=== PATIENT | male | born 1960 | race Caucasian/White ===

== ENCOUNTER 2023-07-25 12:26 | Emergency (ER) | payer MEDICARE, OTHER ==
[~2023-07-25] VITALS: Ht 165.1 cm; Wt 51.2 kg
[2023-07-25 13:29] VITALS: BP 137/87; PULSE 93; RESP 18; TEMP 97.9; O2SAT 97
[2023-07-25] MEDS ORDERED: LACTULOSE 20Gm/30ML SOLN PO ONE (14:15)
[2023-07-25 14:24] LABS: Basophils # (auto) 0 10 ^3/uL (0-0.2); Basophils % (auto) 0.7 % (0.0-2.0); Eosinophils # (auto) 0.1 10 ^3/uL (0-0.8); Eosinophils % (auto) 2.7 % (0.0-7.0); Hematocrit 42.5 % (41.0-53.0); Hemoglobin 14.3 g/dL (13.5-17.5); Lymphocytes # (auto) 1.6 10 ^3/uL (0.4-5.4); Lymphocytes % (auto) 28.5 % (10.0-50.0); Mean Corpuscular Hemoglobin 32.5 pg (28.0-32.0); Mean Corpuscular Hgb Conc. 33.8 g/dL (32.0-36.0); Mean Corpuscular Volume 96.2 fL (80.0-100.0); Monocytes # (auto) 0.7 10 ^3/uL (0-1.3); Monocytes % (auto) 13.2 % (0.0-12.0); Neutrophils % (auto) 54.9 % (37.0-80.0); Nucleated Red Blood Cells % 0.1 %; Red Blood Cells 4.41 10^6/uL (4.5-5.90); Red Cell Distribution Width 14.3 % (11.8-14.3); White Blood Cell 5.5 10^3/uL (4.4-10.8)
[2023-07-25 14:30] LABS: Alanine Aminotransferase 21 U/L (7-40); Albumin 4.2 g/dL (3.2-4.8); Alkaline Phosphatase 119 U/L (46-116); Anion Gap 5 (5-15); Aspartate Aminotransferase 12 U/L (13-40); BUN/Creatinine Ratio 22.1 (10.0-20.0); Bilirubin, Total 0.2 mg/dL (0.2-1.0); Blood Urea Nitrogen 27 mg/dL (9-23); Calcium 8.9 mg/dL (8.7-10.4); Carbon Dioxide 28 mmol/L (20-30); Chloride 108 mmol/L (98-107); Glucose 92 mg/dL (74-106); Potassium 4.4 mmol/L (3.5-5.1); Sodium 141 mmol/L (136-145); Total Protein 6.2 g/dL (5.7-8.2)
[2023-07-25] MEDS ORDERED: LACT10PA2 PO (14:56)
== END 2023-07-25 15:15 | disposition home or self-care (01) ==
LOC: ER 12:26
DX: K59.00 Constipation, unspecified (principal)
CPT/HCPCS: 36415; 74176; 80053; 85025

== ENCOUNTER 2024-04-08 04:35 | Inpatient (IN) | payer MEDICARE ==
[~2024-04-08] VITALS: Ht 167.6 cm; Wt 52.0 kg
[~2024-04-08 04:35] MED LIST: LACT10PA2 PO
[2024-04-08] MEDS: LABETALOL HCL 5 MG/ML 4ML SYRINGE IV ONE (05:00)
[2024-04-08] MEDS: cloNIDine HCL 0.1 MG TAB PO ONE (05:00)
[2024-04-08 05:21] LABS: Basophils # (auto) 0 10 ^3/uL (0-0.2); Basophils % (auto) 0.3 % (0.0-2.0); Eosinophils # (auto) 0 10 ^3/uL (0-0.8); Eosinophils % (auto) 0.2 % (0.0-7.0); Hematocrit 43.9 % (41.0-53.0); Hemoglobin 14.8 g/dL (13.5-17.5); Lymphocytes % (auto) 7.1 % (10.0-50.0); Mean Corpuscular Hemoglobin 31.9 pg (28.0-32.0); Mean Corpuscular Hgb Conc. 33.7 g/dL (32.0-36.0); Mean Corpuscular Volume 94.4 fL (80.0-100.0); Monocytes % (auto) 7.2 % (0.0-12.0); Neutrophils % (auto) 85.2 % (37.0-80.0); Red Blood Cells 4.65 10^6/uL (4.5-5.90); Red Cell Distribution Width 14.4 % (11.8-14.3); White Blood Cell 14.1 10^3/uL (4.4-10.8)
[2024-04-08 05:33] LABS: Chloride 103 mmol/L (98-107); Potassium 4.2 mmol/L (3.5-5.1); Sodium 137 mmol/L (136-145)
[2024-04-08 05:34] LABS: Anion Gap 5 (5-15); Carbon Dioxide 29 mmol/L (20-30)
[2024-04-08 05:35] LABS: Calcium 10.2 mg/dL (8.7-10.4)
[2024-04-08 05:39] LABS: BUN/Creatinine Ratio 11.2 (10.0-20.0); Blood Urea Nitrogen 12 mg/dL (9-23); Glucose 125 mg/dL (74-106)
[2024-04-08] MEDS: metroNIDAZOLE 500MG/100ML 100 ML IV ONE (09:15)
[2024-04-08] MEDS ORDERED: ACETAMINOPHEN 325 MG TAB PO PRN (09:15)
[2024-04-08] MEDS: OMNIPAQUE 12mg/ml 500ml ORAL SOLUTION PO ONE (09:31)
[2024-04-08] MEDS: SOD CHL 0.45% 1,000 ML IV SCH (09:46)
[2024-04-08] MEDS: cefTRIAXone 1GM/50ML D5W 50 ML IV ONE (09:46)
[2024-04-08] MEDS: ONDANSETRON HCL 4 MG/2 ML VIAL IV ONE (09:47)
[2024-04-08] MEDS: SODIUM CHLORIDE 0.9% 1,000 ML IV ONE (09:47)
[2024-04-08] MEDS: MORPHINE SULFATE 4 MG/ML SYR/VIAL IV ONE (09:50)
[2024-04-08 10:51] LABS: Urine Bacteria None Seen /hpf (None Seen)
[2024-04-08 11:05] LABS: Urine Blood Negative /uL (Negative); Urine Clarity Turbid (Clear); Urine Color Yellow (Yellow); Urine Mucus FEW (None Seen); Urine Protein, UAD TRACE (Negative); Urine Specific Gravity 1.022 (1.001-1.035); Urine Urobilinogen 2 mg/dL (Negative); Urine WBC 12 /hpf (0 - 3); Urine pH 6.5 (5.0-9.0)
[2024-04-08 11:09] LABS: Amphetamine Screen, Urine Pos (NEGATIVE); Benzodiazephine Screen, Urine Neg (NEGATIVE)
[2024-04-08 11:10] LABS: Barbiturate Scree,Urine Neg (NEGATIVE); Cannabinoid Screen, Urine Neg (NEGATIVE); Cocaine Screen, Urine Neg (NEGATIVE); Opiate Scree,Urine Pos (NEGATIVE); Phencyclidine Screen, Urine Neg (NEGATIVE)
[2024-04-08] MEDS: HYDROcodone-ACET 5/325MG TAB PO PRN (11:30)
[2024-04-08] MEDS: NICOTINE 7MG/24HR TOPICAL PATCH TD SCH (11:30)
[2024-04-08] MEDS: ONDANSETRON HCL 4 MG/2 ML VIAL IV PRN (11:30)
[2024-04-08] MEDS: PANTOPRAZOLE 40 MG/10 ML VIAL INJ IV SCH (11:30)
[2024-04-08] MEDS: LISINOPRIL 5 MG TAB PO SCH (11:32)
[2024-04-08] MEDS: metroNIDAZOLE 500MG/100ML 100 ML IV SCH (15:10)
[2024-04-08 17:02] VITALS: PULSE 92; RESP 20; O2SAT 96
[2024-04-08 18:10] VITALS: BP 120/81; PULSE 87; RESP 18; TEMP 99.3; O2SAT 94
[2024-04-08 18:23] VITALS: BP 120/81; PULSE 87; RESP 18; TEMP 99.3; O2SAT 94
[2024-04-08 21:00] VITALS: BP 102/58; PULSE 97; RESP 16; TEMP 99.6; O2SAT 100
[2024-04-09] VITALS (9 sets, daily range): BP systolic 88–112; BP diastolic 54–74; PULSE 79–96; RESP 12–21; TEMP 98–100; O2SAT 94–99
[2024-04-09 06:05] LABS: Basophils # (auto) 0.1 10 ^3/uL (0-0.2); Basophils % (auto) 0.3 % (0.0-2.0); Eosinophils # (auto) 0 10 ^3/uL (0-0.8); Eosinophils % (auto) 0.2 % (0.0-7.0); Hematocrit 39.1 % (41.0-53.0); Lymphocytes # (auto) 1.2 10 ^3/uL (0.4-5.4); Lymphocytes % (auto) 7.2 % (10.0-50.0); Mean Corpuscular Hgb Conc. 33.3 g/dL (32.0-36.0); Monocytes # (auto) 1.6 10 ^3/uL (0-1.3); Monocytes % (auto) 9.3 % (0.0-12.0); Neutrophils # (auto) 14.4 10 ^3/uL (1.6-8.6); Red Blood Cells 4.07 10^6/uL (4.5-5.90); Red Cell Distribution Width 14.6 % (11.8-14.3); White Blood Cell 17.3 10^3/uL (4.4-10.8)
[2024-04-09 06:28] LABS: Albumin 3.5 g/dL (3.2-4.8); Alkaline Phosphatase 118 U/L (46-116); Anion Gap 4 (5-15); Aspartate Aminotransferase 10 U/L (13-40); BUN/Creatinine Ratio 10.3 (10.0-20.0); Bilirubin, Total 0.7 mg/dL (0.2-1.0); Blood Urea Nitrogen 10 mg/dL (9-23); Calcium 9.2 mg/dL (8.7-10.4); Carbon Dioxide 24 mmol/L (20-30); Chloride 104 mmol/L (98-107); Glucose 97 mg/dL (74-106); Potassium 3.6 mmol/L (3.5-5.1); Total Protein 5.7 g/dL (5.7-8.2)
[2024-04-09 06:31] LABS: Alanine Aminotransferase < 9 U/L (7-40); Sodium 132 mmol/L (136-145)
[2024-04-09] MEDS ORDERED: LACT10SO3 PO (07:03)
[2024-04-09] MEDS: cefTRIAXone 1GM/50ML D5W 50 ML IV SCH (08:23)
[2024-04-09] MEDS: ACETAMINOPHEN 325 MG TAB PO PRN (08:28)
[2024-04-10] MEDS: MORPHINE SULFATE INJ 2 MG/ml SYRG IV PRN (00:58)
[2024-04-10 05:00] VITALS: BP 107/74; PULSE 81; RESP 18; TEMP 98; O2SAT 94
[2024-04-10 07:12] LABS: Basophils # (auto) 0 10 ^3/uL (0-0.2); Basophils % (auto) 0.4 % (0.0-2.0); Eosinophils # (auto) 0.1 10 ^3/uL (0-0.8); Eosinophils % (auto) 0.5 % (0.0-7.0); Hematocrit 37.4 % (41.0-53.0); Hemoglobin 12.8 g/dL (13.5-17.5); Lymphocytes # (auto) 1.1 10 ^3/uL (0.4-5.4); Lymphocytes % (auto) 9.3 % (10.0-50.0); Mean Corpuscular Hgb Conc. 34.2 g/dL (32.0-36.0); Mean Corpuscular Volume 93.8 fL (80.0-100.0); Monocytes # (auto) 0.9 10 ^3/uL (0-1.3); Monocytes % (auto) 7.8 % (0.0-12.0); Neutrophils # (auto) 9.9 10 ^3/uL (1.6-8.6); Red Blood Cells 3.99 10^6/uL (4.5-5.90); Red Cell Distribution Width 14.5 % (11.8-14.3); White Blood Cell 12.1 10^3/uL (4.4-10.8)
[2024-04-10 07:38] LABS: Anion Gap 5 (5-15); Carbon Dioxide 26 mmol/L (20-30); Chloride 105 mmol/L (98-107); Potassium 3.6 mmol/L (3.5-5.1); Sodium 136 mmol/L (136-145)
[2024-04-10 07:39] LABS: Calcium 8.8 mg/dL (8.5-10.1)
[2024-04-10 07:44] LABS: BUN/Creatinine Ratio 14.9 (10.0-20.0); Blood Urea Nitrogen 13 mg/dL (9-23); Glucose 95 mg/dL (74-106)
[2024-04-10 07:57] LABS: INR 1.15 (0.9-1.15); Prothrombin Time 12.1 sec (9.3-11.8)
[2024-04-10 08:00] VITALS: PULSE 88; RESP 18
[2024-04-10 09:00] VITALS: BP 120/78; PULSE 83; RESP 20; TEMP 98.4; O2SAT 94
[2024-04-10 13:00] VITALS: BP 112/71; PULSE 75; RESP 20; TEMP 97.9; O2SAT 100
[2024-04-10 17:00] VITALS: BP 108/73; PULSE 83; RESP 20; TEMP 98.3; O2SAT 95
[2024-04-10] MEDS ORDERED: metroNIDAZOLE 500 MG TAB PO SCH ×2 (22:00)
[2024-04-11] MEDS ORDERED: FLEET ENEMA(ADULT) 135 ML PR ONE (06:00)
[2024-04-11 08:54] LABS: Hepatitis B Surface Antibody Positive (Negative)
[2024-04-11 09:28] LABS: Hepatitis C Antibody Negative (Negative)
== END 2024-04-10 21:40 | disposition left against medical advice (07) | DRG 378 ==
LOC: ER 04:35 → EDSEX 04:35 → EDBD 04:35 → OVERFLOW 09:14 → CENTRAL 18:07
PROVIDERS: ADMIT Registered Nurse; ATTEND Registered Nurse
DX: K62.5 Hemorrhage of anus and rectum (principal); C19 Malignant neoplasm of rectosigmoid junction; F11.20 Opioid dependence, uncomplicated; I16.0 Hypertensive urgency; K63.9 Disease of intestine, unspecified; F15.10 Other stimulant abuse, uncomplicated; K59.00 Constipation, unspecified; Z53.29 Procedure and treatment not carried out because of patient's decision for other reasons; F17.210 Nicotine dependence, cigarettes, uncomplicated
CPT/HCPCS: 36415; 74176; 74177; 80048; 80053; 80307; 81001; 82378; 84484; 85025; 85610; 86706; 86803; 87040; 87045; 87427; 87493; 93005; 96365; 96366; 96368; 96375; C9113; G0378; J2405; J3490

== ENCOUNTER 2024-10-25 17:30 | Emergency (ER) | payer MEDICARE ==
[~2024-10-25] VITALS: Ht 165.1 cm; Wt 53.7 kg
[~2024-10-25 17:30] MED LIST changes: -LACT10PA2 PO; +LACT10SO3 PO
[2024-10-25 17:39] VITALS: BP 141/98; PULSE 110; RESP 20; O2SAT 100
== END 2024-10-25 18:02 | disposition left against medical advice (07) ==
LOC: ER 17:30
DX: K62.89 Other specified diseases of anus and rectum (principal); R19.7 Diarrhea, unspecified; Z53.21 Procedure and treatment not carried out due to patient leaving prior to being seen by health care provider

== ENCOUNTER 2025-03-25 18:37 | Inpatient (IN) | payer MEDICARE ==
[~2025-03-25] VITALS: Ht 167.6 cm; Wt 59.0 kg
--- NOTE | 2025-03-25 18:59 | ED.PDOC ---
GI ASSESSMENT HPI Comments 65-year-old male came your via EMS for GI bleed. Patient denies any medical problems. States for the past year, he has been having GI issues, including intermittent episodes of diarrhea and constipation. For the past few months, he has been having episodes of GI bleed, passage of bright red blood, with rectal pain. During this time, patient claims he notices a mass protruding out of his rectum. Denies any abdominal pain, nausea or vomiting. Denies any abdominal surgeries. Earlier today, patient had a episode of black tarry stools which he described as pudding like in consistency. 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, noted 6.4 cm rectosigmoid mass, was advised colonoscopy but patient signed AMA then Chief Complaint: GI Bleed Time Seen by MD: 18:57 Primary Care Provider: UNKNOWN Reviewed Notes: Nurses Notes Allergies: Coded Allergies: NO KNOWN ALLERGIES (Unverified , 07/25/23) Home Meds Reported Medications Lactulose (Lactulose) 10 Gm/15 Ml Margaret, 10 GM PO BIDPRN PRN for FOR CONSTIPATION, ML 04/09/24 Information Source: Patient Mode of Arrival: EMS Timing: Hours Duration: Since onset Prehospital treatment: None Stool: Blood Streaked, Black Severity: Moderate Recent Hx of: None Pain Location: Other (Rectal pain) Modifying Factors: Nothing Associated sign and symptoms: Hematochezia, Melena Past Medical History PAST MEDICAL HISTORY: Denies Surgical History: Denies all surgeries Family History Family History: Reviewed,noncontributory to illness Social History Smoker: Cigarettes Alcohol: Denies ETOH Use Drugs: Methamphetamine Lives In: Home Constitutional: denies: chills, diaphoresis, fatigue, fever, malaise, sweats, weakness, others EENTM: denies: blurred vision, double vision, ear bleeding, ear discharge, ear drainage, ear pain, ear ringing, eye pain, eye redness, hearing loss, mouth pa in, mouth swelling, nasal discharge, nose bleeding, nose congestion, nose pain, photophobia, tearing, throat pain, throat swelling, voice changes, others Respiratory: denies: cough, hemoptysis, orthopnea, SOB at rest, shortness of breath, SOB with excertion, stridor, wheezing, others Cardiovascular: denies: chest pain, dizzy spells, diaphoresis, Dyspnea on exertion, edema, irregular heart beat, left arm pain, lightheadedness, palpitations, PND, syncope, others Gastrointestinal: reports: diarrhea, melena, rectal bleeding, rectal pain; denies: abdomen distended, abdominal pain, blood streaked bowels, constipated, dysphagia, difficulty swallowing, hematemesis, nausea, poor appetite, poor fluid intake, vomiting, others Genitourinary: denies: burning, dysuria, flank pain, frequency, hematuria, incontinence, penile discharge, penile sore, pain, testicle pain, testicle swelling, urgency, others Neurological: denies: dizziness, fainting, headache, left sided numbness, left sided weakness, numbness, paresthesia, pre-existing deficit, right sided numbness, right sided weakness, seizure, speech problems, tingling, tremors, weakness, others Musculoskeletal: denies: back pain, gout, joint pain, joint swelling, muscle pain, muscle stiffness, neck pain, others Integumetry: denies: bruises, change in color, change in hair/nails, dryness, laceration, lesions, lumps, rash, wounds, others Allergic/Immunocompromised: denies: Difficulty Healing, Frequent Infections, Hives, Itching, others Hematologic/Lymphatic: denies: anemia, blood clots, easy bleeding, easy bruising, swollen glands, others Endocrine: denies: excessive hunger, excessive sweating, excessive thirst, excessive urination, flushing, intolerance to cold, intolerance to heat, unexplained weight gain, unexplained weight loss, others Psychiatric: denies: anxiety, bipolar disorder, depression, hopeless, panic disorder, schizophrenia, sleepless, suicidal, others Physical Exam General Appearance: No Apparent Distress, Normal HEENT: Normal ENT Inspection, Pharynx Normal, TMs Normal Neck: Full Range of Motion, Non-Tender, Normal, Normal Inspection Respiratory: Chest Non-Tender, Lungs Clear, No Accessory Muscle Use, No Respiratory Distress, Normal Breath Sounds Cardiovascular: No Edema, No JVD, No Murmur, No Gallop, Normal Peripheral Pulses, Regular Rate/Rhythm Breast Exam: Deferred Gastrointestinal: No Organomegaly, Non Tender, No Pulsatile Mass, Normal Bowel Sounds, Soft Genitalia: Deferred Pelvic: Deferred Rectal: Deferred Extremities: No calf tenderness, Normal capillary refill, Normal inspection, Normal range of motion, Non-tender, No pedal edema Musculoskeletal : Apperance: Normal Neurologic: Alert, grass farm laborer II-XII nml as Tested, No Motor Deficits, Normal Affect, Normal Mood, No Sensory Deficits Cerebellar Function: Normal Reflexes: Normal Skin: Dry, Normal Color, Warm Lymphatic: No Adenopathy Was a procedure done? Was a procedure done?: No GI differential Dx Differential Diagnosis: Diverticular disease, Gastritis/PUD, Gastroenteritis, GI hemorrhage, Hernia, Inflammatory BD, Ischemic Bowel, Anemia, Other (Rectal prolapse) X-Ray, Labs, Meds, VS Vital Signs Date Time Temp Pulse Resp B/P (MAP) Pulse Ox O2 Delivery O2 Flow Rate FiO2 03/25/25 21:00 89 18 146/101 (116) 98 03/25/25 19:15 98.3 86 30 131/87 (102) 96 98.3 03/25/25 19:15 90 22 96 Room Air* 0 21 03/25/25 18:42 98.0 91 18 131/80 (97) 99 98.0 Lab Test 03/25/25 19:46 03/25/25 18:55 Range/Units Urine Color Light-yellow Yellow Urine Clarity Clear Clear Urine pH 6.5 5.0-9.0 Urine Specific [place] 1.013 1.001-1.035 Urine Protein Negative Negative Urine Ketones Negative Negative Urine Blood Negative Negative /uL Urine Nitrite Negative Negative Urine Bilirubin Negative Negative Urine Urobilinogen Normal Negative mg/dL Urine Leukocyte Esterase Negative Negative /uL Urine RBC 1 0 - 3 /hpf Urine Microscopic WBC 1 0-3 /HPF Urine Squamous Epithelial Cells None seen <5 /hpf Urine Bacteria None seen None Seen /hpf Urine Glucose Normal Normal mg/dL White Blood Count 10.4 4.4-10.8 10^3/uL Red Blood Count 4.12 L 4.5-5.90 10^6/uL Hemoglobin 11.5 L 13.5-17.5 g/dL Hematocrit 34.8 L 41.0-53.0 % Mean Corpuscular Volume 84.6 80.0-100.0 fL Mean Corpuscular Hemoglobin 27.9 L 28.0-32.0 pg Mean Corpuscular Hemoglobin Concent 33.0 32.0-36.0 g/dL Red Cell Distribution Width 17.3 H 11.8-14.3 % Platelet Count 670 H 140-450 10^3/uL Mean Platelet Volume 5.8 L 6.9-10.8 fL Neutrophils (%) (Auto) 76.6 37.0-80.0 % Lymphocytes (%) (Auto) 13.1 10.0-50.0 % Monocytes (%) (Auto) 8.2 0.0-12.0 % Eosinophils (%) (Auto) 1.5 0.0-7.0 % Basophils (%) (Auto) 0.6 0.0-2.0 % Neutrophils # (Auto) 8.0 1.6-8.6 10 ^3/uL Lymphocytes # (Auto) 1.4 0.4-5.4 10 ^3/uL Monocytes # (Auto) 0.9 0-1.3 10 ^3/uL Eosinophils # (Auto) 0.2 0-0.8 10 ^3/uL Basophils # (Auto) 0.1 0-0.2 10 ^3/uL Nucleated Red Blood Cells 0.1 % Prothrombin Time 10.9 9.3-11.8 sec Prothrombin Time INR 1.03 0.9-1.15 Activated Partial Thromboplast Time 28.0 24.5-34.5 SEC Sodium Level 137 136-145 mmol/L Potassium Level 4.2 3.5-5.1 mmol/L Chloride Level 102 98-107 mmol/L Carbon Dioxide Level 26 20-31 mmol/L Anion Gap 9 5-15 Blood Urea Nitrogen 15 9-23 mg/dL Creatinine 1.13 0.700-1.30 mg/dL Glomerular Filtration Rate Calc 71 >90 mL/min BUN/Creatinine Ratio 13.3 10.0-20.0 Serum Glucose 99 74-106 mg/dL Calcium Level 8.3 L 8.7-10.4 mg/dL Total Bilirubin < 0.2 L 0.2-1.0 mg/dL Aspartate Amino Transferase (AST) 13 13-40 U/L Alanine Aminotransferase (ALT) 13 7-40 U/L Alkaline Phosphatase 108 46-116 U/L Total Protein 5.7 5.7-8.2 g/dL Albumin 3.5 3.2-4.8 g/dL Current Medications Medications (Trade) Dose Ordered Sig/Romulo Route Start Time Stop Time Status Last Admin Sodium Chloride 1,000 ml @ 1,000 mls/hr Q1H ONCE IV 03/25/25 19:00 03/25/25 19:59 DC 03/25/25 19:03 Time of 1ST Reevaluation: 18:53 Reevaluation 1ST: Unchanged Patient Education/Counseling: Diagnosis, Treatment Family Education/Counseling: No Family Present Departure 1 Departure Time of Disposition: 22:16 Impression: Primary Impression: Rectal bleeding Additional Impressions: Rectal mass Rectal cancer Disposition: ADMITTED INPATIENT Condition: Guarded Discharged With: Self Comments Rectal Bleeding in Patient with Known Rectal Cancer Chief Complaint: Rectal bleeding History of Present Illness: 65-year-old male presents to the emergency department via ambulance with complaints of dark red blood per rectum over the past day. Patient also reports associated rectal discomfort. Patient has a known history of rectal cancer with previous hospital admissions, though chart review indicates no documented outpatient treatment. A CT scan during this visit reveals a significant rectal mass measuring 17 cm x 9 cm. Review of Systems: Constitutional: No reported fever, chills, or weight changes Gastrointestinal: Positive for rectal bleeding and rectal discomfort All other systems reviewed and negative Lab Results: Hemoglobin: 11.5 g/dL (Low) Hematocrit: 34.8% (Low) Chemistry panel: Within normal limits Imaging and Other Relevant Results: CT scan: Large rectal mass measuring 17 cm x 9 cm Medical Decision Making: Summary Statement: 65-year-old male with known rectal cancer presenting with acute rectal bleeding and known large rectal mass requiring admission. Problem List: 1. Acute rectal bleeding, 2. Known rectal cancer with large mass, 3. Mild anemia Differential Diagnosis: 1. Bleeding from known rectal cancer, 2. Hemorrhoids, 3. Other colorectal lesions, 4. Inflammatory bowel disease ED Course: Patient evaluated in ED with labs and imaging confirming large rectal mass. Given active bleeding and known malignancy, decision made to admit for further management. Assessment and Plan: 1. Rectal Bleeding: - Admit to hospital for further evaluation and management - Monitor hemoglobin/hematocrit - Type and cross for possible blood products if needed 2. Rectal Cancer: - Oncology consultation during admission - Review previous records and establish outpatient follow-up - Further staging workup as indicated 3. Anemia: - Monitor hemoglobin/hematocrit - Iron studies during admission Billing Information: ICD-10: C20 - Malignant neoplasm of rectum ICD-10: K62.5 - Hemorrhage of anus and rectum ICD-10: D64.9 - Anemia, unspecified Critical Care Note Critical Care Time?: Yes (35 min-critical care time only) Critical care comment: Total critical care time: Approximately 36 minutes Due to a high probability of clinically significant, life threatening deterioration, the patient required my highest level of preparedness to interve ne emergently and I personally spent this critical care time directly and personally managing the patient. This critical care time included obtaining a history; examining the patient; pulse oximetry; ordering and review of studies; arranging urgent treatment with development of a management plan; evaluation of patient's response to treatment; frequent reassessment; and, discussions with other providers. This critical care time was performed to assess and manage the high probability of imminent, life-threatening deterioration that could result in multi-organ failure. It was exclusive of separately billable procedures and treating other patients. Stability Stability form required: No Heart Score Heart Score: Heart Score Response (Comments) Value History N/A 0 EKG N/A 0 Age N/A 0 Risk Factors N/A 0 Troponin N/A 0 Total 0 I personally scribed for OLMAN BRAUN MD ([place]OR[place]TA) on 03/25/25 at 18:59. Electronically submitted by Goyo Donato ([email or web address]). I personally scribed for OLMAN BRAUN MD (LORETTA) on 03/25/25 at 19:11. Electronically submitted by Goyo Donato ([email or web address]). OLMAN BRAUN MD March 25, 2025 18:59
[2025-03-25] MEDS: SODIUM CHLORIDE 0.9% 1,000 ML IV ONE (19:03)
[2025-03-25 19:10] LABS: Basophils # (auto) 0.1 10 ^3/uL (0-0.2); Basophils % (auto) 0.6 % (0.0-2.0); Eosinophils # (auto) 0.2 10 ^3/uL (0-0.8); Eosinophils % (auto) 1.5 % (0.0-7.0); Hematocrit 34.8 % (41.0-53.0); Hemoglobin 11.5 g/dL (13.5-17.5); Lymphocytes # (auto) 1.4 10 ^3/uL (0.4-5.4); Lymphocytes % (auto) 13.1 % (10.0-50.0); Mean Corpuscular Hemoglobin 27.9 pg (28.0-32.0); Mean Corpuscular Volume 84.6 fL (80.0-100.0); Monocytes # (auto) 0.9 10 ^3/uL (0-1.3); Monocytes % (auto) 8.2 % (0.0-12.0); Neutrophils % (auto) 76.6 % (37.0-80.0); Nucleated Red Blood Cells % 0.1 %; Platelet Count (auto) 670 10^3/uL (140-450); Red Blood Cells 4.12 10^6/uL (4.5-5.90); Red Cell Distribution Width 17.3 % (11.8-14.3); White Blood Cell 10.4 10^3/uL (4.4-10.8)
[2025-03-25 19:15] VITALS: PULSE 90; RESP 22; O2SAT 96
[2025-03-25 19:26] LABS: Alanine Aminotransferase 13 U/L (7-40); Albumin 3.5 g/dL (3.2-4.8); Alkaline Phosphatase 108 U/L (46-116); Anion Gap 9 (5-15); BUN/Creatinine Ratio 13.3 (10.0-20.0); Blood Urea Nitrogen 15 mg/dL (9-23); Carbon Dioxide 26 mmol/L (20-31); Chloride 102 mmol/L (98-107); Glucose 99 mg/dL (74-106); INR 1.03 (0.9-1.15); Potassium 4.2 mmol/L (3.5-5.1); Prothrombin Time 10.9 sec (9.3-11.8); Sodium 137 mmol/L (136-145); Total Protein 5.7 g/dL (5.7-8.2)
[2025-03-25 19:27] LABS: Aspartate Aminotransferase 13 U/L (13-40); Bilirubin, Total < 0.2 mg/dL (0.2-1.0); Calcium 8.3 mg/dL (8.7-10.4)
[2025-03-25 19:47] LABS: Urine Bacteria None Seen /hpf (None Seen)
[2025-03-25 19:56] LABS: Urine Blood Negative /uL (Negative); Urine Clarity Clear (Clear); Urine Color Light-Yellow (Yellow); Urine Protein, UAD Negative (Negative); Urine Specific Gravity 1.013 (1.001-1.035); Urine Squamous Epithelial Cell None Seen /hpf (<5); Urine Urobilinogen Normal (Negative); Urine WBC 1 /HPF (0-3); Urine pH 6.5 (5.0-9.0)
[2025-03-25] MEDS: IOHEXOL 300 MG/ML 100ML BOTTLE IJ ONE (21:22)
--- NOTE | 2025-03-25 21:46 | DVH ---
Exam: CT CT AB PEL WITH IV CON ONLY History: rectal bleed / mass / cancer Comparison Study: CT CT ABD PELVIS W CON-ORAL IV on DOS: 04/08/24 Contrast: Type of contrast: Omni 300 Contrast injected: 100 mL Contrast wasted: 0 TECHNIQUE: A digital production control supervisor image was obtained. During the uneventful, intravenous administration of c ontrast material, multislice data acquisition was obtained through the abdomen and pelvis. The data s et was subsequently reconstructed into axial images. Images were reviewed on a work station using a c ombination of axial and multiplanar using a variety of window levels and settings. Radiation Dose Information: CT Dose: CTDI volume is 6.06 mGy. Dose-length product is 327.27 mGy*cm FINDINGS: Lung Bases: No acute or significant lung base finding. Normal heart size. No pleural or pericardial effusion. Liver: The liver is normal in size. No focal lesions. Normal hepatic vascular enhancement. Gallbladder and Biliary Tree: Unremarkable Spleen: Unremarkable Pancreas: The pancreas is normal in appearance without focal lesions or abnormal enhancement. Adrenal Glands: Unremarkable Kidneys: Kidneys demonstrate normal symmetric enhancement without focal lesions, calculi or hydroneph rosis. Bladder: Unremarkable Bowel: The stomach is grossly normal in appearance. Small bowel and colon are normal in caliber and d istribution. 8 cm x 8.3 cm mass in the perirectal area obscuring the ischial rectal fascia bilaterall y and extending within 1 mm of the surface of the right buttocks The appendix is not visualized; heck chino, no secondary findings of acute appendicitis identified. Ascites: Absent Lymphadenopathy: No mesenteric, retroperitoneal or periportal lymphadenopathy. Abdominal Wall and Mesentery: Unremarkable. Vasculature: The visualized abdominal aorta is normal in size and caliber. Abdominal and pelvic vess els demonstrate normal enhancement. Pelvic Organs: Unremarkable Musculoskeletal: No aggressive focal bony lesions, acute fractures or dislocation. Soft tissues: Unremarkable. IMPRESSION: 1. Large perirectal mass measuring 17 cm x 8 x 9 cm. This mass extends caudally in the ischial rect al fossa bilaterally. And is within 1 mm of the skin surface in the right buttocks. 2. All CT scans at this medical facility are performed using dose modulation techniques as appropriat e to a performed exam including the following: Automated exposure control was utilized; adjustment of the MA and/or KV according to patient size; and use of iterative reconstruction technique.
[2025-03-25] MEDS ORDERED: ACETAMINOPHEN 325 MG TAB PO PRN (22:30)
[2025-03-25] MEDS ORDERED: HYDROcodone-ACET 5/325MG TAB PO PRN (22:30)
[2025-03-25] MEDS ORDERED: DOCUSATE SOD 100 MG CAP PO PRN (22:30)
[2025-03-25] MEDS ORDERED: ONDANSETRON HCL 4 MG/2 ML VIAL IV PRN (22:30)
--- NOTE | 2025-03-25 22:42 | DVHHP2 ---
History of Present Illness Reason for Visit: Rectal bleeding History of Present Illness The patient is a 65-year-old male with past medical history of rectal mass who presented to [facility] ED with complaint of rectal bleeding. Patient reports for the past months he has been having episode of GI bleeding, bright red blood per rectum with rectal pain. 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 by lead customer service representative, noted 6.4 cm rectosigmoid mass, was advised colonoscopy but patient signed AMA. Patient was seen and evaluated in the ED, laboratory data shows WBC 10.4, hemoglobin 11.5, hematocrit 34.8, platelets 670, sodium 137, potassium 4.2, BUN 15, creatinine 1.13, glucose 99, blood pressure 131/87, heart rate 89, temperature 98.3 F, O2 saturation 97% on room air. Abdomen/pelvis CT revealing large perirectal mass measuring 17 cm times 8 x 9 cm; this mass extends caudally in the ischial rectal fossa bilaterally, and is within 1 mm of the skin surface in the right buttocks. Please see medication orders section in the computer. On my assessment, patient denies chest pain, no headache, no dizziness, no diaphoresis, no shortness of breath, no nausea, no vomiting, no fever, no chills. Patient was admitted for further evaluation and medical management. Past Medical History Rectal mass Past Surgical History Denies all surgeries Family History Reviewed, noncontributory to the management of this case. Past Social History The patient lives at home, smokes cigarettes, denies alcohol use, uses methamphetamine. Review of Systems Constitutional: Yes: Weakness; No: Fever, Chills, Sweats, Malaise, Other Eyes: No: Pain, Vision change, Conjunctivae inflammation, Eyelid inflammation, Other, Redness ENT: No: Ear pain, Ear discharge, Nose pain, Nose discharge, Nose congestion, Mouth pain, Mouth swelling, Throat pain, Throat swelling, Other Respiratory: No: Cough, Dry, Shortness of breath, SOB with excertion, Wheezing, Hemoptysis, Pleuritic Pain, Sputum, Wheezing, Other Cardiovascular: No: Chest Pain, Palpitations, Orthopnea, Paroxysmal Noc. Dyspnea, Edema, Lt Headedness, Other Gastrointestinal: Other (Rectal bleed); No: Nausea, Vomiting, Abdominal Pain, Diarrhea, Constipation, Melena, Hematochezia Genitourinary: No Dysuria, No Frequency, No Incontinence, No Hematuria, No Retention, No Other Musculoskeletal: No: other, neck pain, shoulder pain, arm pain, back pain, hand pain, leg pain, foot pain Skin: No: Rash, Lesions, Jaundice, Bruising, Other Neurological: No: Weakness, Numbness, Incoordination, Change in speech, Confusion, Seizures, Other Allergies: Coded Allergies: NO KNOWN ALLERGIES (Unverified , 07/25/23) Medications Current Medications Medications Dose Ordered Sig/Romulo Route Start Time Stop Time Status Last Admin Dose Admin Pantoprazole Sodium 40 mg BID IV 03/26/25 10:00 Sodium Chloride 1,000 ml @ 60 mls/hr [id number] IV 03/25/25 22:30 Acetaminophen/ Hydrocodone Bitart 1 tab Q4HP PRN PO 03/25/25 22:30 Ondansetron HCl 4 mg Q4HP PRN IV 03/25/25 22:30 Docusate Sodium 100 mg BIDPRN PRN PO 03/25/25 22:30 Acetaminophen 650 mg Q6HP PRN PO 03/25/25 22:30 Exam Vital Signs Vital Signs Date Time Temp Pulse Resp B/P (MAP) Pulse Ox O2 Delivery O2 Flow Rate FiO2 03/25/25 21:00 89 18 146/101 (116) 98 03/25/25 19:15 98.3 98.3 03/25/25 19:15 Room Air* 0 21 General Appearance: Alert, Oriented X3, Cooperative, No acute distress HEENT: Atraumatic, PERRLA, EOMI, Mucous membr. moist/pink Respiratory: Clear to auscultation, Normal air movement Cardiovascular: Regular rate, Normal S1, Normal S2, No murmurs Abdominal: Normal bowel sounds, Soft, No tenderness, No hepatospenomegaly, Ot her (Rectal mass) Extremities: No clubbing, No cyanosis, No edema, Normal pulses, No tenderness/swelling Skin: No rashes, No breakdown, No significant lesion Neuro: Normal speech, Normal tone, Sensation intact, Cranial nerves 3-12 NL, Reflexes 2+, Other (Generalized weakness) Psych/Mental Status: Mental status NL, Mood NL Labs/Xrays Labs Test 03/25/25 19:46 03/25/25 18:55 Range/Units Urine Color Light-yellow Yellow Urine Clarity Clear Clear Urine pH 6.5 5.0-9.0 Urine Specific [place] 1.013 1.001-1.035 Urine Protein Negative Negative Urine Ketones Negative Negative Urine Blood Negative Negative /uL Urine Nitrite Negative Negative Urine Bilirubin Negative Negative Urine Urobilinogen Normal Negative mg/dL Urine Leukocyte Esterase Negative Negative /uL Urine RBC 1 0 - 3 /hpf Urine Microscopic WBC 1 0-3 /HPF Urine Squamous Epithelial Cells None seen <5 /hpf Urine Bacteria None seen None Seen /hpf Urine Glucose Normal Normal mg/dL White Blood Count 10.4 4.4-10.8 10^3/uL Red Blood Count 4.12 L 4.5-5.90 10^6/uL Hemoglobin 11.5 L 13.5-17.5 g/dL Hematocrit 34.8 L 41.0-53.0 % Mean Corpuscular Volume 84.6 80.0-100.0 fL Mean Corpuscular Hemoglobin 27.9 L 28.0-32.0 pg Mean Corpuscular Hemoglobin Concent 33.0 32.0-36.0 g/dL Red Cell Distribution Width 17.3 H 11.8-14.3 % Platelet Count 670 H 140-450 10^3/uL Mean Platelet Volume 5.8 L 6.9-10.8 fL Neutrophils (%) (Auto) 76.6 37.0-80.0 % Lymphocytes (%) (Auto) 13.1 10.0-50.0 % Monocytes (%) (Auto) 8.2 0.0-12.0 % Eosinophils (%) (Auto) 1.5 0.0-7.0 % Basophils (%) (Auto) 0.6 0.0-2.0 % Neutrophils # (Auto) 8.0 1.6-8.6 10 ^3/uL Lymphocytes # (Auto) 1.4 0.4-5.4 10 ^3/uL Monocytes # (Auto) 0.9 0-1.3 10 ^3/uL Eosinophils # (Auto) 0.2 0-0.8 10 ^3/uL Basophils # (Auto) 0.1 0-0.2 10 ^3/uL Nucleated Red Blood Cells 0.1 % Prothrombin Time 10.9 9.3-11.8 sec Prothrombin Time INR 1.03 0.9-1.15 Activated Partial Thromboplast Time 28.0 24.5-34.5 SEC Sodium Level 137 136-145 mmol/L Potassium Level 4.2 3.5-5.1 mmol/L Chloride Level 102 98-107 mmol/L Carbon Dioxide Level 26 20-31 mmol/L Anion Gap 9 5-15 Blood Urea Nitrogen 15 9-23 mg/dL Creatinine 1.13 0.700-1.30 mg/dL Glomerular Filtration Rate Calc 71 >90 mL/min BUN/Creatinine Ratio 13.3 10.0-20.0 Serum Glucose 99 74-106 mg/dL Calcium Level 8.3 L 8.7-10.4 mg/dL Total Bilirubin < 0.2 L 0.2-1.0 mg/dL Aspartate Amino Transferase (AST) 13 13-40 U/L Alanine Aminotransferase (ALT) 13 7-40 U/L Alkaline Phosphatase 108 46-116 U/L Total Protein 5.7 5.7-8.2 g/dL Albumin 3.5 3.2-4.8 g/dL PATIENT: JADA ZHUACCT: [id number] UNIT: [id number] : 1960 LOC: ER ROOM / BED: / AGE / SEX: 65 / M ADM STATUS: REG ER SERVICE 08 ORDERING PHYSICIAN: OLMAN BRAUN MD PROCEDURE(s): ABPLIV - CT AB PEL WITH IV CON ONLY REASON: rectal bleed / mass / cancer ORDER NUMBER(s): [id number], ACCESSION NUMBER(s): [id number] Exam: CT CT AB PEL WITH IV CON ONLY History: rectal bleed / mass / cancer Comparison Study: CT CT ABD PELVIS W CON-ORAL IV on DOS: 04/08/24 Contrast: Type of contrast: Omni 300 Contrast injected: 100 mL Contrast wasted: 0 TECHNIQUE: A digital ship self defense system mk1 operator image was obtained. During the uneventful, intravenous administration of contrast material, multislice data acquisition was obtained through the abdomen and pelvis. The data set was subsequently reconstructed into axial images. Images were reviewed on a work station using a combination of axial and multiplanar using a variety of window levels and settings. Radiation Dose Information: CT Dose: CTDI volume is 6.06 mGy. Dose-length product is 327.27 mGy*cm FINDINGS: Lung Bases: No acute or significant lung base finding. Normal heart size. No pleural or pericardial effusion. Liver: The liver is normal in size. No focal lesions. Normal hepatic vascular enhancement. Gallbladder and Biliary Tree: Unremarkable Spleen: Unremarkable Pancreas: The pancreas is normal in appearance without focal lesions or abnormal enhancement. Adrenal Glands: Unremarkable Kidneys: Kidneys demonstrate normal symmetric enhancement without focal lesions, calculi or hydronephrosis. Bladder: Unremarkable Bowel: The stomach is grossly normal in appearance. Small bowel and colon are normal in caliber and distribution. 8 cm x 8.3 cm mass in the perirectal area obscuring the ischial rectal fascia bilaterally and extending within 1 mm of the surface of the right buttocks The appendix is not visualized; however, no secondary findings of acute appendicitis identified. Ascites: Absent Lymphadenopathy: No mesenteric, retroperitoneal or periportal lymphadenopathy. Abdominal Wall and Mesentery: Unremarkable. Vasculature: The visualized abdominal aorta is normal in size and caliber. Abdominal and pelvic vessels demonstrate normal enhancement. Pelvic Organs: Unremarkable Musculoskeletal: No aggressive focal bony lesions, acute fractures or dislocation. Soft tissues: Unremarkable. IMPRESSION: 1. Large perirectal mass measuring 17 cm x 8 x 9 cm. This mass extends caudally in the ischial rectal fossa bilaterally. And is within 1 mm of the skin surface in the right buttocks. Assessment/Plan Assessment/Plan Rectal bleeding Rectal mass Rectal cancer Thrombocytosis Generalized weakness Plan 1. Admit to telemetry unit 2. Breathing treatment 3. Pain control management 4. Management of fluids and electrolytes 5. Consultation for hospitalist 6. Diagnostic tests abdomen/pelvis CT 7. DVT prophylaxis-on SCDs 8. Repeat labs CBC, CMP in a.m. 9. Continue with current medical management 10. Treatment plan discussed with patient and RN. Patient verbalized understanding. Plan discussed with: Patient, Other (RN) My Orders Orders - YOANA SUAZO DNP Procedure Category Date Status Time Pantoprazole PHA 03/26/25 In Process (Protonix) 10:00 Allergies SCOTT 03/25/25 In Process 22:21 Code Status CODE 03/25/25 Transmitted 22:21 Sodium Chloride 0.9% PHA 03/25/25 In Process 22:30 Oxygen Per Hour RT 03/25/25 Transmitted 22:21 Hydrocodone-Acet PHA 03/25/25 In Process 5/325mg Tab ([place] 22:30 Ondansetron Hcl PHA 03/25/25 In Process (Zofran) 22:30 Docusate Sodium PHA 03/25/25 In Process Capsule (Colace 22:30 Complete Blood Count LAB 03/26/25 Verified 04:00 Comprehensive LAB 03/26/25 Verified Metabolic Panel 04:00 Condition: Serious SCOTT 03/25/25 In Process 22:21 Acetaminophen Tablet PHA 03/25/25 In Process (Tylenol Tablet) 22:30 Clear Liq Diet DIET 03/26/25 Transmitted Breakfast Bedrest With Bathroom SCOTT 03/25/25 In Process Privileg 22:21 Sequential SCOTT 03/25/25 In Process Compression Device * Gi D[employer] Sales Representative [employer] CONS 03/25/25 Transmitted 22:39 Admit ADMIT 03/25/25 Transmitted 22:39 Nitroglycerin PHA 03/25/25 Transmitted Sublingual (Ntrostat 22:45 Morphine Sulfate PHA 03/25/25 Transmitted Injection 22:45 Stat Ekg For Chest SCOTT 03/25/25 In Process Pain 22:39 Notify Of Changes SCOTT 03/25/25 In Process From Base 22:39 Data Capture Specialist For SCOTT 03/25/25 In Process 24 Hours 22:39 Emergency Dysrhythmia [facility] 03/25/25 In Process Protocol 22:39 Rhythm Strips Once SCOTT 03/25/25 In Process Every Shift 22:39 Oxygen By Nasal RT 03/25/25 Transmitted Cannula 22:39 Problem List: (1) Rectal bleeding (2) Rectal mass (3) Rectal cancer (4) Thrombocytosis (5) Generalized weakness Date of Service: March 25, 2025 Billing Provider: YOANA SUAZO DNP Common Visit Codes: [id number] INP/OBS CARE (HIGH) YOANA SUAZO DNP March 25, 2025 22:42
[2025-03-25] MEDS ORDERED: NITROGLYCERIN 0.4 MG SL TAB SL PRN (22:45)
[2025-03-25] MEDS ORDERED: MORPHINE SULFATE INJ 2 MG/ml SYRG IV PRN (22:45)
[2025-03-25] MEDS: SODIUM CHLORIDE 0.9% 1,000 ML IV SCH (23:09)
[2025-03-25] MEDS: PANTOPRAZOLE 40 MG/10 ML VIAL INJ IV ONE (23:10)
[2025-03-26 03:57] LABS: Alanine Aminotransferase 13 U/L (7-40); Albumin 3.6 g/dL (3.2-4.8); Alkaline Phosphatase 109 U/L (46-116); Anion Gap 9 (5-15); BUN/Creatinine Ratio 11.9 (10.0-20.0); Bilirubin, Total 0.3 mg/dL (0.2-1.0); Blood Urea Nitrogen 12 mg/dL (9-23); Carbon Dioxide 24 mmol/L (20-31); Chloride 107 mmol/L (98-107); Glucose 93 mg/dL (74-106); Potassium 4.2 mmol/L (3.5-5.1); Sodium 140 mmol/L (136-145); Total Protein 5.9 g/dL (5.7-8.2)
[2025-03-26 03:58] LABS: Aspartate Aminotransferase 11 U/L (13-40); Calcium 8.5 mg/dL (8.7-10.4)
[2025-03-26 03:59] LABS: Basophils # (auto) 0.1 10 ^3/uL (0-0.2); Basophils % (auto) 1.1 % (0.0-2.0); Eosinophils # (auto) 0.2 10 ^3/uL (0-0.8); Eosinophils % (auto) 2.3 % (0.0-7.0); Hematocrit 37.8 % (41.0-53.0); Hemoglobin 12.3 g/dL (13.5-17.5); Lymphocytes # (auto) 1.7 10 ^3/uL (0.4-5.4); Lymphocytes % (auto) 20.1 % (10.0-50.0); Mean Corpuscular Hemoglobin 27.7 pg (28.0-32.0); Mean Corpuscular Hgb Conc. 32.5 g/dL (32.0-36.0); Mean Corpuscular Volume 85.1 fL (80.0-100.0); Monocytes # (auto) 0.7 10 ^3/uL (0-1.3); Monocytes % (auto) 8.8 % (0.0-12.0); Neutrophils # (auto) 5.7 10 ^3/uL (1.6-8.6); Neutrophils % (auto) 67.7 % (37.0-80.0); Nucleated Red Blood Cells % 0.1 %; Platelet Count (auto) 692 10^3/uL (140-450); Red Blood Cells 4.43 10^6/uL (4.5-5.90); Red Cell Distribution Width 17.4 % (11.8-14.3); White Blood Cell 8.4 10^3/uL (4.4-10.8)
[2025-03-26 07:30] VITALS: TEMP 99.2
[2025-03-26 08:15] VITALS: BP 141/99; PULSE 99; RESP 15; O2SAT 99
[2025-03-26] MEDS: PANTOPRAZOLE 40 MG/10 ML VIAL INJ IV SCH (10:12)
--- NOTE | 2025-03-26 12:16 | DVHPN2 ---
Subjective FEELS OKAY Reviewed: Care Plan, H&P, Labs, Medications, Previous Orders, Radiology, Other (Previous records) Changes from previous H/P or p: No Changes Gastrointestinal: Other (Rectal bleed) Objective Vitals Vital Signs Date Time Temp Pulse Resp B/P (MAP) Pulse Ox O2 Delivery O2 Flow Rate FiO2 03/26/25 10:00 71 19 152/84 (106) 98 03/26/25 07:30 99.2 99.2 03/26/25 07:30 Room Air* 0 21 Intake/Output Intake and Output 03/26/25 07:00 Intake Total 1420 ml Balance 1420 ml Intake IV Total 1420 ml General Appearance: Alert, Oriented X3, Cooperative, No acute distress HEENT: Atraumatic Lungs: Clear to auscultation Cardiovascular: Regular rate Abdomen: Normal bowel sounds Medications Current Medications Medications Dose Ordered Sig/Romulo Route Start Time Stop Time Status Last Admin Dose Admin Pantoprazole Sodium 40 mg BID IV 03/26/25 10:00 03/26/25 10:12 40 MG Sodium Chloride 1,000 ml @ 60 mls/hr [id number] IV 03/25/25 22:30 03/25/25 23:09 60 MLS/HR Acetaminophen/ Hydrocodone Bitart 1 tab Q4HP PRN PO 03/25/25 22:30 Ondansetron HCl 4 mg Q4HP PRN IV 03/25/25 22:30 Docusate Sodium 100 mg BIDPRN PRN PO 03/25/25 22:30 Acetaminophen 650 mg Q6HP PRN PO 03/25/25 22:30 Nitroglycerin 0.4 mg Q5MINP PRN SL 03/25/25 22:45 Morphine Sulfate 2 mg Q30M PRN IV 03/25/25 22:45 Laboratory Results Laboratory Tests 03/26/25 03:23 Chemistry Test 03/25/25 18:55 03/26/25 03:23 Albumin 3.5 g/dL (3.2-4.8) 3.6 g/dL (3.2-4.8) Calcium Level 8.3 mg/dL (8.7-10.4) L 8.5 mg/dL (8.7-10.4) L Total Protein 5.7 g/dL (5.7-8.2) 5.9 g/dL (5.7-8.2) Coagulation Test 03/25/25 18:55 Prothrombin Time 10.9 sec (9.3-11.8) Prothrombin Time INR 1.03 (0.9-1.15) Activated Partial Thromboplast Time 28.0 SEC (24.5-34.5) LFT Test 03/25/25 18:55 03/26/25 03:23 Alanine Aminotransferase (ALT) 13 U/L (7-40) 13 U/L (7-40) Alkaline Phosphatase 108 U/L (46-116) 109 U/L (46-116) Aspartate Amino Transferase (AST) 13 U/L (13-40) 11 U/L (13-40) L Total Bilirubin < 0.2 mg/dL (0.2-1.0) L 0.3 mg/dL (0.2-1.0) Urinalysis Test 03/25/25 19:46 Urine Color Light-yellow (Yellow) Urine Clarity Clear (Clear) Urine pH 6.5 (5.0-9.0) Urine Specific [place] 1.013 (1.001-1.035) Urine Protein Negative (Negative) Urine Ketones Negative (Negative) Urine Blood Negative /uL (Negative) Urine Nitrite Negative (Negative) Urine Bilirubin Negative (Negative) Urine Urobilinogen Normal mg/dL (Negative) Urine Leukocyte Esterase Negative /uL (Negative) Urine RBC 1 /hpf (0 - 3) Urine Microscopic WBC 1 /HPF (0-3) Urine Squamous Epithelial Cells None seen /hpf (<5) Urine Bacteria None seen /hpf (None Seen) Urine Glucose Normal mg/dL (Normal) Assessment/Plan Assessment/Plan Colorectal mass at 17 x 8 x 9 cm Same location mass last year was at 6.4 cm/patient had left AMA at that time Mild anemia Plan: GI and surgical consult. Plan discussed with: Patient Date of Service: March 26, 2025 Billing Provider: ANDREY COLLADO MD Common Visit Codes: [id number] INP/OBS CARE(HIGH) ANDREY COLLADO MD March 26, 2025 12:16
[2025-03-26 14:00] VITALS: BP 147/93; RESP 18; O2SAT 97
[2025-03-26 15:51] VITALS: PULSE 110
== END 2025-03-26 16:02 | disposition left against medical advice (07) | DRG 375 ==
LOC: ER 18:37 → EDBD 18:37 → OVERFLOW 22:39
PROVIDERS: ADMIT Nurse Practitioner Family; ATTEND Nurse Practitioner Family
DX: C20 Malignant neoplasm of rectum (principal); K62.5 Hemorrhage of anus and rectum; D75.839 Thrombocytosis, unspecified; D64.9 Anemia, unspecified; F17.210 Nicotine dependence, cigarettes, uncomplicated; F15.90 Other stimulant use, unspecified, uncomplicated; Z53.29 Procedure and treatment not carried out because of patient's decision for other reasons; Z85.048 Personal history of other malignant neoplasm of rectum, rectosigmoid junction, and anus
CPT/HCPCS: 36415; 74177; 80053; 81001; 82378; 85025; 85610; 85730; 86850; 86900; 86901; 96361; 96374; G0378; J2470

== ENCOUNTER 2025-06-10 10:50 | Emergency (ER) | payer MEDICARE, MEDICAID ==
[~2025-06-10] VITALS: Ht 167.6 cm; Wt 54.5 kg
[2025-06-10] MEDS ORDERED: AMOX500T3 PO (11:10)
[2025-06-10] MEDS ORDERED: MET500T PO (11:10)
--- NOTE | 2025-06-10 11:10 | ED.PDOC ---
History of Present Illness HPI Comments 65-year-old male brought by paramedics because of difficulty having a bowel movement for the past three years. He was diagnosed at [facility] year ago for having mass in the rectum for which he will be unable to have a full bowel movement. He states that his daily bowel movements are mostly liquid. Denies abdominal pain. Denies nausea vomiting. Denies any other symptoms. Chief Complaint: Abdominal Pain Time Seen by MD: 11:03 Primary Care Provider: UNKNOWN Reviewed Notes: Nurses Notes, Medications, Allergies Allergies: Coded Allergies: NO KNOWN ALLERGIES (Unverified , 07/25/23) Home Meds Reported Medications Lactulose (Lactulose) 10 Gm/15 Ml Margaret, 10 GM PO BIDPRN PRN for FOR CONSTIPATION, ML 04/09/24 Information Source: Patient, Emergency Med Personnel Mode of Arrival: EMS Severity: Moderate Timing: Months Duration: Since onset Past Medical History PAST MEDICAL HISTORY: Denies Surgical History: Denies all surgeries Family History Family History: Reviewed,noncontributory to illness Social History Smoker: Cigarettes Alcohol: Denies ETOH Use Drugs: Methamphetamine Lives In: Home Constitutional: denies: chills, diaphoresis, fatigue, fever, malaise, sweats, weakness, others EENTM: denies: blurred vision, double vision, ear bleeding, ear discharge, ear drainage, ear pain, ear ringing, eye pain, eye redness, hearing loss, mouth pain, mouth swelling, nasal discharge, nose bleeding, nose congestion, nose pain, photophobia, tearing, throat pain, throat swelling, voice changes, others Respiratory: denies: cough, hemoptysis, orthopnea, SOB at rest, shortness of breath, SOB with excertion, stridor, wheezing, others Cardiovascular: denies: chest pain, dizzy spells, diaphoresis, Dyspnea on exertion, edema, irregular heart beat, left arm pain, lightheadedness, palpitations, PND, syncope, others Gastrointestinal: reports: constipated; denies: abdomen distended, abdominal pain, blood streaked bowels, diarrhea, dysphagia, difficulty swallowing, hematemesis, melena, nausea, poor appetite, poor fluid intake, rectal bleeding, rectal pain, vomiting, others Genitourinary: denies: burning, dysuria, flank pain, frequency, hematuria, incontinence, penile discharge, penile sore, pain, testicle pain, testicle swelling, urgency, others Neurological: denies: dizziness, fainting, headache, left sided numbness, left sided weakness, numbness, paresthesia, pre-existing deficit, right sided numbness, right sided weakness, seizure, speech problems, tingling, tremors, weakness, others Musculoskeletal: denies: back pain, gout, joint pain, joint swelling, muscle pain, muscle stiffness, neck pain, others Integumetry: denies: bruises, change in color, change in hair/nails, dryness, laceration, lesions, lumps, rash, wounds, others Allergic/Immunocompromised: denies: Difficulty Healing, Frequent Infections, Hives, Itching, others Hematologic/Lymphatic: denies: anemia, blood clots, easy bleeding, easy brui sing, swollen glands, others Endocrine: denies: excessive hunger, excessive sweating, excessive thirst, ex cessive urination, flushing, intolerance to cold, intolerance to heat, unexplained weight gain, unexplained weight loss, others Psychiatric: denies: anxiety, bipolar disorder, depression, hopeless, panic disorder, schizophrenia, sleepless, suicidal, others Physical Exam General Appearance: Moderate Distress HEENT: Normal ENT Inspection, Pharynx Normal, TMs Normal Neck: Full Range of Motion, Non-Tender, Normal, Normal Inspection Respiratory: Chest Non-Tender, Lungs Clear, No Accessory Muscle Use, No Respiratory Distress, Normal Breath Sounds Cardiovascular: No Edema, No JVD, No Murmur, No Gallop, Normal Peripheral Pul ses, Regular Rate/Rhythm Breast Exam: Deferred Gastrointestinal: No Organomegaly, Non Tender, No Pulsatile Mass, Normal Bowel Sounds, Soft Genitalia: Deferred Pelvic: Deferred Rectal: Deferred Extremities: No calf tenderness, Normal capillary refill, Normal inspection, Normal range of motion, Non-tender, No pedal edema Musculoskeletal : Apperance: Normal Neurologic: Alert, road manager II-XII nml as Tested, No Motor Deficits, Normal Affect, Normal Mood, No Sensory Deficits Cerebellar Function: NOT DONE Reflexes: NOT DONE Skin: Dry, Normal Color, Warm Peripheral Pulses: 3+ Radial (R), 3+ Radial (L) Lymphatic: No Adenopathy Was a procedure done? Was a procedure done?: No Differential Dx Considerations may include: Colitis Gastroenteritis X-Ray, Labs, Meds, VS Vital Signs Date Time Temp Pulse Resp B/P (MAP) Pulse Ox O2 Delivery O2 Flow Rate FiO2 06/10/25 11:00 98.5 81 18 113/74 99 98.5 Patient alert. Complaining of having difficulty with his bowel movements pain Vitals stable. Answering all questions. Abdomen is soft nontender. No sign of distress. Chronic symptom. He states that he is not feeling that bad. He just needed a ride to [facility] for follow up. No critical condition. Explained to the patient. Was told to follow up with his primary care physician. Was told to come back if there is any problem. Time of 1ST Reevaluation: 11:08 Reevaluation 1ST: Improved Patient Education/Counseling: Diagnosis, Treatment, Prognosis, Need For Follow Up Family Education/Counseling: No Family Present SEPSIS Sepsis Screen Date sepsis recognized/suspect: Jun 10, 2025 Time Sepsis recognized/suspect: 1100 Recent Procedure: No On Antibiotic Therapy: No Respiratory Rate >20: No Heart Rate >90: No Temp<36 C (96.8 F) or >38.3 C: No SBP <90 or MAP <65 mmHG: No New Acute Mental Status Change: No Is the patient on CPAP, BIPAP,: No Vital Signs Date Time Temp Pulse Resp B/P (MAP) Pulse Ox O2 Delivery O2 Flow Rate FiO2 06/10/25 11:00 98.5 81 18 113/74 99 98.5 Departure 1 Departure Time of Disposition: 11:09 Impression: Primary Impression: Proctitis Disposition: 01 HOME / SELF CARE / HOMELESS Condition: Good e-Prescriptions Metronidazole (Metronidazole) 500 Mg Tab 500 MG PO TID for 5 Days, #15 TAB Prov: ARABELLA BARRAZA MD 06/10/25 Amoxicillin Trihydrate (Amoxicillin) 500 Mg Tab 1 TAB PO TID for 5 Days, #15 TAB Prov: ARABELLA BARRAZA MD 06/10/25 Discharged With: Self Critical Care Note Critical Care Time?: No Stability Stability form required: No Heart Score Heart Score: Heart Score Response (Comments) Value History N/A 0 EKG N/A 0 Age N/A 0 Risk Factors N/A 0 Troponin N/A 0 Total 0 ARABELLA BARRAZA MD Jun 10, 2025 11:10
[2025-06-10 13:10] VITALS: BP 126/64; PULSE 67; RESP 18; TEMP 98; O2SAT 98
== END 2025-06-10 13:21 | disposition home or self-care (01) ==
LOC: ER 10:50 → EDBD 10:50 → ER 13:21
DX: K62.89 Other specified diseases of anus and rectum (principal); F17.210 Nicotine dependence, cigarettes, uncomplicated; F19.90 Other psychoactive substance use, unspecified, uncomplicated; Z79.899 Other long term (current) drug therapy

== ENCOUNTER 2025-06-15 19:17 | Inpatient (IN) | payer MEDICARE, MEDICAID ==
[~2025-06-15] VITALS: Ht 167.6 cm; Wt 46.0 kg
[~2025-06-15 19:17] MED LIST changes: +AMOX500T3 PO; +MET500T PO
--- NOTE | 2025-06-15 19:35 | ED.PDOC ---
History of Present Illness HPI Comments 65-year-old male came to ER by EMS for wound check. Patient is a very poor informant. Patient appears to be homeless, picked up by paramedics inside backseat of a car. Patient seen here before with a 17x8x9 cm perirectal mass but signed AMA. Noted non healing wound at his buttocks that has been there for months. REVIEW OF SYSTEMS: General: No fever, no chills, or fatigue HEENT: No sore throat, no earache, no congestion, no neck pain. Cardiac: No chest pain. No palpitations. Lungs: No shortness of breath, no cough. GI: No nausea, no vomiting, no diarrhea, no constipation, no abdominal pain : No dysuria, frequency, or urgency. No hematuria. Musculoskeletal: No joint pain , no joint swelling, no extremity edema. Skin: No rash, no itching. (+) decubitus ulcers Neuro: No headache, no dizziness, no weakness PHYSICAL EXAM: General: Awake, alert and oriented. Patient is cachectic Skin: Skin in warm, dry and intact. Appropriate color for ethnicity. HEENT: The head is normocephalic and atraumatic. Conjunctivae are clear without exudates or hemorrhage. Sclera is non-icteric. EOM are intact. No signs of nystagmus. Eyelids are normal in appearance without swelling or lesions. Oral mucosa is pink and moist Neck: The neck is supple with normal range of motion. No JVD. Cardiac: Heart rate and rhythm are normal. No murmurs, gallops, or rubs are auscultated. Respiratory: No signs of respiratory distress. Lung sounds are clear in all lobes bilaterally without rales, rhonchi, or wheezes. Abdominal: Abdomen is soft, generally without distention, guarding or rigidity. Bowel sounds are present and normoactive in all four quadrants. Buttocks: Large open wounds b/l buttocks with purulent base and surrounding erythema Neurological: The patient is awake, alert and oriented to person, place, and time with normal speech. Speech is clear. There is no facial asymmetry. Psychiatric: Irritable mood Chief Complaint: Wound Check Time Seen by MD: 19:38 Primary Care Provider: UNKNOWN Allergies: Coded Allergies: NO KNOWN ALLERGIES (Unverified , 07/25/23) Home Meds No Active Prescriptions or Reported Meds Information Source: Patient Mode of Arrival: EMS Severity: Mild Timing: Months Duration: Since onset Past Medical History PAST MEDICAL HISTORY: Denies Surgical History: Denies all surgeries Family History Family History: Reviewed,noncontributory to illness Social History Smoker: Cigarettes Alcohol: Denies ETOH Use Drugs: Methamphetamine Lives In: Homeless Was a procedure done? Was a procedure done?: No Differential Dx Considerations may include: Anemia, electrolyte imbalance, rectal mass/ cancer, homeless, polysubstance abuse X-Ray, Labs, Meds, VS Vital Signs Date Time Temp Pulse Resp B/P (MAP) Pulse Ox O2 Delivery O2 Flow Rate FiO2 06/16/25 01:20 98.3 90 20 96/67 (77) 97 98.3 06/15/25 19:29 98.2 101 16 110/63 97 98.2 Lab Test 06/16/25 03:54 06/15/25 21:40 06/15/25 19:49 06/15/25 19:46 Range/Units White Blood Count 14.9 H 17.2 H 4.4-10.8 10^3/uL Red Blood Count 2.80 L 3.04 L 4.5-5.90 10^6/uL Hemoglobin 7.5 L 8.0 L 13.5-17.5 g/dL Hematocrit 23.1 L 24.6 L 41.0-53.0 % Mean Corpuscular Volume 82.6 80.9 80.0-100.0 fL Mean Corpuscular Hemoglobin 26.7 L 26.4 L 28.0-32.0 pg Mean Corpuscular Hemoglobin Concent 32.3 32.7 32.0-36.0 g/dL Red Cell Distribution Width 18.3 H 18.2 H 11.8-14.3 % Platelet Count 667 H 698 H 140-450 10^3/uL Mean Platelet Volume 6.1 L 6.1 L 6.9-10.8 fL Neutrophils (%) (Auto) 85.5 H 87.5 H 37.0-80.0 % Lymphocytes (%) (Auto) 4.2 L 4.3 L 10.0-50.0 % Monocytes (%) (Auto) 9.9 7.9 0.0-12.0 % Eosinophils (%) (Auto) 0.2 0.1 0.0-7.0 % Basophils (%) (Auto) 0.2 0.2 0.0-2.0 % Neutrophils # (Auto) 12.8 H 15.1 H 1.6-8.6 10 ^3/uL Lymphocytes # (Auto) 0.6 0.7 0.4-5.4 10 ^3/uL Monocytes # (Auto) 1.5 H 1.4 H 0-1.3 10 ^3/uL Eosinophils # (Auto) 0 0 0-0.8 10 ^3/uL Basophils # (Auto) 0 0 0-0.2 10 ^3/uL Nucleated Red Blood Cells 0.0 0.0 % Sodium Level 135 L 133 L 136-145 mmol/L Potassium Level 3.7 3.8 3.5-5.1 mmol/L Chloride Level 106 103 98-107 mmol/L Carbon Dioxide Level 20 19 L 20-31 mmol/L Anion Gap 9 11 5-15 Blood Urea Nitrogen 39 H 41 H 9-23 mg/dL Creatinine 1.68 H 1.61 H 0.700-1.30 mg/dL Glomerular Filtration Rate Calc 44 47 >90 mL/min BUN/Creatinine Ratio 23.2 H 25.5 H 10.0-20.0 Serum Glucose 118 H 142 H 74-106 mg/dL Calcium Level 7.4 L 8.2 L 8.7-10.4 mg/dL Total Bilirubin 0.2 0.3 0.2-1.0 mg/dL Aspartate Amino Transferase (AST) 33 32 13-40 U/L Alanine Aminotransferase (ALT) 23 25 7-40 U/L Alkaline Phosphatase 130 H 142 H 46-116 U/L Total Protein 4.9 L 5.7 5.7-8.2 g/dL Albumin 2.8 L 3.3 3.2-4.8 g/dL Lactic Acid Level 1.6 2.3 *H 0.4-2.0 mmol/L Microbiology Date/Time Source Procedure Growth Status 06/15/25 19:49 Blood Blood Culture - Final NO GROWTH AFTER 5 DAYS OF INCUBATION. Complete 06/15/25 19:49 Blood Blood Culture - Final NO GROWTH AFTER 5 DAYS OF INCUBATION. Complete Exam: CT CT AB PEL WITH IV CON ONLY History: buttock wounds, constipation COMPARISON: CT CT AB PEL WITH IV CON ONLY on DOS: 03/25/25, CT CT ABD PELVIS W CON-ORAL IV on DOS: 04/08/24, CT CT AB PEL WO CON-NO ORAL OR IV on DOS: 04/08/24, CT CT AB PEL WO CON-NO ORAL OR IV on DOS: 07/25/23 Technique: Multidetector spiral CT of the abdomen and pelvis was performed from lung bases to pubic symphysis. Intravenous contrast was administered during this examination. Portal venous imaging was obtained. Axial, coronal and sagittal multiplanar reformats were performed by the technologist on a separate workstation. Radiation Dose : 1. Abdomen/Pelvis: CTDIvol 5.83mGy, DLP 637.41 mGy*cm. Findings: Exam is limited by patient motion artifact at the pelvis. Lung Bases: Increased size and number of multiple nodules in each lung base. Pulmonary emphysema. Liver: No focal lesion identified. Gallbladder and Biliary Tree: Unremarkable Pancreas: Unremarkable. Spleen: Unremarkable Adrenal Glands: Unremarkable Kidneys: No acute findings. Redemonstrated left renal cyst. Bladder: Unremarkable. Pelvic Organs: Unremarkable as visualized. Bowel: No evidence of obstruction or appendicitis. Large hypodense circumferential rectal mass redemonstrated. A few colonic diverticula are present. Vasculature: Moderate atherosclerosis. Lymphadenopathy: No evidence of new enlarged lymph nodes. Prominent bilateral inguinal and retroperitoneal lymph nodes are redemonstrated. Peritoneum: New small volume ascites along the pericolic gutters. No free air or obvious fluid collection. Abdominal Wall: Increased soft tissue invasion of the buttock soft tissues by t he rectal mass, with component in the right inferior buttocks now measuring up to 10 x 9 cm and more inferior extension of the left gluteal mass. Further cachexia from prior CT. Musculoskeletal: No acute abnormality. No suspicious osseous lesion identified. IMPRESSION: 1. Increased size of the perirectal mass with prominent extension to the inferior buttock soft tissues. Ability to discern between fluid collection and mass extension is limited by CT. Further clinical workup and follow-up are recommended. 2. No evidence of bowel obstruction. 3. Progression of metastatic disease within the lung bases. Radiation optimization: All CT scans at this facility use at least one of these dose optimization techniques: automated exposure control mA and/or kV adjustm ent per patient size (includes targeted exams where dose is matched to clinical indication) or iterative reconstruction. Time of 1ST Reevaluation: 19:33 Reevaluation 1ST: Unchanged Patient Education/Counseling: Need For Follow Up Family Education/Counseling: No Family Present SEPSIS Sepsis Screen Physician Orders Account Manager [id number] (06/15/25 ) Chest Xray 1 View (06/15/25 19:37) Ct Ab Pel With Iv Con Only (06/15/25 19:37) Code Status (06/16/25 03:31) Oxygen Per Hour (06/16/25 03:31) Vital Signs Date Time Temp Pulse Resp B/P (MAP) Pulse Ox O2 Delivery O2 Flow Rate FiO2 06/16/25 01:20 98.3 90 20 96/67 (77) 97 98.3 06/15/25 19:29 98.2 101 16 110/63 97 98.2 Laboratory Tests Test 06/15/25 19:46 06/15/25 19:49 06/15/25 21:40 06/16/25 03:54 Lactic Acid Level 2.3 mmol/L (0.4-2.0) *H 1.6 mmol/L (0.4-2.0) White Blood Count 17.2 10^3/uL (4.4-10.8) H 14.9 10^3/uL (4.4-10.8) H Departure 1 Departure Time of Disposition: 23:17 Impression: Primary Impression: Cellulitis Additional Impression: Rectal mass Disposition: ADMITTED INPATIENT Condition: Stable e-Prescriptions No Active Prescriptions or Reported Meds Comments Patient admitted to hospitalist service for further treatment, evaluation and monitoring. Critical Care Note Critical Care Time?: No Stability Stability form required: No Heart Score Heart Score: Heart Score Response (Comments) Value History N/A 0 EKG N/A 0 Age N/A 0 Risk Factors N/A 0 Troponin N/A 0 Total 0 I personally scribed for ASHLEY FERNANDEZ MD ([email or web address]) on 06/15/25 at 19:34. Electronically submitted by Goyo Donato ([employer]). I personally scribed for ASHLEY FERNANDEZ MD ([email or web address]) on 06/15/25 at 19:40. Electronically submitted by Goyo Donato ([employer]). I personally scribed for ASHLEY FERNANDEZ MD ([email or web address]) on 06/16/25 at 03:53. Electronically submitted by Goyo Donato ([email or web address]). ASHLEY FERNANDEZ MD Jun 15, 2025 19:34
[2025-06-15 20:09] LABS: Hematocrit 24.6 % (41.0-53.0); Hemoglobin 8.0 g/dL (13.5-17.5); Mean Corpuscular Hemoglobin 26.4 pg (28.0-32.0); Mean Corpuscular Volume 80.9 fL (80.0-100.0); Nucleated Red Blood Cells % 0.0 %
[2025-06-15 20:23] LABS: Alanine Aminotransferase 25 U/L (7-40); Albumin 3.3 g/dL (3.2-4.8); Anion Gap 11 (5-15); BUN/Creatinine Ratio 25.5 (10.0-20.0); Chloride 103 mmol/L (98-107); Potassium 3.8 mmol/L (3.5-5.1)
[2025-06-15] MEDS: SODIUM CHLORIDE 0.9% 1,000 ML IV ONE ×2 (20:46→22:43)
[2025-06-15 21:04] LABS: Alkaline Phosphatase 142 U/L (46-116); Bilirubin, Total 0.3 mg/dL (0.2-1.0); Blood Urea Nitrogen 41 mg/dL (9-23); Calcium 8.2 mg/dL (8.7-10.4); Carbon Dioxide 19 mmol/L (20-31); Glucose 142 mg/dL (74-106); Sodium 133 mmol/L (136-145); Total Protein 5.7 g/dL (5.7-8.2)
[2025-06-15 21:09] LABS: Lactic Acid w/Reflex 2.3 mmol/L (0.4-2.0)
[2025-06-15] MEDS: PIPERACILLIN-TAZOB 3.375GM 100 ML IV ONE (22:51)
[2025-06-15] MEDS: fentaNYL CITRATE 100 MCG/2 ML VL IV ONE (22:52)
[2025-06-16] MEDS: KETOROLAC TROMETH 30 MG/ML 1ML VIAL IV ONE (00:02)
[2025-06-16] MEDS: VANCOMYCIN 1GM/200ML PM 200 ML IV ONE (00:02)
[2025-06-16] MEDS: VANCOMYCIN HCL 1000 MG VL ONE (00:03)
[2025-06-16] MEDS: SODIUM CHLORIDE 0.9% 1,000 ML IV ONE (00:23)
[2025-06-16] MEDS: IOHEXOL 300 MG/ML 100ML BOTTLE IJ ONE ×2 (02:13→02:22)
--- NOTE | 2025-06-16 02:50 | DVH ---
CHEST RADIOGRAPH Indication: Suspected Sepsis Technique: 1 view Comparison: CT abdomen/pelvis 03/25/2025 FINDINGS: Lines and Tubes: None Lungs: No evidence of infectious consolidation. Multiple nodules within both lungs, largest in the u pper lung measuring 2.5 cm on the left and 2.3 cm on the right. Pleura: No effusion or pneumothorax. Cardiomediastinal contours: Unremarkable. Other: No acute osseous abnormality. IMPRESSION: 1. No acute cardiopulmonary abnormality. 2. Multiple pulmonary nodules consistent with metastatic disease given presence of rectal malignancy and partial visualization of lung nodules on comparison CT.
--- NOTE | 2025-06-16 03:30 | DVH ---
Exam: CT CT AB PEL WITH IV CON ONLY History: buttock wounds, constipation COMPARISON: CT CT AB PEL WITH IV CON ONLY on DOS: 03/25/25, CT CT ABD PELVIS W CON-ORAL IV on DOS: , CT CT AB PEL WO CON-NO ORAL OR IV on DOS: 04/08/24, CT CT AB PEL WO CON-NO ORAL OR IV on DOS: 07/25/23 Technique: Multidetector spiral CT of the abdomen and pelvis was performed from lung bases to pubic s ymphysis. Intravenous contrast was administered during this examination. Portal venous imaging was o btained. Axial, coronal and sagittal multiplanar reformats were performed by the technologist on a [employer] workstation. Radiation Dose : 1. Abdomen/Pelvis: CTDIvol 5.83mGy, DLP 637.41 mGy*cm. Findings: Exam is limited by patient motion artifact at the pelvis. Lung Bases: Increased size and number of multiple nodules in each lung base. Pulmonary emphysema. Liver: No focal lesion identified. Gallbladder and Biliary Tree: Unremarkable Pancreas: Unremarkable. Spleen: Unremarkable Adrenal Glands: Unremarkable Kidneys: No acute findings. Redemonstrated left renal cyst. Bladder: Unremarkable. Pelvic Organs: Unremarkable as visualized. Bowel: No evidence of obstruction or appendicitis. Large hypodense circumferential rectal mass rede monstrated. A few colonic diverticula are present. Vasculature: Moderate atherosclerosis. Lymphadenopathy: No evidence of new enlarged lymph nodes. Prominent bilateral inguinal and retroperi toneal lymph nodes are redemonstrated. Peritoneum: New small volume ascites along the pericolic gutters. No free air or obvious fluid colle ction. Abdominal Wall: Increased soft tissue invasion of the buttock soft tissues by the rectal mass, with c omponent in the right inferior buttocks now measuring up to 10 x 9 cm and more inferior extension of the left gluteal mass. Further cachexia from prior CT. Musculoskeletal: No acute abnormality. No suspicious osseous lesion identified. IMPRESSION: 1. Increased size of the perirectal mass with prominent extension to the inferior buttock soft tissue s. Ability to discern between fluid collection and mass extension is limited by CT. Further clinical workup and follow-up are recommended. 2. No evidence of bowel obstruction. 3. Progression of metastatic disease within the lung bases. Radiation optimization: All CT scans at this facility use at least one of these dose optimization tawnya hniques: automated exposure control mA and/or kV adjustment per patient size (includes targeted exam s where dose is matched to clinical indication) or iterative reconstruction.
[2025-06-16] MEDS ORDERED: VANCOMYCIN PER PHARMACY 0 MG IV SCH ×2 (03:45→17:30)
[2025-06-16] MEDS ORDERED: ONDANSETRON HCL 4 MG/2 ML VIAL IV PRN ×2 (03:45→14:30)
[2025-06-16] MEDS ORDERED: DOCUSATE SOD 100 MG CAP PO PRN (03:45)
[2025-06-16] MEDS ORDERED: ACETAMINOPHEN 325 MG TAB PO PRN (03:45)
[2025-06-16] MEDS: SODIUM CHLORIDE 0.9% 1,000 ML IV SCH ×2 (03:45→15:34)
[2025-06-16 04:13] LABS: Hematocrit 23.1 % (41.0-53.0); Hemoglobin 7.5 g/dL (13.5-17.5); Mean Corpuscular Hemoglobin 26.7 pg (28.0-32.0); Mean Corpuscular Volume 82.6 fL (80.0-100.0); Nucleated Red Blood Cells % 0.0 %
[2025-06-16] MEDS ORDERED: NITROGLYCERIN 0.4 MG SL TAB SL PRN (04:15)
[2025-06-16] MEDS ORDERED: MORPHINE SULFATE INJ 2 MG/ml SYRG IV PRN (04:15)
[2025-06-16 04:23] LABS: Alanine Aminotransferase 23 U/L (7-40); Anion Gap 9 (5-15); BUN/Creatinine Ratio 23.2 (10.0-20.0); Carbon Dioxide 20 mmol/L (20-31); Chloride 106 mmol/L (98-107); Potassium 3.7 mmol/L (3.5-5.1)
[2025-06-16 04:26] LABS: Albumin 2.8 g/dL (3.2-4.8); Alkaline Phosphatase 130 U/L (46-116); Bilirubin, Total 0.2 mg/dL (0.2-1.0); Blood Urea Nitrogen 39 mg/dL (9-23); Calcium 7.4 mg/dL (8.7-10.4); Glucose 118 mg/dL (74-106); Sodium 135 mmol/L (136-145); Total Protein 4.9 g/dL (5.7-8.2)
--- NOTE | 2025-06-16 05:16 | DVHHP2 ---
History of Present Illness Reason for Visit: Wound infection History of Present Illness The patient is a 65-year-old male with past medical history of rectal cancer status post nonhealing wound presented to [facility] ED for evaluation of wound infection. As reported, patient was picked up by paramedics inside backseat of a car. Patient seen here before with a 17x8x9 cm perirectal mass but signed AMA. Patient was seen and evaluated in the ED, laboratory data shows WBC 17.2, hemoglobin 8.0, hematocrit 24.4, platelets 698, sodium 133, potassium 3.8, BUN 41, creatinine 1.61, glucose 142, GFR 47, lactic acid 2.3 trending down to 1.6, calcium 8.2, blood pressure 96/67, heart rate 90, t emperature 98.3 F, O2 saturation 97% on room air. Abdomen/pelvis CT revealing increased size of the perirectal mass with prominent extension to the inferior buttocks soft tissues; progression of metastatic disease within the lungs bases. Patient was started on IV antibiotic regimen vancomycin, please see medication orders section in the computer. On my assessment, patient denied chest pain, no headache, no dizziness, no shortness of breath, no nausea, no vomiting, no fever, no chills. Patient was admitted for further evaluation and medical management. Past Medical History Rectal mass Past Surgical History Denies all surgeries Family History Reviewed, noncontributory to the management of this case. Past Social History The patient lives at home, smokes cigarettes, denies alcohol use, uses methamphetamine. Review of Systems Constitutional: Yes: Weakness; No: Fever, Chills, Sweats, Malaise, Other Eyes: No: Pain, Vision change, Conjunctivae inflammation, Eyelid inflammation, Other, Redness ENT: No: Ear pain, Ear discharge, Nose pain, Nose discharge, Nose congestion, Mouth pain, Mouth swelling, Throat pain, Throat swelling, Other Respiratory: No: Cough, Dry, Shortness of breath, SOB with excertion, Wheezing, Hemoptysis, Pleuritic Pain, Sputum, Wheezing, Other Cardiovascular: No: Chest Pain, Palpitations, Orthopnea, Paroxysmal Noc. Dyspnea, Edema, Lt Headedness, Other Gastrointestinal: Melena; No: Nausea, Vomiting, Abdominal Pain, Diarrhea, Constipation, Hematochezia, Other Genitourinary: No Dysuria, No Frequency, No Incontinence, No Hematuria, No Retention; Other (York catheter in place) Musculoskeletal: No: other, neck pain, shoulder pain, arm pain, back pain, hand pain, leg pain, foot pain Skin: Lesions, Other (Rectal open wound); No: Rash, Jaundice, Bruising Neurological: No: Weakness, Numbness, Incoordination, Change in speech, Confusion, Seizures, Other Allergies: Coded Allergies: NO KNOWN ALLERGIES (Unverified , 07/25/23) Medications Current Medications Medications Dose Ordered Sig/Romulo Route Start Time Stop Time Status Last Admin Dose Admin Vancomycin HCl 0 ml @ 0 mls/hr UD IV 06/16/25 03:45 UNV Piperacillin Sod/ Tazobactam Sod 100 ml @ 25 mls/hr Q8HR IV 06/16/25 06:00 Sodium Chloride 1,000 ml @ 60 mls/hr [id number] IV 06/16/25 03:45 Acetaminophen/ Hydrocodone Bitart 1 tab Q4HP PRN PO 06/16/25 03:45 Ondansetron HCl 4 mg Q4HP PRN IV 06/16/25 03:45 Docusate Sodium 100 mg BIDPRN PRN PO 06/16/25 03:45 Acetaminophen 650 mg Q6HP PRN PO 06/16/25 03:45 Exam Vital Signs Vital Signs Date Time Temp Pulse Resp B/P (MAP) Pulse Ox O2 Delivery O2 Flow Rate FiO2 06/16/25 01:20 98.3 90 20 96/67 (77) 97 98.3 General Appearance: Alert, Oriented X3, Cooperative, No acute distress HEENT: Atraumatic, PERRLA, EOMI, Mucous membr. moist/pink Respiratory: Normal air movement Cardiovascular: Regular rate, Normal S1, Normal S2, No murmurs Abdominal: Normal bowel sounds, Soft, No tenderness, No hepatospenomegaly, No masses Extremities: No clubbing, No cyanosis, No edema, Normal pulses, No tenderness/swelling Skin: No rashes, No significant lesion Neuro: Normal speech, Normal tone, Sensation intact, Cranial nerves 3-12 NL, Reflexes 2+, Other (Generalized weakness) Psych/Mental Status: Mental status NL, Mood NL Labs/Xrays Labs Test 06/16/25 03:54 06/15/25 21:40 06/15/25 19:49 Range/Units Lactic Acid Level 1.6 0.4-2.0 mmol/L Eosinophils (%) (Auto) 0.1 0.0-7.0 % Eosinophils # (Auto) 0 0-0.8 10 ^3/uL Basophils # (Auto) 0 0-0.2 10 ^3/uL Nucleated Red Blood Cells 0.0 % PATIENT: JADA ZHUACCT: [id number] UNIT: [id number] : 1960 LOC: ER ROOM / BED: / AGE / SEX: 65 / M ADM STATUS: REG ER SERVICE 36 ORDERING PHYSICIAN: ASHLEY FERNANDEZ MD PROCEDURE(s): ABPLIV - CT AB PEL WITH IV CON ONLY REASON: buttock wounds, constipation ORDER NUMBER(s): [id number], ACCESSION NUMBER(s): [id number] Exam: CT CT AB PEL WITH IV CON ONLY History: buttock wounds, constipation COMPARISON: CT CT AB PEL WITH IV CON ONLY on DOS: 03/25/25, CT CT ABD PELVIS W CON-ORAL IV on DOS: 04/08/24, CT CT AB PEL WO CON-NO ORAL OR IV on DOS: 04/08/24, CT CT AB PEL WO CON-NO ORAL OR IV on DOS: 07/25/23 Technique: Multidetector spiral CT of the abdomen and pelvis was performed from lung bases to pubic symphysis. Intravenous contrast was administered during this examination. Portal venous imaging was obtained. Axial, coronal and sagittal multiplanar reformats were performed by the technologist on a separate workstation. Radiation Dose: 1. Abdomen/Pelvis: CTDIvol 5.83mGy, DLP 637.41 mGy*cm. Findings: Exam is limited by patient motion artifact at the pelvis. Lung Bases: Increased size and number of multiple nodules in each lung base. Pulmonary emphysema. Liver: No focal lesion identified. Gallbladder and Biliary Tree: Unremarkable Pancreas: Unremarkable. Spleen: Unremarkable Adrenal Glands: Unremarkable Kidneys: No acute findings. Redemonstrated left renal cyst. Bladder: Unremarkable. Pelvic Organs: Unremarkable as visualized. Bowel: No evidence of obstruction or appendicitis. Large hypodense circumferential rectal mass redemonstrated. A few colonic diverticula are present. Vasculature: Moderate atherosclerosis. Lymphadenopathy: No evidence of new enlarged lymph nodes. Prominent bilateral inguinal and retroperitoneal lymph nodes are redemonstrated. Peritoneum: New small volume ascites along the pericolic gutters. No free air or obvious fluid collection. Abdominal Wall: Increased soft tissue invasion of the buttock soft tissues by the rectal mass, with component in the right inferior buttocks now measuring up to 10 x 9 cm and more inferior extension of the left gluteal mass. Further cachexia from prior CT. Musculoskeletal: No acute abnormality. No suspicious osseous lesion identified. IMPRESSION: 1. Increased size of the perirectal mass with prominent extension to the inferior buttock soft tissues. Ability to discern between fluid collection and mass extension is limited by CT. Further clinical workup and follow-up are recommended. 2. No evidence of bowel obstruction. 3. Progression of metastatic disease within the lung bases. ORDERING PHYSICIAN: ASHLEY FERNANDEZ MD PROCEDURE(s): CXR1 - CHEST XRAY 1 VIEW REASON: Suspected Sepsis ORDER NUMBER(s): [id number], ACCESSION NUMBER(s): [id number] CHEST RADIOGRAPH Indication: Suspected Sepsis Technique: 1 view Comparison: CT abdomen/pelvis 03/25/2025 FINDINGS: Lines and Tubes: None Lungs: No evidence of infectious consolidation. Multiple nodules within both lungs, largest in the upper lung measuring 2.5 cm on the left and 2.3 cm on the right. Pleura: No effusion or pneumothorax. Cardiomediastinal contours: Unremarkable. Other: No acute osseous abnormality. IMPRESSION: 1. No acute cardiopulmonary abnormality. 2. Multiple pulmonary nodules consistent with metastatic disease given presence of rectal malignancy and partial visualization of lung nodules on comparison CT. SEPSIS Sepsis Screen Date sepsis recognized/suspect: Jun 15, 2025 Time Sepsis recognized/suspect: 1919 Recent Procedure: No On Antibiotic Therapy: No Respiratory Rate >20: No Heart Rate >90: Yes Temp<36 C (96.8 F) or >38.3 C: No SBP <90 or MAP <65 mmHG: No New Acute Mental Status Change: No Is the patient on CPAP, BIPAP,: No Physician Orders Complete Blood Count (06/16/25 04:00) Comprehensive Metabolic Panel (06/16/25 04:00) Vancomycin Per Pharmacy (06/16/25 03:45) Piperacillin-Tazob 3.375gm (Zosyn 3.375g (06/16/25 06:00) Allergies (06/16/25 03:31) Code Status (06/16/25 03:31) Sodium Chloride 0.9% (06/16/25 03:45) Oxygen Per Hour (06/16/25 03:31) Hydrocodone-Acet 5/325mg Tab ([place] 5/32 (06/16/25 03:45) Ondansetron Hcl (Zofran) (06/16/25 03:45) Docusate Sodium Capsule (Colace Capsule) (06/16/25 03:45) Complete Blood Count (06/17/25 04:00) Cardiac Diet-2gna,Lofat,Lochol (06/16/25 Breakfast) Condition: Serious (06/16/25 03:31) Acetaminophen Tablet (Tylenol Tablet) (06/16/25 03:45) Bedrest With Bathroom Privileg (06/16/25 03:31) Sequential Compression Device (06/16/25 ) * Wound Consult (06/16/25 ) Admit (06/16/25 04:02) Nitroglycerin Sublingual (Ntrostat Subli (06/16/25 04:15) Morphine Sulfate Injection (06/16/25 04:15) Stat Ekg For Chest Pain (06/16/25 04:02) Notify Md Of Changes From Base (06/16/25 04:02) Dental Practitioner For 24 Hours (06/16/25 04:02) Emergency Dysrhythmia Protocol (06/16/25 04:02) Rhythm Strips Once Every Shift (06/16/25 04:02) Oxygen By Nasal Cannula (06/16/25 04:02) Type And Screen (06/16/25 04:02) Vital Signs Date Time Temp Pulse Resp B/P (MAP) Pulse Ox O2 Delivery O2 Flow Rate FiO2 06/16/25 01:20 98.3 90 20 96/67 (77) 97 98.3 Laboratory Tests Test 06/15/25 19:46 06/15/25 19:49 06/15/25 21:40 06/16/25 03:54 Lactic Acid Level 2.3 mmol/L (0.4-2.0) *H 1.6 mmol/L (0.4-2.0) White Blood Count 17.2 10^3/uL (4.4-10.8) H Pending Medications Medications Dose Ordered Sig/Romulo Route Start Time Stop Time Status Last Admin Dose Admin Ketorolac Tromethamine 15 mg ONCE ONCE IV 06/15/25 23:00 06/15/25 23:01 DC 06/16/25 00:02 15 MG Piperacillin Sod/ Tazobactam Sod 100 ml @ 100 mls/hr ONCE ONCE IV 06/15/25 22:15 06/15/25 23:14 DC 06/15/25 22:51 100 MLS/HR Sodium Chloride 1,000 ml @ 1,000 mls/hr Q1H ONCE IV 06/15/25 19:45 06/15/25 20:44 DC 06/15/25 20:46 1,000 MLS/HR Sodium Chloride 1,000 ml @ 1,000 mls/hr Q1H ONCE IV 06/15/25 22:45 06/15/25 23:44 DC 06/15/25 22:43 1,000 MLS/HR Vancomycin HCl 200 ml @ 200 mls/hr ONCE ONCE IV 06/15/25 22:15 06/15/25 23:14 DC 06/16/25 00:02 200 MLS/HR Assessment/Plan Assessment/Plan Wound infection Cellulitis Rectal Cancer Thrombocytosis Generalized weakness Leukocytosis, unspecified Plan 1. Admit to telemetry units 2. Breathing treatment 3. Pain control management 4. IV antibiotic management 5. Management of fluids and electrolytes 6. Consultation for hospitalist/wound care 7. Diagnostic test abdomen/pelvis CT 8. DVT prophylaxis-on SCDs 9. Repeat labs CBC, CMP in a.m. 10. Home medication reviewed and reconciled 11. Continue with current medical management 12. Treatment plan discussed with patient and RN. Patient verbalized u nderstanding. Plan discussed with: Patient, Other (RN) My Orders Orders - YOANA SUAZO DNP Procedure Category Date Status Time Complete Blood Count LAB 06/16/25 In Process 04:00 Comprehensive LAB 06/16/25 In Process Metabolic Panel 04:00 Vancomycin Per PHA 06/16/25 Pending Pharmacy 03:45 Piperacillin-Tazob PHA 06/16/25 In Process 3.375gm (Zosyn 3.375g 06:00 Allergies [facility]OTT 06/16/25 In Process 03:31 Code Status CODE 06/16/25 Transmitted 03:31 Sodium Chloride 0.9% PHA 06/16/25 In Process 03:45 Oxygen Per Hour RT 06/16/25 Transmitted 03:31 Hydrocodone-Acet PHA 06/16/25 In Process 5/325mg Tab ([place] 03:45 Ondansetron Hcl PHA 06/16/25 In Process (Zofran) 03:45 Docusate Sodium PHA 06/16/25 In Process Capsule (Colace 03:45 Complete Blood Count LAB 06/17/25 Verified 04:00 Cardiac DIET 06/16/25 Transmitted Diet-2gna,Lofat,Lochol Breakfast Condition: Serious SCOTT 06/16/25 In Process 03:31 Acetaminophen Tablet PHA 06/16/25 In Process (Tylenol Tablet) 03:45 Bedrest With Bathroom [facility] 06/16/25 In Process Privileg 03:31 Sequential [place] 06/16/25 In Process Compression Device * Wound Consult CONS 06/16/25 Verified Admit ADMIT 06/16/25 Verified 04:02 Nitroglycerin [facility] 06/16/25 Verified Sublingual (Ntrostat 04:15 Morphine Sulfate [facility] 06/16/25 Verified Injection 04:15 Stat Ekg For Chest [facility] 06/16/25 Verified Pain 04:02 Notify Md Of Changes [facility] 06/16/25 Verified From Base 04:02 Dental Practitioner For [facility] 06/16/25 Verified 24 Hours 04:02 Emergency Dysrhythmia [facility] 06/16/25 Verified Protocol 04:02 Rhythm Strips Once [place] 06/16/25 Verified Every Shift 04:02 Oxygen By Nasal RT 06/16/25 Verified Cannula 04:02 Type And Screen BBK 06/16/25 Verified 04:02 Problem List: (1) Wound infection (2) Cellulitis (3) Rectal cancer (4) Thrombocytosis (5) Generalized weakness (6) Leukocytosis, unspecified Date of Service: Jun 16, 2025 Billing Provider: YOANA SUAZO DNP Common Visit Codes: [id number] INP/OBS CARE (HIGH) YOANA SUAZO DNP Jun 16, 2025 05:16
[2025-06-16] MEDS: PIPERACILLIN-TAZOB 3.375GM 100 ML IV SCH (07:35)
[2025-06-16 08:00] VITALS: PULSE 74; RESP 14; O2SAT 100
--- NOTE | 2025-06-16 13:20 | DVHPN2 ---
Subjective Patient reports having abdominal pain, pain to his gluteal wound Reviewed: Care Plan, H&P, Labs, Medications Changes from previous H/P or p: No Changes General: Per HPI Eyes: No Pain, No Vision change, No Conjunctivae inflammation, No Eyelid inflammation, No Other, No Redness ENT: No Ear pain, No Ear discharge, No Nose pain, No Nose discharge, No Nose congestion, No Mouth pain, No Mouth swelling, No Throat pain, No Throat swelling, No Other Cardiovascular: No Chest Pain, No Palpitations, No Orthopnea, No Paroxysmal Noc. Dyspnea, No Edema, No Lt Headedness, No Other Respiratory: No Cough, No Dry, No Shortness of breath, No SOB with excertion, No Wheezing, No Hemoptysis, No Pleuritic Pain, No Sputum, No Other Gastrointestinal: No Nausea, No Vomiting, No Abdominal Pain, No Diarrhea, No Constipation; Melena; No Hematochezia, No Other Genitourinary: No Dysuria, No Frequency, No Incontinence, No Hematuria, No Retention; Other ([place] catheter in place) Musculoskeletal: No other, No neck pain, No shoulder pain, No arm pain, No back pain, No hand pain, No leg pain, No foot pain Skin: No Rash; Lesions; No Jaundice, No Bruising; Other (Rectal open wound) Objective Vitals Vital Signs Date Time Temp Pulse Resp B/P (MAP) Pulse Ox O2 Delivery O2 Flow Rate FiO2 06/16/25 08:00 74 14 100 Room Air* 0 21 06/16/25 08:00 97.7 104/73 (83) 97.7 General Appearance: Alert, Oriented X3, Cooperative, mild distress HEENT: Atraumatic, PERRLA Lungs: Clear to auscultation, Normal air movement Cardiovascular: Normal S1, Normal S2 Skin: Dry, Intact, Wounds (See nurse notes and pictures) Psych/Mental Status: Mental status NL, Mood NL Medications Current Medications Medications Dose Ordered Sig/Romulo Route Start Time Stop Time Status Last Admin Dose Admin Vancomycin HCl 0 ml @ 0 mls/hr UD IV 06/16/25 03:45 UNV Piperacillin Sod/ Tazobactam Sod 100 ml @ 25 mls/hr Q8HR IV 06/16/25 06:00 06/16/25 07:35 25 MLS/HR Acetaminophen/ Hydrocodone Bitart 1 tab Q4HP PRN PO 06/16/25 03:45 Ondansetron HCl 4 mg Q4HP PRN IV 06/16/25 03:45 Docusate Sodium 100 mg BIDPRN PRN PO 06/16/25 03:45 Acetaminophen 650 mg Q6HP PRN PO 06/16/25 03:45 Nitroglycerin 0.4 mg Q5MINP PRN SL 06/16/25 04:15 Morphine Sulfate 2 mg Q30M PRN IV 06/16/25 04:15 Sodium Chloride 1,000 ml @ 100 mls/hr Q10H IV 06/16/25 13:15 UNV Clindamycin Phosphate 50 ml @ 50 mls/hr Q8HR IV 06/16/25 14:00 UNV Laboratory Results Laboratory Tests 06/16/25 03:54 Chemistry Test 06/15/25 19:49 06/16/25 03:54 Albumin 3.3 g/dL (3.2-4.8) 2.8 g/dL (3.2-4.8) L Calcium Level 8.2 mg/dL (8.7-10.4) L 7.4 mg/dL (8.7-10.4) L Total Protein 5.7 g/dL (5.7-8.2) 4.9 g/dL (5.7-8.2) L LFT Test 06/15/25 19:49 06/16/25 03:54 Alanine Aminotransferase (ALT) 25 U/L (7-40) 23 U/L (7-40) Alkaline Phosphatase 142 U/L (46-116) H 130 U/L (46-116) H Aspartate Amino Transferase (AST) 32 U/L (13-40) 33 U/L (13-40) Total Bilirubin 0.3 mg/dL (0.2-1.0) 0.2 mg/dL (0.2-1.0) Labs and/or images reviewed: Labs reviewed by me, Image(s) reviewed by me Assessment/Plan Assessment/Plan Impression: -sepsis -gluteal wound -metastatic colon cancer -questionable colonic obstruction -history of amphetamine abuse -homelessness -anemia -chronic kidney disease stage IIIB Plan: -normal saline at 100 mL/hour -consultations: GI, general surgery -clear liquid diet -antibiotic therapy: Continue Zosyn, add clindamycin -wound, blood culture -UDS -pain management -repeat labs in a.m. Total time spent with patient discussing and formulating plan of care: 35 minutes. This medical document was created using an electronic medical record system with [employer] dictation system. Although this document has been carefully reviewed, there may still be some phonetic and typographical errors. These areas are purely typographical due to imperfections of the software programs, and do not reflect any compromise in the patient's medical care. Plan discussed with: Patient, Other (RN) My Orders Orders - YEMI AVELAR NP Procedure Category Date Status Time Sodium Chloride 0.9% PHA 06/16/25 Logged 13:15 Clindamycin 300mg Iv PHA 06/16/25 Logged (Cleocin Iv) 14:00 Drug Screen LAB 06/16/25 Logged 13:05 Carcinoembryonic LAB 06/16/25 Logged Antigen 13:05 Clear Liq Diet DIET 06/16/25 Transmitted Lunch * Gi Dvh Apprentice/Lineman CONS 06/16/25 Transmitted 13:05 * Surgical Consult CONS 06/16/25 Transmitted Comprehensive LAB 06/17/25 Verified Metabolic Panel 04:00 Date of Service: Jun 16, 2025 Billing Provider: YEMI AVELAR NP Common Visit Codes: [id number] INP/OBS CARE(HIGH) YEMI AVELAR NP Jun 16, 2025 13:20
[2025-06-16] MEDS: PANTOPRAZOLE 40 MG/10 ML VIAL INJ IV SCH (15:34)
[2025-06-16] MEDS: CLINDAMYCIN 300MG IV 50 ML IV SCH (15:34)
--- NOTE | 2025-06-16 17:35 | DVHCONRES ---
Date Seen: Jun 16, 2025 Resident Creating Document: LUIS ENRIQUE FARR RESIDENT Referring Physician YEMI AVELAR NP Reason for Consultation Colon cancer History of Present Illness The patient reports persistent abdominal and gluteal wound pain. Patient has nausea, vomiting and melena but no diarrhea, hematochezia or abdominal distension. Denies dysphagia, odynophagia, or change in bowel habits. No fevers, chills, or night sweats reported. Currently tolerating a clear liquid diet via oral route; no enteral tube feeds. Appetite is poor. Pain is partially controlled with PRN narcotics. Patient is receiving broad-spectrum IV antibiotics (piperacillin-tazobactam, clindamycin, vancomycin) for wound infection associated with necrotic, ulcerated perirectal mass. Brief Gist of Todays Progress / Hussein Events * Imaging: * CT Abdomen/Pelvis: Progression of large circumferential rectal mass with increased soft tissue extension into inferior buttocks (up to 10 x 9 cm), progression of lung base metastases, no bowel obstruction. * Chest X-ray: Multiple bilateral pulmonary nodules consistent with metastatic disease. * Labs: * WBC decreased from 17.2 to 14.9 10/L (persistent leukocytosis). * Hemoglobin 8.0 to 7.5 g/dL (chronic anemia). * Platelets 698 to 667 10/L (thrombocytosis). * Lactic acid 2.3 ? 1.6 mmol/L (improving). * ALP mildly elevated (142 to 130 U/L). * CEA markedly elevated at 500 ng/mL. * Albumin low at 2.8 g/dL (malnutrition). * Microbiology: Blood cultures negative after 24 hrs incubation. * Consults: Wound care, general surgery, oncology, social work for possible hospice discussion. * Current GI status: No obstruction or acute GI bleed; ongoing cancer-related wound infection and metastatic progression. 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 Family History: Patient reports no known family medical history. Social History Smokes cigarettes, methamphetamine use;limited support system. Allergies: Coded Allergies: NO KNOWN ALLERGIES (Unverified , 07/25/23) Home Meds Active Scripts Metronidazole (Metronidazole) 500 Mg Tab, 500 MG PO TID for 5 Days, #15 TAB Prov:ARABELLA BARRAZA MD 06/10/25 Amoxicillin Trihydrate (Amoxicillin) 500 Mg Tab, 1 TAB PO TID for 5 Days, #15 TAB Prov:ARABELLA BARRAZA MD 06/10/25 Reported Medications Lactulose (Lactulose) 10 Gm/15 Ml Margaret, 10 GM PO BIDPRN PRN for FOR CONSTIPATION, ML 04/09/24 Current Medications Current Medications Medications (Trade) Dose Ordered Sig/Romulo Route PRN Reason Start Time Stop Time Status Last Admin Vancomycin HCl 0 ml @ 0 mls/hr UD IV 06/16/25 03:45 UNV Piperacillin Sod/ Tazobactam Sod 100 ml @ 25 mls/hr Q8HR IV 06/16/25 06:00 06/16/25 07:35 Sodium Chloride 1,000 ml @ 60 mls/hr [id number] IV 06/16/25 03:45 06/16/25 13:11 DC Acetaminophen/ Hydrocodone Bitart ([place] 5/325MG Tab) 1 tab Q4HP PRN PO MODERATE PAIN (4-6 PAIN SCALE) 06/16/25 03:45 Ondansetron HCl (Zofran) 4 mg Q4HP PRN IV NAUSEA / VOMITING 06/16/25 03:45 06/16/25 14:36 DC Docusate Sodium (Colace Capsule) 100 mg BIDPRN PRN PO FOR CONSTIPATION 06/16/25 03:45 Acetaminophen (Tylenol Tablet) 650 mg Q6HP PRN PO PAIN SCALE 1-3 OR TEMP>100.4 06/16/25 03:45 Nitroglycerin (Ntrostat Sublingual) 0.4 mg Q5MINP PRN SL FOR CHEST PAIN 06/16/25 04:15 Morphine Sulfate 2 mg Q30M PRN IV FOR CHEST PAIN 06/16/25 04:15 Sodium Chloride 1,000 ml @ 100 mls/hr Q10H IV 06/16/25 13:15 06/16/25 15:34 Clindamycin Phosphate 50 ml @ 50 mls/hr Q8HR IV 06/16/25 14:00 06/16/25 15:34 Ondansetron HCl (Zofran) 4 mg Q4HPRN PRN IV NAUSEA / VOMITING 06/16/25 14:30 Pantoprazole Sodium (Protonix) 40 mg DAILY IV 06/16/25 14:30 06/16/25 15:34 Iron Sucrose 110 ml @ 110 mls/hr DAILY@1200 IV 06/17/25 12:00 06/21/25 12:59 Review of Systems * General: Fatigue, poor appetite. No fevers or chills. * GI: Abdominal pain localized to lower pelvis and perianal/gluteal region. pateint has melena. No hematemesis, hematochezia,, diarrhea, or constipation. * Nutrition: Poor oral intake; currently on clear liquids. No enteral feeding initiated. Vital Signs Vital Signs Date Time Temp Pulse Resp B/P (MAP) Pulse Ox O2 Delivery O2 Flow Rate FiO2 06/16/25 08:00 74 14 100 Room Air* 0 21 06/16/25 08:00 97.7 104/73 (83) 97.7 Physical Exam * General: Cachectic, chronically ill-appearing, in mild distress from pelvic wound pain. * Abdomen: Soft, non-distended; no peritoneal signs. Mild lower abdominal tenderness without guarding. * Perianal/Gluteal region: Large ulcerated, necrotic perirectal mass with overlying cellulitis, extending to inferior buttocks. Labs/Diagnostic Data Labs Test 06/16/25 14:15 06/16/25 10:31 06/16/25 03:54 06/15/25 21:40 Range/Units Carcinoembryonic Antigen 500.00 <=5.0 ng/mL Random Vancomycin Level 14.8 H 5-10 ug/mL White Blood Count 14.9 H 4.4-10.8 10^3/uL Red Blood Count 2.80 L 4.5-5.90 10^6/uL Hemoglobin 7.5 L 13.5-17.5 g/dL Hematocrit 23.1 L 41.0-53.0 % Mean Corpuscular Volume 82.6 80.0-100.0 fL Mean Corpuscular Hemoglobin 26.7 L 28.0-32.0 pg Mean Corpuscular Hemoglobin Concent 32.3 32.0-36.0 g/dL Red Cell Distribution Width 18.3 H 11.8-14.3 % Platelet Count 667 H 140-450 10^3/uL Mean Platelet Volume 6.1 L 6.9-10.8 fL Neutrophils (%) (Auto) 85.5 H 37.0-80.0 % Lymphocytes (%) (Auto) 4.2 L 10.0-50.0 % Monocytes (%) (Auto) 9.9 0.0-12.0 % Eosinophils (%) (Auto) 0.2 0.0-7.0 % Basophils (%) (Auto) 0.2 0.0-2.0 % Neutrophils # (Auto) 12.8 H 1.6-8.6 10 ^3/uL Lymphocytes # (Auto) 0.6 0.4-5.4 10 ^3/uL Monocytes # (Auto) 1.5 H 0-1.3 10 ^3/uL Eosinophils # (Auto) 0 0-0.8 10 ^3/uL Basophils # (Auto) 0 0-0.2 10 ^3/uL Nucleated Red Blood Cells 0.0 % Sodium Level 135 L 136-145 mmol/L Potassium Level 3.7 3.5-5.1 mmol/L Chloride Level 106 98-107 mmol/L Carbon Dioxide Level 20 20-31 mmol/L Anion Gap 9 5-15 Blood Urea Nitrogen 39 H 9-23 mg/dL Creatinine 1.68 H 0.700-1.30 mg/dL Glomerular Filtration Rate Calc 44 >90 mL/min BUN/Creatinine Ratio 23.2 H 10.0-20.0 Serum Glucose 118 H 74-106 mg/dL Calcium Level 7.4 L 8.7-10.4 mg/dL Total Bilirubin 0.2 0.2-1.0 mg/dL Aspartate Amino Transferase (AST) 33 13-40 U/L Alanine Aminotransferase (ALT) 23 7-40 U/L Alkaline Phosphatase 130 H 46-116 U/L Total Protein 4.9 L 5.7-8.2 g/dL Albumin 2.8 L 3.2-4.8 g/dL Lactic Acid Level 1.6 0.4-2.0 mmol/L Assessment 1. Advanced metastatic colorectal adenocarcinoma with progressive circumferential rectal mass (10 x 9 cm) invading inferior buttock soft tissues, CEA 500 ng/mL, and metastatic pulmonary nodules. 2. Cancer-related wound infection with cellulitis of perianal and gluteal tissues. 3. Sepsis (improving) secondary to infected perirectal mass lactic acid trending down with antibiotics. 4. Chronic anemia of malignancy with possible anemia of chronic disease (Hgb 7.5 g/dL). 5. Protein-calorie malnutrition (albumin 2.8 g/dL). 6. 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 7. CKD stage IIIb baseline creatinine ~1.61.7 mg/dL. Plan/Recommendation Gastrointestinal / Oncology: * Continue broad-spectrum IV antibiotics: Piperacillin-tazobactam + vancomycin + clindamycin for wound coverage. * Maintain clear liquid diet; advance to full liquids as tolerated. Monitor for signs of obstruction. * Pain management: Optimize with scheduled acetaminophen, PRN narcotics; monitor for constipation. * Oncology consult for metastatic progression and palliative vs. hospice discussion. * Wound care team for local management; surgical consult for debridement consideration. * Continue IV iron therapy for anemia. Continue Protonix and zofran * Monitor CEA trends. * Strict intake/output; monitor for ascites progression. Hematology: * Monitor CBC daily; transfuse PRBC if Hgb <7 g/dL or symptomatic. * Continue iron supplementation. Case discussed in detail with the attending physician, including the clinical presentation, diagnostic workup, and comprehensive management plan. The patient was present for the discussion and demonstrated understanding of his condition and the proposed plan. Plan discussed with: Patient LUIS ENRIQUE FARR RESIDENT Jun 16, 2025 17:35
[2025-06-16 19:35] VITALS: PULSE 85; RESP 19
[2025-06-16 23:29] LABS: Amphetamine Screen, Urine Neg (NEGATIVE); Urine Protein, UAD 1+ (Negative)
[2025-06-16 23:30] LABS: Barbiturate Scree,Urine Neg (NEGATIVE); Benzodiazephine Screen, Urine Neg (NEGATIVE); Cannabinoid Screen, Urine Neg (NEGATIVE); Cocaine Screen, Urine Neg (NEGATIVE); Opiate Scree,Urine Neg (NEGATIVE); Phencyclidine Screen, Urine Neg (NEGATIVE)
[2025-06-17 04:32] VITALS: BP 107/67; PULSE 75; RESP 18; TEMP 97.7; O2SAT 99
[2025-06-17 08:00] VITALS: PULSE 66
[2025-06-17 08:39] VITALS: BP 103/65; PULSE 66; RESP 17; TEMP 97.7; O2SAT 99
[2025-06-17 09:59] LABS: Nucleated Red Blood Cells % 0.0 %
[2025-06-17 10:00] LABS: Hematocrit 25.3 % (41.0-53.0); Hemoglobin 8.2 g/dL (13.5-17.5); Mean Corpuscular Hemoglobin 26.4 pg (28.0-32.0); Mean Corpuscular Volume 81.9 fL (80.0-100.0)
[2025-06-17 10:17] LABS: Alanine Aminotransferase 25 U/L (7-40); Anion Gap 9 (5-15); BUN/Creatinine Ratio 18.6 (10.0-20.0); Blood Urea Nitrogen 21 mg/dL (9-23); Carbon Dioxide 21 mmol/L (20-31); Glucose 97 mg/dL (74-106)
[2025-06-17 10:18] LABS: Albumin 3.1 g/dL (3.2-4.8); Alkaline Phosphatase 124 U/L (46-116); Bilirubin, Total 0.2 mg/dL (0.2-1.0); Calcium 8.1 mg/dL (8.7-10.4); Chloride 105 mmol/L (98-107); Potassium 4.3 mmol/L (3.5-5.1); Sodium 135 mmol/L (136-145); Total Protein 5.3 g/dL (5.7-8.2)
[2025-06-17] MEDS: IRON SUCROSE COMPLEX 110 ML IV SCH (11:00)
--- NOTE | 2025-06-17 11:19 | DVHINCON2 ---
Date of service: Jun 17, 2025 Family History: Patient reports no known family medical history. Allergies: Coded Allergies: NO KNOWN ALLERGIES (Unverified , 07/25/23) Home Meds No Active Prescriptions or Reported Meds Current Medications Current Medications Medications (Trade) Dose Ordered Sig/Romulo Route PRN Reason Start Time Stop Time Status Last Admin Sodium Chloride 1,000 ml @ 100 mls/hr Q10H IV 06/16/25 13:15 06/16/25 23:39 Clindamycin Phosphate 50 ml @ 50 mls/hr Q8HR IV 06/16/25 14:00 06/17/25 05:47 Ondansetron HCl (Zofran) 4 mg Q4HPRN PRN IV NAUSEA / VOMITING 06/16/25 14:30 Pantoprazole Sodium (Protonix) 40 mg DAILY IV 06/16/25 14:30 06/16/25 15:34 Iron Sucrose 110 ml @ 110 mls/hr DAILY@1200 IV 06/17/25 12:00 06/21/25 12:59 Vancomycin HCl 0 ml @ 0 mls/hr UD IV 06/16/25 17:30 UNV Vital Signs Vital Signs Date Time Temp Pulse Resp B/P (MAP) Pulse Ox O2 Delivery O2 Flow Rate FiO2 06/17/25 08:39 97.7 66 17 103/65 (78) 99 97.7 06/17/25 07:50 Room Air* 0 21 Labs/Diagnostic Data Labs Test 06/17/25 09:46 06/16/25 22:00 06/16/25 14:15 06/15/25 21:40 Range/Units White Blood Count 7.8 # 4.4-10.8 10^3/uL Red Blood Count 3.09 L 4.5-5.90 10^6/uL Hemoglobin 8.2 L 13.5-17.5 g/dL Hematocrit 25.3 L 41.0-53.0 % Mean Corpuscular Volume 81.9 80.0-100.0 fL Mean Corpuscular Hemoglobin 26.4 L 28.0-32.0 pg Mean Corpuscular Hemoglobin Concent 32.3 32.0-36.0 g/dL Red Cell Distribution Width 17.8 H 11.8-14.3 % Platelet Count 759 *H 140-450 10^3/uL Mean Platelet Volume 6.1 L 6.9-10.8 fL Neutrophils (%) (Auto) 79.2 37.0-80.0 % Lymphocytes (%) (Auto) 10.9 10.0-50.0 % Monocytes (%) (Auto) 8.4 0.0-12.0 % Eosinophils (%) (Auto) 1.0 0.0-7.0 % Basophils (%) (Auto) 0.5 0.0-2.0 % Neutrophils # (Auto) 6.1 1.6-8.6 10 ^3/uL Lymphocytes # (Auto) 0.8 0.4-5.4 10 ^3/uL Monocytes # (Auto) 0.7 0-1.3 10 ^3/uL Eosinophils # (Auto) 0.1 0-0.8 10 ^3/uL Basophils # (Auto) 0 0-0.2 10 ^3/uL Nucleated Red Blood Cells 0.0 % Sodium Level 135 L 136-145 mmol/L Potassium Level 4.3 3.5-5.1 mmol/L Chloride Level 105 98-107 mmol/L Carbon Dioxide Level 21 20-31 mmol/L Anion Gap 9 5-15 Blood Urea Nitrogen 21 # 9-23 mg/dL Creatinine 1.13 0.700-1.30 mg/dL Glomerular Filtration Rate Calc 71 >90 mL/min BUN/Creatinine Ratio 18.6 10.0-20.0 Serum Glucose 97 74-106 mg/dL Calcium Level 8.1 L 8.7-10.4 mg/dL Total Bilirubin 0.2 0.2-1.0 mg/dL Aspartate Amino Transferase (AST) 24 13-40 U/L Alanine Aminotransferase (ALT) 25 7-40 U/L Alkaline Phosphatase 124 H 46-116 U/L Total Protein 5.3 L 5.7-8.2 g/dL Albumin 3.1 L 3.2-4.8 g/dL Random Vancomycin Level 5.8 5-10 ug/mL Urine Color Yellow Yellow Urine Clarity Clear Clear Urine pH 6.0 5.0-9.0 Urine Specific [place] 1.046 H 1.001-1.035 Urine Protein 1+ H Negative Urine Ketones Negative Negative Urine Blood Negative Negative /uL Urine Nitrite Negative Negative Urine Bilirubin Negative Negative Urine Urobilinogen Normal Negative mg/dL Urine Leukocyte Esterase Negative Negative /uL Urine Glucose Normal Normal mg/dL Urine Opiates Screen Neg NEGATIVE Urine Fentanyl Screen Neg NEGATIVE Urine Barbiturates Screen Neg NEGATIVE Urine Phencyclidine Screen Neg NEGATIVE Urine Amphetamines Screen Neg NEGATIVE Urine Benzodiazepines Screen Neg NEGATIVE Urine Cocaine Screen Neg NEGATIVE Urine Cannabinoids Screen Neg NEGATIVE Carcinoembryonic Antigen 500.00 <=5.0 ng/mL Lactic Acid Level 1.6 0.4-2.0 mmol/L Microbiology Date/Time Source Procedure Growth Status 06/15/25 19:49 Blood Blood Culture - Preliminary NO GROWTH AFTER 24 HOURS OF INCUBATION. Resulted Assessment [id number] C/O SOFT TISSUE TUMOR MASS BOTH BUTTOCKS AFEBRILE VSS R/O RECTAL MASS EXTENDING TO BOTH BUTTOCKS WITH POSSIBLE METASTATIC SPREAD IR EVAL FOR NEEDLE BX OF THE NONHEALING WOUND BUTTOCKS ONCOLOGY EVAL CONSIDER DIVERTING COLOSTOMY INDICATED AND CONSIDERED Plan discussed with: Patient, Other INDER JOSE MD Jun 17, 2025 11:19
[2025-06-17] MEDS: HYDROcodone-ACET 5/325MG TAB PO PRN (11:20)
--- NOTE | 2025-06-17 11:46 | DVHPN2 ---
Progress Note - Dictate Date Seen: Jun 17, 2025 Medical Necessity Reason Pt with a Central, PICC or Fol: No Subjective No new complaints Patient resting comfortably Patient wants to eat Patient has perirectal mass with extension into the buttocks causing the wound He has evidence of metastases and elevated CEA at 500 vital signs Vital Sign Date Time Temp Pulse Resp B/P (MAP) Pulse Ox O2 Delivery O2 Flow Rate FiO2 06/17/25 08:39 97.7 66 17 103/65 (78) 99 97.7 06/17/25 07:50 Room Air* 0 21 Total Intake and Output 06/16/25 06/16/25 06/17/25 15:00 23:00 07:00 Intake Total 100 ml 750 ml 305 ml Balance 100 ml 750 ml 305 ml medications Current Medications Medications Dose Ordered Sig/Romulo Route Start Time Stop Time Status Last Admin Dose Admin Piperacillin Sod/ Tazobactam Sod 100 ml @ 25 mls/hr Q8HR IV 06/16/25 06:00 06/17/25 06:59 25 MLS/HR Acetaminophen/ Hydrocodone Bitart 1 tab Q4HP PRN PO 06/16/25 03:45 06/17/25 11:20 1 TAB Docusate Sodium 100 mg BIDPRN PRN PO 06/16/25 03:45 Acetaminophen 650 mg Q6HP PRN PO 06/16/25 03:45 Nitroglycerin 0.4 mg Q5MINP PRN SL 06/16/25 04:15 Morphine Sulfate 2 mg Q30M PRN IV 06/16/25 04:15 Sodium Chloride 1,000 ml @ 100 mls/hr Q10H IV 06/16/25 13:15 06/16/25 23:39 100 MLS/HR Clindamycin Phosphate 50 ml @ 50 mls/hr Q8HR IV 06/16/25 14:00 06/17/25 05:47 50 MLS/HR Ondansetron HCl 4 mg Q4HPRN PRN IV 06/16/25 14:30 Pantoprazole Sodium 40 mg DAILY IV 06/16/25 14:30 06/17/25 11:00 40 MG Iron Sucrose 110 ml @ 110 mls/hr DAILY@1200 IV 06/17/25 12:00 06/21/25 12:59 06/17/25 11:00 110 MLS/HR Vancomycin HCl 0 ml @ 0 mls/hr UD IV 06/16/25 17:30 Vancomycin HCl 100 ml @ 200 mls/hr Q12H IV 06/17/25 11:30 laboratory and microbiology Laboratory Tests 06/17/25 09:46 Test 06/17/25 09:46 Range/Units Serum Glucose 97 74-106 mg/dL Problems(with codes): (1) Rectal cancer (2) Wound infection (3) Generalized weakness (4) Rectal bleeding (5) Rectal mass Prognosis Plan Surgical consult has seen the patient They are recommending possible IR guided biopsy of nonhealing wound buttocks Oncology consultation possible chemoradiation A diverting colostomy may be required If the patient and family are unable to proceed with the above treatment then the patient may be appropriate candidate for hospice placement Advance diet as tolerated Dietary Evaluation Review Recommendations by RD: Increase Calorie Intake, Protein Supplementation Comments: 1) Initiate Pro-Stat @ 30 mL bid 2) Initiate vitamin C @ 500 mg bid and zinc sulfate @ 220 mg qd for 7 days 3) Initiate Ensure Clear tid - change to Ensure Enlive tid when clear liquid diet progresses to full liquid/solid 4) Encourage optimal PO intake 5) Advance to low-fiber diet when medically feasible 6) Follow-up with gastroenterology, oncology, and nephrology 7) Follow-up with social sciences instructor r/t housing assistance 8) Continue to monitor I&O, labs, and skin integrity Expected Outcomes/Goals: 1) appetite and labs to improve 2) wound to improve 3) GI symptoms to resolve 4) diet to advance 5) f/u in 2-3 days Plan discussed with: Patient, Other (Dean Rockwell and Dr Gaurang Briones) JULIEN BRIONES MD Jun 17, 2025 11:46
--- NOTE | 2025-06-17 12:50 | DVHINCON2 ---
DATE OF CONSULTATION: 06/17/2025 HISTORY OF PRESENT ILLNESS: This patient is 65 years old, coming in with swelling of his lower buttock region, on both the sides and some drainage. He has a history of rectal cancer and also has a nonhealing wound. I was asked to see him with regards to wound infection in that location. He has had this ongoing since January. He also has come here before and signed out AMA. Now, he is being admitted and I was asked to see him. No nausea or vomiting. No fever or chills. No hematemesis or melena. He does have issues with constipation. PAST MEDICAL HISTORY: Rectal mass. PAST SURGICAL HISTORY: Negative. No surgeries indicated. PHYSICAL EXAMINATION: VITAL SIGNS: Afebrile, stable signs. HEENT: With no evidence of pallor, cyanosis, or jaundice. NECK: Supple and nontender, with no thyromegaly or lymphadenopathy. CHEST AND LUNGS: Clear. HEART: Within normal limits. ABDOMEN: Soft. NEUROLOGIC: Not assessed. EXTREMITIES: Unremarkable. RECTAL: Local examination reveals 2 very large tumor masses in both the buttock regions close to his anal opening. The CAT scan is also indicating a perirectal mass with extension to the inferior buttock soft tissues, secondarily infected with nonhealing wounds as well. There is a possibility of metastatic disease within the lung as well. CLINICAL IMPRESSION: Rule out advanced rectal tumor with possibility of metastatic disease. PLAN: Consider needle biopsy by IR and also oncology evaluation. Based upon that, further surgical intervention can be considered as indicated. MD BESS Mcghee/FARIDEH TID: [id number] RECEIPT: [id number] cc: Dean Rockwell NP
[2025-06-17 13:00] VITALS: BP 118/81; PULSE 59; RESP 17; TEMP 97.6; O2SAT 99
[2025-06-17] MEDS: VANCOMYCIN 500mg/100mL 100 ML IV SCH (13:49)
--- NOTE | 2025-06-17 15:48 | DVHPN2 ---
Subjective Patient reports having abdominal pain, pain to his gluteal wound Reviewed: Care Plan, H&P, Labs, Medications Changes from previous H/P or p: No Changes General: Per HPI Eyes: No Pain, No Vision change, No Conjunctivae inflammation, No Eyelid inflammation, No Other, No Redness ENT: No Ear pain, No Ear discharge, No Nose pain, No Nose discharge, No Nose congestion, No Mouth pain, No Mouth swelling, No Throat pain, No Throat swelling, No Other Cardiovascular: No Chest Pain, No Palpitations, No Orthopnea, No Paroxysmal Noc. Dyspnea, No Edema, No Lt Headedness, No Other Respiratory: No Cough, No Dry, No Shortness of breath, No SOB with excertion, No Wheezing, No Hemoptysis, No Pleuritic Pain, No Sputum, No Other Gastrointestinal: No Nausea, No Vomiting, No Abdominal Pain, No Diarrhea, No Constipation; Melena; No Hematochezia, No Other Genitourinary: No Dysuria, No Frequency, No Incontinence, No Hematuria, No Retention; Other ([place] catheter in place) Musculoskeletal: No other, No neck pain, No shoulder pain, No arm pain, No back pain, No hand pain, No leg pain, No foot pain Skin: No Rash; Lesions; No Jaundice, No Bruising; Other (Rectal open wound) Objective Vitals Vital Signs Date Time Temp Pulse Resp B/P (MAP) Pulse Ox O2 Delivery O2 Flow Rate FiO2 06/17/25 13:00 97.6 59 17 118/81 (93) 99 97.6 06/17/25 07:50 Room Air* 0 21 Intake/Output Intake and Output 06/17/25 07:00 Intake Total 1155 ml Balance 1155 ml Intake Oral 105 ml IV Total 1050 ml General Appearance: Alert, Oriented X3, Cooperative, mild distress HEENT: Atraumatic, PERRLA Lungs: Clear to auscultation, Normal air movement Cardiovascular: Normal S1, Normal S2 Skin: Dry, Intact, Wounds (See nurse notes and pictures) Psych/Mental Status: Mental status NL, Mood NL Medications Current Medications Medications Dose Ordered Sig/Romulo Route Start Time Stop Time Status Last Admin Dose Admin Piperacillin Sod/ Tazobactam Sod 100 ml @ 25 mls/hr Q8HR IV 06/16/25 06:00 06/17/25 06:59 25 MLS/HR Acetaminophen/ Hydrocodone Bitart 1 tab Q4HP PRN PO 06/16/25 03:45 06/17/25 11:20 1 TAB Docusate Sodium 100 mg BIDPRN PRN PO 06/16/25 03:45 Acetaminophen 650 mg Q6HP PRN PO 06/16/25 03:45 Nitroglycerin 0.4 mg Q5MINP PRN SL 06/16/25 04:15 Morphine Sulfate 2 mg Q30M PRN IV 06/16/25 04:15 Sodium Chloride 1,000 ml @ 100 mls/hr Q10H IV 06/16/25 13:15 06/16/25 23:39 100 MLS/HR Clindamycin Phosphate 50 ml @ 50 mls/hr Q8HR IV 06/16/25 14:00 06/17/25 05:47 50 MLS/HR Ondansetron HCl 4 mg Q4HPRN PRN IV 06/16/25 14:30 Pantoprazole Sodium 40 mg DAILY IV 06/16/25 14:30 06/17/25 11:00 40 MG Iron Sucrose 110 ml @ 110 mls/hr DAILY@1200 IV 06/17/25 12:00 06/21/25 12:59 06/17/25 11:00 110 MLS/HR Vancomycin HCl 0 ml @ 0 mls/hr UD IV 06/16/25 17:30 Vancomycin HCl 100 ml @ 200 mls/hr Q12H IV 06/17/25 11:30 06/17/25 13:49 200 MLS/HR Laboratory Results Laboratory Tests 06/17/25 09:46 Chemistry Test 06/17/25 09:46 Albumin 3.1 g/dL (3.2-4.8) L Calcium Level 8.1 mg/dL (8.7-10.4) L Total Protein 5.3 g/dL (5.7-8.2) L LFT Test 06/17/25 09:46 Alanine Aminotransferase (ALT) 25 U/L (7-40) Alkaline Phosphatase 124 U/L (46-116) H Aspartate Amino Transferase (AST) 24 U/L (13-40) Total Bilirubin 0.2 mg/dL (0.2-1.0) Urinalysis Test 06/16/25 22:00 Urine Color Yellow (Yellow) Urine Clarity Clear (Clear) Urine pH 6.0 (5.0-9.0) Urine Specific [place] 1.046 (1.001-1.035) Urine Protein 1+ (Negative) H Urine Ketones Negative (Negative) Urine Blood Negative /uL (Negative) Urine Nitrite Negative (Negative) Urine Bilirubin Negative (Negative) Urine Urobilinogen Normal mg/dL (Negative) Urine Leukocyte Esterase Negative /uL (Negative) Urine Glucose Normal mg/dL (Normal) Microbiology Microbiology Date/Time Source Procedure Growth Status 06/15/25 19:49 Blood Blood Culture - Preliminary NO GROWTH AFTER 24 HOURS OF INCUBATION. Resulted Labs and/or images reviewed: Labs reviewed by me, Image(s) reviewed by me Assessment/Plan Assessment/Plan Impression: -sepsis -gluteal wound -metastatic colon cancer -questionable colonic obstruction -history of amphetamine abuse -homelessness -anemia -chronic kidney disease stage IIIB Plan: Events: Patient states that he feels better. GI, surgical recommendations reviewed. I discussed with the patient findings of metastatic cancer with poor prognosis. Patient would like medical staff to discuss plan of care with son's mother and patient's brother. Attempt to find patient's phone numbers on EMR -consultations: GI, general surgery -continue full liquid diet -antibiotic therapy: Continue Zosyn, and vancomycin -wound, blood culture -UDS -pain management -repeat labs in a.m. Total time spent with patient discussing and formulating plan of care: 35 minutes. This medical document was created using an electronic medical record system with [employer] dictation system. Although this document has been carefully reviewed, there may still be some phonetic and typographical errors. These areas are purely typographical due to imperfections of the software programs, and do not reflect any compromise in the patient's medical care. Plan discussed with: Patient, Other (RN) My Orders Orders - YEMI AVELAR NP Procedure Category Date Status Time Notify Provider NOTICE 06/17/25 Transmitted Malnutrition 08:10 Nutritional NOURISH 06/17/25 Transmitted Supplements 08:10 Dietary NOTICE 06/17/25 Transmitted Recommendations 08:10 Basic Metabolic Panel LAB 06/18/25 Verified 04:00 Complete Blood Count LAB 06/18/25 Verified 04:00 Date of Service: Jun 17, 2025 Billing Provider: YEMI AVELAR NP Common Visit Codes: [id number] INP/OBS CARE(HIGH) YEMI AVELAR DINING SERVICE INSPECTOR Jun 17, 2025 15:48
[2025-06-17 17:53] VITALS: BP_SYST 112; BP_SYST 126; BP_DIAS 59; BP_DIAS 89; PULSE 99; RESP 18; TEMP 98.2; O2SAT 91
[2025-06-17 19:06] VITALS: PULSE 85
[2025-06-18 05:00] VITALS: BP 111/73; PULSE 77; RESP 18; TEMP 98.7; O2SAT 97
[2025-06-18 08:00] VITALS: PULSE 73
[2025-06-18 08:43] VITALS: BP 110/66; PULSE 83; RESP 20; TEMP 98; O2SAT 99
[2025-06-18 12:52] VITALS: BP 121/74; PULSE 85; RESP 20; TEMP 98.6; O2SAT 99
--- NOTE | 2025-06-18 13:29 | DVHPN2 ---
Subjective Patient reports having abdominal pain, pain to his gluteal wound Reviewed: Care Plan, H&P, Labs, Medications Changes from previous H/P or p: No Changes General: Per HPI Eyes: No Pain, No Vision change, No Conjunctivae inflammation, No Eyelid inflammation, No Other, No Redness ENT: No Ear pain, No Ear discharge, No Nose pain, No Nose discharge, No Nose congestion, No Mouth pain, No Mouth swelling, No Throat pain, No Throat swelling, No Other Cardiovascular: No Chest Pain, No Palpitations, No Orthopnea, No Paroxysmal Noc. Dyspnea, No Edema, No Lt Headedness, No Other Respiratory: No Cough, No Dry, No Shortness of breath, No SOB with excertion, No Wheezing, No Hemoptysis, No Pleuritic Pain, No Sputum, No Other Gastrointestinal: No Nausea, No Vomiting, No Abdominal Pain, No Diarrhea, No Constipation; Melena; No Hematochezia, No Other Genitourinary: No Dysuria, No Frequency, No Incontinence, No Hematuria, No Retention; Other (York catheter in place) Musculoskeletal: No other, No neck pain, No shoulder pain, No arm pain, No back pain, No hand pain, No leg pain, No foot pain Skin: No Rash; Lesions; No Jaundice, No Bruising; Other (Rectal open wound) Objective Vitals Vital Signs Date Time Temp Pulse Resp B/P (MAP) Pulse Ox O2 Delivery O2 Flow Rate FiO2 06/18/25 12:52 98.6 85 20 121/74 (90) 99 98.6 06/18/25 08:00 Room Air* 0 21 Intake/Output Intake and Output 06/18/25 07:00 Intake Total 960 ml Output Total 300 ml Balance 660 ml Intake Oral 600 ml IV Total 360 ml Output Urine Total 300 ml General Appearance: Alert, Oriented X3, Cooperative, mild distress HEENT: Atraumatic, PERRLA Lungs: Clear to auscultation, Normal air movement Cardiovascular: Normal S1, Normal S2 Skin: Dry, Intact, Wounds (See nurse notes and pictures) Psych/Mental Status: Mood NL, Other (Patient agitated) Medications Current Medications Medications Dose Ordered Sig/Romulo Route Start Time Stop Time Status Last Admin Dose Admin Piperacillin Sod/ Tazobactam Sod 100 ml @ 25 mls/hr Q8HR IV 06/16/25 06:00 06/17/25 14:00 25 MLS/HR Acetaminophen/ Hydrocodone Bitart 1 tab Q4HP PRN PO 06/16/25 03:45 06/17/25 11:20 1 TAB Docusate Sodium 100 mg BIDPRN PRN PO 06/16/25 03:45 Acetaminophen 650 mg Q6HP PRN PO 06/16/25 03:45 Nitroglycerin 0.4 mg Q5MINP PRN SL 06/16/25 04:15 Morphine Sulfate 2 mg Q30M PRN IV 06/16/25 04:15 Sodium Chloride 1,000 ml @ 100 mls/hr Q10H IV 06/16/25 13:15 06/16/25 23:39 100 MLS/HR Ondansetron HCl 4 mg Q4HPRN PRN IV 06/16/25 14:30 Pantoprazole Sodium 40 mg DAILY IV 06/16/25 14:30 06/17/25 11:00 40 MG Iron Sucrose 110 ml @ 110 mls/hr DAILY@1200 IV 06/17/25 12:00 06/21/25 12:59 06/17/25 11:00 110 MLS/HR Vancomycin HCl 0 ml @ 0 mls/hr UD IV 06/16/25 17:30 Vancomycin HCl 100 ml @ 200 mls/hr Q12H IV 06/17/25 11:30 06/17/25 13:49 200 MLS/HR Laboratory Results Laboratory Tests 06/17/25 09:46 Urinalysis Test 06/16/25 22:00 Urine Color Yellow (Yellow) Urine Clarity Clear (Clear) Urine pH 6.0 (5.0-9.0) Urine Specific [place] 1.046 (1.001-1.035) Urine Protein 1+ (Negative) H Urine Ketones Negative (Negative) Urine Blood Negative /uL (Negative) Urine Nitrite Negative (Negative) Urine Bilirubin Negative (Negative) Urine Urobilinogen Normal mg/dL (Negative) Urine Leukocyte Esterase Negative /uL (Negative) Urine Glucose Normal mg/dL (Normal) Microbiology Microbiology Date/Time Source Procedure Growth Status 06/17/25 11:17 Buttock Right Gram Stain Pending Resulted 06/17/25 11:17 Buttock Right Wound Culture - Preliminary Resulted 06/15/25 19:49 Blood Blood Culture - Preliminary NO GROWTH AFTER 48 HOURS OF INCUBATION. Resulted Labs and/or images reviewed: Labs reviewed by me, Image(s) reviewed by me Assessment/Plan Assessment/Plan Impression: -sepsis -gluteal wound -metastatic colon cancer -questionable colonic obstruction -history of amphetamine abuse -homelessness -anemia -chronic kidney disease stage IIIB Plan: Events: Patient pulled out IV in his refusing pain med at this time. Patient also is requesting to have his gluteal wound addressed by the surgeon. Patient then vacillates back to leaving in the hospital, and going to his brother's house to be taken to [facility]. Attempted to call patient's brother with number provided. No answer. Patient may leave against medical advice. Discussed with primary nurse to have patient rule out appropriate document and have case management assist with any transportation needs. At this time, patient has been given diagnosis of metastatic colon cancer in his well aware of his prognosis and treatment plan. -consultations: GI, general surgery -continue full liquid diet -antibiotic therapy: Continue Zosyn, and vancomycin -wound, blood culture -UDS -pain management -repeat labs in a.m. Total time spent with patient discussing and formulating plan of care: 35 minutes. This medical document was created using an electronic medical record system with [employer] dictation system. Although this document has been carefully reviewed, there may still be some phonetic and typographical errors. These areas are purely typographical due to imperfections of the software programs, and do not reflect any compromise in the patient's medical care. Plan discussed with: Patient, Other (RN) My Orders Orders - YEMI AVELAR NP Procedure Category Date Status Time Cleanse Wound With SCOTT 06/17/25 In Process Wound Clean 11:20 Date of Service: Jun 18, 2025 Billing Provider: YEMI AVELAR NP Common Visit Codes: [id number] INP/OBS CARE(HIGH) Secondary Visit Codes: 70361-AWFGLOEN CARE PLAN 30 MINUTES YEMI AVELAR NP Jun 18, 2025 13:29
[2025-06-18 16:49] VITALS: BP 109/67; PULSE 89; RESP 20; TEMP 98.6; O2SAT 100
--- NOTE | 2025-06-18 17:15 | DVHPN2 ---
Progress Note Date Seen: Jun 18, 2025 Medical Necessity Reason Pt with a Central, PICC or Fol: No Objective vital signs Vital Sign Date Time Temp Pulse Resp B/P (MAP) Pulse Ox O2 Delivery O2 Flow Rate FiO2 06/18/25 16:49 98.6 89 20 109/67 (81) 100 98.6 06/18/25 08:00 Room Air* 0 21 Total Intake and Output 06/17/25 06/17/25 06/18/25 15:00 23:00 07:00 Intake Total 110 ml 650 ml 200 ml Output Total 200 ml 100 ml Balance 110 ml 450 ml 100 ml medications Current Medications Medications Dose Ordered Sig/Romulo Route Start Time Stop Time Status Last Admin Dose Admin Piperacillin Sod/ Tazobactam Sod 100 ml @ 25 mls/hr Q8HR IV 06/16/25 06:00 06/17/25 14:00 25 MLS/HR Acetaminophen/ Hydrocodone Bitart 1 tab Q4HP PRN PO 06/16/25 03:45 06/17/25 11:20 1 TAB Docusate Sodium 100 mg BIDPRN PRN PO 06/16/25 03:45 Acetaminophen 650 mg Q6HP PRN PO 06/16/25 03:45 Nitroglycerin 0.4 mg Q5MINP PRN SL 06/16/25 04:15 Morphine Sulfate 2 mg Q30M PRN IV 06/16/25 04:15 Sodium Chloride 1,000 ml @ 100 mls/hr Q10H IV 06/16/25 13:15 06/16/25 23:39 100 MLS/HR Ondansetron HCl 4 mg Q4HPRN PRN IV 06/16/25 14:30 Pantoprazole Sodium 40 mg DAILY IV 06/16/25 14:30 06/17/25 11:00 40 MG Iron Sucrose 110 ml @ 110 mls/hr DAILY@1200 IV 06/17/25 12:00 06/21/25 12:59 06/17/25 11:00 110 MLS/HR Vancomycin HCl 0 ml @ 0 mls/hr UD IV 06/16/25 17:30 Vancomycin HCl 100 ml @ 200 mls/hr Q12H IV 06/17/25 11:30 06/17/25 13:49 200 MLS/HR laboratory and microbiology Laboratory Tests 06/17/25 09:46 Test 06/17/25 09:46 Range/Units Serum Glucose 97 74-106 mg/dL Microbiology Date/Time Source Procedure Growth Status 06/17/25 11:17 Buttock Right Gram Stain - Final Resulted 06/17/25 11:17 Buttock Right Wound Culture - Preliminary Resulted 06/15/25 19:49 Blood Blood Culture - Preliminary NO GROWTH AFTER 48 HOURS OF INCUBATION. Resulted Problem List/Assessment/Plan Problem List/Assessment/Plan AFEBRILE VSS B/L BUTTOCK SOFT TISSUE TUMOR R/O RECTAL INVOLVEMENT CONSIDER GI EVAL FOR POSSIBLE COLONOSCOPY CONSIDER IR EVAL FOR NEEDLE BX OF LEFT BUTTOCK TUMOR LOCATION WITH ULCERATION ONCOLOGY EVAL Plan discussed with: Patient My Orders My Orders Orders - INDER JOSE MD Procedure Category Date Status Time Regular Diet DIET 06/18/25 Transmitted Dinner Npo (Nothing By DIET 06/19/25 Transmitted Mouth) Diet Breakfast * Gi [facility] [employer] CONS 06/18/25 Transmitted 16:49 Dietary Evaluation Review Recommendations by RD: Increase Calorie Intake, Protein Supplementation Comments: 1) Initiate Pro-Stat @ 30 mL bid 2) Initiate vitamin C @ 500 mg bid and zinc sulfate @ 220 mg qd for 7 days 3) Initiate Ensure Clear tid - change to Ensure Enlive tid when clear liquid diet progresses to full liquid/solid 4) Encourage optimal PO intake 5) Advance to low-fiber diet when medically feasible 6) Follow-up with gastroenterology, oncology, and nephrology 7) Follow-up with social media coordinator r/t housing assistance 8) Continue to monitor I&O, labs, and skin integrity Expected Outcomes/Goals: 1) appetite and labs to improve 2) wound to improve 3) GI symptoms to resolve 4) diet to advance 5) f/u in 2-3 days INDER JOSE MD Jun 18, 2025 17:15
--- NOTE | 2025-06-20 08:18 | DVHDS2 ---
Discharge Summary Date of Admission Jun 16, 2025 at 04:02 Date of Discharge: Jun 18, 2025 Admitting Diagnosis Rectal mass Labs/Diagnostic Data: Laboratory Results Test 06/17/25 09:46 06/16/25 22:00 06/16/25 14:15 06/15/25 21:40 White Blood Count 7.8 10^3/uL (4.4-10.8) Red Blood Count 3.09 10^6/uL (4.5-5.90) Hemoglobin 8.2 g/dL (13.5-17.5) Hematocrit 25.3 % (41.0-53.0) Mean Corpuscular Volume 81.9 fL (80.0-100.0) Mean Corpuscular Hemoglobin 26.4 pg (28.0-32.0) Mean Corpuscular Hemoglobin Concent 32.3 g/dL (32.0-36.0) Red Cell Distribution Width 17.8 % (11.8-14.3) Platelet Count 759 10^3/uL (140-450) Mean Platelet Volume 6.1 fL (6.9-10.8) Neutrophils (%) (Auto) 79.2 % (37.0-80.0) Lymphocytes (%) (Auto) 10.9 % (10.0-50.0) Monocytes (%) (Auto) 8.4 % (0.0-12.0) Eosinophils (%) (Auto) 1.0 % (0.0-7.0) Basophils (%) (Auto) 0.5 % (0.0-2.0) Neutrophils # (Auto) 6.1 10 ^3/uL (1.6-8.6) Lymphocytes # (Auto) 0.8 10 ^3/uL (0.4-5.4) Monocytes # (Auto) 0.7 10 ^3/uL (0-1.3) Eosinophils # (Auto) 0.1 10 ^3/uL (0-0.8) Basophils # (Auto) 0 10 ^3/uL (0-0.2) Nucleated Red Blood Cells 0.0 % Sodium Level 135 mmol/L (136-145) Potassium Level 4.3 mmol/L (3.5-5.1) Chloride Level 105 mmol/L (98-107) Carbon Dioxide Level 21 mmol/L (20-31) Anion Gap 9 (5-15) Blood Urea Nitrogen 21 mg/dL (9-23) Creatinine 1.13 mg/dL (0.700-1.30) Glomerular Filtration Rate Calc 71 mL/min (>90) BUN/Creatinine Ratio 18.6 (10.0-20.0) Serum Glucose 97 mg/dL (74-106) Calcium Level 8.1 mg/dL (8.7-10.4) Total Bilirubin 0.2 mg/dL (0.2-1.0) Aspartate Amino Transferase (AST) 24 U/L (13-40) Alanine Aminotransferase (ALT) 25 U/L (7-40) Alkaline Phosphatase 124 U/L (46-116) Total Protein 5.3 g/dL (5.7-8.2) Albumin 3.1 g/dL (3.2-4.8) Random Vancomycin Level 5.8 ug/mL (5-10) Urine Color Yellow (Yellow) Urine Clarity Clear (Clear) Urine pH 6.0 (5.0-9.0) Urine Specific [place] 1.046 (1.001-1.035) Urine Protein 1+ (Negative) Urine Ketones Negative (Negative) Urine Blood Negative /uL (Negative) Urine Nitrite Negative (Negative) Urine Bilirubin Negative (Negative) Urine Urobilinogen Normal mg/dL (Negative) Urine Leukocyte Esterase Negative /uL (Negative) Urine Glucose Normal mg/dL (Normal) Urine Opiates Screen Neg (NEGATIVE) Urine Fentanyl Screen Neg (NEGATIVE) Urine Barbiturates Screen Neg (NEGATIVE) Urine Phencyclidine Screen Neg (NEGATIVE) Urine Amphetamines Screen Neg (NEGATIVE) Urine Benzodiazepines Screen Neg (NEGATIVE) Urine Cocaine Screen Neg (NEGATIVE) Urine Cannabinoids Screen Neg (NEGATIVE) Carcinoembryonic Antigen 500.00 ng/mL (<=5.0) Lactic Acid Level 1.6 mmol/L (0.4-2.0) Other Laboratory Tests 06/17/25 09:46 Brief Hx & Hospital Course: History of Present Illness The patient is a 65-year-old male with past medical history of rectal cancer status post nonhealing wound presented to [facility] ED for evaluation of wound infection. As reported, patient was picked up by paramedics inside backseat of a car. Patient seen here before with a 17x8x9 cm perirectal mass but signed AMA. Patient was seen and evaluated in the ED, laboratory data shows WBC 17.2, hemoglobin 8.0, hematocrit 24.4, platelets 698, sodium 133, potassium 3.8, BUN 41, creatinine 1.61, glucose 142, GFR 47, lactic acid 2.3 trending down to 1.6, calcium 8.2, blood pressure 96/67, heart rate 90, temperature 98.3 F, O2 saturation 97% on room air. Abdomen/pelvis CT revealing increased size of the perirectal mass with prominent extension to the inferior buttocks soft tissues; progression of metastatic disease within the lungs bases. Patient was started on IV antibiotic regimen vancomycin, please see medication orders section in the computer. On my assessment, patient denied chest pain, no headache, no dizziness, no shortness of breath, no nausea, no vomiting, no fever, no chills. Patient was admitted for further evaluation and medical management. Course of hospitalization: Long discussion was made with the patient regarding his grave condition of metastatic colon cancer to the lungs as well as the probable etiology of his gluteal wound. Patient was started on IV antibiotic therapy, IV hydration. GI and surgical consultation was placed. Once patient began improving clinically, he became more agitated and belligerent. Patient does have a history of amphetamine use. Patient has decided to leave against medical advice despite being told his Options for medical care. Total time spent with patient discussing and formulating plan of care: 35 minutes. This medical document was created using an electronic medical record system with [employer] dictation system. Although this document has been carefully reviewed, there may still be some phonetic and typographical errors. These areas are purely typographical due to imperfections of the software programs, and do not reflect any compromise in the patient's medical care. Condition at Discharge: Poor Final Diagnosis/Problems List Metastatic colon cancer Secondary diagnosis: -sepsis -gluteal wound -metastatic colon cancer -questionable colonic obstruction -history of amphetamine abuse -homelessness -anemia -chronic kidney disease stage IIIB Discharge Disposition: AMA Discharge Instruct/Medications No Active Prescriptions or Reported Meds 36 Discharge Statement: "Patient was advised to return to the ER or call 911 if any headaches, dizziness, shortness of breath, chest pain, abdominal pain, bleeding, fevers, or worsening of medical condition. Patient was counseled about treatment plan, medications, possible side effects, patientverbalized understanding. All questions were answered to the best of my ability. This discharge took greater then 30 minutes in planning, reviewing documentation, counseling the patient, and discussing with other team members." ASSESSMENT ASSESSMENT Assessment Date of Service: Jun 18, 2025 Billing Provider: YEMI AVELAR NP Common Visit Codes: 87195-YTJ/OBS DISCH DAY >30min YEMI AVELAR NP Jun 20, 2025 08:18
== END 2025-06-18 19:02 | disposition left against medical advice (07) | DRG 871 ==
LOC: EDUNIT# 19:17 → ER 19:17 → EDBD 19:17 → OVERFLOW 06-16 04:02 → TELE-CENTR 06-16 16:40 → OVERFLOW 06-16 17:27 → TELE-WESTW 06-17 03:47
PROVIDERS: ADMIT Nurse Practitioner Acute Care
DX: A41.9 Sepsis, unspecified organism (principal); E43 Unspecified severe protein-calorie malnutrition; N17.0 Acute kidney failure with tubular necrosis; Z59.00 Homelessness unspecified; C19 Malignant neoplasm of rectosigmoid junction; C78.00 Secondary malignant neoplasm of unspecified lung; L03.317 Cellulitis of buttock; Z68.1 Body mass index [BMI] 19.9 or less, adult; K59.00 Constipation, unspecified; F15.10 Other stimulant abuse, uncomplicated; D64.9 Anemia, unspecified; D75.839 Thrombocytosis, unspecified; F17.210 Nicotine dependence, cigarettes, uncomplicated; N18.32 Chronic kidney disease, stage 3b; S31.819A Unspecified open wound of right buttock, initial encounter; Z53.29 Procedure and treatment not carried out because of patient's decision for other reasons; X58.XXXA Exposure to other specified factors, initial encounter; Z85.048 Personal history of other malignant neoplasm of rectum, rectosigmoid junction, and anus; Y93.89 Activity, other specified; Y92.89 Other specified places as the place of occurrence of the external cause; Y99.8 Other external cause status
CPT/HCPCS: 36415; 71045; 74177; 80053; 80202; 80307; 81003; 82378; 83605; 85025; 86850; 86900; 86901; 87040; 87077; 87186; 87205; 96360; 96361; G0378; J1756; J1885; J2405; J2470; J2543; J3490

== ENCOUNTER 2025-07-30 07:31 | Emergency (ER) | payer MEDICARE, MEDICAID ==
[~2025-07-30] VITALS: Ht 167.6 cm; Wt 54.0 kg
--- NOTE | 2025-07-30 07:56 | ED.PDOC ---
History of Present Illness HPI Comments 65-year-old male with no reported PMHx presents with a chief complaint of rectal pain x onset "January". Patient states that he has "a tumor coming out of my butt and I can't poop and its excrutiating". Patient states that he has been having this pain "since my birthday". Patients is 56. Patient also mentions that he has not seen a doctor "since high school". Patient is know methamphetamine user and is homeless. Chief Complaint: Rectal Pain Time Seen by MD: 07:47 Primary Care Provider: UNKNOWN Reviewed Notes: Medications, Allergies Allergies: Coded Allergies: NO KNOWN ALLERGIES (Unverified , 07/25/23) Home Meds No Active Prescriptions or Reported Meds Information Source: Patient Mode of Arrival: Ambulatory Severity: Moderate Timing: Months Duration: Since onset Prehospital treatment: None Past Medical History PAST MEDICAL HISTORY: Denies Surgical History: Denies all surgeries Family History Family History: Reviewed,noncontributory to illness Social History Smoker: Cigarettes Alcohol: Denies ETOH Use Drugs: Methamphetamine Lives In: Homeless Constitutional: denies: chills, diaphoresis, fatigue, fever, malaise, sweats, weakness, others EENTM: denies: blurred vision, double vision, ear bleeding, ear discharge, ear drainage, ear pain, ear ringing, eye pain, eye redness, hearing loss, mouth pain, mouth swelling, nasal discharge, nose bleeding, nose congestion, nose pain, photophobia, tearing, throat pain, throat swelling, voice changes, others Respiratory: denies: cough, hemoptysis, orthopnea, SOB at rest, shortness of breath, SOB with excertion, stridor, wheezing, others Cardiovascular: denies: chest pain, dizzy spells, diaphoresis, Dyspnea on exer tion, edema, irregular heart beat, left arm pain, lightheadedness, palpitations, PND, syncope, others Gastrointestinal: reports: constipated, rectal pain; denies: abdomen distended, abdominal pain, blood streaked bowels, diarrhea, dysphagia, difficulty swallowing, hematemesis, melena, nausea, poor appetite, poor fluid intake, rectal bleeding, vomiting, others Genitourinary: denies: burning, dysuria, flank pain, frequency, hematuria, incontinence, penile discharge, penile sore, pain, testicle pain, testicle swelling, urgency, others Neurological: denies: dizziness, fainting, headache, left sided numbness, left sided weakness, numbness, paresthesia, pre-existing deficit, right sided numbness, right sided weakness, seizure, speech problems, tingling, tremors, weakness, others Musculoskeletal: denies: back pain, gout, joint pain, joint swelling, muscle pain, muscle stiffness, neck pain, others Integumetry: denies: bruises, change in color, change in hair/nails, dryness, laceration, lesions, lumps, rash, wounds, others Allergic/Immunocompromised: denies: Difficulty Healing, Frequent Infections, Hives, Itching, others Hematologic/Lymphatic: denies: anemia, blood clots, easy bleeding, easy bruising, swollen glands, others Endocrine: denies: excessive hunger, excessive sweating, excessive thirst, excessive urination, flushing, intolerance to cold, intolerance to heat, unexplained weight gain, unexplained weight loss, others Psychiatric: denies: anxiety, bipolar disorder, depression, hopeless, panic disorder, schizophrenia, sleepless, suicidal, others All Other Systems: Reviewed and Negative Physical Exam General Appearance: Moderate Distress, Normal HEENT: Normal ENT Inspection, Pharynx Normal, TMs Normal Neck: Full Range of Motion, Non-Tender, Normal, Normal Inspection Respiratory: Chest Non-Tender, Lungs Clear, No Accessory Muscle Use, No Respiratory Distress, Normal Breath Sounds Cardiovascular: No Edema, No JVD, No Murmur, No Gallop, Normal Peripheral Pulses, Regular Rate/Rhythm Breast Exam: Deferred Gastrointestinal: No Organomegaly, Non Tender, No Pulsatile Mass, Normal Bowel Sounds, Soft Genitalia: Deferred Pelvic: Deferred Rectal: Deferred Extremities: No calf tenderness, Normal capillary refill, Normal inspection, Normal range of motion, Non-tender, No pedal edema Musculoskeletal : Apperance: Normal Neurologic: Alert, dispersion mixer II-XII nml as Tested, No Motor Deficits, Normal Affect, Normal Mood, No Sensory Deficits Cerebellar Function: Normal Reflexes: Normal Skin: Dry, Normal Color, Warm Peripheral Pulses: 3+ Radial (R), 3+ Radial (L) Lymphatic: No Adenopathy Was a procedure done? Was a procedure done?: No Differential Dx Considerations may include: Anemia Electrolyte imbalance X-Ray, Labs, Meds, VS Vital Signs Date Time Temp Pulse Resp B/P (MAP) Pulse Ox O2 Delivery O2 Flow Rate FiO2 07/30/25 07:33 97.5 70 18 156/98 95 97.5 Patient alert. Complaining of abdominal pain. Blood pressure slightly elevated. Saturation pristine on room air. Heart rate within normal limits. He is ambulating. Has not seen a physician. Establish intravenous access. Was given fluids. Explained to the patient that he will be admitted for possible colonoscopy. Continue monitoring. Time of 1ST Reevaluation: 08:17 Reevaluation 1ST: Unchanged Patient Education/Counseling: Diagnosis, Treatment, Need For Follow Up Family Education/Counseling: No Family Present SEPSIS Sepsis Screen Date sepsis recognized/suspect: Jul 30, 2025 Time Sepsis recognized/suspect: 734 Recent Procedure: No On Antibiotic Therapy: No Respiratory Rate >20: No Heart Rate >90: No Temp<36 C (96.8 F) or >38.3 C: No SBP <90 or MAP <65 mmHG: No New Acute Mental Status Change: No Is the patient on CPAP, BIPAP,: No Physician Orders Complete Blood Count (07/30/25 07:49) Ct Ab Pel Wo Con-No Oral Or Iv (07/30/25 07:49) Basic Metabolic Panel (07/30/25 07:49) Vital Signs Date Time Temp Pulse Resp B/P (MAP) Pulse Ox O2 Delivery O2 Flow Rate FiO2 07/30/25 07:33 97.5 70 18 156/98 95 97.5 Departure 1 Departure Time of Disposition: 07:58 Impression: Primary Impression: Acute abdominal pain Additional Impression: Hypertensive urgency Disposition: 09 ADMITTED INPATIENT Admit to: Med Surg Condition: Guarded e-Prescriptions No Active Prescriptions or Reported Meds Critical Care Note Critical Care Time?: No Stability Stability form required: No Heart Score Heart Score: Heart Score Response (Comments) Value History Slightly Suspicious 0 EKG Normal 0 Age >65 2 Risk Factors >3 or Hx ASHD 2 Troponin Normal limit 0 Total 4 I personally scribed for ARABELLA BARRAZA MD ([email or web address]) on 07/30/25 at 07:55. Electronically submitted by Sajan Monsalve ([email or web address]). ARABELLA BARRAZA MD Jul 30, 2025 07:55
[2025-07-30 08:10] LABS: Hematocrit 30.8 % (41.0-53.0); Hemoglobin 10.0 g/dL (13.5-17.5); Mean Corpuscular Hemoglobin 27.1 pg (28.0-32.0); Mean Corpuscular Volume 83.5 fL (80.0-100.0); Nucleated Red Blood Cells % 0.2 %
[2025-07-30 08:12] VITALS: BP 155/94; PULSE 76; RESP 18; TEMP 98.7; O2SAT 97
[2025-07-30] MEDS: HYDROcodone-ACET 10/325MG TAB PO ONE (08:12)
[2025-07-30 08:13] LABS: Chloride 107 mmol/L (98-107); Potassium 3.7 mmol/L (3.5-5.1); Sodium 139 mmol/L (136-145)
[2025-07-30 08:17] LABS: Calcium 7.9 mg/dL (8.7-10.4)
[2025-07-30 08:19] LABS: BUN/Creatinine Ratio 9.6 (10.0-20.0); Blood Urea Nitrogen 11 mg/dL (9-23); Glucose 91 mg/dL (74-106)
[2025-07-30 08:24] LABS: Anion Gap 11 (5-15); Carbon Dioxide 21 mmol/L (20-31)
[2025-07-30 08:36] LABS: Anisocytosis Slight; Ovalocytes FEW
--- NOTE | 2025-07-30 09:22 | DVH ---
Exam: CT CT AB PEL WO CON-NO ORAL OR IV History: rectalprolapse Comparison Study: CT CT AB PEL WITH IV CON ONLY on DOS: 06/16/25, CT CT AB PEL WITH IV CON ONLY on DOS: 03/25/25, CT CT ABD PELVIS W CON-ORAL IV on DOS: 04/08/24, CT CT AB PEL WO CON-NO ORAL OR IV on DOS: 04/08/24, CT CT AB PEL WO CON-NO ORAL OR IV on DOS: 07/25/23 TECHNIQUE: Multidetector CT of the abdomen was performed from lung bases to pubic symphysis. Imaging was performed without IV contrast. Axial, coronal and sagittal multiplanar reformats were obtained fr om the axial data set by the technologist. Radiation Dose Information: CT Dose: CTDI volume is 5.8 mGy. Dose-length product is 345 mGy*cm FINDINGS: Evaluation of solid organs is limited due to lack of intravenous contrast use. Findings: Lung Bases: Previously identified metastatic pulmonary nodules have increased in size from prior exam the largest now measures 2.8 cm and is within the left lower lobe. Normal heart size. No pleural or pericardial effusion. Liver: The liver is normal in size. No focal lesions. Gallbladder and Biliary Tree: Unremarkable Spleen: Unremarkable Pancreas: The pancreas is grossly normal in appearance. Adrenal Glands: Unremarkable Kidneys: Kidneys are grossly normal without calculi or hydronephrosis. Bladder: Grossly unremarkable for degree of distention. Ascites: Mildly increased since prior exam. Lymphadenopathy: No mesenteric, retroperitoneal or periportal lymphadenopathy. GI tract: There is increase in size of the perirectal mass with increased extension into the inferior right buttock soft tissue. Again ability to discern between fluid collection and mass extension is limited by CT. The buttock mass now measures 11.2 cm which is increased from 9.0 cm the perirectal ma ss has increased from 9.7 cm 210.7 cm. Vasculature: The visualized abdominal aorta is normal in size and caliber. Evaluation of abdominal a nd pelvic vessels is limited due to lack of intravenous contrast. IMPRESSION: 1. Increase in size of the perirectal mass with increased extension into the inferior right buttock s oft tissue as described above. 2. Worsening pulmonary metastatic disease 3. Increased mild ascites 4. Radiation optimization: All CT scans at this facility use at least one of these dose optimization techniques: automated exposure control mA and/or kV adjustment per patient size (includes targeted e xams where dose is matched to clinical indication) or iterative reconstruction.
== END 2025-07-30 10:42 | disposition left against medical advice (07) ==
LOC: ER 07:34
DX: R10.9 Unspecified abdominal pain (principal); I16.0 Hypertensive urgency; F17.210 Nicotine dependence, cigarettes, uncomplicated; F15.90 Other stimulant use, unspecified, uncomplicated
CPT/HCPCS: 36415; 74176; 80048; 85025

== ENCOUNTER 2025-08-27 05:10 | Inpatient (IN) | payer MEDICARE, MEDICAID ==
[~2025-08-27] VITALS: Ht 172.7 cm; Wt 68.0 kg
--- NOTE | 2025-08-27 06:47 | ED.PDOC ---
GI ASSESSMENT HPI Comments 65 y.o male presents to the ED for a chief complaint of rectal pain that has been ongoing for the past 6 months. Patient reports being seen multiple times for this pain, states was diagnosed with a rectal mass but is unsure of definite diagnosis as he has not followed up with a elevator repairer to determine the type of mass. Patient states feeling pressure on his rectum that is constant and worsens when he sits. He denies any rectal bleeding or discharge. He was seen at this facility multiple times for same, diagnosed with proctitis and was told to f/u with GI. Additionally, he was recently seen at [facility] for the pain but is unsure what they did for him there. He is a poor historian. No other medical history reported. Chief Complaint: Rectal Pain Time Seen by MD: 06:20 Primary Care Provider: UNKNOWN Reviewed Notes: Nurses Notes, Medications, Allergies Allergies: Coded Allergies: NO KNOWN ALLERGIES (Unverified , 07/25/23) Home Meds No Active Prescriptions or Reported Meds Information Source: Patient Mode of Arrival: EMS Timing: Months (6) Duration: Since onset Vomitus: None Stool: Normal Severity: Moderate Recent: None Recent Hx of: None Pain Location: None Modifying Factors: Nothing Associated sign and symptoms: Other Past Medical History PAST MEDICAL HISTORY: Denies Surgical History: Denies all surgeries Family History Family History: Reviewed,noncontributory to illness Social History Smoker: Cigarettes Alcohol: Denies ETOH Use Drugs: Methamphetamine Lives In: Homeless Constitutional: denies: chills, diaphoresis, fatigue, fever, malaise, sweats, weakness, others EENTM: denies: blurred vision, double vision, ear bleeding, ear discharge, ear drainage, ear pain, ear ringing, eye pain, eye redness, hearing loss, mouth pain, mouth swelling, nasal discharge, nose bleeding, nose congestion, nose pain, photophobia, tearing, throat pain, throat swelling, voice changes, others Respiratory: denies: cough, hemoptysis, orthopnea, SOB at rest, shortness of breath, SOB with excertion, stridor, wheezing, others Cardiovascular: denies: chest pain, dizzy spells, diaphoresis, Dyspnea on exertion, edema, irregular heart beat, left arm pain, lightheadedness, palpitations, PND, syncope, others Gastrointestinal: reports: rectal pain; denies: abdomen distended, abdominal pain, blood streaked bowels, constipated, diarrhea, dysphagia, difficulty swallowing, hematemesis, melena, nausea, poor appetite, poor fluid intake, rectal bleeding, vomiting, others Genitourinary: denies: burning, dysuria, flank pain, frequency, hematuria, incontinence, penile discharge, penile sore, pain, testicle pain, testicle swelling, urgency, others Neurological: denies: dizziness, fainting, headache, left sided numbness, left sided weakness, numbness, paresthesia, pre-existing deficit, right sided numbness, right sided weakness, seizure, speech problems, tingling, tremors, wea kness, others Musculoskeletal: denies: back pain, gout, joint pain, joint swelling, muscle pain, muscle stiffness, neck pain, others Integumetry: denies: bruises, change in color, change in hair/nails, dryness, l aceration, lesions, lumps, rash, wounds, others Allergic/Immunocompromised: denies: Difficulty Healing, Frequent Infections, Hives, Itching, others Hematologic/Lymphatic: denies: anemia, blood clots, easy bleeding, easy bruising, swollen glands, others Endocrine: denies: excessive hunger, excessive sweating, excessive thirst, excessive urination, flushing, intolerance to cold, intolerance to heat, unexplained weight gain, unexplained weight loss, others Psychiatric: denies: anxiety, bipolar disorder, depression, hopeless, panic disorder, schizophrenia, sleepless, suicidal, others All Other Systems: Reviewed and Negative Physical Exam General Appearance: Moderate Distress HEENT: Normal ENT Inspection, Pharynx Normal, TMs Normal Neck: Full Range of Motion, Non-Tender, Normal, Normal Inspection Respiratory: Chest Non-Tender, Lungs Clear, No Accessory Muscle Use, No Respiratory Distress, Normal Breath Sounds Cardiovascular: No Edema, No JVD, No Murmur, No Gallop, Normal Peripheral Pulses, Regular Rate/Rhythm Breast Exam: Deferred Gastrointestinal: No Organomegaly, Non Tender, No Pulsatile Mass, Normal Bowel Sounds, Soft Genitalia: Deferred Pelvic: Deferred Rectal: Deferred Extremities: No calf tenderness, Normal capillary refill, Normal inspection, Normal range of motion, Non-tender, No pedal edema Musculoskeletal : Apperance: Normal Neurologic: Alert, tools and parts attendant II-XII nml as Tested, No Motor Deficits, Normal Affect, Normal Mood, No Sensory Deficits Cerebellar Function: Normal Reflexes: Normal Skin: Dry, Normal Color, Warm Peripheral Pulses: 3+ Radial (R), 3+ Radial (L) Lymphatic: No Adenopathy Was a procedure done? Was a procedure done?: No GI differential Dx Differential Diagnosis: Constipation, Diverticular disease, Esophagitis, Gastritis/PUD, Gastroenteritis Other Differential Diagnosis Hemorrhoids, polyps X-Ray, Labs, Meds, VS Vital Signs Date Time Temp Pulse Resp B/P (MAP) Pulse Ox O2 Delivery O2 Flow Rate FiO2 08/27/25 08:43 90 16 110/65 08/27/25 08:17 90 16 119/77 08/27/25 08:01 90 16 98 Room Air* 0 21 08/27/25 07:57 97.8 90 16 119/77 (91) 98 97.8 08/27/25 07:26 90 18 98 Room Air 08/27/25 07:26 90 18 141/89 (106) 98 08/27/25 05:10 98.0 91 16 115/75 98 98.0 Lab Test 08/27/25 08:10 08/27/25 06:55 Range/Units Urine Color Yellow Yellow Urine Clarity Clear Clear Urine pH 6.0 5.0-9.0 Urine Specific [place] 1.027 1.001-1.035 Urine Protein Trace H Negative Urine Ketones Negative Negative Urine Blood Negative Negative /uL Urine Nitrite Negative Negative Urine Bilirubin Negative Negative Urine Urobilinogen Normal Negative mg/dL Urine Leukocyte Esterase Negative Negative /uL Urine RBC 1 0 - 3 /hpf Urine Microscopic WBC 4 H 0-3 /HPF Urine Squamous Epithelial Cells Few <5 /hpf Urine Bacteria None seen None Seen /hpf Urine Glucose Normal Normal mg/dL Urine Opiates Screen Neg NEGATIVE Urine Fentanyl Screen Neg NEGATIVE Urine Barbiturates Screen Neg NEGATIVE Urine Phencyclidine Screen Neg NEGATIVE Urine Amphetamines Screen Neg NEGATIVE Urine Benzodiazepines Screen Pos NEGATIVE Urine Cocaine Screen Neg NEGATIVE Urine Cannabinoids Screen Neg NEGATIVE White Blood Count 10.6 4.4-10.8 10^3/uL Red Blood Count 3.00 L 4.5-5.90 10^6/uL Hemoglobin 7.9 L 13.5-17.5 g/dL Hematocrit 25.2 L 41.0-53.0 % Mean Corpuscular Volume 83.9 80.0-100.0 fL Mean Corpuscular Hemoglobin 26.5 L 28.0-32.0 pg Mean Corpuscular Hemoglobin Concent 31.6 L 32.0-36.0 g/dL Red Cell Distribution Width 20.7 H 11.8-14.3 % Platelet Count 701 H 140-450 10^3/uL Mean Platelet Volume 6.4 L 6.9-10.8 fL Neutrophils (%) (Auto) 72.4 37.0-80.0 % Lymphocytes (%) (Auto) 14.2 10.0-50.0 % Monocytes (%) (Auto) 9.2 0.0-12.0 % Eosinophils (%) (Auto) 3.6 0.0-7.0 % Basophils (%) (Auto) 0.6 0.0-2.0 % Neutrophils # (Auto) 7.7 1.6-8.6 10 ^3/uL Lymphocytes # (Auto) 1.5 0.4-5.4 10 ^3/uL Monocytes # (Auto) 1.0 0-1.3 10 ^3/uL Eosinophils # (Auto) 0.4 0-0.8 10 ^3/uL Basophils # (Auto) 0.1 0-0.2 10 ^3/uL Nucleated Red Blood Cells 0.0 % Sodium Level 137 136-145 mmol/L Potassium Level 5.1 3.5-5.1 mmol/L Chloride Level 104 98-107 mmol/L Carbon Dioxide Level 23 20-31 mmol/L Anion Gap 10 5-15 Blood Urea Nitrogen 21 9-23 mg/dL Creatinine 1.44 H 0.700-1.30 mg/dL Glomerular Filtration Rate Calc 53 >90 mL/min BUN/Creatinine Ratio 14.6 10.0-20.0 Serum Glucose 88 74-106 mg/dL Calcium Level 8.9 8.7-10.4 mg/dL Iron Level 18 L 65-175 ug/dL Total Iron Binding Capacity 219 L 250-425 ug/dL Percent Iron Saturation 8.2 L 20-55 % Ferritin 37.2 22-322 ng/mL Current Medications Medications (Trade) Dose Ordered Sig/Romulo Route Start Time Stop Time Status Last Admin Ondansetron HCl (Zofran) 4 mg ONCE ONCE IV 08/27/25 06:45 08/27/25 06:46 DC 08/27/25 08:16 Hydromorphone HCl (Dilaudid Injection) 1 mg ONCE ONCE IV 08/27/25 06:45 08/27/25 06:46 DC 08/27/25 08:17 Sodium Chloride 1,000 ml @ 1,000 mls/hr Q1H ONCE IVB 08/27/25 06:45 08/27/25 07:44 DC 08/27/25 08:14 Patient alert. Came in because of rectal pain. Has a mass in the rectum. Vitals stable. Answering questions. Establish intravenous access. Was given fluids. Surgical consultation. Continues to smoke cigarettes. Counseled patient on effects of smoking cigarettes for 15 minutes. Explained to the patient. Continue monitoring. Time of 1ST Reevaluation: 07:00 Reevaluation 1ST: Unchanged Patient Education/Counseling: Diagnosis, Treatment, Prognosis Family Education/Counseling: No Family Present SEPSIS Sepsis Screen Date sepsis recognized/suspect: Aug 27, 2025 Time Sepsis recognized/suspect: 0510 Recent Procedure: No On Antibiotic Therapy: No Respiratory Rate >20: No Heart Rate >90: No Temp<36 C (96.8 F) or >38.3 C: No SBP <90 or MAP <65 mmHG: No New Acute Mental Status Change: No Is the patient on CPAP, BIPAP,: No Physician Orders Ct Ab Pel Wo Con-No Oral Or Iv (08/27/25 06:40) Vital Signs Date Time Temp Pulse Resp B/P (MAP) Pulse Ox O2 Delivery O2 Flow Rate FiO2 08/27/25 08:43 90 16 110/65 08/27/25 08:17 90 16 119/77 08/27/25 08:01 90 16 98 Room Air* 0 21 08/27/25 07:57 97.8 90 16 119/77 (91) 98 97.8 08/27/25 07:26 90 18 98 Room Air 08/27/25 07:26 90 18 141/89 (106) 98 08/27/25 05:10 98.0 91 16 115/75 98 98.0 Laboratory Tests Test 08/27/25 06:55 White Blood Count 10.6 10^3/uL (4.4-10.8) Medications Medications Dose Ordered Sig/Romulo Route Start Time Stop Time Status Last Admin Dose Admin Hydromorphone HCl 1 mg ONCE ONCE IV 08/27/25 06:45 08/27/25 06:46 DC 08/27/25 08:17 Ondansetron HCl 4 mg ONCE ONCE IV 08/27/25 06:45 08/27/25 06:46 DC 08/27/25 08:16 Sodium Chloride 1,000 ml @ 1,000 mls/hr Q1H ONCE IVB 08/27/25 06:45 08/27/25 07:44 DC 08/27/25 08:14 Departure 1 Departure Time of Disposition: 06:53 Impression: Primary Impression: Rectal mass Additional Impression: Rectal bleeding Disposition: ADMITTED INPATIENT Admit to: Med Surg Condition: Guarded e-Prescriptions No Active Prescriptions or Reported Meds Critical Care Note Critical Care Time?: Yes (90 min-critical care time only) Stability Stability form required: No I personally scribed for ARABELLA BARRAZA MD ([email or web address]) on 08/27/25 at 06:47. Electronically submitted by Sonal Fagan ([email or web address]). ARABELLA BARRAZA MD Aug 27, 2025 06:47
[2025-08-27 07:18] LABS: Hematocrit 25.2 % (41.0-53.0); Hemoglobin 7.9 g/dL (13.5-17.5); Mean Corpuscular Hemoglobin 26.5 pg (28.0-32.0); Mean Corpuscular Volume 83.9 fL (80.0-100.0); Nucleated Red Blood Cells % 0.0 %
[2025-08-27 07:21] LABS: Chloride 104 mmol/L (98-107); Potassium 5.1 mmol/L (3.5-5.1); Sodium 137 mmol/L (136-145)
[2025-08-27 07:22] LABS: Anion Gap 10 (5-15); Carbon Dioxide 23 mmol/L (20-31)
[2025-08-27 07:23] LABS: Calcium 8.9 mg/dL (8.7-10.4)
[2025-08-27 07:27] LABS: Glucose 88 mg/dL (74-106)
[2025-08-27 07:28] LABS: BUN/Creatinine Ratio 14.6 (10.0-20.0); Blood Urea Nitrogen 21 mg/dL (9-23)
[2025-08-27 08:01] VITALS: PULSE 90; RESP 16; O2SAT 98
[2025-08-27] MEDS: SODIUM CHLORIDE 0.9% 1,000 ML IVB ONE (08:14)
[2025-08-27] MEDS: ONDANSETRON HCL 4 MG/2 ML VIAL IV ONE (08:16)
[2025-08-27] MEDS: HYDROmorphone HCL 2 MG/ML VL/or syr IV ONE (08:17)
--- NOTE | 2025-08-27 09:30 | DVH ---
CT CT AB PEL WO CON-NO ORAL OR IV INDICATION: rectalmass EXAM DATE: 08/27/2025 08:07 AM COMPARISON: CT ABD/PEL W - IV on DOS: 08/25/25, CT CT AB PEL WO CON-NO ORAL OR IV on DOS: 07/30/25, CT CT AB PEL WITH IV CON ONLY on DOS: 06/16/25 RADIATION DOSE: CTDIvol: 5.11 mGy, DLP: 344.02 mGy*cm PROCEDURE: Helical CT images were obtained of the abdomen and pelvis without IV contrast Sagittal and coronal reconstructions are provided. ORAL CONTRAST: None. ADDITIONAL IMAGES / REFORMATS: None All C T scans at this medical facility are performed using dose modulation techniques as appropriate to a p erformed exam including the following: Automated exposure control was utilized; adjustment of the MA and/or KV according to patient size; and use of iterative reconstruction technique. FINDINGS: LUNG BASE: Similar pulmonary masses with largest in the LLL measures 3.8 cm. LIVER: Normal. GALLBLADDER AND BILIARY TREE: No calcified gallstones. Normal caliber wall. No intra- or extrahepatic biliary ductal dilation. PANCREAS: Normal. SPLEEN: Normal. BOWEL: Similar large exophytic rectal mass. ADRENALS: Normal. KIDNEYS AND URETER: 1.3 cm left kidney cyst. BLADDER: Normal. REPRODUCTIVE ORGANS: Normal. LYMPH NODES:Prominent right pelvic side wall lymph node. PERITONEUM: No ascites or free air. No other fluid collection. VESSELS: Scattered atherosclerotic calcifications are noted. RETROPERITONEUM: Normal. ABDOMINAL WALL: Normal. BONES: Scattered osseous degenerative changes are noted. IMPRESSION: Similar large exophytic rectal mass. Similar pulmonary masses with largest in the LLL measures 3.8 cm. Prominent right pelvic side wall lymph node.
[2025-08-27] MEDS ORDERED: SODIUM CHLORIDE 0.9% 1,000 ML IV SCH (10:15)
[2025-08-27] MEDS ORDERED: METOCLOPRAMIDE HCL 5MG/ml INJ 2ml VIAL IV PRN (10:15)
[2025-08-27] MEDS ORDERED: ONDANSETRON HCL 4 MG/2 ML VIAL IV PRN (10:15)
[2025-08-27] MEDS ORDERED: MORPHINE SULFATE 4 MG/ML SYR/VIAL IV PRN (10:30)
[2025-08-27 10:41] VITALS: BP 131/83; PULSE 81; RESP 18; TEMP 98.1; O2SAT 99
[2025-08-27 11:00] VITALS: O2SAT 99
[2025-08-27 11:03] LABS: Urine Protein, UAD TRACE (Negative)
[2025-08-27 11:12] LABS: Amphetamine Screen, Urine Neg (NEGATIVE); Opiate Scree,Urine Neg (NEGATIVE)
[2025-08-27 11:16] LABS: Barbiturate Scree,Urine Neg (NEGATIVE); Benzodiazephine Screen, Urine Pos (NEGATIVE); Cannabinoid Screen, Urine Neg (NEGATIVE); Cocaine Screen, Urine Neg (NEGATIVE); Phencyclidine Screen, Urine Neg (NEGATIVE)
[2025-08-27 11:31] LABS: Iron 18.0 ug/dL (65-175); Total Iron Binding Capacity 219.0 ug/dL (250-425)
--- NOTE | 2025-08-27 12:08 | DVHHP2 ---
History of Present Illness History of Present Illness Patient is 65-year-old male who came to the hospital with a chief complaint of rectal pain, with increasing rectal mass size, gluteal wound and worsening generalized body ache and shortness of breath. Patient is poor historian however patient recently hospitalized for the same reason, was offered medical services for his rectal mass with pulmonary metastasis, however patient left against medical advice. Patient came to the hospital again for the same reason with rectal pain. Patient denying any active rectal bleeding however patient is constipated for many days with worsening generalized pain. Patient denying any other symptoms including chest pain, shortness of breath, fever, chills, motor or sensory deficits. 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 Patient has smoked cigarettes every day. Allergies: Denies Home medication: Patient does not recall Review of Systems Constitutional: No: Fever, Chills, Sweats, Weakness, Malaise, Other Eyes: No: Pain, Vision change, Conjunctivae inflammation, Eyelid inflammation, Other, Redness ENT: No: Ear pain, Ear discharge, Nose pain, Nose discharge, Nose congestion, Mouth pain, Mouth swelling, Throat pain, Throat swelling, Other Respiratory: No: Cough, Dry, Shortness of breath, SOB with excertion, Wheezing, Hemoptysis, Pleuritic Pain, Sputum, Wheezing, Other Cardiovascular: No: Chest Pain, Palpitations, Orthopnea, Paroxysmal Noc. Dyspnea, Edema, Lt Headedness, Other Gastrointestinal: Other (Rectal pain) Genitourinary: No Dysuria, No Frequency, No Incontinence, No Hematuria, No Retention, No Other Musculoskeletal: No: other, neck pain, shoulder pain, arm pain, back pain, hand pain, leg pain, foot pain Skin: No: Rash, Lesions, Jaundice, Bruising, Other Allergies: Coded Allergies: NO KNOWN ALLERGIES (Unverified , 07/25/23) Medications Current Medications Medications Dose Ordered Sig/Romulo Route Start Time Stop Time Status Last Admin Dose Admin Sodium Chloride 1,000 ml @ 60 mls/hr [id number] IV 08/27/25 10:15 Metoclopramide HCl 10 mg Q4HP PRN IV 08/27/25 10:15 Ondansetron HCl 4 mg Q4HP PRN IV 08/27/25 10:15 Morphine Sulfate 2 mg Q4HPRN PRN IV 08/27/25 10:30 Enoxaparin Sodium 40 mg DAILY SC 08/28/25 10:00 Exam Vital Signs Vital Signs Date Time Temp Pulse Resp B/P (MAP) Pulse Ox O2 Delivery O2 Flow Rate FiO2 08/27/25 11:00 99 Room Air* 0 21 08/27/25 10:41 98.1 81 18 131/83 (99) 98.1 Exam Patient refused rectal/pelvis examination General Appearance: In mild distress Head Exam: Normal inspection Neck Exam: Normal inspection. Non-tender. Normal alignment Pulmonary/Respiratory: Chest non-tender. Clear bilateral breath sounds Cardiovascular/Chest: Regular rate and rhythm. No murmurs. No JVD. Peripheral Pulses: 2+ Radial (R). 2+ Radial (L). 2+ Pedal (R). 2+ Pedal (L) Abdominal Exam: Limited examination, patient refused for pelvic/rectal examination. However patient notified that he has future rectal mass. Tenderness on sitting. Ankle Exam: Negative ankle edema Lower extremities: Negative lower extremity edema Neuro/Mental Status: A&O x4. Coherent Thoughts/Psych: Normal thought pattern. Appropriate mood and affect. Good judgement and insight Appearance: In no acute distress Skin Exam: Normal inspection. Normal color. Warm. Dry Labs/Xrays Labs Test 08/27/25 08:10 08/27/25 06:55 Range/Units Urine Color Yellow Yellow Urine Clarity Clear Clear Urine pH 6.0 5.0-9.0 Urine Specific [place] 1.027 1.001-1.035 Urine Protein Trace H Negative Urine Ketones Negative Negative Urine Blood Negative Negative /uL Urine Nitrite Negative Negative Urine Bilirubin Negative Negative Urine Urobilinogen Normal Negative mg/dL Urine Leukocyte Esterase Negative Negative /uL Urine RBC 1 0 - 3 /hpf Urine Microscopic WBC 4 H 0-3 /HPF Urine Squamous Epithelial Cells Few <5 /hpf Urine Bacteria None seen None Seen /hpf Urine Glucose Normal Normal mg/dL Urine Opiates Screen Neg NEGATIVE Urine Fentanyl Screen Neg NEGATIVE Urine Barbiturates Screen Neg NEGATIVE Urine Phencyclidine Screen Neg NEGATIVE Urine Amphetamines Screen Neg NEGATIVE Urine Benzodiazepines Screen Pos NEGATIVE Urine Cocaine Screen Neg NEGATIVE Urine Cannabinoids Screen Neg NEGATIVE White Blood Count 10.6 4.4-10.8 10^3/uL Red Blood Count 3.00 L 4.5-5.90 10^6/uL Hemoglobin 7.9 L 13.5-17.5 g/dL Hematocrit 25.2 L 41.0-53.0 % Mean Corpuscular Volume 83.9 80.0-100.0 fL Mean Corpuscular Hemoglobin 26.5 L 28.0-32.0 pg Mean Corpuscular Hemoglobin Concent 31.6 L 32.0-36.0 g/dL Red Cell Distribution Width 20.7 H 11.8-14.3 % Platelet Count 701 H 140-450 10^3/uL Mean Platelet Volume 6.4 L 6.9-10.8 fL Neutrophils (%) (Auto) 72.4 37.0-80.0 % Lymphocytes (%) (Auto) 14.2 10.0-50.0 % Monocytes (%) (Auto) 9.2 0.0-12.0 % Eosinophils (%) (Auto) 3.6 0.0-7.0 % Basophils (%) (Auto) 0.6 0.0-2.0 % Neutrophils # (Auto) 7.7 1.6-8.6 10 ^3/uL Lymphocytes # (Auto) 1.5 0.4-5.4 10 ^3/uL Monocytes # (Auto) 1.0 0-1.3 10 ^3/uL Eosinophils # (Auto) 0.4 0-0.8 10 ^3/uL Basophils # (Auto) 0.1 0-0.2 10 ^3/uL Nucleated Red Blood Cells 0.0 % Sodium Level 137 136-145 mmol/L Potassium Level 5.1 3.5-5.1 mmol/L Chloride Level 104 98-107 mmol/L Carbon Dioxide Level 23 20-31 mmol/L Anion Gap 10 5-15 Blood Urea Nitrogen 21 9-23 mg/dL Creatinine 1.44 H 0.700-1.30 mg/dL Glomerular Filtration Rate Calc 53 >90 mL/min BUN/Creatinine Ratio 14.6 10.0-20.0 Serum Glucose 88 74-106 mg/dL Calcium Level 8.9 8.7-10.4 mg/dL Iron Level 18 L 65-175 ug/dL Total Iron Binding Capacity 219 L 250-425 ug/dL Percent Iron Saturation 8.2 L 20-55 % Ferritin 37.2 22-322 ng/mL SEPSIS Sepsis Screen Date sepsis recognized/suspect: Aug 27, 2025 Time Sepsis recognized/suspect: 05 Recent Procedure: No On Antibiotic Therapy: No Respiratory Rate >20: No Heart Rate >90: No Temp<36 C (96.8 F) or >38.3 C: No SBP <90 or MAP <65 mmHG: No New Acute Mental Status Change: No Is the patient on CPAP, BIPAP,: No Physician Orders Ct Ab Pel Wo Con-No Oral Or Iv (08/27/25 06:40) Admit (08/27/25 10:15) Code Status (08/27/25 10:15) Vital Signs .PER UNIT PROTOCOL (08/27/25 10:15) Review Orders With Adm. (08/27/25 10:15) Regular Diet (08/27/25 Lunch) Sodium Chloride 0.9% (08/27/25 10:15) Metoclopramide Injection (Reglan Injecti (08/27/25 10:15) Notify Md Of Changes From Base (08/27/25 10:15) Advance Directive (08/27/25 10:15) Patient Condition (08/27/25 10:15) Allergies (08/27/25 10:15) Ondansetron Hcl (Zofran) (08/27/25 10:15) Enoxaparin Sodium (Lovenox) (08/28/25 10:00) * Gi Dvh Wall Crane Operator (08/27/25 10:19) * Surgical Consult (08/27/25 ) Chest Xray 1 View (08/27/25 10:20) Morphine Sulfate Injection (08/27/25 10:30) * Obstetrics Gynecology Physician Consult (08/27/25 ) * Wound Consult (08/27/25 ) Iron Ivpb (08/28/25 12:00) Vital Signs Date Time Temp Pulse Resp B/P (MAP) Pulse Ox O2 Delivery O2 Flow Rate FiO2 08/27/25 11:00 99 Room Air* 0 21 08/27/25 10:41 98.1 81 18 131/83 (99) 99 98.1 08/27/25 10:33 99 18 134/89 (104) 99 08/27/25 08:43 90 16 110/65 08/27/25 08:17 90 16 119/77 08/27/25 08:01 90 16 98 Room Air* 0 21 08/27/25 07:57 97.8 90 16 119/77 (91) 98 97.8 08/27/25 07:26 90 18 98 Room Air 08/27/25 07:26 90 18 141/89 (106) 98 08/27/25 05:10 98.0 91 16 115/75 98 98.0 Laboratory Tests Test 08/27/25 06:55 White Blood Count 10.6 10^3/uL (4.4-10.8) Medications Medications Dose Ordered Sig/Romulo Route Start Time Stop Time Status Last Admin Dose Admin Hydromorphone HCl 1 mg ONCE ONCE IV 08/27/25 06:45 08/27/25 06:46 DC 08/27/25 08:17 1 MG Ondansetron HCl 4 mg ONCE ONCE IV 08/27/25 06:45 08/27/25 06:46 DC 08/27/25 08:16 4 MG Sodium Chloride 1,000 ml @ 1,000 mls/hr Q1H ONCE IVB 08/27/25 06:45 08/27/25 07:44 DC 08/27/25 08:14 1,000 MLS/HR Assessment/Plan Assessment/Plan Metastatic colorectal cancer, metastatic pulmonary nodule Perirectal mass perianal cellulitis Anemia of chronic disease Iron-deficiency anemia Protein malnutrition BETTE on VMN, CKD stage IIIB Alleviated CEA level Plan/recommendation -Patient was counseled on aggressive nature of his rectal mass/colon cancer, informed his clinical condition, initially patient agreed for getting treatment, was consulted GI and surgery, given severe anemia was started on IV iron therapy. Initially patient was motivated enough for getting treatment however Patient left against medical advice before receiving any medical management or seen by any senior research consultant. During discussion, goals care of discussed greater than 24 minutes, full code status. Plan discussed with Dr. Mercedes Plan discussed with: Patient, Other My Orders Orders - DAIN WOODS RESIDENT Procedure Category Date Status Time Admit ADMIT 08/27/25 Transmitted 10:15 Code Status CODE 08/27/25 Transmitted 10:15 Vital Signs SCOTT 08/27/25 In Process 10:15 Review Orders With SCOTT 08/27/25 In Process Adm. 10:15 Regular Diet DIET 08/27/25 Transmitted Lunch Sodium Chloride 0.9% PHA 08/27/25 In Process 10:15 Metoclopramide PHA 08/27/25 In Process Injection (Reglan 10:15 Notify Of Changes SCOTT 08/27/25 In Process From Base 10:15 Advance Directive SCOTT 08/27/25 In Process 10:15 Patient Condition ORDERS 08/27/25 Transmitted 10:15 Allergies SCOTT 08/27/25 In Process 10:15 Ondansetron Hcl PHA 08/27/25 In Process (Zofran) 10:15 Enoxaparin Sodium PHA 08/28/25 In Process (Lovenox) 10:00 * Gi Dvh Wall Crane Operator CONS 08/27/25 Transmitted 10:19 * Surgical Consult CONS 08/27/25 Transmitted Chest Xray 1 View XY 08/27/25 Taken 10:20 Morphine Sulfate PHA 08/27/25 In Process Injection 10:30 * Obstetrics Gynecology Physician CONS 08/27/25 Transmitted Consult * Wound Consult CONS 08/27/25 Transmitted Iron Ivpb PHA 08/28/25 Transmitted 12:00 Date of Service: Aug 27, 2025 Billing Provider: JOE MERCEDES MD Common Visit Codes: [id number] INP/OBS CARE (HIGH) Secondary Visit Codes: [id number] CARE PLAN 30 MINUTES DAIN WOODS RESIDENT Aug 27, 2025 12:08
[2025-08-27] MEDS ORDERED: LACTULOSE 20Gm/30ML SOLN PO ONE (12:15)
--- NOTE | 2025-08-27 12:17 | DVH ---
EXAM: XY CHEST XRAY 1 VIEW CLINICAL HISTORY: metastasis TECHNIQUE: Single AP view of the chest WID: COMPARISON: XY CHEST XRAY 1 VIEW on DOS: 06/16/25 FINDINGS: Lines and tubes: None Chest: The heart size and pulmonary vasculature is within normal limits. Calcified plaque projects over the aortic arch. Multiple bilateral pulmonary nodules appear to have increased in size since prior. The osseous structures are grossly intact. Multilevel thoracic spondylosis. IMPRESSION: 1. No acute cardiopulmonary abnormality. 2. Multifocal pulmonary metastases, appear to have slightly increased in size since prior study.
[2025-08-27] MEDS ORDERED: PANTOPRAZOLE 40 MG TAB PO ONE (13:30)
[2025-08-27] MEDS ORDERED: HYDROmorphone HCL 2 MG/ML VL/or syr IV PRN (13:30)
[2025-08-28] MEDS ORDERED: PANTOPRAZOLE 40 MG TAB PO SCH (06:00)
[2025-08-28] MEDS ORDERED: ENOXAPARIN SOD 40 MG/0.4 ML SYRINGE SC SCH (10:00)
[2025-08-28] MEDS ORDERED: LACTULOSE 20Gm/30ML SOLN PO SCH (10:00)
[2025-08-28] MEDS ORDERED: IRON SUCROSE COMPLEX 110 ML IV SCH (12:00)
== END 2025-08-27 12:45 | disposition left against medical advice (07) | DRG 374 ==
LOC: EDBD 05:10 → ER 05:10 → OVERFLOW 10:15
PROVIDERS: ADMIT Student in an Organized Health Care Education/Training Program; ATTEND Internal Medicine Gastroenterology
DX: C19 Malignant neoplasm of rectosigmoid junction (principal); N17.0 Acute kidney failure with tubular necrosis; E46 Unspecified protein-calorie malnutrition; K61.0 Anal abscess; K62.5 Hemorrhage of anus and rectum; Z59.00 Homelessness unspecified; C78.02 Secondary malignant neoplasm of left lung; D50.9 Iron deficiency anemia, unspecified; D63.8 Anemia in other chronic diseases classified elsewhere; N18.32 Chronic kidney disease, stage 3b; F17.210 Nicotine dependence, cigarettes, uncomplicated; K59.00 Constipation, unspecified; Z53.29 Procedure and treatment not carried out because of patient's decision for other reasons; Z85.048 Personal history of other malignant neoplasm of rectum, rectosigmoid junction, and anus; Z68.25 Body mass index [BMI] 25.0-25.9, adult
CPT/HCPCS: 36415; 71045; 74176; 80048; 80307; 81001; 82728; 83540; 83550; 85025; 96361; 96374; 96375; 99291; 99292; G0378; J2405

== ENCOUNTER 2025-09-04 02:28 | Inpatient (IN) | payer MEDICARE, MEDICAID ==
[~2025-09-04] VITALS: Ht 165.1 cm; Wt 48.4 kg
--- NOTE | 2025-09-04 02:58 | ED.PDOC ---
GI ASSESSMENT HPI Comments 65 y.o male presents to the ED for a chief complaint of rectal pain that has been ongoing for the past 6 months. Patient reports being seen multiple times for this pain, states was diagnosed with a rectal mass but is unsure of definite diagnosis as he has not followed up with a manual training teacher to determine the type of mass. Patient states feeling pressure on his rectum that is constant and worsens when he sits. He denies any rectal bleeding or discharge. He was seen at this facility multiple times for same, diagnosed with proctitis and was told to f/u with GI. Additionally, he was recently seen at [facility] for the pain but is unsure what they did for him there. He is a poor historian. No other medical history reported. Chief Complaint: Rectal Pain Time Seen by MD: 02:37 Primary Care Provider: UNKNOWN Reviewed Notes: Nurses Notes, Medications, Allergies Allergies: Coded Allergies: NO KNOWN ALLERGIES (Unverified , 07/25/23) Home Meds No Active Prescriptions or Reported Meds Information Source: Patient Mode of Arrival: Ambulatory Past Medical History PAST MEDICAL HISTORY: Denies Surgical History: Denies all surgeries Family History Family History: Reviewed,noncontributory to illness Social History Smoker: Cigarettes Alcohol: Denies ETOH Use Drugs: Methamphetamine Lives In: Homeless All Other Systems: Reviewed and Negative (see hpi) Physical Exam General Appearance: No Apparent Distress, Normal HEENT: Pharynx Normal Neck: Full Range of Motion, Non-Tender Respiratory: Lungs Clear, No Respiratory Distress, Normal Breath Sounds Cardiovascular: No Edema, No JVD, No Murmur, No Gallop, Normal Peripheral Pulses, Regular Rate/Rhythm Breast Exam: Deferred Gastrointestinal: Diffuse (Tenderness), Distended, No Organomegaly, No Pulsatile Mass, Normal Bowel Sounds, Soft Genitalia: Deferred Pelvic: Deferred Rectal: Deferred Extremities: Normal capillary refill, Normal range of motion, No pedal edema Musculoskeletal : Apperance: Normal Neurologic: Alert, No Motor Deficits, Normal Affect, Normal Mood, No Sensory Deficits Cerebellar Function: Normal Reflexes: NOT DONE Skin: Dry, Normal Color, Warm Lymphatic: No Adenopathy Was a procedure done? Was a procedure done?: No GI differential Dx Differential Diagnosis: Bowel Obstruction, Cholecystitis, Constipation, Diverticular disease, Gastroenteritis, Inflammatory BD, Ischemic Bowel, Pancreatitis, Urolithiasis, Kidney Stone X-Ray, Labs, Meds, VS Vital Signs Date Time Temp Pulse Resp B/P (MAP) Pulse Ox O2 Delivery O2 Flow Rate FiO2 09/04/25 04:47 98.0 86 18 149/83 (105) 100 98.0 09/04/25 04:44 86 16 149/83 09/04/25 02:30 97.7 90 18 141/86 100 97.7 Lab Test 09/04/25 03:15 Range/Units White Blood Count 11.8 H 4.4-10.8 10^3/uL Red Blood Count 2.97 L 4.5-5.90 10^6/uL Hemoglobin 7.5 L 13.5-17.5 g/dL Hematocrit 24.5 L 41.0-53.0 % Mean Corpuscular Volume 82.6 80.0-100.0 fL Mean Corpuscular Hemoglobin 25.2 L 28.0-32.0 pg Mean Corpuscular Hemoglobin Concent 30.5 L 32.0-36.0 g/dL Red Cell Distribution Width 21.0 H 11.8-14.3 % Platelet Count 624 H 140-450 10^3/uL Mean Platelet Volume 6.4 L 6.9-10.8 fL Neutrophils (%) (Auto) 76.6 37.0-80.0 % Lymphocytes (%) (Auto) 9.7 L 10.0-50.0 % Monocytes (%) (Auto) 9.8 0.0-12.0 % Eosinophils (%) (Auto) 2.9 0.0-7.0 % Basophils (%) (Auto) 1.0 0.0-2.0 % Neutrophils # (Auto) 9.0 H 1.6-8.6 10 ^3/uL Lymphocytes # (Auto) 1.1 0.4-5.4 10 ^3/uL Monocytes # (Auto) 1.2 0-1.3 10 ^3/uL Eosinophils # (Auto) 0.3 0-0.8 10 ^3/uL Basophils # (Auto) 0.1 0-0.2 10 ^3/uL Nucleated Red Blood Cells 0.0 % Prothrombin Time 10.9 9.3-11.8 sec Prothrombin Time INR 1.03 0.9-1.15 Activated Partial Thromboplast Time 27.9 24.5-34.5 SEC Sodium Level 140 136-145 mmol/L Potassium Level 4.5 3.5-5.1 mmol/L Chloride Level 108 H 98-107 mmol/L Carbon Dioxide Level 24 20-31 mmol/L Anion Gap 8 5-15 Blood Urea Nitrogen 23 9-23 mg/dL Creatinine 1.22 0.700-1.30 mg/dL Glomerular Filtration Rate Calc 65 >90 mL/min BUN/Creatinine Ratio 18.9 10.0-20.0 Serum Glucose 94 74-106 mg/dL Calcium Level 8.5 L 8.7-10.4 mg/dL Total Bilirubin 0.2 0.2-1.0 mg/dL Aspartate Amino Transferase (AST) 19 13-40 U/L Alanine Aminotransferase (ALT) 17 7-40 U/L Alkaline Phosphatase 101 46-116 U/L Total Protein 6.1 5.7-8.2 g/dL Albumin 3.2 3.2-4.8 g/dL Lipase 39 12-53 U/L Current Medications Medications (Trade) Dose Ordered Sig/Romulo Route Start Time Stop Time Status Last Admin Sodium Chloride 1,000 ml @ 1,000 mls/hr Q1H ONCE IV 09/04/25 03:00 09/04/25 03:59 DC 09/04/25 04:44 Ondansetron HCl (Zofran) 4 mg ONCE ONCE IV 09/04/25 04:15 09/04/25 04:16 DC 09/04/25 04:44 Hydromorphone HCl (Dilaudid Injection) 0.5 mg ONCE ONCE IV 09/04/25 04:45 09/04/25 04:46 DC 09/04/25 04:44 X-Ray, Labs, Meds, VS Comment CT ABDOMEN AND PELVIS IMPRESSION: 1. Lobulated soft tissue density mass occupying the pelvic floor measuring 9.5 x 8.8 cm. Centrally diminished attenuation and collection of gas within the center of the mass likely represents the rectal lumen. Findings most consistent with rectal malignancy. 2. Hypoattenuating collection versus mass within the medial right gluteal region extending to the right posterolateral margin of the rectal mass, possibly representing abscess versus mass. 3. Retained colorectal stool. 4. Bilateral lower lobe pulmonary nodules measuring up to 3.0 cm on the left consistent with metastatic disease. Patient placed for admission: Patient alert. Came in because of rectal pain. Has a mass in the rectum with metastasis to bilateral lungs. Patient was seen here few days ago same complaints was admitted however patient AMA. Discussed admission with patient and he agrees with plan at this time. Severe anemia Vitals stable. Establish intravenous access. Was given fluids. GI consult Oncology consult Surgical consult Consider hospice consult if patient continues to sign out AMA, refuse treatment. Continues to smoke cigarettes. Counseled patient on effects of smoking cigarettes for 15 minutes. Explained to the patient. Continue monitoring. Time of 1ST Reevaluation: 02:57 Reevaluation 1ST: Unchanged Time of 2ND Reevaluation: 03:56 Reevaluation 2ND: Unchanged Patient Education/Counseling: Diagnosis, Treatment, Need For Follow Up Family Education/Counseling: No Family Present SEPSIS Sepsis Screen Date sepsis recognized/suspect: Sep 04, 2025 Time Sepsis recognized/suspect: 231 Recent Procedure: No On Antibiotic Therapy: No Respiratory Rate >20: No Heart Rate >90: No Temp<36 C (96.8 F) or >38.3 C: No SBP <90 or MAP <65 mmHG: No New Acute Mental Status Change: No Is the patient on CPAP, BIPAP,: No Physician Orders Ct Ab Pel Wo Con-No Oral Or Iv (09/04/25 02:52) Urinalysis (09/04/25 03:21) Type And Screen (09/04/25 04:23) Vital Signs Date Time Temp Pulse Resp B/P (MAP) Pulse Ox O2 Delivery O2 Flow Rate FiO2 09/04/25 04:47 98.0 86 18 149/83 (105) 100 98.0 09/04/25 04:44 86 16 149/83 09/04/25 02:30 97.7 90 18 141/86 100 97.7 Laboratory Tests Test 09/04/25 03:15 White Blood Count 11.8 10^3/uL (4.4-10.8) H Medications Medications Dose Ordered Sig/Romulo Route Start Time Stop Time Status Last Admin Dose Admin Hydromorphone HCl 0.5 mg ONCE ONCE IV 09/04/25 04:45 09/04/25 04:46 DC 09/04/25 04:44 Ondansetron HCl 4 mg ONCE ONCE IV 09/04/25 04:15 09/04/25 04:16 DC 09/04/25 04:44 Sodium Chloride 1,000 ml @ 1,000 mls/hr Q1H ONCE IV 09/04/25 03:00 09/04/25 03:59 DC 09/04/25 04:44 Departure 1 Departure Time of Disposition: 03:55 Impression: Primary Impression: Rectal cancer Additional Impressions: Rectal mass Anemia Qualified Codes: D64.9 - Anemia, unspecified Metastatic cancer to lung Qualified Codes: C78.01 - Secondary malignant neoplasm of right lung; C78.02 - Secondary malignant neoplasm of left lung Thrombocytosis Disposition: ADMITTED INPATIENT Condition: Guarded e-Prescriptions No Active Prescriptions or Reported Meds Discharged With: Self Critical Care Note Critical Care Time?: No Stability Stability form required: LIZBETH Hargrove Sep 04, 2025 02:58
[2025-09-04] MEDS ORDERED: KETOROLAC TROMETH 30 MG/ML 1ML VIAL IV ONE (03:00)
--- NOTE | 2025-09-04 03:39 | DVH ---
Exam: CT CT AB PEL WO CON-NO ORAL OR IV History: rectal pain, lower abdomin pain Comparison Study: CT CT AB PEL WO CON-NO ORAL OR IV on DOS: 08/27/25, CT ABD/PEL W - IV on DOS: 08/25, CT CT AB PEL WO CON-NO ORAL OR IV on DOS: 07/30/25, CT CT ABD PELVIS W CON-ORAL IV on DOS: 04/08, CT CT AB PEL WO CON-NO ORAL OR IV on DOS: 04/08/24 Technique: Multidetector spiral CT of the abdomen was performed from lung bases to pubic symphysis. I maging was performed without IV contrast. Axial, coronal and sagittal multiplanar reformats were obta ined from the axial data set by the technologist. Radiation Dose : 1. Abdomen/Pelvis: CTDIvol 5.56 mGy, DLP 248.02 mGy*cm. Findings: Evaluation of solid organs is limited due to lack of intravenous contrast use. Lung Bases: Left lower lobe pulmonary nodules measure 2.5 and 3.0 cm, respectively. 5 mm pleural-base d pulmonary nodule within the posterior right lung base. No pleural or pericardial effusion. Heart si ze is normal. Liver: The liver is normal in size. No focal lesions. Gallbladder and Biliary Tree: Unremarkable Spleen: Unremarkable Pancreas: The pancreas is grossly normal in appearance. Adrenal Glands: Unremarkable Kidneys: Kidneys are grossly normal without calculi or hydronephrosis. Bladder: Grossly unremarkable for degree of distention. Bowel: The stomach is grossly normal in appearance. Retained colorectal stool. Rectum is poorly visua lized and there is a lobulated soft tissue density mass occupying the pelvic floor measuring 9.5 x 8. 8 cm. Centrally diminished attenuation and collection of gas within the center of the mass likely re presents the rectal lumen. To the right posterolateral margin of the rectum is a large near water att enuation Small bowel and colon are otherwise normal in caliber and distribution. The appendix is not visualized; however, no secondary findings of acute appendicitis identified. Ascites: Absent Lymphadenopathy: No mesenteric, retroperitoneal or periportal lymphadenopathy. Abdominal Wall and Mesentery: Unremarkable. Vasculature: The visualized abdominal aorta is normal in size and caliber. Atherosclerotic vascular c alcifications. Evaluation of abdominal and pelvic vessels is limited due to lack of intravenous contr ast. Pelvic Organs: Unremarkable Musculoskeletal: No aggressive focal bony lesions, acute fractures or dislocation. IMPRESSION: 1. Lobulated soft tissue density mass occupying the pelvic floor measuring 9.5 x 8.8 cm. Centrally d iminished attenuation and collection of gas within the center of the mass likely represents the recta l lumen. Findings most consistent with rectal malignancy. 2. Hypoattenuating collection versus mass within the medial right gluteal region extending to the rig ht posterolateral margin of the rectal mass, possibly representing abscess versus mass. 3. Retained colorectal stool. 4. Bilateral lower lobe pulmonary nodules measuring up to 3.0 cm on the left consistent with metastat ic disease. Radiation optimization: All CT scans at this facility use at least one of these dose optimization tawnya hniques: automated exposure control mA and/or kV adjustment per patient size (includes targeted exam s where dose is matched to clinical indication) or iterative reconstruction.
[2025-09-04 03:45] LABS: Alanine Aminotransferase 17 U/L (7-40); Albumin 3.2 g/dL (3.2-4.8); Alkaline Phosphatase 101 U/L (46-116); Anion Gap 8 (5-15); BUN/Creatinine Ratio 18.9 (10.0-20.0); Carbon Dioxide 24 mmol/L (20-31); Glucose 94 mg/dL (74-106); Lipase 39 U/L (12-53); Potassium 4.5 mmol/L (3.5-5.1); Sodium 140 mmol/L (136-145); Total Protein 6.1 g/dL (5.7-8.2)
[2025-09-04 03:52] LABS: Hematocrit 24.5 % (41.0-53.0); Hemoglobin 7.5 g/dL (13.5-17.5); Mean Corpuscular Hemoglobin 25.2 pg (28.0-32.0); Mean Corpuscular Volume 82.6 fL (80.0-100.0); Nucleated Red Blood Cells % 0.0 %
[2025-09-04 03:57] LABS: Bilirubin, Total 0.2 mg/dL (0.2-1.0); Blood Urea Nitrogen 23 mg/dL (9-23); Calcium 8.5 mg/dL (8.7-10.4); Chloride 108 mmol/L (98-107)
[2025-09-04] MEDS ORDERED: MORPHINE SULFATE 4 MG/ML SYR/VIAL IV ONE (04:15)
[2025-09-04] MEDS: ONDANSETRON HCL 4 MG/2 ML VIAL IV ONE (04:44)
[2025-09-04] MEDS: SODIUM CHLORIDE 0.9% 1,000 ML IV ONE (04:44)
[2025-09-04] MEDS: HYDROmorphone HCL 2 MG/ML VL/or syr IV ONE (04:44)
[2025-09-04 04:50] LABS: INR 1.03 (0.9-1.15); Partial Thromboplastin Time 27.9 SEC (24.5-34.5); Prothrombin Time 10.9 sec (9.3-11.8)
[2025-09-04] MEDS ORDERED: ACETAMINOPHEN 325 MG TAB PO PRN (05:15)
[2025-09-04] MEDS ORDERED: DOCUSATE SOD 100 MG CAP PO PRN (05:15)
[2025-09-04] MEDS ORDERED: ONDANSETRON HCL 4 MG/2 ML VIAL IV PRN (05:15)
[2025-09-04 05:26] LABS: Hematocrit 27.1 % (41.0-53.0); Hemoglobin 8.6 g/dL (13.5-17.5); Mean Corpuscular Hemoglobin 26.2 pg (28.0-32.0); Mean Corpuscular Volume 82.6 fL (80.0-100.0); Nucleated Red Blood Cells % 0.0 %
[2025-09-04] MEDS ORDERED: MORPHINE SULFATE INJ 2 MG/ml SYRG IV PRN (05:45)
[2025-09-04] MEDS ORDERED: NITROGLYCERIN 0.4 MG SL TAB SL PRN (05:45)
[2025-09-04] MEDS: SODIUM CHLOR 0.9% PF (SALINE LOCK) 10ML VIAL/SYR IV SCH (05:54)
--- NOTE | 2025-09-04 06:02 | DVHHP2 ---
History of Present Illness Reason for Visit: Rectal cancer History of Present Illness The patient is a 65-year-old male with multiple past medical history including rectal mass, anemia, presented to [facility] ED with complaint of rectal pain. Patient reports that he has been experiencing rectal pain for the past 6 months, seen multiple times for this pain and was diagnosed with a rectal mass but is unsure of definite diagnosis as he has not followed up with [employer] police [employer] to determine the type of mass. Patient states feeling pressure on his rectum that is constant and worsens when he sits. He was seen at this facility multiple times for same, diagnosed with proctitis and was told to f/u with GI, recently seen at [facility] for same pain but is unsure what they did for him there, given he is a poor historian. Patient was seen and evaluated in the ED, laboratory data shows WBC 11.8, hemoglobin 7.5, hematocrit 24.5, platelets 624, sodium 140, potassium 4.5, BUN 23, creatinine 1.22, GFR 65, glucose 94, calcium 8.5, lipase 39, blood pressure 149/83, heart rate 86, temperature 98.0 F, O2 saturation 99% on room air. Abdomen/pelvis CT revealing lobulated soft tissue density mass occupying the pelvis floor measuring 9.5 x 8.8 cm; centrally diminished attenuation and collection of gas within the center of the mass likely represent the rectal lumen, finding most consistent with rectal malignancy; bilateral lower lobe pulmonary nodules measuring up to 3.0 cm on the left consistent with metastatic disease. Please see medication orders section in the computer. On my assessment, patient denied chest pain, no dizziness, headache, shortness of breaths, diaphoresis, no abdominal pain, diarrhea, nausea, vomiting, fever, no chills. Patient was admitted for further evaluation and medical management. 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 Past Social History Patient lives in a mobile home, smokes cigarettes, denies alcohol use, uses methamphetamine. Review of Systems Constitutional: Yes: Weakness; No: Fever, Chills, Sweats, Malaise, Other Eyes: No: Pain, Vision change, Conjunctivae inflammation, Eyelid inflammation, Other, Redness ENT: No: Ear pain, Ear discharge, Nose pain, Nose discharge, Nose congestion, Mouth pain, Mouth swelling, Throat pain, Throat swelling, Other Respiratory: No: Cough, Dry, Shortness of breath, SOB with excertion, Wheezing, Hemoptysis, Pleuritic Pain, Sputum, Wheezing, Other Cardiovascular: No: Chest Pain, Palpitations, Orthopnea, Paroxysmal Noc. Dyspnea, Edema, Lt Headedness, Other Gastrointestinal: Other (Rectal pain); No: Nausea, Vomiting, Abdominal Pain, Diarrhea, Constipation, Melena, Hematochezia Genitourinary: No Dysuria, No Frequency, No Incontinence, No Hematuria, No Retention, No Other Musculoskeletal: No: other, neck pain, shoulder pain, arm pain, back pain, hand pain, leg pain, foot pain Skin: No: Rash, Lesions, Jaundice, Bruising, Other Neurological: No: Weakness, Numbness, Incoordination, Change in speech, Confusion, Seizures, Other Allergies: Coded Allergies: NO KNOWN ALLERGIES (Unverified , 07/25/23) Medications Current Medications Medications Dose Ordered Sig/Romulo Route Start Time Stop Time Status Last Admin Dose Admin Ceftriaxone Sodium 50 ml @ 100 mls/hr DAILY@09 IV 09/05/25 09:00 Hydromorphone HCl 0.5 mg Q4HPRN PRN IV 09/04/25 05:15 Sodium Chloride 10 ml Q8HR IV 09/04/25 06:00 Acetaminophen/ Hydrocodone Bitart 1 tab Q4HP PRN PO 09/04/25 05:15 Ondansetron HCl 4 mg Q4HP PRN IV 09/04/25 05:15 Docusate Sodium 100 mg BIDPRN PRN PO 09/04/25 05:15 Acetaminophen 500 mg Q6HP PRN PO 09/04/25 05:15 Exam Vital Signs Vital Signs Date Time Temp Pulse Resp B/P (MAP) Pulse Ox O2 Delivery O2 Flow Rate FiO2 09/04/25 04:47 98.0 86 18 149/83 (105) 100 98.0 General Appearance: Alert, Oriented X3, Cooperative, No acute distress HEENT: Atraumatic, PERRLA, EOMI, Mucous membr. moist/pink Respiratory: Normal air movement Cardiovascular: Regular rate, Normal S1, Normal S2, No murmurs Abdominal: Normal bowel sounds, Soft, No tenderness, No hepatospenomegaly, No masses Extremities: No clubbing, No cyanosis, No edema, Normal pulses, No tenderness/swelling Skin: No rashes, No significant lesion Neuro: Normal speech, Normal tone, Sensation intact, Cranial nerves 3-12 NL, Reflexes 2+, Other (Generalized weakness) Psych/Mental Status: Mental status NL, Mood NL Labs/Xrays Labs Test 09/04/25 05:34 09/04/25 04:31 09/04/25 03:15 Range/Units White Blood Count 12.8 H 4.4-10.8 10^3/uL Red Blood Count 3.28 L 4.5-5.90 10^6/uL Hemoglobin 8.6 L 13.5-17.5 g/dL Hematocrit 27.1 #L 41.0-53.0 % Mean Corpuscular Volume 82.6 80.0-100.0 fL Mean Corpuscular Hemoglobin 26.2 L 28.0-32.0 pg Mean Corpuscular Hemoglobin Concent 31.7 L 32.0-36.0 g/dL Red Cell Distribution Width 21.5 H 11.8-14.3 % Platelet Count 693 H 140-450 10^3/uL Mean Platelet Volume 6.7 L 6.9-10.8 fL Neutrophils (%) (Auto) 80.7 H 37.0-80.0 % Lymphocytes (%) (Auto) 8.7 L 10.0-50.0 % Monocytes (%) (Auto) 7.7 0.0-12.0 % Eosinophils (%) (Auto) 2.3 0.0-7.0 % Basophils (%) (Auto) 0.6 0.0-2.0 % Neutrophils # (Auto) 10.3 H 1.6-8.6 10 ^3/uL Lymphocytes # (Auto) 1.1 0.4-5.4 10 ^3/uL Monocytes # (Auto) 1.0 0-1.3 10 ^3/uL Eosinophils # (Auto) 0.3 0-0.8 10 ^3/uL Basophils # (Auto) 0.1 0-0.2 10 ^3/uL Nucleated Red Blood Cells 0.0 % Prothrombin Time 10.9 9.3-11.8 sec Prothrombin Time INR 1.03 0.9-1.15 Activated Partial Thromboplast Time 27.9 24.5-34.5 SEC Lipase 39 12-53 U/L PATIENT: OLIVAI ZHUT: [id number] UNIT: [id number] : 1960 LOC: ER ROOM / BED: / AGE / SEX: 65 / M ADM STATUS: REG ER SERVICE 0252 ORDERING PHYSICIAN: LIZBETH LIANG PROCEDURE(s): ABPL - CT AB PEL WO CON-NO ORAL OR IV REASON: rectal pain, lower abdomin pain ORDER NUMBER(s): [id number], ACCESSION NUMBER(s): [id number] Exam: CT CT AB PEL WO CON-NO ORAL OR IV History: rectal pain, lower abdomin pain Comparison Study: CT CT AB PEL WO CON-NO ORAL OR IV on DOS: 08/27/25, CT ABD/PEL W - IV on DOS: 08/25/25, CT CT AB PEL WO CON-NO ORAL OR IV on DOS: 07/30/25, CT CT ABD PELVIS W CON-ORAL IV on DOS: 04/08/24, CT CT AB PEL WO CON-NO ORAL OR IV on DOS: 04/08/24 Technique: Multidetector spiral CT of the abdomen was performed from lung bases to pubic symphysis. Imaging was performed without IV contrast. Axial, coronal and sagittal multiplanar reformats were obtained from the axial data set by the technologist. Radiation Dose : 1. Abdomen/Pelvis: CTDIvol 5.56 mGy, DLP 248.02 mGy*cm. Findings: Evaluation of solid organs is limited due to lack of intravenous contrast use. Lung Bases: Left lower lobe pulmonary nodules measure 2.5 and 3.0 cm, respectively. 5 mm pleural-based pulmonary nodule within the posterior right lung base. No pleural or pericardial effusion. Heart size is normal. Liver: The liver is normal in size. No focal lesions. Gallbladder and Biliary Tree: Unremarkable Spleen: Unremarkable Pancreas: The pancreas is grossly normal in appearance. Adrenal Glands: Unremarkable Kidneys: Kidneys are grossly normal without calculi or hydronephrosis. Bladder: Grossly unremarkable for degree of distention. Bowel: The stomach is grossly normal in appearance. Retained colorectal stool. Rectum is poorly visualized and there is a lobulated soft tissue density mass occupying the pelvic floor measuring 9.5 x 8.8 cm. Centrally diminished attenuation and collection of gas within the center of the mass likely represents the rectal lumen. To the right posterolateral margin of the rectum is a large near water attenuation Small bowel and colon are otherwise normal in caliber and distribution. The appendix is not visualized; however, no secondary findings of acute appendicitis identified. Ascites: Absent Lymphadenopathy: No mesenteric, retroperitoneal or periportal lymphadenopathy. Abdominal Wall and Mesentery: Unremarkable. Vasculature: The visualized abdominal aorta is normal in size and caliber. Atherosclerotic vascular calcifications. Evaluation of abdominal and pelvic vessels is limited due to lack of intravenous contrast. Pelvic Organs: Unremarkable Musculoskeletal: No aggressive focal bony lesions, acute fractures or dislocation. IMPRESSION: 1. Lobulated soft tissue density mass occupying the pelvic floor measuring 9.5 x 8.8 cm. Centrally diminished attenuation and collection of gas within the center of the mass likely represents the rectal lumen. Findings most consistent with rectal malignancy. 2. Hypoattenuating collection versus mass within the medial right gluteal region extending to the right posterolateral margin of the rectal mass, possibly representing abscess versus mass. 3. Retained colorectal stool. 4. Bilateral lower lobe pulmonary nodules measuring up to 3.0 cm on the left consistent with metastatic disease. SEPSIS Sepsis Screen Date sepsis recognized/suspect: Sep 04, 2025 Time Sepsis recognized/suspect: 231 Recent Procedure: No On Antibiotic Therapy: No Respiratory Rate >20: No Heart Rate >90: No Temp<36 C (96.8 F) or >38.3 C: No SBP <90 or MAP <65 mmHG: No New Acute Mental Status Change: No Is the patient on CPAP, BIPAP,: No Physician Orders Ct Ab Pel Wo Con-No Oral Or Iv (09/04/25 02:52) Urinalysis (09/04/25 03:21) Type And Screen (09/04/25 04:23) Comprehensive Metabolic Panel (09/04/25 05:05) Ceftriaxone 1gm/50ml (Rocephin) (09/04/25 05:15) Hydromorphone Injection (Dilaudid Inject (09/04/25 05:15) * Surgical Consult (09/04/25 ) * Hematology/Oncology Consult (09/04/25 05:05) Allergies (09/04/25 05:05) Code Status (09/04/25 05:05) Sodium Chloride Lock (Saline Lock Ns) (09/04/25 06:00) Oxygen Per Hour (09/04/25 05:05) Hydrocodone-Acet 5/325mg Tab ([place] /32 (09/04/25 05:15) Ondansetron Hcl (Zofran) (09/04/25 05:15) Docusate Sodium Capsule (Colace Capsule) (09/04/25 05:15) Complete Blood Count (09/05/25 04:00) Comprehensive Metabolic Panel (09/05/25 04:00) Cardiac Diet-2gna,Lofat,Lochol (09/04/25 Breakfast) Condition: Serious (09/04/25 05:05) Acetaminophen Tablet (Tylenol Tablet) (09/04/25 05:15) Bedrest With Bathroom Privileg (09/04/25 05:05) Maintain Bed Rest (09/04/25 05:05) Sequential Compression Device (09/04/25 ) Ceftriaxone 1gm/50ml (Rocephin) (09/05/25 09:00) Admit (09/04/25 05:39) Nitroglycerin Sublingual (Ntrostat Subli (09/04/25 05:45) Morphine Sulfate Injection (09/04/25 05:45) Stat Ekg For Chest Pain (09/04/25 05:39) Notify Of Changes From Base (09/04/25 05:39) Radio Broadcaster For 24 Hours (09/04/25 05:39) Emergency Dysrhythmia Protocol (09/04/25 05:39) Rhythm Strips Once Every Shift (09/04/25 05:39) Oxygen By Nasal Cannula (09/04/25 05:39) Vital Signs Date Time Temp Pulse Resp B/P (MAP) Pulse Ox O2 Delivery O2 Flow Rate FiO2 09/04/25 04:47 98.0 86 18 149/83 (105) 100 98.0 09/04/25 04:44 86 16 149/83 09/04/25 02:30 97.7 90 18 141/86 100 97.7 Laboratory Tests Test 09/04/25 03:15 09/04/25 04:31 White Blood Count 11.8 10^3/uL (4.4-10.8) H 12.8 10^3/uL (4.4-10.8) H Medications Medications Dose Ordered Sig/Romulo Route Start Time Stop Time Status Last Admin Dose Admin Ceftriaxone Sodium 50 ml @ 100 mls/hr ONCE ONCE IV 09/04/25 05:15 09/04/25 05:44 09/04/25 05:24 100 MLS/HR Hydromorphone HCl 0.5 mg ONCE ONCE IV 09/04/25 04:45 09/04/25 04:46 DC 09/04/25 04:44 0.5 MG Ondansetron HCl 4 mg ONCE ONCE IV 09/04/25 04:15 09/04/25 04:16 DC 09/04/25 04:44 4 MG Sodium Chloride 1,000 ml @ 1,000 mls/hr Q1H ONCE IV 09/04/25 03:00 09/04/25 03:59 DC 09/04/25 04:44 1,000 MLS/HR Assessment/Plan Assessment/Plan Rectal cancer Thrombocytosis Rectal mass Generalized weakness Leukocytosis, unspecified Anemia, unspecified Metastatic cancer to lung Secondary malignant neoplasm of right lung Secondary malignant neoplasm of left lung Plan 1. Admit to telemetry unit 2. Breathing treatment 3. Pain control management 4. IV antibiotic management 5. Management of fluids and electrolytes 6. Consultation for surgery/Hematology/Oncology 7. Diagnostic test abdomen/pelvis CT 8. DVT prophylaxis-on SCDs 9. Repeat labs CBC, CMP in a.m. 10. Continue with current medical management 11. Treatment plan discussed with patient and RN. Patient verbalized understanding. Plan discussed with: Patient, Other (RN) My Orders Orders - YOANA SUAZO DNP Procedure Category Date Status Time Comprehensive LAB 09/04/25 In Process Metabolic Panel 05:05 Ceftriaxone 1gm/50ml PHA 09/04/25 In Process (Rocephin) 05:15 Hydromorphone PHA 09/04/25 In Process Injection (Dilaudid 05:15 * Surgical Consult CONS 09/04/25 Transmitted * Hematology/Oncology CONS 09/04/25 Transmitted Consult 05:05 Allergies SCOTT 09/04/25 In Process 05:05 Code Status CODE 09/04/25 Transmitted 05:05 Sodium Chloride Lock PHA 09/04/25 In Process (Saline Lock Ns) 06:00 Oxygen Per Hour RT 09/04/25 Transmitted 05:05 Hydrocodone-Acet PHA 09/04/25 In Process 5/325mg Tab ([place] 05:15 Ondansetron Hcl PHA 09/04/25 In Process (Zofran) 05:15 Docusate Sodium PHA 09/04/25 In Process Capsule (Colace 05:15 Complete Blood Count LAB 09/05/25 Verified 04:00 Comprehensive LAB 09/05/25 Verified Metabolic Panel 04:00 Cardiac DIET 09/04/25 Transmitted Diet-2gna,Lofat,Lochol Breakfast Condition: Serious SCOTT 09/04/25 In Process 05:05 Acetaminophen Tablet PHA 09/04/25 In Process (Tylenol Tablet) 05:15 Bedrest With Bathroom SCOTT 09/04/25 In Process Privileg 05:05 Maintain Bed Rest [facility] 09/04/25 In Process 05:05 Sequential SCOTT 09/04/25 In Process Compression Device Ceftriaxone 1gm/50ml PHA 09/05/25 In Process (Rocephin) 09:00 Admit ADMIT 09/04/25 Verified 05:39 Nitroglycerin [facility] 09/04/25 Verified Sublingual (Ntrostat 05:45 Morphine Sulfate [facility] 09/04/25 Verified Injection 05:45 Stat Ekg For Chest [facility] 09/04/25 Verified Pain 05:39 Notify Md Of Changes [facility] 09/04/25 Verified From Base 05:39 Radio Broadcaster For [facility] 09/04/25 Verified 24 Hours 05:39 Emergency Dysrhythmia [facility] 09/04/25 Verified Protocol 05:39 Rhythm Strips Once [facility] 09/04/25 Verified Every Shift 05:39 Oxygen By Nasal RT 09/04/25 Verified Cannula 05:39 Problem List: (1) Anemia, unspecified (2) Rectal mass (3) Metastatic cancer to lung (4) Thrombocytosis (5) Generalized weakness (6) Rectal cancer (7) Leukocytosis, unspecified (8) Secondary malignant neoplasm of right lung (9) Secondary malignant neoplasm of left lung Date of Service: Sep 04, 2025 Billing Provider: YOANA SUAZO DNP Common Visit Codes: [id number] INP/OBS CARE (HIGH) YOANA SUAZO DNP Sep 04, 2025 06:01
[2025-09-04 06:22] LABS: Alanine Aminotransferase 16 U/L (7-40); Albumin 3.3 g/dL (3.2-4.8); Alkaline Phosphatase 106 U/L (46-116); Anion Gap 8 (5-15); BUN/Creatinine Ratio 18.0 (10.0-20.0); Blood Urea Nitrogen 20 mg/dL (9-23); Carbon Dioxide 22 mmol/L (20-31); Glucose 101 mg/dL (74-106); Potassium 4.3 mmol/L (3.5-5.1); Sodium 139 mmol/L (136-145); Total Protein 6.4 g/dL (5.7-8.2)
[2025-09-04 06:24] LABS: Bilirubin, Total < 0.2 mg/dL (0.2-1.0); Calcium 7.9 mg/dL (8.7-10.4); Chloride 109 mmol/L (98-107)
[2025-09-04 07:20] VITALS: PULSE 88; RESP 16; O2SAT 97
[2025-09-04 08:45] VITALS: BP 144/87; PULSE 84; RESP 18; TEMP 98; O2SAT 94
--- NOTE | 2025-09-04 13:38 | DVHINCON2 ---
Date of service: Sep 04, 2025 History of Present Illness 65-year-old homeless male with a known history of rectal/gluteal mass who has been seen in the hospital multiple times for rectal pain in the past but refused any treatment and left AMA now readmitted secondary to rectal pain that has been getting worse. Patient denies any rectal bleeding. Past Medical History Denies Past Surgical History Denies any surgeries Family History: Patient reports no known family medical history. Family History Noncontributory Social History Positive for tobacco and methamphetamine. Denies any alcohol use. Allergies: Coded Allergies: NO KNOWN ALLERGIES (Unverified , 07/25/23) Home Meds No Active Prescriptions or Reported Meds Current Medications Current Medications Medications (Trade) Dose Ordered Sig/Romulo Route PRN Reason Start Time Stop Time Status Last Admin Ceftriaxone Sodium 50 ml @ 100 mls/hr DAILY@09 IV 09/05/25 09:00 Hydromorphone HCl (Dilaudid Injection) 0.5 mg Q4HPRN PRN IV SEVERE PAIN (7-10 PAIN SCALE) 09/04/25 05:15 Sodium Chloride (Saline Lock Ns) 10 ml Q8HR IV 09/04/25 06:00 09/04/25 05:54 Acetaminophen/ Hydrocodone Bitart ([place] 5/325MG Tab) 1 tab Q4HP PRN PO MODERATE PAIN (4-6 PAIN SCALE) 09/04/25 05:15 Ondansetron HCl (Zofran) 4 mg Q4HP PRN IV NAUSEA / VOMITING 09/04/25 05:15 09/04/25 11:02 DC Docusate Sodium (Colace Capsule) 100 mg BIDPRN PRN PO FOR CONSTIPATION 09/04/25 05:15 09/04/25 11:02 DC Acetaminophen (Tylenol Tablet) 500 mg Q6HP PRN PO PAIN SCALE 1-3 OR TEMP>100.4 09/04/25 05:15 Nitroglycerin (Ntrostat Sublingual) 0.4 mg Q5MINP PRN SL FOR CHEST PAIN 09/04/25 05:45 09/04/25 11:02 DC Morphine Sulfate 2 mg Q30M PRN IV FOR CHEST PAIN 09/04/25 05:45 09/04/25 11:02 DC Polyethylene Glycol (Miralax 17GM Powder) 17 gm DAILY PO 09/05/25 10:00 Vital Signs Vital Signs Date Time Temp Pulse Resp B/P (MAP) Pulse Ox O2 Delivery O2 Flow Rate FiO2 09/04/25 08:45 98.0 84 18 144/87 (106) 94 98.0 09/04/25 07:20 Room Air* 0 21 Physical Exam GEN: Age-appropriate male in no acute distress. Alert. HEENT: Normocephalic atraumatic. Moist mucous membranes. Anicteric sclerae. CV: RRR Respiratory: Coarse breath sounds ABD: Soft. Nontender nondistended Rectal: Digital rectal deferred due to the shear size of the mass which extends into his right perianal and gluteal region with fungating open wound. CT of the abdomen and pelvis: Poorly visualized lobulated soft tissue density mass occupying the pelvic floor measuring 9.5 x 8.8 cm most consistent with rectal malignancy. Hypoattenuating collection versus mass within the right medial right gluteal region extending to the right posterolateral margin of the rectal mass. Bilateral pulmonary nodules measuring up to 3 cm consistent with metastatic disease. Labs/Diagnostic Data Labs Test 09/04/25 05:34 09/04/25 04:31 09/04/25 03:15 Range/Units Sodium Level 139 136-145 mmol/L Potassium Level 4.3 3.5-5.1 mmol/L Chloride Level 109 H 98-107 mmol/L Carbon Dioxide Level 22 20-31 mmol/L Anion Gap 8 5-15 Blood Urea Nitrogen 20 9-23 mg/dL Creatinine 1.11 0.700-1.30 mg/dL Glomerular Filtration Rate Calc 73 >90 mL/min BUN/Creatinine Ratio 18.0 10.0-20.0 Serum Glucose 101 74-106 mg/dL Calcium Level 7.9 L 8.7-10.4 mg/dL Total Bilirubin < 0.2 L 0.2-1.0 mg/dL Aspartate Amino Transferase (AST) 20 13-40 U/L Alanine Aminotransferase (ALT) 16 7-40 U/L Alkaline Phosphatase 106 46-116 U/L Total Protein 6.4 5.7-8.2 g/dL Albumin 3.3 3.2-4.8 g/dL White Blood Count 12.8 H 4.4-10.8 10^3/uL Red Blood Count 3.28 L 4.5-5.90 10^6/uL Hemoglobin 8.6 L 13.5-17.5 g/dL Hematocrit 27.1 #L 41.0-53.0 % Mean Corpuscular Volume 82.6 80.0-100.0 fL Mean Corpuscular Hemoglobin 26.2 L 28.0-32.0 pg Mean Corpuscular Hemoglobin Concent 31.7 L 32.0-36.0 g/dL Red Cell Distribution Width 21.5 H 11.8-14.3 % Platelet Count 693 H 140-450 10^3/uL Mean Platelet Volume 6.7 L 6.9-10.8 fL Neutrophils (%) (Auto) 80.7 H 37.0-80.0 % Lymphocytes (%) (Auto) 8.7 L 10.0-50.0 % Monocytes (%) (Auto) 7.7 0.0-12.0 % Eosinophils (%) (Auto) 2.3 0.0-7.0 % Basophils (%) (Auto) 0.6 0.0-2.0 % Neutrophils # (Auto) 10.3 H 1.6-8.6 10 ^3/uL Lymphocytes # (Auto) 1.1 0.4-5.4 10 ^3/uL Monocytes # (Auto) 1.0 0-1.3 10 ^3/uL Eosinophils # (Auto) 0.3 0-0.8 10 ^3/uL Basophils # (Auto) 0.1 0-0.2 10 ^3/uL Nucleated Red Blood Cells 0.0 % Prothrombin Time 10.9 9.3-11.8 sec Prothrombin Time INR 1.03 0.9-1.15 Activated Partial Thromboplast Time 27.9 24.5-34.5 SEC Lipase 39 12-53 U/L Assessment 1. Large rectal and right gluteal fungating mass consistent with malignancy. Plan/Recommendation 1. According to the patient, he has never had a biopsy done. We will proceed with the skin biopsy of the mass for tissue diagnosis for possible adjuvant therapy. Surgery is not an option as there was no signs of obstruction at this time and he appears to have pulmonary metastasis already. Plan discussed with: Patient JIMENA CHAMPION MD Sep 04, 2025 13:38
--- NOTE | 2025-09-04 13:46 | DVHPN2 ---
Assessment/Plan Assessment/Plan progress note 65 M with HTN, rectal mass, CKD admitted for rectal mass with intractible pain from rectal mass. previously left AMA prior to w/u, discussed with pt would like to get bx today. physical exam aox3 cachectic, unkempt clear rbeath sounds s1 s2 rrr abdomen soft rectal mass protruding, foul smelling no le edema labs ekg imaging reviewed assessment and plan metastatic rectal / colon cancer CKD 2 anemia microcytic protein calorie malnutrition meth use wound HTN leukocytosis thrombocytosis likely reactive pulmonary nodule likely mets constipation vs obstruction? surg consult for biopsy bowel regimen nutrition consult trend cbc, cr reinforce abstinence wound care start oral anti htn pain management diet cardiac dvt ppx hold for bx prognosis poor full code 30 minutes spend for advanced care planning Plan discussed with: Patient My Orders Orders - SONG ALFARO MD Procedure Category Date Status Time Discontinue Tele SCOTT 09/04/25 In Process 11:00 Transfer Orders XFER 09/04/25 Transmitted 11:00 Polyethylene Glycol PHA 09/05/25 In Process 17g Powder (Miralax 10:00 Date of Service: Sep 04, 2025 Billing Provider: SONG ALFARO MD Common Visit Codes: [id number] INP/OBS CARE(HIGH) SONG ALFARO MD Sep 04, 2025 13:46
[2025-09-04] MEDS: LIDOCAINE 1%-Mpf/Epinephrine 1:200,000 30ml VIAL ONE (14:57)
--- NOTE | 2025-09-04 15:08 | DVHOP2 ---
Operative Report - 2 Report Details Date: 09/04/25 Preop Diagnosis: 1. Likely rectal cancer extending into the right gluteal region Postop Diagnosis: 1. Same Surgeon: Jimena Randolph MD Engineer [employer]: None Anesthesiologist: none Anesthesia: Local Consent: The procedure and its risks including but not limited to infection, bleeding were explained to the patient. All questions were answered to his satisfaction. He expressed verbal understanding and wished to proceed with the biopsy. Complications: None Estimated Blood Loss: 10 mL Name of Procedure Performed Incisional biopsy of the right gluteal mass x2 Procedure Details Procedure Details: After placing the patient in prone position, his anal and gluteal regions were prepped and draped in standard surgical fashion. Approximately 10 mL of 1% lidocaine with epinephrine was used as a local anesthesia. Full-thickness elliptical incision was made at the edge of the ulcerated wound two different sites. These were sent off to pathology for permanent section. The surgical site was then checked for hemostasis. Surgicel snow was used for additional hemostasis. The surgical site was cleaned and dried and dressings were applied. Sponge, needle, instrument count at the end of the procedure was reported to be correct by the nursing staff. The patient tolerated procedure well and was transferred back to his room in stable condition. Specimen: To full-thickness biopsies from the edge of the ulcerated open wound in the right gluteal region Condition Stable Disposition Still a Patient JIMENA RANDOLPH MD Sep 04, 2025 15:08
[2025-09-04 17:00] VITALS: BP 114/90; PULSE 86; RESP 19; TEMP 98.2; O2SAT 98
--- NOTE | 2025-09-04 17:58 | DVHINCON2 ---
Date of service: Sep 04, [address] Sanchez Reason for Consultation Rectal mass History of Present Illness 65-year-old homeless male with a known history of rectal/gluteal mass who has been seen in the hospital multiple times for rectal pain in the past but refused any treatment and left AMA now readmitted secondary to rectal pain that has been getting worse. Patient denies any rectal bleeding. Family History: Patient reports no known family medical history. Allergies: Coded Allergies: NO KNOWN ALLERGIES (Unverified , 07/25/23) Home Meds No Active Prescriptions or Reported Meds Current Medications Current Medications Medications (Trade) Dose Ordered Sig/Romulo Route PRN Reason Start Time Stop Time Status Last Admin Ceftriaxone Sodium 50 ml @ 100 mls/hr DAILY@09 IV 09/05/25 09:00 Hydromorphone HCl (Dilaudid Injection) 0.5 mg Q4HPRN PRN IV SEVERE PAIN (7-10 PAIN SCALE) 09/04/25 05:15 Sodium Chloride (Saline Lock Ns) 10 ml Q8HR IV 09/04/25 06:00 09/04/25 05:54 Acetaminophen/ Hydrocodone Bitart ([place] 5/325MG Tab) 1 tab Q4HP PRN PO MODERATE PAIN (4-6 PAIN SCALE) 09/04/25 05:15 Ondansetron HCl (Zofran) 4 mg Q4HP PRN IV NAUSEA / VOMITING 09/04/25 05:15 09/04/25 11:02 DC Docusate Sodium (Colace Capsule) 100 mg BIDPRN PRN PO FOR CONSTIPATION 09/04/25 05:15 09/04/25 11:02 DC Acetaminophen (Tylenol Tablet) 500 mg Q6HP PRN PO PAIN SCALE 1-3 OR TEMP>100.4 09/04/25 05:15 Nitroglycerin (Ntrostat Sublingual) 0.4 mg Q5MINP PRN SL FOR CHEST PAIN 09/04/25 05:45 09/04/25 11:02 DC Morphine Sulfate 2 mg Q30M PRN IV FOR CHEST PAIN 09/04/25 05:45 09/04/25 11:02 DC Polyethylene Glycol (Miralax 17GM Powder) 17 gm DAILY PO 09/05/25 10:00 Lisinopril (Zestril Tablet) 5 mg DAILY PO 09/05/25 10:00 Vital Signs Vital Signs Date Time Temp Pulse Resp B/P (MAP) Pulse Ox O2 Delivery O2 Flow Rate FiO2 09/04/25 17:00 98.2 86 19 114/90 (98) 98 98.2 09/04/25 08:53 Room Air* 0 21 Physical Exam aox3 cachectic, unkempt clear rbeath sounds s1 s2 rrr abdomen soft rectal mass protruding, foul smelling no le edema Labs/Diagnostic Data Labs Test 09/04/25 05:34 09/04/25 04:31 09/04/25 03:15 Range/Units Sodium Level 139 136-145 mmol/L Potassium Level 4.3 3.5-5.1 mmol/L Chloride Level 109 H 98-107 mmol/L Carbon Dioxide Level 22 20-31 mmol/L Anion Gap 8 5-15 Blood Urea Nitrogen 20 9-23 mg/dL Creatinine 1.11 0.700-1.30 mg/dL Glomerular Filtration Rate Calc 73 >90 mL/min BUN/Creatinine Ratio 18.0 10.0-20.0 Serum Glucose 101 74-106 mg/dL Calcium Level 7.9 L 8.7-10.4 mg/dL Total Bilirubin < 0.2 L 0.2-1.0 mg/dL Aspartate Amino Transferase (AST) 20 13-40 U/L Alanine Aminotransferase (ALT) 16 7-40 U/L Alkaline Phosphatase 106 46-116 U/L Total Protein 6.4 5.7-8.2 g/dL Albumin 3.3 3.2-4.8 g/dL White Blood Count 12.8 H 4.4-10.8 10^3/uL Red Blood Count 3.28 L 4.5-5.90 10^6/uL Hemoglobin 8.6 L 13.5-17.5 g/dL Hematocrit 27.1 #L 41.0-53.0 % Mean Corpuscular Volume 82.6 80.0-100.0 fL Mean Corpuscular Hemoglobin 26.2 L 28.0-32.0 pg Mean Corpuscular Hemoglobin Concent 31.7 L 32.0-36.0 g/dL Red Cell Distribution Width 21.5 H 11.8-14.3 % Platelet Count 693 H 140-450 10^3/uL Mean Platelet Volume 6.7 L 6.9-10.8 fL Neutrophils (%) (Auto) 80.7 H 37.0-80.0 % Lymphocytes (%) (Auto) 8.7 L 10.0-50.0 % Monocytes (%) (Auto) 7.7 0.0-12.0 % Eosinophils (%) (Auto) 2.3 0.0-7.0 % Basophils (%) (Auto) 0.6 0.0-2.0 % Neutrophils # (Auto) 10.3 H 1.6-8.6 10 ^3/uL Lymphocytes # (Auto) 1.1 0.4-5.4 10 ^3/uL Monocytes # (Auto) 1.0 0-1.3 10 ^3/uL Eosinophils # (Auto) 0.3 0-0.8 10 ^3/uL Basophils # (Auto) 0.1 0-0.2 10 ^3/uL Nucleated Red Blood Cells 0.0 % Prothrombin Time 10.9 9.3-11.8 sec Prothrombin Time INR 1.03 0.9-1.15 Activated Partial Thromboplast Time 27.9 24.5-34.5 SEC Lipase 39 12-53 U/L CT SCAN ABD PELVIS IMPRESSION: 1. Lobulated soft tissue density mass occupying the pelvic floor measuring 9.5 x 8.8 cm. Centrally diminished attenuation and collection of gas within the center of the mass likely represents the rectal lumen. Findings most consistent with rectal malignancy. 2. Hypoattenuating collection versus mass within the medial right gluteal region extending to the right posterolateral margin of the rectal mass, possibly representing abscess versus mass. 3. Retained colorectal stool. 4. Bilateral lower lobe pulmonary nodules measuring up to 3.0 cm on the left consistent with metastatic disease. Problems(with codes): (1) Secondary malignant neoplasm of left lung (2) Generalized weakness (3) Rectal mass (4) Metastatic cancer to lung Plan/Recommendation Plan Patient underwent a biopsy of the rectal fungating mass by surgical consult Dr. Song Await final pathology results Advance diet as tolerated Continue supportive care Prognosis is guarded Patient needs to follow up with Oncology as an outpatient Plan discussed with: Patient, Other (Dr Randolph and Dr Sanchez) JULIEN JOSE MD Sep 04, 2025 17:57
[2025-09-04 21:00] VITALS: BP 140/87; PULSE 92; RESP 16; TEMP 97.8; O2SAT 98
[2025-09-05] VITALS (7 sets, daily range): BP systolic 118–162; BP diastolic 62–98; PULSE 84–110; RESP 17–20; TEMP 97.2–98.7; O2SAT 93–100
[2025-09-05 05:47] LABS: Hematocrit 25.5 % (41.0-53.0); Hemoglobin 8.2 g/dL (13.5-17.5); Mean Corpuscular Hemoglobin 26.1 pg (28.0-32.0); Mean Corpuscular Volume 81.6 fL (80.0-100.0); Nucleated Red Blood Cells % 0.0 %
[2025-09-05 06:13] LABS: Alanine Aminotransferase 15 U/L (7-40); Alkaline Phosphatase 94 U/L (46-116); Anion Gap 7 (5-15); BUN/Creatinine Ratio 16.5 (10.0-20.0); Blood Urea Nitrogen 17 mg/dL (9-23); Carbon Dioxide 23 mmol/L (20-31); Chloride 107 mmol/L (98-107); Glucose 88 mg/dL (74-106); Potassium 4.3 mmol/L (3.5-5.1); Sodium 137 mmol/L (136-145); Total Protein 5.8 g/dL (5.7-8.2)
[2025-09-05 06:14] LABS: Albumin 3.0 g/dL (3.2-4.8); Calcium 7.9 mg/dL (8.7-10.4)
[2025-09-05 06:18] LABS: Bilirubin, Total 0.2 mg/dL (0.2-1.0)
--- NOTE | 2025-09-05 09:11 | DVHPN2 ---
Progress Note - Dictate Date Seen: Sep 05, 2025 Medical Necessity Reason Pt with a Central, PICC or Fol: No Subjective E: no major events o/n. no complaints. vital signs Vital Sign Date Time Temp Pulse Resp B/P (MAP) Pulse Ox O2 Delivery O2 Flow Rate FiO2 09/05/25 05:00 97.7 93 19 162/98 (119) 100 97.7 09/04/25 20:00 Room Air* 0 21 Total Intake and Output 09/04/25 09/04/25 09/05/25 14:59 22:59 06:59 Intake Total 1050 ml 436 ml 880 ml Balance 1050 ml 436 ml 880 ml medications Current Medications Medications Dose Ordered Sig/Romulo Route Start Time Stop Time Status Last Admin Dose Admin Ceftriaxone Sodium 50 ml @ 100 mls/hr DAILY@09 IV 09/05/25 09:00 Hydromorphone HCl 0.5 mg Q4HPRN PRN IV 09/04/25 05:15 Sodium Chloride 10 ml Q8HR IV 09/04/25 06:00 09/04/25 22:00 10 ML Acetaminophen/ Hydrocodone Bitart 1 tab Q4HP PRN PO 09/04/25 05:15 Acetaminophen 500 mg Q6HP PRN PO 09/04/25 05:15 Polyethylene Glycol 17 gm DAILY PO 09/05/25 10:00 Lisinopril 5 mg DAILY PO 09/05/25 10:00 objective GEN: NAD. sleeping comfortably. BUTTOCK: dressing intact. no active bleeding. laboratory and microbiology Laboratory Tests 09/05/25 04:55 Test 09/05/25 04:55 Range/Units Serum Glucose 88 74-106 mg/dL Assessment/Plan A: 1. Large rectal and right gluteal fungating mass consistent with malignancy s/p incisional biopsy P: 1. check path. 2. not surgical candidate for advanced disease as there is no signs of rectal obstruction. will need oncology f/u. 3. surgery signing off. Plan discussed with: Patient JIMENA CHAMPION MD Sep 05, 2025 09:11
[2025-09-05] MEDS: LISINOPRIL 5 MG TAB PO SCH (09:23)
[2025-09-05] MEDS: POLYETHYLENE GLYCOL 17 GM PWDR PO SCH (09:23)
--- NOTE | 2025-09-05 13:36 | DVHPN2 ---
Assessment/Plan Assessment/Plan progress note 65 M with HTN, rectal mass, CKD admitted for rectal mass with intractible pain from rectal mass. previously left AMA prior to w/u, discussed with pt would like to get bx today. still constipated, golytely. biopsy done, has discussion with patient on plan and follow up. reiterated importance of follow up . physical exam aox3 cachectic, unkempt clear rbeath sounds s1 s2 rrr abdomen soft rectal mass protruding, foul smelling no le edema labs ekg imaging reviewed assessment and plan metastatic rectal / colon cancer CKD 2 anemia microcytic protein calorie malnutrition meth use wound HTN leukocytosis thrombocytosis likely reactive pulmonary nodule likely mets constipation ruled out obstruction surg consult for biopsy bowel regimen nutrition consult trend cbc, cr reinforce abstinence wound care start oral anti htn pain management golytely diet cardiac dvt ppx hold for bx prognosis poor full code 30 minutes spend for advanced care planning Plan discussed with: Patient My Orders Orders - SONG ALFARO MD Procedure Category Date Status Time Lisinopril Tablet PHA 09/05/25 In Process (Zestril Tablet) 10:00 Date of Service: Sep 05, 2025 Billing Provider: SONG ALFARO MD Common Visit Codes: [id number] INP/OBS CARE(HIGH) SONG ALFARO MD Sep 05, 2025 13:36
[2025-09-05] MEDS ORDERED: GOLYTELY 4L KIT ONE (15:00)
[2025-09-05] MEDS: HYDROmorphone HCL 2 MG/ML VL/or syr IV PRN (15:07)
[2025-09-05] MEDS: GOLYTELY 4L KIT PO ONE (15:07)
--- NOTE | 2025-09-05 20:11 | DVHPN2 ---
Progress Note - Dictate Date Seen: Sep 05, 2025 Medical Necessity Reason Pt with a Central, PICC or Fol: No Subjective S/P biopsy of rectal mass by Dr. Song Awaiting final pathology results Patient is still constipated vital signs Vital Sign Date Time Temp Pulse Resp B/P (MAP) Pulse Ox O2 Delivery O2 Flow Rate FiO2 09/05/25 17:00 97.5 84 20 118/62 (80) 93 97.5 09/05/25 08:00 Room Air* 0 21 Total Intake and Output 09/04/25 09/04/25 09/05/25 15:00 23:00 07:00 Intake Total 1050 ml 436 ml 880 ml Balance 1050 ml 436 ml 880 ml medications Current Medications Medications Dose Ordered Sig/Romulo Route Start Time Stop Time Status Last Admin Dose Admin Ceftriaxone Sodium 50 ml @ 100 mls/hr DAILY@09 IV 09/05/25 09:00 09/05/25 09:23 100 MLS/HR Hydromorphone HCl 0.5 mg Q4HPRN PRN IV 09/04/25 05:15 09/05/25 15:07 0.5 MG Sodium Chloride 10 ml Q8HR IV 09/04/25 06:00 09/05/25 13:12 10 ML Acetaminophen/ Hydrocodone Bitart 1 tab Q4HP PRN PO 09/04/25 05:15 Acetaminophen 500 mg Q6HP PRN PO 09/04/25 05:15 Polyethylene Glycol 17 gm DAILY PO 09/05/25 10:00 09/05/25 09:23 17 GM Lisinopril 5 mg DAILY PO 09/05/25 10:00 09/05/25 09:23 5 MG objective aox3 cachectic, unkempt clear rbeath sounds s1 s2 rrr abdomen soft; rectal mass protruding, foul smelling; dressing intact, no bleeding no le edema laboratory and microbiology Laboratory Tests 09/05/25 04:55 Test 09/05/25 04:55 Range/Units Serum Glucose 88 74-106 mg/dL Problems(with codes): (1) Metastatic cancer to lung (2) Rectal mass (3) Generalized weakness (4) Anemia, unspecified (5) Secondary malignant neoplasm of left lung Prognosis Plan Stool softeners and MiraLax Await final pathology results Patient will likely need to see Oncology as an outpatient for further management Otherwise consider hospice placement as an alternative if patient does not want any further treatment Plan discussed with: Other (Dr Sanchez) JULIEN JOSE MD Sep 05, 2025 20:11
[2025-09-06 05:00] VITALS: BP 110/79; PULSE 94; RESP 18; TEMP 98.1; O2SAT 97
[2025-09-06] MEDS: HYDROcodone-ACET 5/325MG TAB PO PRN (09:13)
--- NOTE | 2025-09-06 11:34 | DVHPN2 ---
Assessment/Plan Assessment/Plan progress note 65 M with HTN, rectal mass, CKD admitted for rectal mass with intractible pain from rectal mass. previously left AMA prior to w/u, discussed with pt would like to get bx today. slightly better bm, pt eval today physical exam aox3 cachectic, unkempt clear rbeath sounds s1 s2 rrr abdomen soft rectal mass protruding, foul smelling no le edema labs ekg imaging reviewed assessment and plan metastatic rectal / colon cancer CKD 2 anemia microcytic protein calorie malnutrition meth use wound HTN leukocytosis thrombocytosis likely reactive pulmonary nodule likely mets constipation ruled out obstruction surg consult for biopsy bowel regimen nutrition consult trend cbc, cr reinforce abstinence wound care start oral anti htn pain management golytely diet cardiac dvt ppx hold for bx prognosis poor full code 30 minutes spend for advanced care planning Plan discussed with: Patient My Orders Orders - SONG ALFARO MD Procedure Category Date Status Time Transfer Orders XFER 09/05/25 Transmitted 13:37 Discontinue Tele SCOTT 09/05/25 In Process 13:37 Date of Service: Sep 06, 2025 Billing Provider: SONG ALFARO MD Common Visit Codes: [id number] INP/OBS CARE(HIGH) SONG ALFARO MD Sep 06, 2025 11:34
[2025-09-06 13:23] VITALS: BP 129/82; PULSE 62; RESP 20; TEMP 98.4; O2SAT 94
--- NOTE | 2025-09-06 18:16 | DVHPN2 ---
Progress Note Date Seen: Sep 06, 2025 Resident Creating Document: JENAE GUZMÁN RESIDENT Medical Necessity Reason Pt with a Central, PICC or Fol: No Subjective Review of Systems Patient seen and examined with the bedside Does not report of any abdominal pain Multiple bowel movements reported after the patient was started on GoLYTELY No pain on eating food and is able to tolerate regular diet H&H is stable Objective vital signs Vital Sign Date Time Temp Pulse Resp B/P (MAP) Pulse Ox O2 Delivery O2 Flow Rate FiO2 09/06/25 13:23 98.4 62 20 129/82 (98) 94 98.4 09/06/25 08:15 Room Air* 0 21 Total Intake and Output 09/05/25 09/05/25 09/06/25 15:00 23:00 07:00 Intake Total 600 ml 400 ml Balance 600 ml 400 ml medications Current Medications Medications Dose Ordered Sig/Romulo Route Start Time Stop Time Status Last Admin Dose Admin Ceftriaxone Sodium 50 ml @ 100 mls/hr DAILY@09 IV 09/05/25 09:00 09/06/25 08:53 100 MLS/HR Hydromorphone HCl 0.5 mg Q4HPRN PRN IV 09/04/25 05:15 09/05/25 22:58 0.5 MG Sodium Chloride 10 ml Q8HR IV 09/04/25 06:00 09/06/25 14:00 10 ML Acetaminophen/ Hydrocodone Bitart 1 tab Q4HP PRN PO 09/04/25 05:15 09/06/25 09:13 1 TAB Acetaminophen 500 mg Q6HP PRN PO 09/04/25 05:15 Polyethylene Glycol 17 gm DAILY PO 09/05/25 10:00 09/06/25 08:53 17 GM Lisinopril 5 mg DAILY PO 09/05/25 10:00 09/06/25 08:54 5 MG Examination Gen - no pallor, no scleral icterus Skin - Patients skin is warm and dry. HEENT - normocephalic, atraumatic, dry mucous membranes. Neck - supple, no lymphadenopathy Pulmonary - B/L equal air entry with vesicular breath sounds cardiovascular - regular S1,S2 heard GI - soft, nontender abdomen with a pituitary rectal mass foul-smelling with intact dressing Neurological - Patient is alert and oriented x3. No motor or sensory weakness laboratory and microbiology Laboratory Tests 09/05/25 04:55 Test 09/05/25 04:55 Range/Units Serum Glucose 88 74-106 mg/dL Problem List/Assessment/Plan Problem List/Assessment/Plan Assessment Metastatic rectal/colon cancer Rectal mass Generalized weakness Anemia, unspecified Secondary malignant neoplasm of left lung Plan Stool softeners and MiraLax Await final pathology results Patient will likely need to see Oncology as an outpatient for further management Otherwise consider hospice placement as an alternative if patient does not want any further treatment Poor prognosis Plan discussed with Dr. Briones Plan discussed with: Patient, Other (MATT Powell) JENAE GUZMÁN RESIDENT Sep 06, 2025 18:16
[2025-09-06 20:00] VITALS: PULSE 95; RESP 18; O2SAT 98
[2025-09-06 21:00] VITALS: BP 111/71; PULSE 95; RESP 18; TEMP 98.4; O2SAT 98
[2025-09-06] MEDS ORDERED: MELATONIN 5 MG TAB PO ONE (22:00)
[2025-09-07 05:00] VITALS: BP 125/81; PULSE 82; RESP 18; TEMP 98.1; O2SAT 99
[2025-09-07 08:00] VITALS: PULSE 78; RESP 18; O2SAT 97
[2025-09-07 08:48] VITALS: BP 122/85; PULSE 86; RESP 17; TEMP 98.6; O2SAT 99
[2025-09-07 13:00] VITALS: BP 117/67; PULSE 74; RESP 16; TEMP 97.6; O2SAT 97
--- NOTE | 2025-09-07 15:16 | DVH ---
CHEST RADIOGRAPH Indication: PRE OP Technique: XY CHEST XRAY 1 VIEW Comparison: 09/07/2025 FINDINGS: The cardiac silhouette is unremarkable. The lungs demonstrate no pulmonary airspace consolidation. D iffuse bilateral pulmonary metastatic metastatic nodular disease... The pulmonary vasculature is unre markable. There is no pleural effusion. There is no pneumothorax. IMPRESSION: No pulmonary airspace consolidation. Diffuse bilateral pulmonary metastatic nodular disease
--- NOTE | 2025-09-07 15:16 | DVH ---
CHEST RADIOGRAPH Indication: Preop Technique: Single frontal view of the chest was obtained Comparison: XY CHEST XRAY 1 VIEW on DOS: 09/07/25, XY CHEST XRAY 1 VIEW on DOS: 08/27/25, XY CHEST XR AY 1 VIEW on DOS: 06/16/25 FINDINGS: Lines and Tubes: None Lungs: Multiple bilateral pulmonary nodules worrisome for pulmonary metastatic disease. Pleura: No effusion. No pneumothorax. Cardiomediastinal contours: Unremarkable Bones: No acute osseous abnormality. IMPRESSION: 1. Bilateral pulmonary nodules. 2. Correlate for possibility of pulmonary metastasis.
[2025-09-07 16:36] VITALS: BP 123/74; PULSE 84; RESP 17; TEMP 98; O2SAT 96
[2025-09-07 17:16] LABS: Magnesium 1.9 mg/dL (1.6-2.6); Triglycerides 115.0 mg/dL (< 150)
[2025-09-07 17:18] LABS: Cholesterol 131.0 mg/dL (< 200); HDL Cholesterol 55.0 mg/dL (40-59)
--- NOTE | 2025-09-07 18:22 | DVHSR ---
APPROVED REPORT EXAM: Two-dimensional and M-mode echocardiogram with Doppler and color Doppler. Blood Pressure: 117/67 mmHg INDICATION evaluate cardiac function RISK FACTORS Height: 5'6, Weight: 106 DIMENSIONS LVDd4.0 (3.8-5.7cm)LA (2D)4.5 (1.9-4.0cm)Aortic Root3.5 (2.0-3.7cm) LVDs2.3 (2.5-4.0cm)LA (MM) (1.9-4.0cm)Aortic Cusp Exc1.7 (1.5-2.0cm) EF (%) 60.0 (55-70%)Rt. Atrium2.7 (1.9-4.0cm)Asc. Aorta cm IVSd0.7 (0.7-1.1cm)RV (D)4.1 (1.8-2.4cm) PWd0.9 (0.7-1.1cm) Mitral Valve MitralMitral Stenosis E wave0.66m/sMV Mean GR.mmHg A wave1.07m/sMV Peak GR.57mmHg E/A ratio0.62D MVAcm2 DECEL [id number] 1/2 Timems Aortic Valve Aortic ValveAortic Stenosis V11.08m/Solo Mean GR.7mmHg V21.62m/Solo Peak GR.11mmHg LVOT Diameter2.0 (1.8-2.4cm)Doppler AVA2.09cm2 Pulmonic Valve V20.74m/s Tricuspid Valve TR Velocity2.66m/s [id number] Conclusion Sinus rhythm. Biatrial enlargement. Mild aortic root enlargement. Valves are normal. Mild sclerosis of the left coronary cusp. EF of 60% with normal RV function. Mild TR. Small pericardial effusion. Not hemodynamically significant, no masses or vegetations. There appear s to be a pleural effusion.
--- NOTE | 2025-09-08 08:35 | ECG ---
[facility] Test Date: 2025-09-07 Test Time: 15:05:10 Pat Name: JADA ZHU Department: Respiratoy Room: 0298 A Gender: M [employer] Set Up Operator: ADRIAN : 1960 Requested By: ANNA GABRIEL Order Number: [id number] Reading MD: Jos Figueroa Measurements Intervals [place] Rate: 82 P: 93 OK: 160 QRS: 95 QRSD: 77 T: 52 QT: 367 QTc: 429 Interpretive Statements Sinus rhythm Anterior infarct, old Baseline wander in lead(s) V2 Electronically Signed On 09-12-2025 12:54:28 PST by Jos Figueroa Please click the below link to view image of tracing.
--- NOTE | 2025-09-08 11:09 | DVHPN2 ---
Assessment/Plan Assessment/Plan progress note 65 M with HTN, rectal mass, CKD admitted for rectal mass with intractible pain from rectal mass. previously left AMA prior to w/u, had biopsy, discussed with GI, patient likely have SCC, pending path. patient unable to clean himself and not comfortable on having BM. discussed with patient and hes ammenadble for diversion colostomy. physical exam aox3 cachectic, unkempt clear rbeath sounds s1 s2 rrr abdomen soft rectal mass protruding, foul smelling no le edema labs ekg imaging reviewed assessment and plan metastatic rectal / colon cancer CKD 2 anemia microcytic protein calorie malnutrition meth use wound HTN leukocytosis thrombocytosis likely reactive pulmonary nodule likely mets constipation ruled out obstruction s/p biopsy, pending path surg consult for diverting colostomy bowel regimen nutrition consult trend cbc, cr reinforce abstinence wound care start oral anti htn pain management golytely diet cardiac dvt ppx hold for bx prognosis poor full code 30 minutes spend for advanced care planning Plan discussed with: Patient My Orders Orders - SONG ALFARO MD Procedure Category Date Status Time Cleanse Wound With Ns SCOTT 09/06/25 In Process 13:20 * Dietary Consult CONS 09/06/25 Transmitted 16:28 Date of Service: Sep 07, 2025 Billing Provider: SONG ALFARO MD Common Visit Codes: [id number] INP/OBS CARE(HIGH) SONG ALFARO MD Sep 07, 2025 11:42
--- NOTE | 2025-09-08 11:17 | DVHPN2 ---
Progress Note Date Seen: Sep 07, 2025 Resident Creating Document: JENAE GUZMÁN RESIDENT Medical Necessity Reason Pt with a Central, PICC or Fol: No Subjective Review of Systems patient reports of lower abdominal pain and inability to pass stool today had BM yesterday surgery consulted for diverting ostomy Objective vital signs Vital Sign Date Time Temp Pulse Resp B/P (MAP) Pulse Ox O2 Delivery O2 Flow Rate FiO2 09/07/25 13:00 97.6 74 16 117/67 (84) 97 97.6 09/07/25 08:00 Room Air* 0 21 Total Intake and Output 09/06/25 09/06/25 09/07/25 15:00 23:00 07:00 Intake Total 600 ml 400 ml Balance 600 ml 400 ml medications Current Medications Medications Dose Ordered Sig/Romulo Route Start Time Stop Time Status Last Admin Dose Admin Ceftriaxone Sodium 50 ml @ 100 mls/hr DAILY@09 IV 09/05/25 09:00 09/07/25 09:28 100 MLS/HR Hydromorphone HCl 0.5 mg Q4HPRN PRN IV 09/04/25 05:15 09/05/25 22:58 0.5 MG Sodium Chloride 10 ml Q8HR IV 09/04/25 06:00 09/07/25 05:32 10 ML Acetaminophen/ Hydrocodone Bitart 1 tab Q4HP PRN PO 09/04/25 05:15 09/07/25 09:26 1 TAB Acetaminophen 500 mg Q6HP PRN PO 09/04/25 05:15 Polyethylene Glycol 17 gm DAILY PO 09/05/25 10:00 09/07/25 09:25 17 GM Lisinopril 5 mg DAILY PO 09/05/25 10:00 09/07/25 09:28 5 MG Examination Gen - no pallor, no scleral icterus Skin - Patients skin is warm and dry. HEENT - normocephalic, atraumatic, dry mucous membranes. Neck - supple, no lymphadenopathy Pulmonary - B/L equal air entry with vesicular breath sounds cardiovascular - regular S1,S2 heard GI - soft, nontender abdomen with a protruding rectal mass foul-smelling with intact dressing large mass over the right gluteal area with ulceration Neurological - Patient is alert and oriented x3. No motor or sensory weakness laboratory and microbiology Laboratory Tests 09/05/25 04:55 Test 09/05/25 04:55 Range/Units Serum Glucose 88 74-106 mg/dL Problem List/Assessment/Plan Problem List/Assessment/Plan Assessment Metastatic rectal/colon cancer Rectal mass Generalized weakness Anemia, unspecified Secondary malignant neoplasm of left lung Plan Stool softeners and MiraLax Await final pathology results Surgical consult for diverting ostomy Patient will likely need to see Oncology as an outpatient for further management Poor prognosis Plan discussed with Dr. Briones Plan discussed with: Patient, Other (MATT Oglesby) Dietary Evaluation Review Recommendations by RD: Increase Calorie Intake Comments: regular diet with Ensure Enlive oral supplements BID Expected Outcomes/Goals: gradual wt gain, improved physical strength JENAE GUZMÁN RESIDENT Sep 07, 2025 15:21
--- NOTE | 2025-09-08 11:18 | DVHINCON2 ---
Date Seen: Sep 07, 2025 Referring Physician MD Jessica Reason for Consultation Cardiac risk stratification History of Present Illness This is a 65-year-old male patient who presents to the emergency room with chief complaint of rectal pain. The patient reports he has a rectal mass that he has noticed since January 2025. The patient admits that he was supposed to follow up in the outpatient setting, but has put this off due to his fear of surgery. Cardiology has been consulted at this time for cardiac risk stratification for possible diverting colostomy procedure. Initial twelve lead electrocardiogram (done at time of assessment by bedside RN) reveals normal sinus rhythm without any significant ST segment changes. The patient denies any cardiac symptoms such as chest pain, shortness of breath, palpitations, or dizziness. Significant past medical history includes a rectal mass, chronic kidney disease, tobacco use, and methamphetamine use. Past Medical History Past medical history reviewed. No other significant than mentioned above. Past Surgical History Denies any previous surgeries Family History: Patient reports no known family medical history. Family History Family history reviewed. Social History Patient has a 20 pack-year history, smokes approximately half a pack to a pack per day Patient admits to previous methamphetamine use, states last time was approximately six months ago Denies alcohol use Allergies: Coded Allergies: NO KNOWN ALLERGIES (Unverified , 07/25/23) Home Meds No Active Prescriptions or Reported Meds Home Meds Denies taking any prescribed medications Review of Systems Constitutional: No symptom reported Ears, Nose, & Throat: No symptom reported Eyes: No symptom reported Neurological: No symptoms reported Pulmonary/Respiratory: No symptoms reported Cardiovascular: No symptom reported Gastrointestinal: Rectal pain Genitourinary: No symptom reported Musculoskeletal: No symptom reported Skin: No symptom reported Psychiatric: No symptom reported Endocrine: No symptom reported Hematologic/Lymphatic: No symptom reported Vital Signs Vital Signs Date Time Temp Pulse Resp B/P (MAP) Pulse Ox O2 Delivery O2 Flow Rate FiO2 09/07/25 13:00 97.6 74 16 117/67 (84) 97 97.6 09/07/25 08:00 Room Air* 0 21 Physical Exam General Appearance: Cooperative. Cachectic, frail Pulmonary/Respiratory: Clear, bilateral breaths sounds. Cardiovascular/Chest: Regular rate and rhythm. Peripheral Pulses: 2+ Radial (R). 2+ Radial (L). 2+ Pedal (R). 2+ Pedal (L) Abdominal Exam: Normal bowel sounds. Ankle Exam: Negative ankle edema Lower extremities: Negative lower extremity edema Neuro/Mental Status: A/OX4, coherent. Thoughts/Psych: Normal thought pattern. Appropriate mood and affect. Good judgment and insight. Appearance: No acute distress. Skin Exam: Normal inspection. Normal color. Warm and dry. Labs/Diagnostic Data Labs Test 09/05/25 04:55 09/04/25 03:15 Range/Units White Blood Count 9.2 # 4.4-10.8 10^3/uL Red Blood Count 3.12 L 4.5-5.90 10^6/uL Hemoglobin 8.2 L 13.5-17.5 g/dL Hematocrit 25.5 L 41.0-53.0 % Mean Corpuscular Volume 81.6 80.0-100.0 fL Mean Corpuscular Hemoglobin 26.1 L 28.0-32.0 pg Mean Corpuscular Hemoglobin Concent 32.0 32.0-36.0 g/dL Red Cell Distribution Width 21.1 H 11.8-14.3 % Platelet Count 630 H 140-450 10^3/uL Mean Platelet Volume 6.4 L 6.9-10.8 fL Neutrophils (%) (Auto) 73.6 37.0-80.0 % Lymphocytes (%) (Auto) 12.7 10.0-50.0 % Monocytes (%) (Auto) 8.2 0.0-12.0 % Eosinophils (%) (Auto) 4.6 0.0-7.0 % Basophils (%) (Auto) 0.9 0.0-2.0 % Neutrophils # (Auto) 6.8 1.6-8.6 10 ^3/uL Lymphocytes # (Auto) 1.2 0.4-5.4 10 ^3/uL Monocytes # (Auto) 0.8 0-1.3 10 ^3/uL Eosinophils # (Auto) 0.4 0-0.8 10 ^3/uL Basophils # (Auto) 0.1 0-0.2 10 ^3/uL Nucleated Red Blood Cells 0.0 % Sodium Level 137 136-145 mmol/L Potassium Level 4.3 3.5-5.1 mmol/L Chloride Level 107 98-107 mmol/L Carbon Dioxide Level 23 20-31 mmol/L Anion Gap 7 5-15 Blood Urea Nitrogen 17 9-23 mg/dL Creatinine 1.03 0.700-1.30 mg/dL Glomerular Filtration Rate Calc 80 >90 mL/min BUN/Creatinine Ratio 16.5 10.0-20.0 Serum Glucose 88 74-106 mg/dL Calcium Level 7.9 L 8.7-10.4 mg/dL Total Bilirubin 0.2 0.2-1.0 mg/dL Aspartate Amino Transferase (AST) 15 13-40 U/L Alanine Aminotransferase (ALT) 15 7-40 U/L Alkaline Phosphatase 94 46-116 U/L Total Protein 5.8 5.7-8.2 g/dL Albumin 3.0 L 3.2-4.8 g/dL Prothrombin Time 10.9 9.3-11.8 sec Prothrombin Time INR 1.03 0.9-1.15 Activated Partial Thromboplast Time 27.9 24.5-34.5 SEC Lipase 39 12-53 U/L Assessment Preprocedural cardiovascular examination Rectal mass Bilateral lower lobe pulmonary nodules, ?Metastatic Chronic kidney disease Cachexia Plan/Recommendation We will continue with the following plan/recommendations (Dr. Figueroa): A transthoracic echocardiogram reveals an EF of 60%, with a small pericardial effusion that has not hemodynamically significant. Revised Cardiac Risk Index (Colt criteria): 1 point (1.1% major cardiac event). The patient has no underlying history of congestive heart failure, coronary artery disease, equivalent of cardiac symptoms, and has a good functional capacity. Per cardiology standpoint, patient is at an acceptable-risk for moderate-risk surgery. There is no additional cardiac work-up indicated prior to surgery. Thank you for allowing us to participate in this patient's care. Please call if you have any questions or concerns. Critical care time spent: 44 minutes This medical document was created using an electronic medical record system with voice recognition software and computerized dictation system. Although this document has been carefully reviewed, there might still be some phonetic and typographical errors. Occasional wrong-word or ``sound-alike substitutions may have occurred due to the inherent limitations of voice recognition software. These areas are purely typographical due to imperfections of the software programs and do not reflect any compromise in the patient's medical care. Please read the chart carefully and recognize, using context, where these subst itutions have occurred. Plan discussed with: Patient NYHA Physical activity limitations: NA Date of Service: Sep 07, 2025 Billing Provider: ANNA GABRIEL Cardiology Common Codes: 27334-UBGBGXH INP/OBS CARE (High) Cardiology Consultation Codes: 05352-[id number] CONSULT <45MIN ANNA GABRIEL Sep 07, 2025 15:53
--- NOTE | 2025-09-08 11:25 | DVHINCON2 ---
Consultation - Surgical Date Seen: Sep 07, 2025 Referring Physician Reason for Consultation Request for diverting ostomy History of Present Illness History of Present Illness Mr. Hand is a 65-year-old male who has been admitted to the hospital and I was consulted for rectal mass stage IV, that involves the tear anus and gluteal area. Patient is having constant stool leakage as he does not have any control of the sphincter muscles. Patient states he has been dealing with this for approximately 2 years, and has not seek any medical attention. On September 04 he underwent biopsy of the mass by Dr. Randolph, pathology still pending. At the moment of the interview patient was extremely emotional screaming intermittently through the interview, not being able to sit still or give an accurate history. 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 Past Social History Patient lives in a mobile home, smokes cigarettes, denies alcohol use, uses methamphetamine. Allergies and medications Allergies: Coded Allergies: NO KNOWN ALLERGIES (Unverified , 07/25/23) Home Meds No Active Prescriptions or Reported Meds Review of systems Review of Systems: Not Done Examination Vital signs Vital Signs Date Time Temp Pulse Resp B/P (MAP) Pulse Ox O2 Delivery O2 Flow Rate FiO2 09/07/25 16:36 98.0 84 17 123/74 (90) 96 98.0 09/07/25 08:00 Room Air* 0 21 Laboratory Labs Test 09/07/25 16:46 09/05/25 04:55 09/04/25 03:15 Range/Units Hemoglobin A1c 5.6 <5.7 % A1C Magnesium Level 1.9 1.6-2.6 mg/dL Triglycerides Level 115 < 150 mg/dL Cholesterol Level 131 < 200 mg/dL LDL Cholesterol 61 < 100 mg/dL HDL Cholesterol 55 40-59 mg/dL Thyroid Stimulating Hormone (TSH) 3.66 0.55-4.78 uIU/mL White Blood Count 9.2 # 4.4-10.8 10^3/uL Red Blood Count 3.12 L 4.5-5.90 10^6/uL Hemoglobin 8.2 L 13.5-17.5 g/dL Hematocrit 25.5 L 41.0-53.0 % Mean Corpuscular Volume 81.6 80.0-100.0 fL Mean Corpuscular Hemoglobin 26.1 L 28.0-32.0 pg Mean Corpuscular Hemoglobin Concent 32.0 32.0-36.0 g/dL Red Cell Distribution Width 21.1 H 11.8-14.3 % Platelet Count 630 H 140-450 10^3/uL Mean Platelet Volume 6.4 L 6.9-10.8 fL Neutrophils (%) (Auto) 73.6 37.0-80.0 % Lymphocytes (%) (Auto) 12.7 10.0-50.0 % Monocytes (%) (Auto) 8.2 0.0-12.0 % Eosinophils (%) (Auto) 4.6 0.0-7.0 % Basophils (%) (Auto) 0.9 0.0-2.0 % Neutrophils # (Auto) 6.8 1.6-8.6 10 ^3/uL Lymphocytes # (Auto) 1.2 0.4-5.4 10 ^3/uL Monocytes # (Auto) 0.8 0-1.3 10 ^3/uL Eosinophils # (Auto) 0.4 0-0.8 10 ^3/uL Basophils # (Auto) 0.1 0-0.2 10 ^3/uL Nucleated Red Blood Cells 0.0 % Sodium Level 137 136-145 mmol/L Potassium Level 4.3 3.5-5.1 mmol/L Chloride Level 107 98-107 mmol/L Carbon Dioxide Level 23 20-31 mmol/L Anion Gap 7 5-15 Blood Urea Nitrogen 17 9-23 mg/dL Creatinine 1.03 0.700-1.30 mg/dL Glomerular Filtration Rate Calc 80 >90 mL/min BUN/Creatinine Ratio 16.5 10.0-20.0 Serum Glucose 88 74-106 mg/dL Calcium Level 7.9 L 8.7-10.4 mg/dL Total Bilirubin 0.2 0.2-1.0 mg/dL Aspartate Amino Transferase (AST) 15 13-40 U/L Alanine Aminotransferase (ALT) 15 7-40 U/L Alkaline Phosphatase 94 46-116 U/L Total Protein 5.8 5.7-8.2 g/dL Albumin 3.0 L 3.2-4.8 g/dL Prothrombin Time 10.9 9.3-11.8 sec Prothrombin Time INR 1.03 0.9-1.15 Activated Partial Thromboplast Time 27.9 24.5-34.5 SEC Lipase 39 12-53 U/L Examination: GENERAL:Abnormal (Extremely emotional yelling at times, not being able to sit straight), ABDOMEN:Normal, Any Other System: (Rectal exam not done, patient has a large ulcerated mass that involves the anus and mostly right gluteal area, mass is hard and extremely large with constant stool seepage through it) Problem List/Assessment/Plan Problems: (1) Rectal cancer Assessment and Plan Mr. Hand is a 65-year-old male who presented to the hospital with a large ulcerated anal and gluteal mass. CT scan was done and shows an extremely large mass in the rectal area that involves pretty much all the structures in the pelvis. He recently underwent biopsy of this mass on 09/04/2025, but biopsy has not resulted. I talked to the patient and only offered a possible loop ileostomy, if feasible. Surgery will likely happen on Thursday, as patient needs to get prepped. Plan discussed with Plan discussed with: Patient Visit Coding Surgery Date of Service if different f: Sep 07, 2025 Billing Provider: EUSEBIO MCDONALD MD Surgery Visit Codes: 28857 - INP CONSULT <110 MIN EUSEBIO MCDONALD MD Sep 07, 2025 20:18
--- NOTE | 2025-09-08 11:42 | DVHDS2 ---
Discharge Summary Date of Admission Sep 04, 2025 at 05:39 Date of Discharge: Sep 07, 2025 Labs/Diagnostic Data: Laboratory Results Test 09/07/25 16:46 09/05/25 04:55 09/04/25 03:15 Hemoglobin A1c 5.6 % A1C (<5.7) Magnesium Level 1.9 mg/dL (1.6-2.6) Triglycerides Level 115 mg/dL (< 150) Cholesterol Level 131 mg/dL (< 200) LDL Cholesterol 61 mg/dL (< 100) HDL Cholesterol 55 mg/dL (40-59) Thyroid Stimulating Hormone (TSH) 3.66 uIU/mL (0.55-4.78) White Blood Count 9.2 10^3/uL (4.4-10.8) Red Blood Count 3.12 10^6/uL (4.5-5.90) Hemoglobin 8.2 g/dL (13.5-17.5) Hematocrit 25.5 % (41.0-53.0) Mean Corpuscular Volume 81.6 fL (80.0-100.0) Mean Corpuscular Hemoglobin 26.1 pg (28.0-32.0) Mean Corpuscular Hemoglobin Concent 32.0 g/dL (32.0-36.0) Red Cell Distribution Width 21.1 % (11.8-14.3) Platelet Count 630 10^3/uL (140-450) Mean Platelet Volume 6.4 fL (6.9-10.8) Neutrophils (%) (Auto) 73.6 % (37.0-80.0) Lymphocytes (%) (Auto) 12.7 % (10.0-50.0) Monocytes (%) (Auto) 8.2 % (0.0-12.0) Eosinophils (%) (Auto) 4.6 % (0.0-7.0) Basophils (%) (Auto) 0.9 % (0.0-2.0) Neutrophils # (Auto) 6.8 10 ^3/uL (1.6-8.6) Lymphocytes # (Auto) 1.2 10 ^3/uL (0.4-5.4) Monocytes # (Auto) 0.8 10 ^3/uL (0-1.3) Eosinophils # (Auto) 0.4 10 ^3/uL (0-0.8) Basophils # (Auto) 0.1 10 ^3/uL (0-0.2) Nucleated Red Blood Cells 0.0 % Sodium Level 137 mmol/L (136-145) Potassium Level 4.3 mmol/L (3.5-5.1) Chloride Level 107 mmol/L (98-107) Carbon Dioxide Level 23 mmol/L (20-31) Anion Gap 7 (5-15) Blood Urea Nitrogen 17 mg/dL (9-23) Creatinine 1.03 mg/dL (0.700-1.30) Glomerular Filtration Rate Calc 80 mL/min (>90) BUN/Creatinine Ratio 16.5 (10.0-20.0) Serum Glucose 88 mg/dL (74-106) Calcium Level 7.9 mg/dL (8.7-10.4) Total Bilirubin 0.2 mg/dL (0.2-1.0) Aspartate Amino Transferase (AST) 15 U/L (13-40) Alanine Aminotransferase (ALT) 15 U/L (7-40) Alkaline Phosphatase 94 U/L (46-116) Total Protein 5.8 g/dL (5.7-8.2) Albumin 3.0 g/dL (3.2-4.8) Prothrombin Time 10.9 sec (9.3-11.8) Prothrombin Time INR 1.03 (0.9-1.15) Activated Partial Thromboplast Time 27.9 SEC (24.5-34.5) Lipase 39 U/L (12-53) Other Laboratory Tests 09/05/25 04:55 Brief Hx & Hospital Course: 65 M with HTN, rectal mass, CKD admitted for rectal mass with intractible pain from rectal mass. previously left AMA prior to w/u, had biopsy, discussed with GI and path. patient has adenocarcinoma, pending final path result.. patient unable to clean himself and not comfortable on having BM. discussed with patient and hes ammenadble for diversion colostomy.but later patient changed his mind and left AMA. Condition at Discharge: Stable Final Diagnosis/Problems List metastatic rectal / colon cancer CKD 2 anemia microcytic protein calorie malnutrition meth use wound HTN leukocytosis thrombocytosis likely reactive pulmonary nodule likely mets constipation ruled out obstruction Discharge Disposition: AMA Discharge Instruct/Medications No Active Prescriptions or Reported Meds Discharge Statement: "Patient was advised to return to the ER or call 911 if any headaches, dizziness, shortness of breath, chest pain, abdominal pain, bleeding, fevers, or worsening of medical condition. Patient was counseled about treatment plan, medications, possible side effects, patientverbalized understanding. All questions were answered to the best of my ability. This discharge took greater then 30 minutes in planning, reviewing documentation, counseling the patient, and discussing with other team members." ASSESSMENT ASSESSMENT Assessment 1. Same Date of Service: Sep 07, 2025 Billing Provider: SONG ALFARO MD Common Visit Codes: 21949-OQL/OBS DISCH DAY >30min SONG ALFARO MD Sep 08, 2025 09:07
== END 2025-09-07 17:28 | disposition left against medical advice (07) | DRG 357 ==
LOC: ER 02:28 → OVERFLOW 05:39 → TELE-WESTW 08:52 → WEST WING 09-05 23:41
PROVIDERS: ADMIT Student in an Organized Health Care Education/Training Program; ATTEND Student in an Organized Health Care Education/Training Program
PROC: 0JB90ZZ Excision of Buttock Subcutaneous Tissue and Fascia, Open Approach (ICD-10-PCS; principal; 2025-09-04 14:35)
DX: C19 Malignant neoplasm of rectosigmoid junction (principal); C78.01 Secondary malignant neoplasm of right lung; R64 Cachexia; I31.39 Other pericardial effusion (noninflammatory); E44.0 Moderate protein-calorie malnutrition; C78.02 Secondary malignant neoplasm of left lung; Z59.00 Homelessness unspecified; D50.9 Iron deficiency anemia, unspecified; I12.9 Hypertensive chronic kidney disease with stage 1 through stage 4 chronic kidney disease, or unspecified chronic kidney disease; N18.32 Chronic kidney disease, stage 3b; E46 Unspecified protein-calorie malnutrition; Z53.29 Procedure and treatment not carried out because of patient's decision for other reasons; D75.839 Thrombocytosis, unspecified; K59.00 Constipation, unspecified; F17.210 Nicotine dependence, cigarettes, uncomplicated; D72.829 Elevated white blood cell count, unspecified; F15.90 Other stimulant use, unspecified, uncomplicated; Z79.899 Other long term (current) drug therapy; Z85.048 Personal history of other malignant neoplasm of rectum, rectosigmoid junction, and anus
CPT/HCPCS: 36415; 71045; 74176; 80053; 80061; 83036; 83690; 83735; 84443; 85025; 85610; 85730; 86850; 86900; 86901; 93005; 93306; 96361; 96374; 96375; 97116; 97163; 97530; G0378; J2405

== ENCOUNTER 2025-09-11 15:07 | Inpatient (IN) | payer MEDICARE, OTHER ==
[~2025-09-11] VITALS: Ht 167.6 cm; Wt 48.3 kg
[2025-09-11 15:56] LABS: Mean Corpuscular Hemoglobin 26.7 pg (28.0-32.0)
[2025-09-11 15:58] LABS: Hematocrit 14.6 % (41.0-53.0); Mean Corpuscular Volume 81.5 fL (80.0-100.0); Nucleated Red Blood Cells % 0.1 %
--- NOTE | 2025-09-11 16:07 | ED.PDOC ---
GI ASSESSMENT HPI Comments Mr. Hand is a 65 year old male with recently diagnosed adenocarcinoma of colorectal origin, who presents today with chief complaint of constipation and anal pain. The patient was recently admitted at this institution for the following diagnoses, metastatic rectal / colon cancer, CKD 2, anemia microcytic, protein calorie malnutrition, meth use gluteal mass, hypertension, leukocytosis, thrombocytosis likely reactive, pulmonary nodule likely mets, constipation with ruled out obstruction. Ileostomy was considered at this time, however the patient left AMA. He returns today with main complaint of constipation and anal pain described as pressure like, 7-8/10, associated with small infrequent bloody, aggravated by sitting, without relieving factors. On initial evaluation, the patient seems disheveled and uncomfortable, vitals are stable, he sits with difficulty, but with no overt signs of distress. Attestation note: Dr. Mcgill: I was the supervising attending for this ED encounter. Please see the resident's notes. I was available for questions and consultations. Differential diagnosis: DDX include Diverticulitis, colitis, gastroenteritis, acute abdomen, bowel obstruction, enteritis, constipation, volvulus, , intraAbdominal mass/neoplasm, Inflammatory bowel disease, ischemic bowel, gastroparesis, narcotics abuse/depe ndency, fecal impaction, low fiber intake. MDM: patient presented with the above HPI.---constipation---workup was initiated. patient was found with the above mentioned diagnosis. the following medications were ordered: please refer to order lists of meds and tests obtained by myself Dr. Mcgill. Patient ED course and VS have been stabilized. Patient has been reassessed in the ED and remained in a stable condition. Pertinent incidental findings were discussed with the patient and/or family. Patient/family voices understanding and is agreeable with plan. Patient has been observed in the ED adequate length of time to insure improvement/stability. Escalation of care considered: Consideration of escalation to observation or admission Patient was consented for blood transfusion. Patient was given empiric antibiotics vancomycin and Zosyn given his rectal mass finding that is extending into the gluteal muscle with suspected associated infection. Patient has elevated lactic acid. Patient was given fluids. Later the patient refused blood transfusion for mormonism reasons and he said he will reconsider tomorrow. Patient was ADMITTED to the medicine team for further evaluation and treatment of their presentation. All the reports of any imaging studies that were ordered by myself were reviewed by myself. Chief Complaint: Constipation Time Seen by MD: 15:11 Primary Care Provider: UNKNOWN Reviewed Notes: Allergies Allergies: Coded Allergies: NO KNOWN ALLERGIES (Unverified , 07/25/23) Home Meds No Active Prescriptions or Reported Meds Information Source: Patient Mode of Arrival: Ambulatory Timing: Days Duration: Since onset Quality: Sharp, Other (Pressure) Vomitus: None Stool: Blood Streaked, Minimal Severity: Severe Recent: None Recent Hx of: Other (Colorectal cancer) Pain Location: Other (Rectal) Modifying Factors: Position (Sitting ) Past Medical History PAST MEDICAL HISTORY: Cancer (Adenocarcinoma of the rectum ) Surgical History: Denies all surgeries Family History Family History: Reviewed,noncontributory to illness Social History Smoker: Cigarettes Alcohol: Denies ETOH Use Drugs: Methamphetamine Lives In: Homeless Constitutional: reports: fatigue; denies: chills, diaphoresis, fever, malaise, sweats, weakness EENTM: denies: blurred vision, double vision, nasal discharge Respiratory: denies: cough, hemoptysis, orthopnea, shortness of breath Cardiovascular: denies: chest pain, dizzy spells, diaphoresis, Dyspnea on exertion, edema, lightheadedness, palpitations Gastrointestinal: reports: blood streaked bowels, constipated, rectal bleeding, rectal pain; denies: abdomen distended, abdominal pain, diarrhea, dysphagia, difficulty swallowing, hematemesis, melena, nausea, poor appetite, poor fluid intake, vomiting Genitourinary: denies: burning, dysuria, flank pain, frequency, hematuria, incontinence, pain, urgency Neurological: denies: dizziness, fainting, headache, numbness, paresthesia, seizure Musculoskeletal: denies: back pain, joint pain, joint swelling, muscle pain, muscle stiffness, neck pain Integumetry: reports: lesions (Gluteal lesion ) Physical Exam General Appearance: Cachectic, Moderate Distress, Other (Disheveled ) HEENT: Pale Conjuntivae (L), Pale Conjuntivae (R), PERRL/EOMI, Pharynx Normal Neck: Full Range of Motion, Non-Tender, Normal Inspection Respiratory: Chest Non-Tender, Lungs Clear, No Accessory Muscle Use, No Respiratory Distress, Normal Breath Sounds Cardiovascular: No Edema, No Murmur, Normal Peripheral Pulses, Regular Rate/Rhythm Breast Exam: Deferred Gastrointestinal: Non Tender, Normal Bowel Sounds, Soft Genitalia: Deferred Pelvic: Deferred Rectal: Other (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 No internal exam was performed. ) Extremities: Normal inspection, Normal range of motion, Non-tender, No pedal edema Neurologic: Alert, Normal Affect, Normal Mood Cerebellar Function: Normal Reflexes: NOT DONE Skin: Other (As described above ) Peripheral Pulses: 3+ dorsalis pedis (R), 3+ dorsalis pedis (L) Lymphatic: Other (No cervical adenopathy ) Was a procedure done? Was a procedure done?: No GI differential Dx Differential Diagnosis: Bowel Obstruction, Constipation, Diverticular disease, GI hemorrhage, Dehydration, Electrolyte Imbalance, Other (Metastatic Colorectal Cancer) X-Ray, Labs, Meds, VS Vital Signs Date Time Temp Pulse Resp B/P (MAP) Pulse Ox O2 Delivery O2 Flow Rate FiO2 09/11/25 17:49 88 16 98 Room Air* 0 21 09/11/25 17:49 98.1 88 20 131/83 (99) 100 98.1 09/11/25 15:11 98.8 97 15 115/66 96 98.8 Lab Test 09/11/25 16:40 09/11/25 16:12 09/11/25 15:42 Range/Units Lactic Acid Level 2.4 *H 2.7 *H 0.4-2.0 mmol/L Urine Color Light-yellow Yellow Urine Clarity Clear Clear Urine pH 7.0 5.0-9.0 Urine Specific [place] 1.017 1.001-1.035 Urine Protein Negative Negative Urine Ketones Negative Negative Urine Blood Negative Negative /uL Urine Nitrite Negative Negative Urine Bilirubin Negative Negative Urine Urobilinogen Normal Negative mg/dL Urine Leukocyte Esterase Negative Negative /uL Urine RBC <1 0 - 3 /hpf Urine Microscopic WBC < 1 0-3 /HPF Urine Squamous Epithelial Cells Few <5 /hpf Urine Bacteria None seen None Seen /hpf Urine Glucose Normal Normal mg/dL White Blood Count 8.7 4.4-10.8 10^3/uL Red Blood Count 1.79 L 4.5-5.90 10^6/uL Hemoglobin 4.8 #*L 13.5-17.5 g/dL Hematocrit 14.6 #L 41.0-53.0 % Mean Corpuscular Volume 81.5 80.0-100.0 fL Mean Corpuscular Hemoglobin 26.7 L 28.0-32.0 pg Mean Corpuscular Hemoglobin Concent 32.7 32.0-36.0 g/dL Red Cell Distribution Width 21.3 H 11.8-14.3 % Platelet Count 626 H 140-450 10^3/uL Mean Platelet Volume 6.0 L 6.9-10.8 fL Neutrophils (%) (Auto) 74.6 37.0-80.0 % Lymphocytes (%) (Auto) 14.3 10.0-50.0 % Monocytes (%) (Auto) 7.0 0.0-12.0 % Eosinophils (%) (Auto) 2.7 0.0-7.0 % Basophils (%) (Auto) 1.4 0.0-2.0 % Neutrophils # (Auto) 6.5 1.6-8.6 10 ^3/uL Lymphocytes # (Auto) 1.2 0.4-5.4 10 ^3/uL Monocytes # (Auto) 0.6 0-1.3 10 ^3/uL Eosinophils # (Auto) 0.2 0-0.8 10 ^3/uL Basophils # (Auto) 0.1 0-0.2 10 ^3/uL Nucleated Red Blood Cells 0.1 % Sodium Level 139 136-145 mmol/L Potassium Level 4.9 3.5-5.1 mmol/L Chloride Level 104 98-107 mmol/L Carbon Dioxide Level 23 20-31 mmol/L Anion Gap 12 5-15 Blood Urea Nitrogen 36 H 9-23 mg/dL Creatinine 2.28 H 0.700-1.30 mg/dL Glomerular Filtration Rate Calc 31 >90 mL/min BUN/Creatinine Ratio 15.8 10.0-20.0 Serum Glucose 97 74-106 mg/dL Calcium Level 8.0 L 8.7-10.4 mg/dL Total Bilirubin < 0.2 L 0.2-1.0 mg/dL Aspartate Amino Transferase (AST) 23 13-40 U/L Alanine Aminotransferase (ALT) 14 7-40 U/L Alkaline Phosphatase 95 46-116 U/L Total Protein 6.3 5.7-8.2 g/dL Albumin 3.4 3.2-4.8 g/dL Current Medications Medications (Trade) Dose Ordered Sig/Romulo Route Start Time Stop Time Status Last Admin Sodium Chloride 500 ml @ 500 mls/hr Q1H ONCE IV 09/11/25 16:45 09/11/25 17:44 DC 09/11/25 16:45 [place] [address] Ph: [phone] DIAGNOSTIC IMAGING Diagnostic Imaging Report : [id number] Signed PATIENT: JADA HANDACCT: [id number] UNIT: [id number] : 1960 LOC: ER ROOM / BED: / AGE / SEX: 65 / M ADM STATUS: REG ER SERVICE 1511 ORDERING PHYSICIAN: NORMA MCGILL DO PROCEDURE(s): ABPL - CT AB PEL WO CON-NO ORAL OR IV REASON: CONSTIPATION ORDER NUMBER(s): [id number], ACCESSION NUMBER(s): [id number] Indication: CONSTIPATION Technique: CT axial images of the abdomen and pelvis are obtained without contrast. Coronal and sagittal reformats were obtained. Radiation Dose Information: CTDI volume is 4.99 mGy. Dose-length product is 322.49 mGy*cm Comparison: CT CT AB PEL WO CON-NO ORAL OR IV on DOS: 09/04/25, 04/08/2024 FINDINGS: There is limited interpretation of the abdomen and pelvis without administration of intravenous contrast. Numerous bilateral pulmonary / masses including left lower lobe mass measuring 4.2 cm, right lower lobe nodule measuring 2 cm, left lower lobe nodule measuring 2.3 cm, left lower lobe mass measuring 3 cm. Adrenal glands, spleen, pancreas and liver unremarkable in shape. Gallbladder contracted. Kidneys demonstrate no hydronephrosis.m left renal cyst measuring 1.4 cm. Stomach partially distended. Small bowel loops moderately distended. There is a large rectal/ anal mass measuring 16.7 x 10.3 cm extending into the bilateral peroneal and gluteal region, [id number]-left. There is associated luminal narrowing. Large right pelvic sidewall lymph node measuring 5.2 x 3.2 cm. Moderate to large volume stool throughout the colon. Abdominal aortic atherosclerotic disease. Bladder partially distended. Moderate to severe thoracolumbar degenerative disc disease. Lumbar levocurvature . IMPRESSION: Limited evaluation without contrast. Large rectal/ anal mass measuring 16.7 x 10.3 cm extending into the bilateral gluteal and perineal region, [id number]-left consistent with rectal/anal neoplasm. There is associated luminal narrowing with moderate to large volume stool within the colon. Bilateral pulmonary metastatic disease as described. Right pelvic sidewall lymph node consistent with brittney spread disease. Moderate to large volume stool in the colon. Atherosclerotic disease. Other findings as described. ATED BY: GALE KENYON MD DICTATED DATE/TIME: 09/11/251624 SIGNED BY: GALE KENYON MD SIGNED DATE/TIME: 09/11/251624 CC: Time of 1ST Reevaluation: 19:06 Reevaluation 1ST: Improved Patient Education/Counseling: Diagnosis, Treatment Family Education/Counseling: Other Comments Patient presented today due to anal pain and constipation He was recently admitted at this institution due to similar complaints that was diagnosed with an adenocarcinoma of colorectal origin with possible metastasis to the lungs and pelvic lymph nodes, anemia microcytic, CKD 2, protein calorie malnutrition, meth use, HTN, leukocytosis, thrombocytosis likely reactive, pulmonary nodule likely mets, constipation ruled out obstruction. The patient was evaluated by surgery who stated that the patient would most likely need a ileostomy, however the patient left AMA. On initial evaluation, the patient seems unkempt, and uncomfortable in a sitting position, vitals were stable, no other signs of overt distress On examination, the patient is cachectic, on supervised examination of gluteal region there is presence of a large exophytic mass encompassing the majority of the inner right glute, with surrounding erythema and induration, with presence of purulent discharge CBC significant for hemoglobin of 4.6 (previously 8.2 on 09/05/2025), CMP significant for creatinine of 2.28, BUN 36, lactic acid 2.7 trending down to 2.4, UA without significant findings Abdominopelvic CT shows large rectal/anal mass measuring 16.7 x 10.3 cm extending into the bilateral gluteal and perinea region, right greater than left consistent with rectal/anal neoplasm, bilateral pulmonary metastatic disease, right pelvic sidewall lymph node consistent with brittney spread disease, moderate to large volume stool in the colon, and atherosclerotic disease The patient will be admitted for further evaluation by surgery Due to hemoglobin of 4.6, 2 PRBCs have been ordered for transfusion Due to presence of mass with erythema, induration, and purulent discharge, the patient will be empirically covered with 1 g vancomycin IV and 1 g ceftriaxone IV SEPSIS Sepsis Screen Date sepsis recognized/suspect: Sep 11, 2025 Time Sepsis recognized/suspect: 1509 Recent Procedure: No On Antibiotic Therapy: No Respiratory Rate >20: No Heart Rate >90: Yes Temp<36 C (96.8 F) or >38.3 C: No SBP <90 or MAP <65 mmHG: No New Acute Mental Status Change: No Is the patient on CPAP, BIPAP,: No Physician Orders Ct Ab Pel Wo Con-No Oral Or Iv (09/11/25 15:11) Type And Screen (09/11/25 16:17) Vancomycin 1gm/250ml Kit (09/11/25 18:45) Piperacillin-Tazob 3.375gm (Zosyn 3.375g (09/11/25 18:45) Vital Signs Date Time Temp Pulse Resp B/P (MAP) Pulse Ox O2 Delivery O2 Flow Rate FiO2 09/11/25 17:49 88 16 98 Room Air* 0 21 09/11/25 17:49 98.1 88 20 131/83 (99) 100 98.1 09/11/25 15:11 98.8 97 15 115/66 96 98.8 Laboratory Tests Test 09/11/25 15:42 09/11/25 16:40 Lactic Acid Level 2.7 mmol/L (0.4-2.0) *H 2.4 mmol/L (0.4-2.0) *H White Blood Count 8.7 10^3/uL (4.4-10.8) Medications Medications Dose Ordered Sig/Romulo Route Start Time Stop Time Status Last Admin Dose Admin Sodium Chloride 500 ml @ 500 mls/hr Q1H ONCE IV 09/11/25 16:45 09/11/25 17:44 DC 09/11/25 16:45 Departure 1 Departure Time of Disposition: 16:33 Impression: Primary Impression: Rectal mass Additional Impressions: Symptomatic anemia Metastatic disease Constipation Disposition: 30 STILL A PATIENT Admit to: Tele Condition: Guarded e-Prescriptions No Active Prescriptions or Reported Meds Discharged With: Self Critical Care Note Critical Care Time?: Yes (1 hr-critical care time only) Stability Stability form required: No Heart Score Heart Score: Heart Score Response (Comments) Value History N/A 0 EKG N/A 0 Age N/A 0 Risk Factors N/A 0 Troponin N/A 0 Total 0 MICKY MOISE RESIDENT Sep 11, 2025 16:07 NORMA MCGILL DO Sep 11, 2025 16:34
[2025-09-11 16:11] LABS: Alanine Aminotransferase 14 U/L (7-40); Albumin 3.4 g/dL (3.2-4.8); Alkaline Phosphatase 95 U/L (46-116); Anion Gap 12 (5-15); BUN/Creatinine Ratio 15.8 (10.0-20.0); Carbon Dioxide 23 mmol/L (20-31); Chloride 104 mmol/L (98-107); Glucose 97 mg/dL (74-106); Potassium 4.9 mmol/L (3.5-5.1); Sodium 139 mmol/L (136-145); Total Protein 6.3 g/dL (5.7-8.2)
[2025-09-11 16:12] LABS: Bilirubin, Total < 0.2 mg/dL (0.2-1.0); Blood Urea Nitrogen 36 mg/dL (9-23); Calcium 8.0 mg/dL (8.7-10.4)
[2025-09-11 16:16] LABS: Hemoglobin 4.8 g/dL (13.5-17.5)
--- NOTE | 2025-09-11 16:23 | DVH ---
Indication: CONSTIPATION Technique: CT axial images of the abdomen and pelvis are obtained without contrast. Coronal and sagit deniz reformats were obtained. Radiation Dose Information: CTDI volume is 4.99 mGy. Dose-length product is 322.49 mGy*cm Comparison: CT CT AB PEL WO CON-NO ORAL OR IV on DOS: 09/04/25, 04/08/2024 FINDINGS: There is limited interpretation of the abdomen and pelvis without administration of intravenous contr ast. Numerous bilateral pulmonary / masses including left lower lobe mass measuring 4.2 cm, right lower lo be nodule measuring 2 cm, left lower lobe nodule measuring 2.3 cm, left lower lobe mass measuring 3 c m. Adrenal glands, spleen, pancreas and liver unremarkable in shape. Gallbladder contracted. Kidneys demonstrate no hydronephrosis.m left renal cyst measuring 1.4 cm. Stomach partially distended. Small bowel loops moderately distended. There is a large rectal/ anal mass measuring 16.7 x 10.3 cm extending into the bilateral peroneal and gluteal region, [id number]-left. There is associated luminal narrowing. Large right pelvic sidewall lymph node measuring 5.2 x 3.2 cm. Moderate to large volume stool throughout the colon. Abdominal aortic atherosclerotic disease. Bladder partially distended. Moderate to severe thoracolumbar degenerative disc disease. Lumbar levocurvature. IMPRESSION: Limited evaluation without contrast. Large rectal/ anal mass measuring 16.7 x 10.3 cm extending into the bilateral gluteal and perineal re gion, [id number]-left consistent with rectal/anal neoplasm. There is associated luminal narro wing with moderate to large volume stool within the colon. Bilateral pulmonary metastatic disease as described. Right pelvic sidewall lymph node consistent with brittney spread disease. Moderate to large volume stool in the colon. Atherosclerotic disease. Other findings as described.
[2025-09-11 16:30] LABS: Lactic Acid w/Reflex 2.7 mmol/L (0.4-2.0)
[2025-09-11 16:33] LABS: Urine Protein, UAD Negative (Negative)
[2025-09-11] MEDS: SODIUM CHLORIDE 0.9% 500 ML IV ONE (16:45)
[2025-09-11 17:49] VITALS: PULSE 88; RESP 16; O2SAT 98
[2025-09-11] MEDS: PIPERACILLIN-TAZOB 3.375GM 100 ML IV ONE (19:46)
[2025-09-11] MEDS: VANCOMYCIN 1GM/250ML KIT 250 ML IV ONE (20:56)
[2025-09-11] MEDS ORDERED: VANCOMYCIN PER PHARMACY 0 MG IV SCH (21:15)
[2025-09-11] MEDS ORDERED: ACETAMINOPHEN 325 MG TAB PO PRN (21:15)
[2025-09-11] MEDS: IRON SUCROSE COMPLEX 110 ML IV SCH (21:15)
[2025-09-11] MEDS: SODIUM CHLORIDE 0.9% 1,000 ML IV ONE (21:15)
[2025-09-11] MEDS: LACTULOSE 20Gm/30ML SOLN PO ONE (21:15)
[2025-09-11] MEDS ORDERED: ONDANSETRON HCL 4 MG/2 ML VIAL IV PRN (21:15)
[2025-09-11] MEDS: CEFEPIME 1GM/50ML 50 ML IV SCH (22:00)
--- NOTE | 2025-09-11 23:05 | DVHHPRES ---
History of Present Illness Resident Creating Document: ENZO HINKLE RESIDENT History of Present Illness 65 year old male recently diagnosed with adenocarcinoma of colorectal origin, presented to the ER with chief complaints of constipation and anal pain. The patient was recently admitted at this institution for the following diagnoses- metastatic rectal/colon cancer, CKD 2, anemia microcytic, protein calorie malnutrition, meth use, gluteal mass, hypertension, leukocytosis, thrombocytosis likely reactive, pulmonary nodule likely mets, constipation with ruled out obstruction. surgery consulted suggested ileostomy with the patient had left AMA. Patient today has returned with the complaints of constipation and anal pain which he describes as pressure-like, 7/10 in intensity, with small volume of infrequent bloody stool, aggravated by sitting, with no relieving factors. On initial evaluation, patient seems disheveled and uncomfortable, lying face down due to pain in his buttock, vitals are stable, hemoglobin is low at 4.5 for which the patient refuses blood transfusion(he is not a [employer], patient does not want to take other people's blood). Abdominopelvic CT shows large rectal/anal mass measuring 16.7 x 10.3 cm extending into the bilateral gluteal and perinea region, right greater than left consistent with rectal/anal neoplasm, bilateral pulmonary metastatic disease, right pelvic sidewall lymph node consistent with brittney spread disease, moderate to large volume stool in the colon, and atherosclerotic disease. We are admitting the patient for further workup and management. Past medical history: As mentioned above Past Surgical History: denies Family History: Reviewed, noncontributory to the management of this case. Past Social History: Patient lives in a mobile home, cigarette smoker- has smoked 1 pack/ day for 20 years, denies alcohol use, used methamphetamine but has stopped for a few weeks now. Allergies: None PCP: Does not have one Code status: DNR/DNI Review of Systems Constitutional: No: Fever, Chills, Sweats, Weakness, Malaise, Other Eyes: No: Pain, Vision change, Conjunctivae inflammation, Eyelid inflammation, Other, Redness ENT: No: Ear pain, Ear discharge, Nose pain, Nose discharge, Nose congestion, Mouth pain, Mouth swelling, Throat pain, Throat swelling, Other Respiratory: No: Cough, Dry, Shortness of breath, SOB with excertion, Wheezing, Hemoptysis, Pleuritic Pain, Sputum, Wheezing, Other Cardiovascular: No: Chest Pain, Palpitations, Orthopnea, Paroxysmal Noc. Dyspnea, Edema, Lt Headedness, Other Gastrointestinal: Abdominal Pain, Constipation, Other; No: Nausea, Vomiting, Diarrhea, Melena, Hematochezia Genitourinary: No Dysuria, No Frequency, No Incontinence, No Hematuria, No Retention, No Other Musculoskeletal: No: other, neck pain, shoulder pain, arm pain, back pain, hand pain, leg pain, foot pain Skin: No: Rash, Lesions, Jaundice, Bruising, Other Neurological: No: Weakness, Numbness, Incoordination, Change in speech, Confusion, Seizures, Other Allergies: Coded Allergies: NO KNOWN ALLERGIES (Unverified , 07/25/23) Medications Current Medications Medications Dose Ordered Sig/Romulo Route Start Time Stop Time Status Last Admin Dose Admin Acetaminophen/ Hydrocodone Bitart 1 tab Q4HP PRN PO 09/11/25 21:15 Ondansetron HCl 4 mg Q4HP PRN IV 09/11/25 21:15 Acetaminophen 650 mg Q6HP PRN PO 09/11/25 21:15 Vancomycin HCl 0 ml @ 0 mls/hr PER PHARMACY IV 09/11/25 21:15 UNV Cefepime HCl 50 ml @ 12.5 mls/hr Q12HR IV 09/11/25 22:00 Iron Sucrose 110 ml @ 110 mls/hr DAILY@1200 IV 09/11/25 21:15 09/15/25 12:59 Exam Vital Signs Vital Signs Date Time Temp Pulse Resp B/P (MAP) Pulse Ox O2 Delivery O2 Flow Rate FiO2 09/11/25 17:49 88 16 98 Room Air* 0 09/11/25 17:49 98.1 131/83 (99) 98.1 Exam Pt is lying on bed General Appearance: Alert, Oriented X3, dishevelled, cachectic, in acute distress, lying face down due to pain in gluteal region HEENT: Atraumatic, Mucous membranes moist/pink Respiratory: Clear to auscultation, Normal air movement, No added sounds Cardiovascular: Regular rate, Normal S1, Normal S2, No murmurs Abdominal: Active bowel sounds, Soft, no distention, no tenderness Extremities: No edema, Normal pulses, No tenderness/swelling Skin: Presence of stage IV ulcerating wound on anal and left gluteal region, seeping stool Neuro: Normal speech, sensorimotor deficits none Psych/Mental Status: Mental status NL, Mood NL Nurse was there as hvac refrigeration technician during examination Labs/Xrays Labs Test 09/11/25 16:40 09/11/25 16:12 09/11/25 15:42 Range/Units Lactic Acid Level 2.4 *H 0.4-2.0 mmol/L Urine Color Light-yellow Yellow Urine Clarity Clear Clear Urine pH 7.0 5.0-9.0 Urine Specific [place] 1.017 1.001-1.035 Urine Protein Negative Negative Urine Ketones Negative Negative Urine Blood Negative Negative /uL Urine Nitrite Negative Negative Urine Bilirubin Negative Negative Urine Urobilinogen Normal Negative mg/dL Urine Leukocyte Esterase Negative Negative /uL Urine RBC <1 0 - 3 /hpf Urine Microscopic WBC < 1 0-3 /HPF Urine Squamous Epithelial Cells Few <5 /hpf Urine Bacteria None seen None Seen /hpf Urine Glucose Normal Normal mg/dL White Blood Count 8.7 4.4-10.8 10^3/uL Red Blood Count 1.79 L 4.5-5.90 10^6/uL Hemoglobin 4.8 #*L 13.5-17.5 g/dL Hematocrit 14.6 #L 41.0-53.0 % Mean Corpuscular Volume 81.5 80.0-100.0 fL Mean Corpuscular Hemoglobin 26.7 L 28.0-32.0 pg Mean Corpuscular Hemoglobin Concent 32.7 32.0-36.0 g/dL Red Cell Distribution Width 21.3 H 11.8-14.3 % Platelet Count 626 H 140-450 10^3/uL Mean Platelet Volume 6.0 L 6.9-10.8 fL Neutrophils (%) (Auto) 74.6 37.0-80.0 % Lymphocytes (%) (Auto) 14.3 10.0-50.0 % Monocytes (%) (Auto) 7.0 0.0-12.0 % Eosinophils (%) (Auto) 2.7 0.0-7.0 % Basophils (%) (Auto) 1.4 0.0-2.0 % Neutrophils # (Auto) 6.5 1.6-8.6 10 ^3/uL Lymphocytes # (Auto) 1.2 0.4-5.4 10 ^3/uL Monocytes # (Auto) 0.6 0-1.3 10 ^3/uL Eosinophils # (Auto) 0.2 0-0.8 10 ^3/uL Basophils # (Auto) 0.1 0-0.2 10 ^3/uL Nucleated Red Blood Cells 0.1 % Sodium Level 139 136-145 mmol/L Potassium Level 4.9 3.5-5.1 mmol/L Chloride Level 104 98-107 mmol/L Carbon Dioxide Level 23 20-31 mmol/L Anion Gap 12 5-15 Blood Urea Nitrogen 36 H 9-23 mg/dL Creatinine 2.28 H 0.700-1.30 mg/dL Glomerular Filtration Rate Calc 31 >90 mL/min BUN/Creatinine Ratio 15.8 10.0-20.0 Serum Glucose 97 74-106 mg/dL Calcium Level 8.0 L 8.7-10.4 mg/dL Magnesium Level 2.6 1.6-2.6 mg/dL Total Bilirubin < 0.2 L 0.2-1.0 mg/dL Aspartate Amino Transferase (AST) 23 13-40 U/L Alanine Aminotransferase (ALT) 14 7-40 U/L Alkaline Phosphatase 95 46-116 U/L Total Protein 6.3 5.7-8.2 g/dL Albumin 3.4 3.2-4.8 g/dL SEPSIS Sepsis Screen Date sepsis recognized/suspect: Sep 11, 2025 Time Sepsis recognized/suspect: 1748 Recent Procedure: No On Antibiotic Therapy: No Respiratory Rate >20: No Heart Rate >90: No Temp<36 C (96.8 F) or >38.3 C: No SBP <90 or MAP <65 mmHG: No New Acute Mental Status Change: No Is the patient on CPAP, BIPAP,: No Physician Orders Ct Ab Pel Wo Con-No Oral Or Iv (09/11/25 15:11) Type And Screen (09/11/25 16:17) Admit (09/11/25 21:12) Code Status (09/11/25 21:12) Hydrocodone-Acet 5/325mg Tab ([place] 32 (09/11/25 21:15) Ondansetron Hcl (Zofran) (09/11/25 21:15) Complete Blood Count (09/12/25 04:00) Condition: Unstable (09/11/25 21:12) Acetaminophen Tablet (Tylenol Tablet) (09/11/25 21:15) Notify Of Changes From Base (09/11/25 21:12) Lactic Acid W/ Reflex Order (09/12/25 04:00) * Surgical Consult (09/11/25 ) * Wound Consult (09/11/25 ) Vancomycin Per Pharmacy (09/11/25 21:15) Sodium Chloride 0.9% (09/11/25 21:15) Drug Screen (09/11/25 21:12) Clear Liq Diet (09/12/25 Breakfast) Cefepime 1gm/50ml (Maxipime 1gm/50ml) (09/11/25 22:00) Iron Sucrose Complex (Venofer) (09/11/25 21:15) Stool Occult Blood (09/11/25 21:12) Basic Metabolic Panel (09/12/25 04:00) Vancomycin,Random (09/12/25 04:00) Vital Signs Date Time Temp Pulse Resp B/P (MAP) Pulse Ox O2 Delivery O2 Flow Rate FiO2 09/11/25 17:49 88 16 98 Room Air* 0 21 09/11/25 17:49 98.1 88 20 131/83 (99) 100 98.1 09/11/25 15:11 98.8 97 15 115/66 96 98.8 Laboratory Tests Test 09/11/25 15:42 09/11/25 16:40 Lactic Acid Level 2.7 mmol/L (0.4-2.0) *H 2.4 mmol/L (0.4-2.0) *H White Blood Count 8.7 10^3/uL (4.4-10.8) Medications Medications Dose Ordered Sig/Romulo Route Start Time Stop Time Status Last Admin Dose Admin Piperacillin Sod/ Tazobactam Sod 100 ml @ 100 mls/hr ONCE ONCE IV 09/11/25 18:45 09/11/25 19:44 DC 09/11/25 19:46 100 MLS/HR Sodium Chloride 500 ml @ 500 mls/hr Q1H ONCE IV 09/11/25 16:45 09/11/25 17:44 DC 09/11/25 16:45 500 MLS/HR Vancomycin HCl 250 ml @ 250 mls/hr ONCE ONCE IV 09/11/25 19:45 09/11/25 20:44 DC 09/11/25 20:56 250 MLS/HR Assessment/Plan Assessment/Plan #Anal and right gluteal sacral wound, stage IV due to colorectal carcinoma #Bilateral pulmonary metastatic disease #Lymphadenopathy due to Mets #Slow transit constipation due to rectal mass #Severe blood loss anemia, microcytic #Iron-deficiency anemia #Lower GI bleed #Thrombocytosis, likely reactive -CT abdomen and pelvis shows: -Large rectal/ anal mass measuring 16.7 x 10.3 cm extending into the bilateral gluteal and perineal region, [id number]-left consistent with rectal/anal neoplasm. There is associated luminal narrowing with moderate to large volume stool within the colon; -Bilateral pulmonary metastatic disease as described:left lower lobe mass measuring 4.2 cm, right lower lobe nodule measuring 2 cm, left lower lobe nodule measuring 2.3 cm, left lower lobe mass measuring 3 cm; -Right pelvic sidewall lymph node consistent with brittney spread disease. -Moderate to large volume stool in the colon. - recent iron panel done on 08/27/2025 shows iron 18, TIBC 219,% saturation 8.2, ferritin 37.2 with iron-deficiency pattern. new good not withdrawn as patient has low hemoglobin and is refusing blood transfusion - IV iron sucrose X 5 Days - lactic acid down trending 2.7> 2.4 - pain management with acetaminophen 650 mg p.o. q.6 PRN and hydrocodone 5/325 mg q.4 PRN - PT/PTT - occult blood in stool - IV vancomycin per pharmacy for sacral wound - IV cefepime 1 g b.i.d. for sacral wound - IV Zofran 4 mg q.4 PRN for nausea vomiting - lactulose 30 mL p.o. once for stool burden - type and cross matching - patient refusing blood transfusion - wound consult - surgery consult - clear liquid diet #BETTE on CKD, likely due to VMN - IV NS - monitor - avoid nephrotoxic agents #Atherosclerotic disease. #left renal cyst measuring 1.4 cm. #Moderate to severe thoracolumbar degenerative disc disease. Lumbar levocurvature - seen on CT abdomen and pelvis, incidental findings - outpatient follow up #History of hypertension - hold all medications SBP is maintained #Polysubstance abuse ( nicotine, methamphetamine) - UDS positive for meth - patient has been counseled regarding cessation of methamphetamine and need of cessation of smoking as well as the dangers it can cause to his health for over 8 minutes DVT prophylaxis: Lovenox held as patient has low hemoglobin Diet: Clear liquid diet Goals of care discussed with the patient for more than 27 minutes: DNR/DNI status Case discussed with Dr. Plaza, patient Plan discussed with: Patient My Orders Orders - ENZO HINKLE Procedure Category Date Status Time Admit ADMIT 09/11/25 Transmitted 21:12 Code Status CODE 09/11/25 Transmitted 21:12 Hydrocodone-Acet PHA 09/11/25 In Process 5/325mg Tab ([place] 21:15 Ondansetron Hcl PHA 09/11/25 In Process (Zofran) 21:15 Complete Blood Count LAB 09/12/25 Verified 04:00 Condition: Unstable SCOTT 09/11/25 In Process 21:12 Acetaminophen Tablet PHA 09/11/25 In Process (Tylenol Tablet) 21:15 Notify Of Changes SCOTT 09/11/25 In Process From Base 21:12 Lactic Acid W/ Reflex LAB 09/12/25 Verified Order 04:00 * Surgical Consult CONS 09/11/25 Transmitted * Wound Consult CONS 09/11/25 Transmitted Vancomycin Per PHA 09/11/25 Pending Pharmacy 21:15 Sodium Chloride 0.9% PHA 09/11/25 In Process 21:15 Drug Screen LAB 09/11/25 Logged 21:12 Clear Liq Diet DIET 09/12/25 Transmitted Breakfast Cefepime 1gm/50ml PHA 09/11/25 In Process (Maxipime 1gm/50ml) 22:00 Iron Sucrose Complex PHA 09/11/25 In Process (Venofer) 21:15 Stool Occult Blood LAB 09/11/25 Logged 21:12 Basic Metabolic Panel LAB 09/12/25 Verified 04:00 Vancomycin,Random LAB 09/12/25 Verified 04:00 Date of Service: Sep 11, 2025 Billing Provider: JOE PALACIOS MD, SREYA RESIDENT Sep 11, 2025 23:05
[2025-09-11 23:52] LABS: Amphetamine Screen, Urine Pos (NEGATIVE)
[2025-09-11 23:54] LABS: Barbiturate Scree,Urine Neg (NEGATIVE); Opiate Scree,Urine Neg (NEGATIVE)
[2025-09-11 23:57] LABS: Benzodiazephine Screen, Urine Neg (NEGATIVE); Cannabinoid Screen, Urine Neg (NEGATIVE); Cocaine Screen, Urine Neg (NEGATIVE); Phencyclidine Screen, Urine Neg (NEGATIVE)
[2025-09-12] VITALS (13 sets, daily range): BP systolic 94–138; BP diastolic 63–89; PULSE 63–83; RESP 15–19; TEMP 97–98.6; O2SAT 93–99
[2025-09-12] MEDS: HYDROcodone-ACET 5/325MG TAB PO PRN (00:18)
[2025-09-12] MEDS: SODIUM CHLORIDE 0.9% 500 ML IV ONE (01:22)
[2025-09-12 07:43] LABS: Anion Gap 9 (5-15); Carbon Dioxide 21 mmol/L (20-31); Potassium 4.9 mmol/L (3.5-5.1); Sodium 140 mmol/L (136-145)
[2025-09-12 07:45] LABS: Calcium 7.3 mg/dL (8.7-10.4); Chloride 110 mmol/L (98-107); INR 1.0 (0.9-1.15); Partial Thromboplastin Time 34.4 SEC (24.5-34.5); Prothrombin Time 10.6 sec (9.3-11.8)
[2025-09-12 07:50] LABS: BUN/Creatinine Ratio 17.3 (10.0-20.0); Glucose 81 mg/dL (74-106)
[2025-09-12 07:51] LABS: Blood Urea Nitrogen 32 mg/dL (9-23)
[2025-09-12 07:53] LABS: Hematocrit 13.2 % (41.0-53.0); Mean Corpuscular Hemoglobin 26.6 pg (28.0-32.0); Mean Corpuscular Volume 83.1 fL (80.0-100.0); Nucleated Red Blood Cells % 0.1 %
[2025-09-12 08:06] LABS: Hemoglobin 4.2 g/dL (13.5-17.5)
--- NOTE | 2025-09-12 09:29 | DVHINCON2 ---
Consultation - Surgical Date Seen: Sep 12, 2025 Referring Physician Reason for Consultation Colorectal mass History of Present Illness History of Present Illness Mr. Hand is a 65-year-old male who has been admitted to the hospital and I was consulted for rectal mass stage IV, that involves the tear anus and gluteal area. Patient is having constant stool leakage as he does not have any control of the sphincter muscles. Patient states he has been dealing with this for approximately 2 years, and has not seek any medical attention. On September 04 he underwent biopsy of the mass by Dr. Randolph, pathology showing adenocarcinoma with focal mucinous features. Patient did not want to cooperate with the interview. Past Medical/Surgical History Past Medical/Surgical History Past Medical/Surgical History Past medical history: Rectal mass with pulmonary metastasis * Colorectal adenocarcinoma (rectal mass) with metastases to lungs, CKD Stage IIIb, Anemia of chronic disease, Thrombocytosis, Methamphetamine use disorder, Tobacco use disorder Past Surgical History Denies all surgeries Family History Reviewed, noncontributory to the management of this case. Past Social History Patient lives in a mobile home, smokes cigarettes, denies alcohol use, uses methamphetamine. Allergies and medications Allergies: Coded Allergies: NO KNOWN ALLERGIES (Unverified , 07/25/23) Home Meds No Active Prescriptions or Reported Meds Review of systems Review of Systems: Not Done Examination Vital signs Vital Signs Date Time Temp Pulse Resp B/P (MAP) Pulse Ox O2 Delivery O2 Flow Rate FiO2 09/12/25 08:30 97.9 73 17 97/66 (76) 94 97.9 09/12/25 02:40 Room Air* 0 21 Medications Current Medications Medications (Trade) Dose Ordered Sig/Romulo Route PRN Reason Start Time Stop Time Status Last Admin Acetaminophen/ Hydrocodone Bitart ([place] 5/325MG Tab) 1 tab Q4HP PRN PO MODERATE PAIN (4-6 PAIN SCALE) 09/11/25 21:15 09/12/25 00:18 Ondansetron HCl (Zofran) 4 mg Q4HP PRN IV NAUSEA / VOMITING 09/11/25 21:15 Acetaminophen (Tylenol Tablet) 650 mg Q6HP PRN PO PAIN SCALE 1-3 OR TEMP>100.4 09/11/25 21:15 Vancomycin HCl 0 ml @ 0 mls/hr PER PHARMACY IV 09/11/25 21:15 Cefepime HCl 50 ml @ 12.5 mls/hr Q12HR IV 09/11/25 22:00 09/11/25 22:00 Iron Sucrose 110 ml @ 110 mls/hr DAILY@1200 IV 09/11/25 21:15 09/15/25 12:59 09/11/25 21:15 Laboratory Labs Test 09/12/25 04:40 09/11/25 16:12 09/11/25 15:42 Range/Units White Blood Count 7.7 4.4-10.8 10^3/uL Red Blood Count 1.59 L 4.5-5.90 10^6/uL Hemoglobin 4.2 *L 13.5-17.5 g/dL Hematocrit 13.2 L 41.0-53.0 % Mean Corpuscular Volume 83.1 80.0-100.0 fL Mean Corpuscular Hemoglobin 26.6 L 28.0-32.0 pg Mean Corpuscular Hemoglobin Concent 32.0 32.0-36.0 g/dL Red Cell Distribution Width 21.2 H 11.8-14.3 % Platelet Count 557 H 140-450 10^3/uL Mean Platelet Volume 6.4 L 6.9-10.8 fL Neutrophils (%) (Auto) 68.7 37.0-80.0 % Lymphocytes (%) (Auto) 16.0 10.0-50.0 % Monocytes (%) (Auto) 9.1 0.0-12.0 % Eosinophils (%) (Auto) 5.3 0.0-7.0 % Basophils (%) (Auto) 0.9 0.0-2.0 % Neutrophils # (Auto) 5.3 1.6-8.6 10 ^3/uL Lymphocytes # (Auto) 1.2 0.4-5.4 10 ^3/uL Monocytes # (Auto) 0.7 0-1.3 10 ^3/uL Eosinophils # (Auto) 0.4 0-0.8 10 ^3/uL Basophils # (Auto) 0.1 0-0.2 10 ^3/uL Nucleated Red Blood Cells 0.1 % Prothrombin Time 10.6 9.3-11.8 sec Prothrombin Time INR 1.00 0.9-1.15 Activated Partial Thromboplast Time 34.4 24.5-34.5 SEC Sodium Level 140 136-145 mmol/L Potassium Level 4.9 3.5-5.1 mmol/L Chloride Level 110 H 98-107 mmol/L Carbon Dioxide Level 21 20-31 mmol/L Anion Gap 9 5-15 Blood Urea Nitrogen 32 H 9-23 mg/dL Creatinine 1.85 H 0.700-1.30 mg/dL Glomerular Filtration Rate Calc 39 >90 mL/min BUN/Creatinine Ratio 17.3 10.0-20.0 Serum Glucose 81 74-106 mg/dL Lactic Acid Level 0.9 0.4-2.0 mmol/L Calcium Level 7.3 L 8.7-10.4 mg/dL Random Vancomycin Level 14.1 H 5-10 ug/mL Urine Color Light-yellow Yellow Urine Clarity Clear Clear Urine pH 7.0 5.0-9.0 Urine Specific [place] 1.017 1.001-1.035 Urine Protein Negative Negative Urine Ketones Negative Negative Urine Blood Negative Negative /uL Urine Nitrite Negative Negative Urine Bilirubin Negative Negative Urine Urobilinogen Normal Negative mg/dL Urine Leukocyte Esterase Negative Negative /uL Urine RBC <1 0 - 3 /hpf Urine Microscopic WBC < 1 0-3 /HPF Urine Squamous Epithelial Cells Few <5 /hpf Urine Bacteria None seen None Seen /hpf Urine Glucose Normal Normal mg/dL Urine Opiates Screen Neg NEGATIVE Urine Fentanyl Screen Neg NEGATIVE Urine Barbiturates Screen Neg NEGATIVE Urine Phencyclidine Screen Neg NEGATIVE Urine Amphetamines Screen Pos NEGATIVE Urine Benzodiazepines Screen Neg NEGATIVE Urine Cocaine Screen Neg NEGATIVE Urine Cannabinoids Screen Neg NEGATIVE Magnesium Level 2.6 1.6-2.6 mg/dL Total Bilirubin < 0.2 L 0.2-1.0 mg/dL Aspartate Amino Transferase (AST) 23 13-40 U/L Alanine Aminotransferase (ALT) 14 7-40 U/L Alkaline Phosphatase 95 46-116 U/L Total Protein 6.3 5.7-8.2 g/dL Albumin 3.4 3.2-4.8 g/dL Examination: GENERAL:Normal, ABDOMEN:Normal (Flat, soft, depressible, nontender), Any Other System: (Large mass that extends from the anus to the right gluteal area, stool leakage coming from it) Problem List/Assessment/Plan Problems: (1) Stage IV carcinoma of rectum Assessment and Plan Mr. Hand is a 65-year-old male who has rectal cancer stage IV, untreated. Patient underwent biopsy of the mass on September 04, 2025 and it was positive for adenocarcinoma with focal mucinous features. I was consulted for possibility of diverting ostomy. Given the extent of the disease with metastasis to the lungs, and patient is emotional instability without an ability to take care of himself, I will not be offering any surgery at this moment. I believe if I were to do any such surgery risks we will outweigh the benefits, and most likely he would not be able to take care of his ostomy or surgical sites, leading to complications. Also given the advanced stage of the disease process, patient will benefit from palliative Medicine consultation for hospice. Plan discussed with Plan discussed with: Patient Visit Coding Surgery Date of Service if different f: Sep 12, 2025 Billing Provider: EUSEBIO MCDONALD MD Surgery Visit Codes: 16433 - INP CONSULT <110 MIN EUSEBIO MCDONALD MD Sep 12, 2025 09:29
--- NOTE | 2025-09-12 15:25 | DVHPNRES ---
Progress Note Date Seen: Sep 12, 2025 Resident Creating Document: SHERIF JULES Medical Necessity Reason Pt with a Central, PICC or Fol: No Subjective Review of Systems Patient was seen at the bedside. He conveyed that he was tired and would want to be left alone and not disturbed for history or physical. 65 year old male recently diagnosed with adenocarcinoma of colorectal origin, presented to the ER with chief complaints of constipation and anal pain. The patient was recently admitted at this institution for the following diagnoses- metastatic rectal/colon cancer, CKD 2, anemia microcytic, protein calorie malnutrition, meth use, gluteal mass, hypertension, leukocytosis, thrombocytosis likely reactive, pulmonary nodule likely mets, constipation with ruled out obstruction. surgery consulted suggested ileostomy with the patient had left AMA. Patient today has returned with the complaints of constipation and anal pain which he describes as pressure-like, 7/10 in intensity, with small volume of infrequent bloody stool, aggravated by sitting, with no relieving factors. On initial evaluation, patient seems disheveled and uncomfortable, lying face down due to pain in his buttock, vitals are stable, hemoglobin is low at 4.5 for which the patient refuses blood transfusion(he is not a [employer], patient does not want to take other people's blood). Abdominopelvic CT shows large rectal/anal mass measuring 16.7 x 10.3 cm extending into the bilateral gluteal and perinea region, right greater than left consistent with rectal/anal neoplasm, bilateral pulmonary metastatic disease, right pelvic sidewall lymph node consistent with brittney spread disease, moderate to large volume stool in the colon, and atherosclerotic disease. We are admitting the patient for further workup and management. Past medical history: As mentioned above Past Surgical History: denies Family History: Reviewed, noncontributory to the management of this case. Past Social History: Patient lives in a mobile home, cigarette smoker- has smoked 1 pack/ day for 20 years, denies alcohol use, used methamphetamine but has stopped for a few weeks now. Allergies: None PCP: Does not have one Code status: DNR/DNI General: patient denies fever, fatigue, weaknes, sweating, any recent changes in appetite and weight HEENT: No headaches, visiual changes, hearing loss, tinnitus, nasal congestion and discharge, and sore throat. Cardiovascular: Denies chest pain, palpitations, dyspnea on exertion, orthopnea, or claudication. Respiratory: No cough, and wheezing. Gastrointestinal: Denies nausea, vomiting, dysphagia, odynophagia, heartburn, abdominal pain, flatulence, bloating, diarrhea, change in stool, or blood in stool.Complains of pain in the in anus and constipation Genitourinary: No dysuria, hematuria, discharge, frequency, urgency, nocturia, incontinence, and urinary retention. Endocrine: No heat or cold intolerance, polydipsia, polyuria, and polyphagia. Neurological: No dizziness, extremity weakness and numbness, tremors, gait disturbance, seizures, and memory impairment. Psychiatric: Denies depression, anxiety,or insomnia. Musculoskeletal: Denies neck pain, stiffness and swelling, back pain, muscle weakness, joint pain, stiffness, swelling, or limited range of motion. Skin: No rashes, itching, skin lesion, changes in hair, nail, skin texture and breast. Hematologic/Lymphatic: Denies easy bruising, bleeding tendencies, or lymph node enlargement. Objective vital signs Vital Sign Date Time Temp Pulse Resp B/P (MAP) Pulse Ox O2 Delivery O2 Flow Rate FiO2 09/12/25 12:51 97.7 80 16 101/66 (78) 96 97.7 09/12/25 02:40 Room Air* 0 21 Total Intake and Output 09/11/25 09/11/25 09/12/25 15:00 23:00 07:00 Intake Total 100 ml 50 ml Balance 100 ml 50 ml medications Current Medications Medications Dose Ordered Sig/Romulo Route Start Time Stop Time Status Last Admin Dose Admin Acetaminophen/ Hydrocodone Bitart 1 tab Q4HP PRN PO 09/11/25 21:15 09/12/25 00:18 1 TAB Ondansetron HCl 4 mg Q4HP PRN IV 09/11/25 21:15 Acetaminophen 650 mg Q6HP PRN PO 09/11/25 21:15 Vancomycin HCl 0 ml @ 0 mls/hr PER PHARMACY IV 09/11/25 21:15 Cefepime HCl 50 ml @ 12.5 mls/hr Q12HR IV 09/11/25 22:00 09/12/25 11:08 12.5 MLS/HR Iron Sucrose 110 ml @ 110 mls/hr DAILY@1200 IV 09/11/25 21:15 09/15/25 12:59 09/11/25 21:15 110 MLS/HR Examination General Appearance: Alert, Oriented X3, Cooperative, No acute distress HEENT: Atraumatic, PERRLA, EOMI, Mucous membrane moist/pink Respiratory: Clear to auscultation, Normal air movement Cardiovascular: Regular rate, Normal S1, Normal S2, No murmurs, no chest wall tenderness Abdominal: Normal bowel sounds, Soft, No tenderness, No hepatospenomegaly, No masses Extremities: No clubbing, No cyanosis, No edema, Normal pulses, No tenderness/swelling Skin: No rashes, No breakdown, No significant lesion Neuro: Normal gait, Normal speech, Strength at 5/5 X4 ext, Normal tone, Sensation intact, Cranial nerves 3-12 NL, Reflexes 2+ Psych/Mental Status: Mental status NL, Mood NL laboratory and microbiology Laboratory Tests 09/12/25 04:40 Test 09/12/25 04:40 Range/Units Serum Glucose 81 74-106 mg/dL Microbiology Date/Time Source Procedure Growth Status 09/12/25 07:00 Nose MRSA Screen - Final Complete Problem List/Assessment/Plan Problem List/Assessment/Plan Assessment and plan #Anal and right gluteal sacral wound, stage IV due to colorectal carcinoma #Bilateral pulmonary metastatic disease #Lymphadenopathy due to Mets #Slow transit constipation due to rectal mass #Severe blood loss anemia, microcytic #Iron-deficiency anemia #Lower GI bleed #Thrombocytosis, likely reactive -CT abdomen and pelvis shows: -Large rectal/ anal mass measuring 16.7 x 10.3 cm extending into the bilateral gluteal and perineal region, ocjwe-ryvwdlu-[id number]-left consistent with rectal/anal neoplasm. There is associated luminal narrowing with moderate to large volume stool within the colon; -Bilateral pulmonary metastatic disease as described:left lower lobe mass measuring 4.2 cm, right lower lobe nodule measuring 2 cm, left lower lobe nodule measuring 2.3 cm, left lower lobe mass measuring 3 cm; -Right pelvic sidewall lymph node consistent with brittney spread disease. -Moderate to large volume stool in the colon. - recent iron panel done on 08/27/2025 shows iron 18, TIBC 219,% saturation 8.2, ferritin 37.2 with iron-deficiency pattern. new good not withdrawn as patient has low hemoglobin and is refusing blood transfusion - IV iron sucrose X 5 Days - lactic acid down trending 2.7> 2.4 - pain management with acetaminophen 650 mg p.o. q.6 PRN and hydrocodone 5/325 mg q.4 PRN - PT/PTT - occult blood in stool - IV vancomycin per pharmacy for sacral wound - IV cefepime 1 g b.i.d. for sacral wound - IV Zofran 4 mg q.4 PRN for nausea vomiting - lactulose 30 mL p.o. once for stool burden - type and cross matching - patient refusing blood transfusion - wound consult - surgery consult - clear liquid diet #BETTE on CKD, likely due to VMN - IV NS - monitor - avoid nephrotoxic agents #Atherosclerotic disease. #left renal cyst measuring 1.4 cm. #Moderate to severe thoracolumbar degenerative disc disease. Lumbar levocurvature - seen on CT abdomen and pelvis, incidental findings - outpatient follow up #History of hypertension - hold all medications SBP is maintained #Polysubstance abuse ( nicotine, methamphetamine) - UDS positive for meth - patient has been counseled regarding cessation of methamphetamine and need of cessation of smoking as well as the dangers it can cause to his health for over 8 minutes DVT prophylaxis: Lovenox held as patient has low hemoglobin Diet: Clear liquid diet Goals of care discussed with the patient for more than 21 minutes: DNR/DNI status Case discussed with Dr. Bourne Plan discussed with: Patient Date of Service: Sep 12, 2025 Billing Provider: SOLOMON BOURNE MD Common Visit Codes: [id number] INP/OBS CARE(HIGH) SHERIF JULES Sep 12, 2025 15:25 SOLOMON BOURNE MD Sep 14, 2025 15:23
[2025-09-12 17:05] LABS: Hematocrit 22.8 % (41.0-53.0); Hemoglobin 7.4 g/dL (13.5-17.5)
[2025-09-12] MEDS: VANCOMYCIN 750MG KIT 100 ML IV ONE (17:48)
[2025-09-13 01:00] VITALS: BP 143/89; PULSE 78; RESP 19; TEMP 98.6; O2SAT 96
[2025-09-13 05:00] VITALS: BP 131/84; PULSE 69; RESP 18; TEMP 97.4; O2SAT 97
[2025-09-13 08:00] VITALS: PULSE 78; RESP 18
--- NOTE | 2025-09-13 16:04 | DVHDSRES ---
Discharge Summary Date of Admission Resident Creating Document: SHERIF JULES RESIDENT Sep 11, 2025 at 21:12 Date of Discharge: Sep 13, 2025 Admitting Diagnosis Acute blood loss anemia Wounds: as per note Labs/Diagnostic Data: Laboratory Results Test 09/12/25 16:53 09/12/25 10:09 09/12/25 04:40 09/11/25 16:12 Hemoglobin 7.4 g/dL (13.5-17.5) Hematocrit 22.8 % (41.0-53.0) Random Vancomycin Level 11.6 ug/mL (5-10) White Blood Count 7.7 10^3/uL (4.4-10.8) Red Blood Count 1.59 10^6/uL (4.5-5.90) Mean Corpuscular Volume 83.1 fL (80.0-100.0) Mean Corpuscular Hemoglobin 26.6 pg (28.0-32.0) Mean Corpuscular Hemoglobin Concent 32.0 g/dL (32.0-36.0) Red Cell Distribution Width 21.2 % (11.8-14.3) Platelet Count 557 10^3/uL (140-450) Mean Platelet Volume 6.4 fL (6.9-10.8) Neutrophils (%) (Auto) 68.7 % (37.0-80.0) Lymphocytes (%) (Auto) 16.0 % (10.0-50.0) Monocytes (%) (Auto) 9.1 % (0.0-12.0) Eosinophils (%) (Auto) 5.3 % (0.0-7.0) Basophils (%) (Auto) 0.9 % (0.0-2.0) Neutrophils # (Auto) 5.3 10 ^3/uL (1.6-8.6) Lymphocytes # (Auto) 1.2 10 ^3/uL (0.4-5.4) Monocytes # (Auto) 0.7 10 ^3/uL (0-1.3) Eosinophils # (Auto) 0.4 10 ^3/uL (0-0.8) Basophils # (Auto) 0.1 10 ^3/uL (0-0.2) Nucleated Red Blood Cells 0.1 % Prothrombin Time 10.6 sec (9.3-11.8) Prothrombin Time INR 1.00 (0.9-1.15) Activated Partial Thromboplast Time 34.4 SEC (24.5-34.5) Sodium Level 140 mmol/L (136-145) Potassium Level 4.9 mmol/L (3.5-5.1) Chloride Level 110 mmol/L (98-107) Carbon Dioxide Level 21 mmol/L (20-31) Anion Gap 9 (5-15) Blood Urea Nitrogen 32 mg/dL (9-23) Creatinine 1.85 mg/dL (0.700-1.30) Glomerular Filtration Rate Calc 39 mL/min (>90) BUN/Creatinine Ratio 17.3 (10.0-20.0) Serum Glucose 81 mg/dL (74-106) Lactic Acid Level 0.9 mmol/L (0.4-2.0) Calcium Level 7.3 mg/dL (8.7-10.4) Urine Color Light-yellow (Yellow) Urine Clarity Clear (Clear) Urine pH 7.0 (5.0-9.0) Urine Specific [place] 1.017 (1.001-1.035) Urine Protein Negative (Negative) Urine Ketones Negative (Negative) Urine Blood Negative /uL (Negative) Urine Nitrite Negative (Negative) Urine Bilirubin Negative (Negative) Urine Urobilinogen Normal mg/dL (Negative) Urine Leukocyte Esterase Negative /uL (Negative) Urine RBC <1 /hpf (0 - 3) Urine Microscopic WBC < 1 /HPF (0-3) Urine Squamous Epithelial Cells Few /hpf (<5) Urine Bacteria None seen /hpf (None Seen) Urine Glucose Normal mg/dL (Normal) Urine Opiates Screen Neg (NEGATIVE) Urine Fentanyl Screen Neg (NEGATIVE) Urine Barbiturates Screen Neg (NEGATIVE) Urine Phencyclidine Screen Neg (NEGATIVE) Urine Amphetamines Screen Pos (NEGATIVE) Urine Benzodiazepines Screen Neg (NEGATIVE) Urine Cocaine Screen Neg (NEGATIVE) Urine Cannabinoids Screen Neg (NEGATIVE) Test 09/11/25 15:42 Magnesium Level 2.6 mg/dL (1.6-2.6) Total Bilirubin < 0.2 mg/dL (0.2-1.0) Aspartate Amino Transferase (AST) 23 U/L (13-40) Alanine Aminotransferase (ALT) 14 U/L (7-40) Alkaline Phosphatase 95 U/L (46-116) Total Protein 6.3 g/dL (5.7-8.2) Albumin 3.4 g/dL (3.2-4.8) Other Laboratory Tests 09/12/25 16:53 09/12/25 04:40 Brief Hx & Hospital Course: Mr. Hand, a 65-year-old male with a recent diagnosis of metastatic colorectal adenocarcinoma presented to the ER with severe constipation and anal pain described as pressure-like and rated 7/10, accompanied by infrequent bloody stools worsened by sitting. He has a complex medical history including CKD stage 2, microcytic anemia, protein-calorie malnutrition, methamphetamine use, hypertension, leukocytosis, thrombocytosis, and a gluteal mass. Previously advised to undergo ileostomy surgery, he left the hospital against medical advice. On current evaluation, he appeared disheveled and in significant discomfort, lying face down due to buttock pain. His hemoglobin was critically low at 4.5, but he refused blood transfusion for personal reasons. Imaging revealed a large rectal/anal mass (16.7 x 10.3 cm) with extension into bilateral gluteal and perineal regions, pulmonary metastases, brittney spread, significant stool burden, and atherosclerotic disease. He was treated with antibiotics, packed red blood cells, and pain medication but again left the hospital against medical advice. 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 #left renal cyst measuring 1.4 cm. #Moderate to severe thoracolumbar degenerative disc disease. #History of hypertension #Polysubstance abuse ( nicotine, methamphetamine) Consults/Reason for consult hospice Condition at Discharge: Undetermined Final Diagnosis/Problems List #Anal and right gluteal sacral wound, stage IV due to colorectal carcinoma #Bilateral pulmonary metastatic disease #Lymphadenopathy due to Mets #Slow transit constipation due to rectal mass #Severe blood loss anemia, microcytic #Iron-deficiency anemia #Lower GI bleed #Thrombocytosis, likely reactive #BETTE on CKD, likely due to VMN #Atherosclerotic disease. #left renal cyst measuring 1.4 cm. #Moderate to severe thoracolumbar degenerative disc disease. #History of hypertension #Polysubstance abuse ( nicotine, methamphetamine) Discharge Disposition: AMA Discharge Instruct/Medications No Active Prescriptions or Reported Meds Discharge Statement: "Patient was advised to return to the ER or call 911 if any headaches, dizziness, shortness of breath, chest pain, abdominal pain, bleeding, fevers, or worsening of medical condition. Patient was counseled about treatment plan, medications, possible side effects, patientverbalized understanding. All questions were answered to the best of my ability. This discharge took greater then 30 minutes in planning, reviewing documentation, counseling the patient, and discussing with other team members." ASSESSMENT ASSESSMENT Assessment Date of Service: Sep 13, 2025 Billing Provider: SOLOMON HOLGUIN MD Common Visit Codes: 27468-XUR/OBS DISCH DAY >30min SHERIF JULES RESIDENT Sep 13, 2025 16:04 GIBSON MALHOTRA RESIDENT Sep 13, 2025 19:29 SOLOMON HOLGUIN MD Sep 14, 2025 15:23
== END 2025-09-13 14:40 | disposition left against medical advice (07) | DRG 374 ==
LOC: ER 15:23 → OVERFLOW 21:12 → TELE-WESTW 09-12 02:35 → WEST WING 09-12 16:33
PROVIDERS: ADMIT Internal Medicine Geriatric Medicine; ATTEND Internal Medicine Geriatric Medicine
PROC: 30233N1 Transfusion of Nonautologous Red Blood Cells into Peripheral Vein, Percutaneous Approach (ICD-10-PCS; principal; 2025-09-12)
DX: C19 Malignant neoplasm of rectosigmoid junction (principal); N17.0 Acute kidney failure with tubular necrosis; C77.9 Secondary and unspecified malignant neoplasm of lymph node, unspecified; R64 Cachexia; C78.01 Secondary malignant neoplasm of right lung; K92.2 Gastrointestinal hemorrhage, unspecified; C78.02 Secondary malignant neoplasm of left lung; I70.90 Unspecified atherosclerosis; N18.32 Chronic kidney disease, stage 3b; D50.9 Iron deficiency anemia, unspecified; I12.9 Hypertensive chronic kidney disease with stage 1 through stage 4 chronic kidney disease, or unspecified chronic kidney disease; D62 Acute posthemorrhagic anemia; Z59.00 Homelessness unspecified; Z68.1 Body mass index [BMI] 19.9 or less, adult; N28.1 Cyst of kidney, acquired; D75.838 Other thrombocytosis; F17.210 Nicotine dependence, cigarettes, uncomplicated; Z53.29 Procedure and treatment not carried out because of patient's decision for other reasons; D75.839 Thrombocytosis, unspecified; K59.01 Slow transit constipation; M51.35 Other intervertebral disc degeneration, thoracolumbar region
CPT/HCPCS: 36415; 74176; 80048; 80053; 80202; 80307; 81001; 83605; 83735; 85014; 85018; 85025; 85610; 85730; 86850; 86900; 86901; 86920; 87081; 96361; 96365; 96367; 99291; G0378; J1756; J2543

== ENCOUNTER 2025-09-14 11:53 | Emergency (ER) | payer MEDICARE, OTHER ==
[~2025-09-14] VITALS: Ht 167.6 cm; Wt 53.1 kg
[2025-09-14 11:54] VITALS: BP 147/89; PULSE 99; RESP 20; TEMP 98.8; O2SAT 97
--- NOTE | 2025-09-14 12:21 | ED.PDOC ---
History of Present Illness HPI Comments 65-year-old male who comes in with chief complaint of rectal pain and constipation. The patient states that the symptoms has been somewhat off and on since January. The patient states that the pain is a 7/10. There is some associated nausea but no vomiting. The the patient states that he is now having some difficulty sitting down. He states that he has not been having full bowel movements. Chief Complaint: Rectal Pain Time Seen by MD: 12:03 Primary Care Provider: UNKNOWN Reviewed Notes: Nurses Notes, Medications, Allergies (No allergies to medications) Allergies: Coded Allergies: NO KNOWN ALLERGIES (Unverified , 07/25/23) Home Meds No Active Prescriptions or Reported Meds Information Source: Patient Mode of Arrival: Ambulatory Severity: Moderate Timing: Weeks Duration: Since onset Prehospital treatment: None Associated signs and symptoms Constipation with abdominal pain Past Medical History PAST MEDICAL HISTORY: Cancer Surgical History: Denies all surgeries Family History Family History: Family hx of heart jony Social History Smoker: Cigarettes Alcohol: Denies ETOH Use Drugs: Methamphetamine Lives In: Homeless Constitutional: denies: chills, diaphoresis, fatigue, fever, malaise, sweats, weakness, others EENTM: denies: blurred vision, double vision, ear bleeding, ear discharge, ear drainage, ear pain, ear ringing, eye pain, eye redness, hearing loss, mouth pain, mouth swelling, nasal discharge, nose bleeding, nose congestion, nose pain, photophobia, tearing, throat pain, throat swelling, voice changes, others Respiratory: denies: cough, hemoptysis, orthopnea, SOB at rest, shortness of breath, SOB with excertion, stridor, wheezing, others Cardiovascular: denies: chest pain, dizzy spells, diaphoresis, Dyspnea on exertion, edema, irregular heart beat, left arm pain, lightheadedness, palpitations, PND, syncope, others Gastrointestinal: reports: abdominal pain, constipated; denies: abdomen distended, blood streaked bowels, diarrhea, dysphagia, difficulty swallowing, hematemesis, melena, nausea, poor appetite, poor fluid intake, rectal bleeding, rectal pain, vomiting, others Genitourinary: denies: burning, dysuria, flank pain, frequency, hematuria, incontinence, penile discharge, penile sore, pain, testicle pain, testicle swelling, urgency, others Neurological: denies: dizziness, fainting, headache, left sided numbness, left sided weakness, numbness, paresthesia, pre-existing deficit, right sided numbness, right sided weakness, seizure, speech problems, tingling, tremors, weakness, others Musculoskeletal: denies: back pain, gout, joint pain, joint swelling, muscle pain, muscle stiffness, neck pain, others Integumetry: denies: bruises, change in color, change in hair/nails, dryness, laceration, lesions, lumps, rash, wounds, others Allergic/Immunocompromised: denies: Difficulty Healing, Frequent Infections, Hives, Itching, others Hematologic/Lymphatic: denies: anemia, blood clots, easy bleeding, easy bruising, swollen glands, others Endocrine: denies: excessive hunger, excessive sweating, excessive thirst, excessive urination, flushing, intolerance to cold, intolerance to heat, unexplained weight gain, unexplained weight loss, others Psychiatric: denies: anxiety, bipolar disorder, depression, hopeless, panic disorder, schizophrenia, sleepless, suicidal, others Physical Exam General Appearance: Mild Distress HEENT: Normal ENT Inspection, Pharynx Normal, TMs Normal Neck: Full Range of Motion, Non-Tender, Normal, Normal Inspection Respiratory: Chest Non-Tender, Lungs Clear, No Accessory Muscle Use, No Respiratory Distress, Normal Breath Sounds Cardiovascular: No Edema, No JVD, No Murmur, No Gallop, Normal Peripheral Pulses, Regular Rate/Rhythm Breast Exam: Deferred Gastrointestinal: Diffuse, No Organomegaly, No Pulsatile Mass, Normal Bowel Sounds, Soft, Tenderness Genitalia: Deferred Pelvic: Deferred Rectal: Deferred Extremities: No calf tenderness, Normal capillary refill, Normal inspection, Normal range of motion, Non-tender, No pedal edema Musculoskeletal : Apperance: Normal Neurologic: Alert, set up worker II-XII nml as Tested, Motor Weakness, Normal Affect, Normal Mood, No Sensory Deficits Cerebellar Function: Normal Reflexes: Normal Skin: Dry, Normal Color, Warm Lymphatic: No Adenopathy Was a procedure done? Was a procedure done?: No Differential Dx Considerations may include: Constipation, small-bowel obstruction, generalized weakness, gastroenteritis X-Ray, Labs, Meds, VS Vital Signs Date Time Temp Pulse Resp B/P (MAP) Pulse Ox O2 Delivery O2 Flow Rate FiO2 09/14/25 11:54 98.8 99 20 147/89 97 98.8 Lab Test 09/14/25 12:52 Range/Units White Blood Count 9.7 # 4.4-10.8 10^3/uL Red Blood Count 2.65 L 4.5-5.90 10^6/uL Hemoglobin 7.3 L 13.5-17.5 g/dL Hematocrit 22.5 L 41.0-53.0 % Mean Corpuscular Volume 84.9 80.0-100.0 fL Mean Corpuscular Hemoglobin 27.6 L 28.0-32.0 pg Mean Corpuscular Hemoglobin Concent 32.5 32.0-36.0 g/dL Red Cell Distribution Width 18.7 H 11.8-14.3 % Platelet Count 537 H 140-450 10^3/uL Mean Platelet Volume 6.3 L 6.9-10.8 fL Neutrophils (%) (Auto) 77.2 37.0-80.0 % Lymphocytes (%) (Auto) 11.5 10.0-50.0 % Monocytes (%) (Auto) 7.7 0.0-12.0 % Eosinophils (%) (Auto) 2.4 0.0-7.0 % Basophils (%) (Auto) 1.2 0.0-2.0 % Neutrophils # (Auto) 7.5 1.6-8.6 10 ^3/uL Lymphocytes # (Auto) 1.1 0.4-5.4 10 ^3/uL Monocytes # (Auto) 0.7 0-1.3 10 ^3/uL Eosinophils # (Auto) 0.2 0-0.8 10 ^3/uL Basophils # (Auto) 0.1 0-0.2 10 ^3/uL Nucleated Red Blood Cells 0.2 % Sodium Level 143 136-145 mmol/L Potassium Level 4.6 3.5-5.1 mmol/L Chloride Level 105 98-107 mmol/L Carbon Dioxide Level 30 20-31 mmol/L Anion Gap 8 5-15 Blood Urea Nitrogen 16 9-23 mg/dL Creatinine 1.16 0.700-1.30 mg/dL Glomerular Filtration Rate Calc 69 >90 mL/min BUN/Creatinine Ratio 13.8 10.0-20.0 Serum Glucose 84 74-106 mg/dL Calcium Level 8.2 L 8.7-10.4 mg/dL Plasma/Serum Blood Alcohol < 3.0 <10 mg/dL The patient has a CBC shows anemia with a hemoglobin of 7.3 and hematocrit of 22.5 The chemistry panel is within normal limits We did order a CAT scan of the abdomen and pelvis has been seems that the patient has eloped from the department's. We are trying to contact the patient's have the patient come back for further evaluation Images Reviewed?: Images reviewed and evaluated by me Time of 1ST Reevaluation: 12:20 Reevaluation 1ST: Unchanged Patient Education/Counseling: Diagnosis, Treatment, Prognosis Family Education/Counseling: No Family Present SEPSIS Sepsis Screen Date sepsis recognized/suspect: Sep 14, 2025 Time Sepsis recognized/suspect: 1154 Recent Procedure: No On Antibiotic Therapy: No Respiratory Rate >20: No Heart Rate >90: Yes Temp<36 C (96.8 F) or >38.3 C: No SBP <90 or MAP <65 mmHG: No New Acute Mental Status Change: No Is the patient on CPAP, BIPAP,: No Physician Orders Urinalysis (09/14/25 12:11) Ct Ab Pel With Iv Con Only (09/14/25 12:11) Heplock Iv (09/14/25 12:11) Drug Screen (09/14/25 12:12) Vital Signs Date Time Temp Pulse Resp B/P (MAP) Pulse Ox O2 Delivery O2 Flow Rate FiO2 09/14/25 11:54 98.8 99 20 147/89 97 98.8 Laboratory Tests Test 09/14/25 12:52 White Blood Count 9.7 10^3/uL (4.4-10.8) # Departure 1 Departure Time of Disposition: 20:24 Impression: Primary Impression: Acute abdominal pain Additional Impression: Severe anemia Disposition: 07 LEFT AWOL/ELOPED Condition: Fair e-Prescriptions No Active Prescriptions or Reported Meds Critical Care Note Critical Care Time?: No Stability Stability form required: No Heart Score Heart Score: Heart Score Response (Comments) Value History N/A 0 EKG N/A 0 Age N/A 0 Risk Factors N/A 0 Troponin N/A 0 Total 0 MINERVA PEÑA MD Sep 14, 2025 12:20
[2025-09-14 13:11] LABS: Hematocrit 22.5 % (41.0-53.0); Hemoglobin 7.3 g/dL (13.5-17.5); Mean Corpuscular Hemoglobin 27.6 pg (28.0-32.0); Mean Corpuscular Volume 84.9 fL (80.0-100.0); Nucleated Red Blood Cells % 0.2 %
[2025-09-14 13:15] LABS: Chloride 105 mmol/L (98-107); Potassium 4.6 mmol/L (3.5-5.1); Sodium 143 mmol/L (136-145)
[2025-09-14 13:16] LABS: Anion Gap 8 (5-15); Carbon Dioxide 30 mmol/L (20-31)
[2025-09-14 13:21] LABS: Calcium 8.2 mg/dL (8.7-10.4)
[2025-09-14 13:22] LABS: BUN/Creatinine Ratio 13.8 (10.0-20.0); Blood Urea Nitrogen 16 mg/dL (9-23); Glucose 84 mg/dL (74-106)
[2025-09-14] MEDS: IOHEXOL 300 MG/ML 100ML BOTTLE IJ ONE (14:21)
== END 2025-09-14 20:23 | disposition left against medical advice (07) ==
LOC: ER 11:53
DX: D64.9 Anemia, unspecified (principal); K59.00 Constipation, unspecified; F17.210 Nicotine dependence, cigarettes, uncomplicated; F19.90 Other psychoactive substance use, unspecified, uncomplicated; Z59.00 Homelessness unspecified
CPT/HCPCS: 36415; 80048; 80320; 85025

== ENCOUNTER 2025-09-26 18:33 | Inpatient (IN) | payer MEDICARE, OTHER ==
[~2025-09-26] VITALS: Ht 167.6 cm; Wt 52.8 kg
--- NOTE | 2025-09-26 19:29 | ED.PDOC ---
History of Present Illness HPI Comments 65-year-old male brought in by ambulance with prior medical history of rectal cancer, CKD, hypertension and chief complaint of rectal pain. EMS report on the patient being here at [facility] on September 11 for similar symptoms and had hemoglobin checked for which was at 4.5 and was recommended for an ileostomy and refused leaving AMA. Patient currently is complaining of abdominal and rectal pain at this time. EMS no but they picked the patient up at [facility] property. Patient noted to EMS that he has not seen the oncologist. Denies any other symptoms at this time. PHYSICAL EXAM: General: Awake, alert and oriented. No acute distress. Skin: Skin in warm, dry and intact without rashes or lesions. HEENT: The head is normocephalic and atraumatic. Conjunctivae are clear without exudates or hemorrhage. Sclera is non-icteric. Neck: Normal range of motion. No JVD. Cardiac: Regular rate Respiratory: No signs of respiratory distress. No Stridor. Extremities: Upper and lower extremities are atraumatic in appearance without deformity. Neurological: The patient is awake, alert and oriented to person, place, and time with normal speech. Speech is clear. There is no facial asymmetry. Psychiatric: Patient is withdrawn REVIEW OF SYSTEMS: General: No fever, no chills, or fatigue HEENT: No sore throat, no earache, no congestion, no neck pain. Cardiac: No chest pain. No palpitations. Lungs: No shortness of breath, no cough. GI: No nausea, no vomiting, no diarrhea, no constipation,+ abdominal pain : No dysuria, frequency, or urgency. No hematuria. +Rectal pain Musculoskeletal: No joint pain , no joint swelling, no extremity edema. Skin: No rash, no itching. Neuro: No headache, no dizziness, no weakness (And as sated in HPI) Chief Complaint: Rectal Pain Time Seen by MD: 18:55 Primary Care Provider: UNKNOWN Reviewed Notes: Nurses Notes, Medications, Allergies Allergies: Coded Allergies: NO KNOWN ALLERGIES (Unverified , 07/25/23) Home Meds No Active Prescriptions or Reported Meds Information Source: Patient, Emergency Med Personnel Mode of Arrival: EMS Severity: Moderate Timing: Came on: Suddenly Duration: Since onset Prehospital treatment: None Past Medical History PAST MEDICAL HISTORY: Cancer (Rectal), CKF, HTN Surgical History: Denies all surgeries Family History Family History: Reviewed,noncontributory to illness, Unknown Social History Smoker: Cigarettes Alcohol: Denies ETOH Use Drugs: Methamphetamine Lives In: Homeless Was a procedure done? Was a procedure done?: No Differential Dx Considerations may include: Differential diagnoses considered include: Abdominal aortic aneurysm, VA, esophageal rupture, intestinal obstruction, mesenteric ischemia, perforated viscus or solid organ rupture, CHF with hepatomegaly, pneumonia, abscess, appendicitis, biliary disease, diverticulitis, gastritis, gastroenteritis, hepatitis, hernia, inflammatory bowel disease, pancreatitis, peptic ulcer disease, urinary tract infection, ureteral colic, constipation, GERD, irritable syndrome, abdominal wall pain, nonspecific abdominal pain, herpes zoster, nephrolithiasis. [ ]Also ruptured ectopic , ovarian torsion/cyst, tubo- ovarian abscess, PID, endometriosis, mittleschmerz. X-Ray, Labs, Meds, VS Vital Signs Date Time Temp Pulse Resp B/P (MAP) Pulse Ox O2 Delivery O2 Flow Rate FiO2 09/26/25 23:08 120 20 145/82 09/26/25 22:38 78 18 142/86 09/26/25 18:46 100.3 112 20 126/74 96 100.3 Lab Test 09/26/25 21:14 09/26/25 19:20 Range/Units Lactic Acid Level 1.9 2.9 *H 0.4-2.0 mmol/L White Blood Count 11.0 H 4.4-10.8 10^3/uL Red Blood Count 2.70 L 4.5-5.90 10^6/uL Hemoglobin 7.9 L 13.5-17.5 g/dL Hematocrit 24.3 L 41.0-53.0 % Mean Corpuscular Volume 89.9 80.0-100.0 fL Mean Corpuscular Hemoglobin 29.2 28.0-32.0 pg Mean Corpuscular Hemoglobin Concent 32.4 32.0-36.0 g/dL Red Cell Distribution Width 23.7 H 11.8-14.3 % Platelet Count 571 H 140-450 10^3/uL Mean Platelet Volume 6.3 L 6.9-10.8 fL Neutrophils (%) (Auto) 80.7 H 37.0-80.0 % Lymphocytes (%) (Auto) 5.7 L 10.0-50.0 % Monocytes (%) (Auto) 11.9 0.0-12.0 % Eosinophils (%) (Auto) 0.9 0.0-7.0 % Basophils (%) (Auto) 0.8 0.0-2.0 % Neutrophils # (Auto) 8.9 H 1.6-8.6 10 ^3/uL Lymphocytes # (Auto) 0.6 0.4-5.4 10 ^3/uL Monocytes # (Auto) 1.3 0-1.3 10 ^3/uL Eosinophils # (Auto) 0.1 0-0.8 10 ^3/uL Basophils # (Auto) 0.1 0-0.2 10 ^3/uL Nucleated Red Blood Cells 0.0 % Sodium Level 138 136-145 mmol/L Potassium Level 4.7 3.5-5.1 mmol/L Chloride Level 105 98-107 mmol/L Carbon Dioxide Level 23 20-31 mmol/L Anion Gap 10 5-15 Blood Urea Nitrogen 30 H 9-23 mg/dL Creatinine 1.44 H 0.700-1.30 mg/dL Glomerular Filtration Rate Calc 53 >90 mL/min BUN/Creatinine Ratio 20.8 H 10.0-20.0 Serum Glucose 106 74-106 mg/dL Calcium Level 8.6 L 8.7-10.4 mg/dL Total Bilirubin 0.2 0.2-1.0 mg/dL Aspartate Amino Transferase (AST) 15 13-40 U/L Alanine Aminotransferase (ALT) 10 7-40 U/L Alkaline Phosphatase 106 46-116 U/L Total Protein 6.2 5.7-8.2 g/dL Albumin 3.5 3.2-4.8 g/dL Current Medications Medications (Trade) Dose Ordered Sig/Romulo Route Start Time Stop Time Status Last Admin Morphine Sulfate 4 mg ONCE ONCE IV 09/26/25 19:15 09/26/25 19:16 DC 09/26/25 22:38 Ondansetron HCl (Zofran) 4 mg ONCE ONCE IV 09/26/25 19:15 09/26/25 19:16 DC 09/26/25 22:40 Sodium Chloride 1,000 ml @ 1,000 mls/hr Q1H ONCE IV 09/26/25 20:45 09/26/25 21:44 DC 09/26/25 22:40 Ceftriaxone Sodium 50 ml @ 100 mls/hr ONCE ONCE IV 09/26/25 20:45 09/26/25 21:14 DC 09/26/25 22:40 Sodium Chloride 1,000 ml @ 1,000 mls/hr Q1H ONCE IV 09/26/25 20:45 09/26/25 21:44 DC 09/26/25 20:45 Time of 1ST Reevaluation: 19:23 Reevaluation 1ST: Unchanged Patient Education/Counseling: Diagnosis, Treatment, Need For Follow Up Family Education/Counseling: No Family Present SEPSIS Sepsis Screen Date sepsis recognized/suspect: Sep 26, 2025 Time Sepsis recognized/suspect: 1839 Recent Procedure: No On Antibiotic Therapy: No Respiratory Rate >20: No Heart Rate >90: Yes Temp<36 C (96.8 F) or >38.3 C: No SBP <90 or MAP <65 mmHG: No New Acute Mental Status Change: No Is the patient on CPAP, BIPAP,: No Physician Orders Ct Ab Pel With Iv Con Only (09/26/25 19:06) Blood Culture (09/26/25 20:35) Vital Signs Date Time Temp Pulse Resp B/P (MAP) Pulse Ox O2 Delivery O2 Flow Rate FiO2 09/26/25 23:08 120 20 145/82 09/26/25 22:38 78 18 142/86 09/26/25 18:46 100.3 112 20 126/74 96 100.3 Laboratory Tests Test 09/26/25 19:20 09/26/25 21:14 Lactic Acid Level 2.9 mmol/L (0.4-2.0) *H 1.9 mmol/L (0.4-2.0) White Blood Count 11.0 10^3/uL (4.4-10.8) H Departure 1 Departure Time of Disposition: 20:37 Impression: Primary Impression: Suspected 2019 novel coronavirus infection Additional Impressions: History of rectal cancer Severe anemia Disposition: ADMITTED INPATIENT Condition: Stable e-Prescriptions No Active Prescriptions or Reported Meds Comments 65-year-old male with a history of adenocarcinoma of the rectum with metastasis. Patient had refused treatment in the past however. He returns with rectal pain and, abdominal pain today. Workup concerning for sepsis. Critical Care Note Critical Care Time?: No Stability Stability form required: No Heart Score Heart Score: Heart Score Response (Comments) Value History N/A 0 EKG N/A 0 Age N/A 0 Risk Factors N/A 0 Troponin N/A 0 Total 0 I personally scribed for ASHLEY FERNANDEZ MD ([email or web address]) on 09/26/25 at 19:29. Electronically submitted by Jose Angel Huang ([email or web address]). ASHLEY FERNANDEZ MD Sep 26, 2025 19:29
[2025-09-26 19:36] LABS: Nucleated Red Blood Cells % 0.0 %
[2025-09-26 19:38] LABS: Hematocrit 24.3 % (41.0-53.0); Hemoglobin 7.9 g/dL (13.5-17.5); Mean Corpuscular Hemoglobin 29.2 pg (28.0-32.0); Mean Corpuscular Volume 89.9 fL (80.0-100.0)
[2025-09-26 19:45] LABS: Alanine Aminotransferase 10 U/L (7-40); Albumin 3.5 g/dL (3.2-4.8); Alkaline Phosphatase 106 U/L (46-116); Anion Gap 10 (5-15); BUN/Creatinine Ratio 20.8 (10.0-20.0); Carbon Dioxide 23 mmol/L (20-31); Chloride 105 mmol/L (98-107); Glucose 106 mg/dL (74-106); Potassium 4.7 mmol/L (3.5-5.1); Sodium 138 mmol/L (136-145); Total Protein 6.2 g/dL (5.7-8.2)
[2025-09-26 19:46] LABS: Bilirubin, Total 0.2 mg/dL (0.2-1.0); Blood Urea Nitrogen 30 mg/dL (9-23); Calcium 8.6 mg/dL (8.7-10.4)
[2025-09-26 19:49] LABS: Lactic Acid w/Reflex 2.9 mmol/L (0.4-2.0)
[2025-09-26] MEDS: SODIUM CHLORIDE 0.9% 1,000 ML IV ONE ×3 (20:45→22:40)
[2025-09-26] MEDS: MORPHINE SULFATE INJ 2 MG/ml SYRG IV ONE (22:38)
[2025-09-26] MEDS: ONDANSETRON HCL 4 MG/2 ML VIAL IV ONE (22:40)
[2025-09-26] MEDS: SODIUM CHLORIDE 0.9% 1,000 ML IV SCH (23:15)
[2025-09-26] MEDS ORDERED: POLYETHYLENE GLYCOL 17 GM PWDR PO PRN (23:15)
--- NOTE | 2025-09-26 23:28 | DVHHPRES ---
History of Present Illness Resident Creating Document: KOBE MARTINO RESIDENT History of Present Illness This is a 65-year-old male with past medical history of metastatic rectal/anal cancer stage IV, CKD stage 2, microcytic hypochromic anemia, protein-calorie malnutrition, methamphetamine use, hypertension, leukocytosis, thrombocytosis, and a gluteal mass came to hospital due to rectal pain associated with constipation. Patient stated the rectal pain intermittent since January 2025 and getting worse day by day which is 5-8/10 intensity, dull, no radiation localized, no aggravating or relieving factor. Patient brought at [facility] on September 11 for similar symptoms and had hemoglobin checked for which was at 4.5 and was recommended for an ileostomy and refused left AMA. Patient general appearance anxious, disheveled and foul smelling noted. As per patient, passage of scanty amount of stool 2-3 times per week and occasionally mixed with fresh blood. Patient current symptoms associated with malaise, generalized weakness, weight loss, fatigue. Denies any fever, chest pain, headache, hematuria, dysuria or any focal weakness. CT abdomen pelvis without contrast on 09/11/2025: Large rectal/ anal mass measuring 16.7 x 10.3 cm extending into the bilateral gluteal and perineal region, awkfi-fvryffi-[id number]-left consistent with rectal/anal neoplasm. There is associated luminal narrowing with moderate to large volume stool within the colon.Right pelvic sidewall lymph node consistent with brittney spread disease. x-ray chest on 09/07/2025 : Bilateral pulmonary nodules. Past medical history: As above Surgical: Nothing contributory: Family history: Nothing contributory Personal history: Smokes cigarettes, amphetamine, denies ETOH or any other illicit Lives alone Allergy: No known allergy PCP: Not selected Home medication: Tylenol on and off. Review of Systems Constitutional: Yes: Weakness, Malaise; No: Fever, Chills, Sweats, Other Eyes: No: Pain, Vision change, Conjunctivae inflammation, Eyelid inflammation, Other, Redness ENT: No: Ear pain, Ear discharge, Nose pain, Nose discharge, Nose congestion, Mouth pain, Mouth swelling, Throat pain, Throat swelling, Other Respiratory: No: Cough, Dry, Shortness of breath, SOB with excertion, Wheezing, Hemoptysis, Pleuritic Pain, Sputum, Wheezing, Other Cardiovascular: No: Chest Pain, Palpitations, Orthopnea, Paroxysmal Noc. Dyspnea, Edema, Lt Headedness, Other Gastrointestinal: Nausea, Abdominal Pain, Constipation, Hematochezia; No: Vo miting, Diarrhea, Melena, Other Genitourinary: No Dysuria, No Frequency, No Incontinence, No Hematuria, No Retention, No Other Musculoskeletal: No: other, neck pain, shoulder pain, arm pain, back pain, hand pain, leg pain, foot pain Skin: No: Rash, Lesions, Jaundice, Bruising, Other Neurological: No: Weakness, Numbness, Incoordination, Change in speech, Confusion, Seizures, Other Allergies: Coded Allergies: NO KNOWN ALLERGIES (Unverified , 07/25/23) Medications Current Medications Medications Dose Ordered Sig/Romulo Route Start Time Stop Time Status Last Admin Dose Admin Sodium Chloride 1,000 ml @ 100 mls/hr Q10H IV 09/26/25 23:15 Acetaminophen/ Hydrocodone Bitart 1 tab Q4HP PRN PO 09/26/25 23:15 Sennosides 8.6 mg HS PO 09/27/25 22:00 Polyethylene Glycol 17 gm DAILYPRN PRN PO 09/26/25 23:15 Ceftriaxone Sodium 50 ml @ 100 mls/hr DAILY@09 IV 09/27/25 09:00 UNV Exam Vital Signs Vital Signs Date Time Temp Pulse Resp B/P (MAP) Pulse Ox O2 Delivery O2 Flow Rate FiO2 09/26/25 22:38 78 18 142/86 09/26/25 18:46 100.3 96 100.3 General Appearance: Alert, Oriented X3, Cooperative, mild distress HEENT: Atraumatic, PERRLA, EOMI Respiratory: Clear to auscultation, Normal air movement, Other Cardiovascular: Regular rate, Normal S1, Normal S2, No murmurs Abdominal: Normal bowel sounds, Soft, No tenderness, No hepatospenomegaly Extremities: No clubbing, No cyanosis, No edema, Normal pulses Skin: No rashes, No breakdown, No significant lesion Neuro: Normal gait, Normal speech, Strength at 5/5 X4 ext, Sensation intact Psych/Mental Status: Other (Looks anxious and disheveled appearance) Labs/Xrays Labs Test 09/26/25 21:14 09/26/25 19:20 Range/Units Lactic Acid Level 1.9 0.4-2.0 mmol/L White Blood Count 11.0 H 4.4-10.8 10^3/uL Red Blood Count 2.70 L 4.5-5.90 10^6/uL Hemoglobin 7.9 L 13.5-17.5 g/dL Hematocrit 24.3 L 41.0-53.0 % Mean Corpuscular Volume 89.9 80.0-100.0 fL Mean Corpuscular Hemoglobin 29.2 28.0-32.0 pg Mean Corpuscular Hemoglobin Concent 32.4 32.0-36.0 g/dL Red Cell Distribution Width 23.7 H 11.8-14.3 % Platelet Count 571 H 140-450 10^3/uL Mean Platelet Volume 6.3 L 6.9-10.8 fL Neutrophils (%) (Auto) 80.7 H 37.0-80.0 % Lymphocytes (%) (Auto) 5.7 L 10.0-50.0 % Monocytes (%) (Auto) 11.9 0.0-12.0 % Eosinophils (%) (Auto) 0.9 0.0-7.0 % Basophils (%) (Auto) 0.8 0.0-2.0 % Neutrophils # (Auto) 8.9 H 1.6-8.6 10 ^3/uL Lymphocytes # (Auto) 0.6 0.4-5.4 10 ^3/uL Monocytes # (Auto) 1.3 0-1.3 10 ^3/uL Eosinophils # (Auto) 0.1 0-0.8 10 ^3/uL Basophils # (Auto) 0.1 0-0.2 10 ^3/uL Nucleated Red Blood Cells 0.0 % Sodium Level 138 136-145 mmol/L Potassium Level 4.7 3.5-5.1 mmol/L Chloride Level 105 98-107 mmol/L Carbon Dioxide Level 23 20-31 mmol/L Anion Gap 10 5-15 Blood Urea Nitrogen 30 H 9-23 mg/dL Creatinine 1.44 H 0.700-1.30 mg/dL Glomerular Filtration Rate Calc 53 >90 mL/min BUN/Creatinine Ratio 20.8 H 10.0-20.0 Serum Glucose 106 74-106 mg/dL Calcium Level 8.6 L 8.7-10.4 mg/dL Total Bilirubin 0.2 0.2-1.0 mg/dL Aspartate Amino Transferase (AST) 15 13-40 U/L Alanine Aminotransferase (ALT) 10 7-40 U/L Alkaline Phosphatase 106 46-116 U/L Total Protein 6.2 5.7-8.2 g/dL Albumin 3.5 3.2-4.8 g/dL SEPSIS Sepsis Screen Date sepsis recognized/suspect: Sep 26, 2025 Time Sepsis recognized/suspect: 1839 Recent Procedure: No On Antibiotic Therapy: No Respiratory Rate >20: No Heart Rate >90: Yes Temp<36 C (96.8 F) or >38.3 C: No SBP <90 or MAP <65 mmHG: No New Acute Mental Status Change: No Is the patient on CPAP, BIPAP,: No Physician Orders Ct Ab Pel With Iv Con Only (09/26/25 19:06) Blood Culture (09/26/25 20:35) Sodium Chloride 0.9% (09/26/25 20:45) Admit (09/26/25 23:12) Sodium Chloride 0.9% (09/26/25 23:15) Hydrocodone-Acet 5/325mg Tab ([place] 5/32 (09/26/25 23:15) Notify Md Of Changes From Base (09/26/25 23:12) Regular Diet (09/27/25 Breakfast) Senna Pod Tablet (Senokot Tablet) (09/27/25 22:00) Polyethylene Glycol 17g Powder (Miralax (09/26/25 23:15) Code Status (09/26/25 23:12) Ceftriaxone 1gm/50ml (Rocephin) (09/27/25 09:00) Vital Signs Date Time Temp Pulse Resp B/P (MAP) Pulse Ox O2 Delivery O2 Flow Rate FiO2 09/26/25 22:38 78 18 142/86 09/26/25 18:46 100.3 112 20 126/74 96 100.3 Laboratory Tests Test 09/26/25 19:20 09/26/25 21:14 Lactic Acid Level 2.9 mmol/L (0.4-2.0) *H 1.9 mmol/L (0.4-2.0) White Blood Count 11.0 10^3/uL (4.4-10.8) H Medications Medications Dose Ordered Sig/Romulo Route Start Time Stop Time Status Last Admin Dose Admin Ceftriaxone Sodium 50 ml @ 100 mls/hr ONCE ONCE IV 09/26/25 20:45 09/26/25 21:14 DC 09/26/25 22:40 100 MLS/HR Morphine Sulfate 4 mg ONCE ONCE IV 09/26/25 19:15 09/26/25 19:16 DC 09/26/25 22:38 4 MG Ondansetron HCl 4 mg ONCE ONCE IV 09/26/25 19:15 09/26/25 19:16 DC 09/26/25 22:40 4 MG Sodium Chloride 1,000 ml @ 1,000 mls/hr Q1H ONCE IV 09/26/25 20:45 09/26/25 21:44 DC 09/26/25 20:45 1,000 MLS/HR Sodium Chloride 1,000 ml @ 1,000 mls/hr Q1H ONCE IV 09/26/25 20:45 09/26/25 21:44 DC 09/26/25 22:40 1,000 MLS/HR Assessment/Plan Assessment/Plan Sepsis secondary to stage IV metastatic colon Rectal mass/anal mass due to cancer Acute diverticulitis of the proximal sigmoid colon Rectal pain with hematochezia Chronic constipation ER patient received NSS, ceftriaxone, ondansetron, morphine CT abdomen pelvis without contrast on 09/11/2025: Large rectal/ anal mass measuring 16.7 x 10.3 cm extending into the bilateral gluteal and perineal region, ecchv-marctts-lsti-left consistent with rectal/anal neoplasm. There is associated luminal narrowing with moderate to large volume stool within the colon. Right pelvic sidewall lymph node consistent with brittney spread disease. CT abdomen and pelvis on 09/27/2025: No obvious change in size of the circumferential rectal mass, size of an adjacent pelvic metastatic lymph node conglomerate. acute diverticulitis of the proximal sigmoid colon. x-ray chest on 09/07/2025 : Bilateral pulmonary nodules. CEA - 500 on 06/16/2020 Leukocytosis with left shift RBC 2.7 platelet 571 lactic acid 2.9> 1.9 Empiric antibiotic IV ceftriaxone and metronidazole Senna and MiraLAX Increase fiber containing food Surgery consult AM. labs, CEA- 500.00 Microcytic hypochromic anemia hemoglobin 7.9, HCT 24.3 RDW 23.7, MCV 89.9 iron 18, TIBC 219, % saturation 8.2, ferritin is 37.2 on 08/27/2025 FOBT Monitor for signs symptoms of active bleeding BETTE on CKD superimposed vasomotor nephropathy creatinine 1.44, EGFR 53 baseline creatinine 1.03 Avoid nephrotoxic IVF Thrombocytosis, likely reactive Bilateral pulmonary metastatic CT on 09/11/2025: Numerous bilateral pulmonary / masses including left lower lobe mass measuring 4.2 cm, right lower lobe nodule measuring 2 cm, left lower lobe nodule measuring 2.3 cm, left lower lobe mass measuring 3 cm. Left renal cyst cyst measuring 1.4 cm. Outpatient follow-up Abdominal aortic atherosclerosis Pericardial effusion ECHOCARDIOGRAM ON 09/07/2025 : LVEF 60%, biatrial largement,small ericardial ffusion. Moderate to severe thoracolumbar degenerative disc disease. Hypokalemia calcium 8.6 monitor lab Polysubstance abuse UDS Diet: Regular with high-fiber DVT prophylax: Lovenox GI prophylaxis: Pantoprazole Goals of care discussion. More than 29 minute spent with patient. Full code status. Case discussed with Dr. Mercedes. Plan discussed with: Patient, Other (Nurse) My Orders Orders - KOBE MARTINO Procedure Category Date Status Time Admit ADMIT 09/26/25 Transmitted 23:12 Sodium Chloride 0.9% PHA 09/26/25 In Process 23:15 Hydrocodone-Acet PHA 09/26/25 In Process 5/325mg Tab ([place] 23:15 Notify Of Changes SCOTT 09/26/25 In Process From Base 23:12 Regular Diet DIET 09/27/25 Transmitted Breakfast Senna Pod Tablet PHA 09/27/25 In Process (Senokot Tablet) 22:00 Polyethylene Glycol PHA 09/26/25 In Process 17g Powder (Miralax 23:15 Code Status CODE 09/26/25 Transmitted 23:12 Ceftriaxone 1gm/50ml PHA 09/27/25 Logged (Rocephin) 09:00 Date of Service: Sep 26, 2025 Billing Provider: JOE MERCEDES MD Common Visit Codes: 53918-[id number] INP/OBS CARE (HIGH) Secondary Visit Codes: 62159-[id number] CARE PLAN 30 MINUTES KOBE MARTINO Sep 26, 2025 23:28
[2025-09-27] MEDS: IOHEXOL 350 MG/ML 100ML IJ ONE (00:17)
[2025-09-27 00:50] LABS: INR 1.08 (0.9-1.15); Partial Thromboplastin Time 29.3 SEC (24.5-34.5); Prothrombin Time 11.4 sec (9.3-11.8)
[2025-09-27] MEDS: PANTOPRAZOLE 40 MG TAB PO ONE (00:53)
--- NOTE | 2025-09-27 01:26 | DVH ---
Exam: CT CT AB PEL WITH IV CON ONLY History: abdominal pain, rectal pain, hx rectal ca gi bleed Comparison Study: CT ABD/PEL W - IV on DOS: 08/25/25, CT CT AB PEL WITH IV CON ONLY on DOS: 06/16/25, CT CT AB PEL WITH IV CON ONLY on DOS: 03/25/25, CT CT ABD PELVIS W CON-ORAL IV on DOS: 04/08/24 Technique: CT acquisition of the abdomen and pelvis with contrast. Axial, coronal and sagittal multiplanar reformats were obtained from the axial data set by the technologist. Radiation Dose : 1. Abdomen/Pelvis: CTDIvol 5.74 mGy, DLP 246.23 mGy*cm. Findings: Evaluation of solid organs is limited due to lack of intravenous contrast use. Lower Chest: Partial visualization of the known pulmonary nodules and masses in the lung bases. Exam is limited by beam hardening and streak artifact from arms down positioning. Liver: Unremarkable. Gallbladder and Biliary Tree: Unremarkable Pancreas: Mild atrophy. Spleen: Unremarkable. Adrenal Glands: Unremarkable. Kidneys/Ureters: No acute abnormality. Redemonstrated exophytic left renal cystic lesion. Bladder: Grossly unremarkable for degree of distention. Pelvic Organs: Unremarkable as visualized. Bowel: No significant change in size or appearance of the markedly enlarged, hypo enhancing, circumferential rectal wall mass partially visualized extending through the ischiococcygeal fossae. No visualized hemorrhage. Inflammation surrounding an inferiorly oriented diverticulum of the proximal sigmoid colon in the left anterior pelvis. No other area of bowel wall thickening, or evidence of obstruction. Vasculature: Moderate atherosclerosis. Lymphadenopathy: [place] right pelvic sidewall lymph node/mass, unchanged. Peritoneum: No ascites, free air, or fluid collection. Abdominal Wall: Cachexia. Musculoskeletal: No acute findings. Scoliotic spinal curvature with multilevel spondylosis. IMPRESSION: 1. No single-phase evidence of acute GI bleed. No obvious change in size of the circumferential rectal mass, size of an adjacent pelvic metastatic lymph node conglomerate, new or enlarged pulmonary metastasis in the lung bases. 2. Findings compatible with acute diverticulitis of the proximal sigmoid colon. 3. Other chronic and incidental findings as detailed. Radiation optimization: All CT scans at this facility use at least one of these dose optimization techniques: automated exposure control mA and/or kV adjustment per patient size (includes targeted exams where dose is matched to clinical indication) or iterative reconstruction.
[2025-09-27 02:04] LABS: COVID19 ANTIGEN SOFIA FIA NEGATIVE (NEGATIVE)
[2025-09-27] MEDS: PANTOPRAZOLE 40 MG TAB PO SCH (06:00)
[2025-09-27] MEDS: HYDROcodone-ACET 5/325MG TAB PO PRN (09:53)
--- NOTE | 2025-09-27 09:56 | DVH ---
EXAM: XY CHEST PORTABLE Indication: sob Technique: Single frontal view of the chest was obtained Comparison: XY CHEST XRAY 1 VIEW on DOS: 09/07/25, XY CHEST XRAY 1 VIEW on DOS: 09/07/25, XY CHEST XRAY 1 VIEW on DOS: 08/27/25, XY CHEST XRAY 1 VIEW on DOS: 06/16/25 FINDINGS: Lines and Tubes: None Lungs: Multiple lung masses again visualized. Pleura: No effusion. No pneumothorax. Cardiomediastinal contours: Unremarkable Bones: No acute osseous abnormality. IMPRESSION: Multiple lung masses suspicious for metastatic disease.
[2025-09-27] MEDS: cefTRIAXone 1GM/50ML 0 ML IV ONE (10:51)
[2025-09-27 16:05] VITALS: BP 119/75; PULSE 78; RESP 16; TEMP 98.7; O2SAT 97
[2025-09-27 17:00] VITALS: BP 111/64; PULSE 98; RESP 18; TEMP 98.9; O2SAT 94
[2025-09-27] MEDS ORDERED: ALBUTEROL SULF 2.5 MG/0.5ML(0.5%) NEB SOLN NEB PRN (17:30)
[2025-09-27] MEDS ORDERED: ACETAMINOPHEN 500 MG TAB or CAP PO PRN (17:30)
[2025-09-27] MEDS ORDERED: ONDANSETRON HCL 4 MG/2 ML VIAL IV PRN (17:30)
[2025-09-27] MEDS ORDERED: IPRATROPIUM BROM 0.5 MG/2.5ML INH SOL NEB PRN (17:30)
[2025-09-27] MEDS ORDERED: HYDROcodone-ACET 5/325MG TAB PO PRN (17:30)
[2025-09-27] MEDS ORDERED: MORPHINE SULFATE INJ 2 MG/ml SYRG IV PRN (17:30)
--- NOTE | 2025-09-27 17:32 | DVHPN2 ---
Subjective Patient continues to report having buttock pain Reviewed: Care Plan, H&P, Labs, Medications Changes from previous H/P or p: No Changes General: Per HPI Eyes: No Pain, No Vision change, No Conjunctivae inflammation, No Eyelid inflammation, No Other, No Redness ENT: No Ear pain, No Ear discharge, No Nose pain, No Nose discharge, No Nose congestion, No Mouth pain, No Mouth swelling, No Throat pain, No Throat swelling, No Other Cardiovascular: No Chest Pain, No Palpitations, No Orthopnea, No Paroxysmal Noc. Dyspnea, No Edema, No Lt Headedness, No Other Respiratory: No Cough, No Dry, No Shortness of breath, No SOB with excertion, No Wheezing, No Hemoptysis, No Pleuritic Pain, No Sputum, No Other Gastrointestinal: Nausea; No Vomiting; Abdominal Pain; No Diarrhea; C onstipation; No Melena; Hematochezia; No Other Genitourinary: No Dysuria, No Frequency, No Incontinence, No Hematuria, No Retention, No Other Musculoskeletal: No other, No neck pain, No shoulder pain, No arm pain, No back pain, No hand pain, No leg pain, No foot pain Skin: No Rash, No Lesions, No Jaundice, No Bruising, No Other Objective Vitals Vital Signs Date Time Temp Pulse Resp B/P (MAP) Pulse Ox O2 Delivery O2 Flow Rate FiO2 09/27/25 16:05 98.7 78 16 119/75 (90) 97 98.7 09/27/25 14:17 Room Air* 0 21 Intake/Output Intake and Output 09/27/25 07:00 Intake Total 2050 ml Balance 2050 ml Intake IV Total 2050 ml General Appearance: Alert, Oriented X3, Cooperative, mild distress HEENT: Atraumatic, PERRLA Cardiovascular: Normal S1, Normal S2 Abdomen: Normal bowel sounds, Soft, No tenderness, No hepatospenomegaly, No masses Musculoskeletal: Normal sensory function, Normal motor function Extremities: No clubbing, No cyanosis Skin: Wounds (See nurse notes and pictures) Psych/Mental Status: Mental status NL, Mood NL Medications Current Medications Medications Dose Ordered Sig/Romulo Route Start Time Stop Time Status Last Admin Dose Admin Sodium Chloride 1,000 ml @ 100 mls/hr Q10H IV 09/26/25 23:15 Acetaminophen/ Hydrocodone Bitart 1 tab Q4HP PRN PO 11/18/25 23:15 09/27/25 09:53 1 TAB Sennosides 8.6 mg HS PO 09/27/25 22:00 Polyethylene Glycol 17 gm DAILYPRN PRN PO 09/26/25 23:15 Ceftriaxone Sodium 50 ml @ 100 mls/hr DAILY@2100 IV 09/27/25 21:00 Pantoprazole Sodium 40 mg DAILY@0600 PO 09/27/25 06:00 Metronidazole 100 ml @ 100 mls/hr Q8HR IV 09/27/25 06:00 UNV Metronidazole 100 ml @ 100 mls/hr Q8H IV 09/27/25 10:00 09/27/25 09:53 100 MLS/HR Laboratory Results Laboratory Tests 09/26/25 19:20 Chemistry Test 09/26/25 19:20 Albumin 3.5 g/dL (3.2-4.8) Calcium Level 8.6 mg/dL (8.7-10.4) L Total Protein 6.2 g/dL (5.7-8.2) Coagulation Test 09/27/25 00:23 Prothrombin Time 11.4 sec (9.3-11.8) Prothrombin Time INR 1.08 (0.9-1.15) Activated Partial Thromboplast Time 29.3 SEC (24.5-34.5) LFT Test 09/26/25 19:20 Alanine Aminotransferase (ALT) 10 U/L (7-40) Alkaline Phosphatase 106 U/L (46-116) Aspartate Amino Transferase (AST) 15 U/L (13-40) Total Bilirubin 0.2 mg/dL (0.2-1.0) Labs and/or images reviewed: Labs reviewed by me, Image(s) reviewed by me Assessment/Plan Assessment/Plan Impression: -metastatic colon cancer -cachexia -amphetamine abuse -sirs Plan: -discussion made with the patient regarding plan of care. He states he has not yet seen an oncologist. -continue IV fluids -IV antibiotics -UDS -pain management Total time spent with patient discussing and formulating plan of care: 35 minutes. This medical document was created using an electronic medical record system with [employer] system. Although this document has been carefully reviewed, there may still be some phonetic and typographical errors. These areas are purely typographical due to imperfections of the software programs, and do not reflect any compromise in the patient's medical care. Plan discussed with: Patient, Other (RN) My Orders Orders - YEMI AVELAR NP Procedure Category Date Status Time Drug Screen LAB 09/27/25 Transmitted 17:27 Morphine Sulfate PHA 09/27/25 Transmitted Injection 17:30 Hydrocodone-Acet PHA 09/27/25 Transmitted 5/325mg Tab ([place] 17:30 Acetaminophen Tab Or PHA 09/27/25 Transmitted Cap (Tylenol Tablet 17:30 Ondansetron Hcl PHA 09/27/25 Transmitted (Zofran) 17:30 Albuterol Medneb PHA 09/27/25 Transmitted (Ventolin Medneb) 17:30 Ipratropium Medneb PHA 09/27/25 Transmitted (Atrovent Medneb) 17:30 Date of Service: Sep 27, 2025 Billing Provider: YEMI AVELAR NP Common Visit Codes: [id number] INP/OBS CARE(HIGH) YEMI AVELAR NP Sep 27, 2025 17:32
[2025-09-27 19:37] VITALS: BP 111/64; PULSE 104; RESP 14; TEMP 98.9; O2SAT 95
[2025-09-27 20:00] VITALS: PULSE 100; RESP 19; O2SAT 94
[2025-09-27 21:00] VITALS: BP 115/63; PULSE 100; RESP 19; TEMP 99.2; O2SAT 94
[2025-09-27] MEDS: SENNA 8.6 MG TAB PO SCH (21:08)
[2025-09-28] VITALS (7 sets, daily range): BP systolic 101–132; BP diastolic 63–70; PULSE 91–96; RESP 17–20; TEMP 97.9–98.5; O2SAT 97–100
[2025-09-28 10:50] LABS: Hematocrit 25.3 % (41.0-53.0); Hemoglobin 8.0 g/dL (13.5-17.5); Mean Corpuscular Hemoglobin 28.3 pg (28.0-32.0); Mean Corpuscular Volume 89.7 fL (80.0-100.0); Nucleated Red Blood Cells % 0.0 %
[2025-09-28 10:59] LABS: Potassium 4.2 mmol/L (3.5-5.1); Sodium 141 mmol/L (136-145)
[2025-09-28 11:00] LABS: Anion Gap 11 (5-15); Carbon Dioxide 21 mmol/L (20-31)
[2025-09-28 11:03] LABS: Calcium 8.4 mg/dL (8.7-10.4); Chloride 109 mmol/L (98-107)
[2025-09-28 11:06] LABS: BUN/Creatinine Ratio 20.0 (10.0-20.0)
[2025-09-28 11:14] LABS: Blood Urea Nitrogen 24 mg/dL (9-23); Glucose 114 mg/dL (74-106)
[2025-09-28 12:21] LABS: Protein, Urine 34.5 mg/dL (1-14)
[2025-09-28 12:22] LABS: Amphetamine Screen, Urine Neg (NEGATIVE)
[2025-09-28 12:24] LABS: Opiate Scree,Urine Neg (NEGATIVE)
[2025-09-28 12:47] LABS: Barbiturate Scree,Urine Neg (NEGATIVE); Benzodiazephine Screen, Urine Neg (NEGATIVE); Cannabinoid Screen, Urine Neg (NEGATIVE); Cocaine Screen, Urine Neg (NEGATIVE); Phencyclidine Screen, Urine Neg (NEGATIVE)
--- NOTE | 2025-09-28 14:25 | DVHDS2 ---
Discharge Summary Date of Admission Sep 26, 2025 at 23:12 Date of Discharge: Sep 28, 2025 Labs/Diagnostic Data: Laboratory Results Test 09/28/25 10:08 09/28/25 04:30 09/27/25 01:15 09/27/25 00:23 White Blood Count 11.5 10^3/uL (4.4-10.8) Red Blood Count 2.82 10^6/uL (4.5-5.90) Hemoglobin 8.0 g/dL (13.5-17.5) Hematocrit 25.3 % (41.0-53.0) Mean Corpuscular Volume 89.7 fL (80.0-100.0) Mean Corpuscular Hemoglobin 28.3 pg (28.0-32.0) Mean Corpuscular Hemoglobin Concent 31.5 g/dL (32.0-36.0) Red Cell Distribution Width 23.9 % (11.8-14.3) Platelet Count 571 10^3/uL (140-450) Mean Platelet Volume 6.5 fL (6.9-10.8) Neutrophils (%) (Auto) 81.3 % (37.0-80.0) Lymphocytes (%) (Auto) 6.7 % (10.0-50.0) Monocytes (%) (Auto) 8.4 % (0.0-12.0) Eosinophils (%) (Auto) 2.9 % (0.0-7.0) Basophils (%) (Auto) 0.7 % (0.0-2.0) Neutrophils # (Auto) 9.3 10 ^3/uL (1.6-8.6) Lymphocytes # (Auto) 0.8 10 ^3/uL (0.4-5.4) Monocytes # (Auto) 1.0 10 ^3/uL (0-1.3) Eosinophils # (Auto) 0.3 10 ^3/uL (0-0.8) Basophils # (Auto) 0.1 10 ^3/uL (0-0.2) Nucleated Red Blood Cells 0.0 % Sodium Level 141 mmol/L (136-145) Potassium Level 4.2 mmol/L (3.5-5.1) Chloride Level 109 mmol/L (98-107) Carbon Dioxide Level 21 mmol/L (20-31) Anion Gap 11 (5-15) Blood Urea Nitrogen 24 mg/dL (9-23) Creatinine 1.20 mg/dL (0.700-1.30) Glomerular Filtration Rate Calc 66 mL/min (>90) BUN/Creatinine Ratio 20.0 (10.0-20.0) Serum Glucose 114 mg/dL (74-106) Calcium Level 8.4 mg/dL (8.7-10.4) Vitamin B12 Level 1303 pg/mL (211-911) Vitamin D 25-Hydroxy 24.1 ng/mL (30.0-100) Urine Creatinine 64.17 mg/dL (30.0-125.0) Urine Protein/Creatinine Ratio 0.54 Urine Sodium 118 mmol/L (40-220) Urine Total Protein 34.5 mg/dL (1-14) Urine Opiates Screen Neg (NEGATIVE) Urine Fentanyl Screen Neg (NEGATIVE) Urine Barbiturates Screen Neg (NEGATIVE) Urine Phencyclidine Screen Neg (NEGATIVE) Urine Amphetamines Screen Neg (NEGATIVE) Urine Benzodiazepines Screen Neg (NEGATIVE) Urine Cocaine Screen Neg (NEGATIVE) Urine Cannabinoids Screen Neg (NEGATIVE) Influenza Type A Antigen Negative (Negative) Influenza Type B Antigen Negative (Negative) SARS-CoV-2 Antigen (Rapid) Negative (NEGATIVE) Prothrombin Time 11.4 sec (9.3-11.8) Prothrombin Time INR 1.08 (0.9-1.15) Activated Partial Thromboplast Time 29.3 SEC (24.5-34.5) Carcinoembryonic Antigen 500.00 ng/mL (<=5.0) Test 09/26/25 21:14 09/26/25 19:20 Lactic Acid Level 1.9 mmol/L (0.4-2.0) Total Bilirubin 0.2 mg/dL (0.2-1.0) Aspartate Amino Transferase (AST) 15 U/L (13-40) Alanine Aminotransferase (ALT) 10 U/L (7-40) Alkaline Phosphatase 106 U/L (46-116) Total Protein 6.2 g/dL (5.7-8.2) Albumin 3.5 g/dL (3.2-4.8) Other Laboratory Tests 09/28/25 10:08 Brief Hx & Hospital Course: History of Present Illness This is a 65-year-old male with past medical history of metastatic rectal/anal cancer stage IV, CKD stage 2, microcytic hypochromic anemia, protein-calorie malnutrition, methamphetamine use, hypertension, leukocytosis, thrombocytosis, and a gluteal mass came to hospital due to rectal pain associated with constipation. Patient stated the rectal pain intermittent since January 2025 and getting worse day by day which is 5-8/10 intensity, dull, no radiation localized, no aggravating or relieving factor. Patient brought at [facility] on September 11 for similar symptoms and had hemoglobin checked for which was at 4.5 and was recommended for an ileostomy and refused left AMA. Patient general appearance anxious, disheveled and foul smelling noted. As per patient, passage of scanty amount of stool 2-3 times per week and occasionally mixed with fresh blood. Patient current symptoms associated with malaise, generalized weakness, weight loss, fatigue. Denies any fever, chest pain, headache, hematuria, dysuria or any focal weakness. CT abdomen pelvis without contrast on 09/11/2025: Large rectal/ anal mass measuring 16.7 x 10.3 cm extending into the bilateral gluteal and perineal region, [id number]-left consistent with rectal/anal neoplasm. There is associated luminal narrowing with moderate to large volume stool within the colon.Right pelvic sidewall lymph node consistent with brittney spread disease. x-ray chest on 09/07/2025 : Bilateral pulmonary nodules. Course of hospitalization: Patient was placed on antibiotic therapy, IV hydration. Long discussion was made with the patient by myself yesterday regarding his outpatient treatment. He states that he has yet to have seen and oncologist as an outpatient to receive any type of recommendations for possible treatment for his metastatic colorectal cancer. Today, the patient his severely agitated, refusing any type of treatment as well as continuously requesting to smoke a cigarette. The patient has been ambulating around in the hospital defecating on the floor. I, myself off for the patient to have medication for anxiety, as well as offering already ordered pain medication. Patient continues to scream at the staff. Long discussion was made with the patient's sister, Layne regarding plan of care. At this time, patient is medically stable to be transferred home in his recommended to follow up with an oncologist as an outpatient. Given his current state of not wanting any medical help in the hospital she is instructed to speak with our case sealer and scrap picker her brother. All questions answered. Physical examination General: Alert and Oriented x3. No acute distress. Well-nourished. Eyes: EOMI. Anicteric. HENT: Moist mucous membranes. Lungs: Clear to auscultation bilaterally. No accessory muscle use. Cardiovascular: Regular rate and rhythm. No murmur. No JVD. Abdomen: Soft, non-tender and non-distended. No palpable masses. Extremities: No edema. Non-tender. Skin: No rashes or lesions. Warm. Neurologic: No focal neurological deficits. CN II-XII grossly intact, but not individually tested. Psychiatric: Cooperative. Appropriate mood and affect. Total time spent with patient discussing and formulating plan of care: 35 minutes. This medical document was created using an electronic medical record system with [employer] system. Although this document has been carefully reviewed, there may still be some phonetic and typographical errors. These areas are purely typographical due to imperfections of the software programs, and do not reflect any compromise in the patient's medical care. Condition at Discharge: Poor Final Diagnosis/Problems List Colorectal cancer with metastatsis -cachexia -amphetamine abuse -sirs Discharge Disposition: Home Discharge Instruct/Medications Diet: Regular Activity: No Restrictions, As Tolerated Follow Up/Referral: Follow up with PCP in 1-2 weeks Establish an appointment with Oncology for recommendations of colorectal cancer No Active Prescriptions or Reported Meds 36 Discharge Statement: "Patient was advised to return to the ER or call 911 if any headaches, dizziness, shortness of breath, chest pain, abdominal pain, bleeding, fevers, or worsening of medical condition. Patient was counseled about treatment plan, medications, possible side effects, patientverbalized understanding. All questions were answered to the best of my ability. This discharge took greater then 30 minutes in planning, reviewing documentation, counseling the patient, and discussing with other team members." ASSESSMENT ASSESSMENT Assessment Colorectal cancer with metastatsis Date of Service: Sep 28, 2025 Billing Provider: YEMI AVELAR NP Common Visit Codes: 68876-RFC/OBS DISCH DAY >30min YEMI AVELAR NP Sep 28, 2025 14:25
== END 2025-09-28 15:33 | disposition home or self-care (01) | DRG 374 ==
LOC: EDBD 18:33 → ER 18:33 → OVERFLOW 23:12 → WEST WING 09-27 14:12
PROVIDERS: ADMIT Nurse Practitioner Acute Care; ATTEND Nurse Practitioner Acute Care
DX: C19 Malignant neoplasm of rectosigmoid junction (principal); N17.0 Acute kidney failure with tubular necrosis; R64 Cachexia; I31.39 Other pericardial effusion (noninflammatory); C78.5 Secondary malignant neoplasm of large intestine and rectum; Z59.00 Homelessness unspecified; R65.10 Systemic inflammatory response syndrome (SIRS) of non-infectious origin without acute organ dysfunction; D64.9 Anemia, unspecified; I70.0 Atherosclerosis of aorta; I12.9 Hypertensive chronic kidney disease with stage 1 through stage 4 chronic kidney disease, or unspecified chronic kidney disease; F15.10 Other stimulant abuse, uncomplicated; Z68.1 Body mass index [BMI] 19.9 or less, adult; E87.6 Hypokalemia; N28.1 Cyst of kidney, acquired; D50.9 Iron deficiency anemia, unspecified; D75.839 Thrombocytosis, unspecified; M51.34 Other intervertebral disc degeneration, thoracic region; F41.9 Anxiety disorder, unspecified; N18.2 Chronic kidney disease, stage 2 (mild); F17.210 Nicotine dependence, cigarettes, uncomplicated; K59.09 Other constipation; Z79.899 Other long term (current) drug therapy
CPT/HCPCS: 36415; 71045; 74177; 80048; 80053; 80307; 82306; 82378; 82570; 82607; 83605; 84156; 84300; 85025; 85610; 85730; 86850; 86900; 86901; 87040; 87077; 87081; 87186; 87205; 87426; 87804; 96361; 96365; 96375; G0378; J2405; J3490

== ENCOUNTER 2025-09-28 18:30 | Emergency (ER) | payer MEDICARE, OTHER ==
[~2025-09-28] VITALS: Ht 162.6 cm; Wt 52.8 kg
[2025-09-28 18:33] VITALS: BP 114/77; PULSE 103; RESP 16; TEMP 98.1; O2SAT 95
== END 2025-09-28 19:01 | disposition left against medical advice (07) ==
LOC: ER 18:30
DX: K62.89 Other specified diseases of anus and rectum (principal); Z79.899 Other long term (current) drug therapy

== ENCOUNTER 2025-09-30 22:01 | Inpatient (IN) | payer MEDICARE, OTHER ==
[~2025-09-30] VITALS: Ht 167.6 cm; Wt 51.1 kg
--- NOTE | 2025-09-30 22:24 | ED.PDOC ---
GI ASSESSMENT HPI Comments 65-year-old male presents to the ED for a chief complaint of ongoing abdominal pain associated with diarrhea, nausea and rectal pain that started around January 2025. Patient states he is not taking any pain medication at home since he has none and is requesting to receive some given pain severity increasing. Per [facility] records, patient was seen here on 09/26/25 for same complaint, was admitted however left AMA. He also presented here on 09/11/25 for similar symptoms and had hemoglobin checked for which was at 4.5 and was recommended for an ileostomy and refused left AMA. Past medical history: metastatic rectal/anal cancer stage IV, CKD stage 2, microcytic hypochromic anemia., methamphetamine use, hypertension, leukocytosis, thrombocytosis, and a gluteal mass Past surgical history: Unknown [place]: Rectal cancer, chronic diarrhea, chronic pain. Mild tenderness to palpation in the lower abdomen Moderate distress Normal exam HPI: Poor Historian. REVIEW OF SYSTEMS: CONSTITUTIONAL: Denies acute: fever, diaphoresis, chills, generalized weakness. HEAD: Denies acute: headache, photophobia Eyes: Denies acute: Double vision, vision loss, eye pain, eye discharge. EARS: Denies acute: tinnitus, hearing loss, ear discharge, ear pain, THROAT: Denies acute: sore throat, swelling, difficulty swallowing , pain with swallowing, change in voice. NECK: Denies acute: neck pain, neck swelling, stiff neck. HEART: Denies acute : chest pain, palpitations, LUNGS: Denies acute: SOB, wheezing, cough, hemoptysis ABDOMEN: Denies acute: , Nausea, Vomiting, melena , hematemesis, hematochezia SKIN: Denies acute: rash, redness, lesions, itchiness. EXTREMITIES: Denies acute: calf pain, numbness, tingling, weakness, denies pain in extremity. Denies acute: Low back pain. Neuro: Denies acute: focal neurological deficit, motor or sensory focal neurological deficit, tremors, seizure like activity, confusion, dizziness, change in mental status, loss of bowel or bladder function, cauda equina like symptoms. : Denies acute: dysuria, hematuria, flank pain, increase in urinary frequency. PSYCH: Denies acute: hallucination, suicidal ideation, homicidal ideation. PHYSICAL EXAM: General: -----moderate---acute distress, awake and alert. Head: normocephalic, atraumatic. No raccoon's eyes, no rodriguez sign. Neck: supple, trachea is midline, no swelling. Throat: Normal phonation. Eyes:, no erythema, no purulent discharge, no proptosis, no icterus. Heart: regular rate, regular rhythm, no significant murmur appreciated. Lungs: no apparent respiratory distress, Able to speak in full sentences. No wheezing, no rhonchi, no crackles. No stridors Clear to auscultation bilaterally. Abdomen: Lower abdominal tender to palpation, non distended, soft, no guarding, no rebound, + bowel sounds. Patient is specifically states his pain is in his rectum/anus Neuro: Awake, Alert, oriented to name, self, situation, follows commands GCS=15. Speech is normal. Skin: no petechia, no purpura, no cyanosis, non-pale, not jaundice. Lower extremities: --no - Pitting edema no deformity, no focal swelling, no calf TTP. Makes eye contact. moves all four extremities. Face: no apparent facial droop. Ambulating in the ED independently. ED COURSE: DISCLAIMER: This medical document was created using an electronic medical record system with voice recognition software and computerized dictation system. Although this document has been carefully reviewed, there might still be some phonetic and typographical errors. Occasional wrong-word or "sound-alike" substitutions may have occurred due to the inherent limitations of voice recognition software. These areas are purely typographical due to imperfections of the software programs and do not reflect any compromise in the patient's medical care. Please read the chart carefully and recognize, using context, where these substitutions have occurred. Chief Complaint: Rectal Pain Time Seen by MD: 22:11 Primary Care Provider: UNKNOWN Reviewed Notes: Nurses Notes, Medications, Allergies Allergies: Coded Allergies: NO KNOWN ALLERGIES (Unverified , 07/25/23) Home Meds No Active Prescriptions or Reported Meds Information Source: Patient Mode of Arrival: EMS Timing: Months Duration: Since onset Past Medical History PAST MEDICAL HISTORY: Cancer, CKF, HTN Surgical History: Denies all surgeries Family History Family History: Reviewed,noncontributory to illness, Unknown Social History Smoker: Cigarettes Alcohol: Denies ETOH Use Drugs: Methamphetamine Lives In: Homeless Was a procedure done? Was a procedure done?: No GI differential Dx Differential Diagnosis: Esophagitis, Gastroenteritis, Electrolyte Imbalance, Food Poisoning, Bacterial, Viral, Other (DDX include but not limited to diverticulitis, colitis, gastroenteritis, acute abdomen, SBO, enteritis, constipation, volvulus, appendicitis, Gallbladder disease, choledocolithiasis, ascending cholangitis, pancreatitis, intraAbdominal mass/neoplasm, hepatitis, UTI, pylonephritis, kidney stone, aneurysm, dissection, Inflammatory bowel disease, gastroparesis, ischemic bowel.Food poisoning, bacterial/parasitic/viral etiology, trauma, diabetes DKA,) X-Ray, Labs, Meds, VS Vital Signs Date Time Temp Pulse Resp B/P (MAP) Pulse Ox O2 Delivery O2 Flow Rate FiO2 09/30/25 22:12 98.5 111 20 159/84 97 98.5 Lab Test 09/30/25 23:23 Range/Units Urine Color Yellow Yellow Urine Clarity Clear Clear Urine pH 6.0 5.0-9.0 Urine Specific [place] 1.021 1.001-1.035 Urine Protein Negative Negative Urine Ketones Negative Negative Urine Blood Negative Negative /uL Urine Nitrite Negative Negative Urine Bilirubin Negative Negative Urine Urobilinogen Normal Negative mg/dL Urine Leukocyte Esterase Negative Negative /uL Urine RBC 2 0 - 3 /hpf Urine Microscopic WBC 2 0-3 /HPF Urine Squamous Epithelial Cells None seen <5 /hpf Urine Calcium Oxalate Crystals Few None Seen Urine Bacteria None seen None Seen /hpf Urine Mucus Few None Seen Urine Glucose Normal Normal mg/dL Urine Opiates Screen Neg NEGATIVE Urine Fentanyl Screen Neg NEGATIVE Urine Barbiturates Screen Neg NEGATIVE Urine Phencyclidine Screen Neg NEGATIVE Urine Amphetamines Screen Neg NEGATIVE Urine Benzodiazepines Screen Neg NEGATIVE Urine Cocaine Screen Neg NEGATIVE Urine Cannabinoids Screen Neg NEGATIVE [facility] [id number] [place] [id number] Ph: [phone] DIAGNOSTIC IMAGING Diagnostic Imaging Report : [id number] Signed PATIENT: JADA ZHU ACCT: [id number] UNIT: [id number] : 1960 LOC: ER ROOM / BED: / AGE / SEX: 65 / M ADM STATUS: REG ER SERVICE 07 ORDERING PHYSICIAN: NORMA MCGILL DO PROCEDURE(s): ABPL - CT AB PEL WO CON-NO ORAL OR IV REASON: abd pain ORDER NUMBER(s): [id number], ACCESSION NUMBER(s): [id number] Exam: CT CT AB PEL WO CON-NO ORAL OR IV History: abd pain Comparison Study: CT ABD/PEL W - IV on DOS: 09/28/25, CT CT AB PEL WO CON-NO ORAL OR IV on DOS: 09/11/25, CT CT AB PEL WO CON-NO ORAL OR IV on DOS: 09/04/25, CT CT AB PEL WO CON-NO ORAL OR IV on DOS: 08/27/25, CT ABD/PEL W - IV on DOS: 08/25/25 Technique: Multidetector spiral CT of the abdomen was performed from lung bases to pubic symphysis. Imaging was performed without IV contrast. Axial, coronal and sagittal multiplanar reformats were obtained from the axial data set by the technologist. Radiation Dose : 1. Abdomen/Pelvis: CTDIvol 5.07 mGy, DLP 279.99 mGy*cm. Findings: Evaluation of solid organs is limited due to lack of intravenous contrast use. Lung Bases: Multiple large pulmonary metastases again noted, minimally change. These measure up to 3.2 cm within the inferior lingula. Liver: The liver is normal in size. No focal lesions. Gallbladder and Biliary Tree: Unremarkable Spleen: Unremarkable Pancreas: The pancreas is grossly normal in appearance. Adrenal Glands: Unremarkable Kidneys: Kidneys are grossly normal without calculi or hydronephrosis. Bladder: Grossly unremarkable for degree of distention. Bowel: Large circumferential perirectal mass again noted extending through the pelvic floor into both gluteal folds , marginally worse when compared to the prior CT from August 2025. No obstruction. Ascites: Absent Lymphadenopathy: No mesenteric, retroperitoneal or periportal lymphadenopathy. Abdominal Wall and Mesentery: Unremarkable. Vasculature: The visualized abdominal aorta is normal in size and caliber. Evaluation of abdominal and pelvic vessels is limited due to lack of intravenous contrast. Pelvic Organs: Unremarkable Musculoskeletal: No aggressive focal bony lesions, acute fractures or disloc ation. IMPRESSION: Large perirectal mass invading the pelvic floor and extending through the gluteal muscles, marginally worse when compared to the most recent CT. Grossly stable pulmonary metastases. No new abnormality is seen. Radiation optimization: All CT scans at this facility use at least one of these dose optimization techniques: automated exposure control mA and/or kV adjustment per patient size (includes targeted exams where dose is matched to clinical indication) or iterative reconstruction. ATED BY: ANTHONY CARMEN MD DICTATED DATE/TIME: 09/30/252328 SIGNED BY: ANTHONY CARMEN MD SIGNED DATE/TIME: 09/30/252328 CC: Time of 1ST Reevaluation: 22:20 Reevaluation 1ST: Unchanged Patient Education/Counseling: Diagnosis, Treatment Family Education/Counseling: No Family Present Comments I will admit the patient for pain control. Patient refused labs. Patient has a history of known rectal mass/cancer. Departure 1 Departure Time of Disposition: 01:32 Impression: Primary Impression: Rectal cancer Additional Impression: Rectal pain Disposition: ADMITTED INPATIENT Admit to: Tele Condition: Guarded e-Prescriptions No Active Prescriptions or Reported Meds Discharged With: Self Critical Care Note Critical Care Time?: No I personally scribed for NORMA MCGILL DO ([email or web address]) on 09/30/25 at 22:24. Electronically submitted by Sunil Zuñiga ([email or web address]). I personally scribed for NORMA MCGILL DO ([email or web address]) on 10/01/25 at 00:07. Electronically submitted by Sunil Zuñiga ([email or web address]). NORMA MCGILL DO Sep 30, 2025 22:24
[2025-09-30] MEDS: SODIUM CHLORIDE 0.9% 1,000 ML IV ONE (23:30)
[2025-09-30] MEDS: fentaNYL CITRATE 100 MCG/2 ML VL IV ONE (23:30)
--- NOTE | 2025-09-30 23:32 | DVH ---
Exam: CT CT AB PEL WO CON-NO ORAL OR IV History: abd pain Comparison Study: CT ABD/PEL W - IV on DOS: 09/28/25, CT CT AB PEL WO CON-NO ORAL OR IV on DOS: 09/11/25, CT CT AB PEL WO CON-NO ORAL OR IV on DOS: 09/04/25, CT CT AB PEL WO CON-NO ORAL OR IV on DOS: 08/27/25, CT ABD/PEL W - IV on DOS: 08/25/25 Technique: Multidetector spiral CT of the abdomen was performed from lung bases to pubic symphysis. Imaging was performed without IV contrast. Axial, coronal and sagittal multiplanar reformats were obtained from the axial data set by the technologist. Radiation Dose : 1. Abdomen/Pelvis: CTDIvol 5.07 mGy, DLP 279.99 mGy*cm. Findings: Evaluation of solid organs is limited due to lack of intravenous contrast use. Lung Bases: Multiple large pulmonary metastases again noted, minimally change. These measure up to 3.2 cm within the inferior lingula. Liver: The liver is normal in size. No focal lesions. Gallbladder and Biliary Tree: Unremarkable Spleen: Unremarkable Pancreas: The pancreas is grossly normal in appearance. Adrenal Glands: Unremarkable Kidneys: Kidneys are grossly normal without calculi or hydronephrosis. Bladder: Grossly unremarkable for degree of distention. Bowel: Large circumferential perirectal mass again noted extending through the pelvic floor into both gluteal folds , marginally worse when compared to the prior CT from August 2025. No obstruction. Ascites: Absent Lymphadenopathy: No mesenteric, retroperitoneal or periportal lymphadenopathy. Abdominal Wall and Mesentery: Unremarkable. Vasculature: The visualized abdominal aorta is normal in size and caliber. Evaluation of abdominal and pelvic vessels is limited due to lack of intravenous contrast. Pelvic Organs: Unremarkable Musculoskeletal: No aggressive focal bony lesions, acute fractures or dislocation. IMPRESSION: Large perirectal mass invading the pelvic floor and extending through the gluteal muscles, marginally worse when compared to the most recent CT. Grossly stable pulmonary metastases. No new abnormality is seen. Radiation optimization: All CT scans at this facility use at least one of these dose optimization techniques: automated exposure control mA and/or kV adjustment per patient size (includes targeted exams where dose is matched to clinical indication) or iterative reconstruction.
[2025-10-01 08:45] VITALS: PULSE 92; RESP 16; O2SAT 100
[2025-10-01] MEDS ORDERED: MORPHINE SULFATE INJ 2 MG/ml SYRG IV PRN (08:45)
[2025-10-01 09:23] LABS: Hematocrit 27.2 % (41.0-53.0); Hemoglobin 8.7 g/dL (13.5-17.5); Mean Corpuscular Hemoglobin 28.9 pg (28.0-32.0); Mean Corpuscular Volume 90.3 fL (80.0-100.0); Nucleated Red Blood Cells % 0.1 %
[2025-10-01 09:26] LABS: Urine Protein, UAD Negative (Negative)
[2025-10-01 09:35] LABS: Alanine Aminotransferase 14 U/L (7-40); Albumin 3.6 g/dL (3.2-4.8); Anion Gap 12 (5-15); BUN/Creatinine Ratio 16.5 (10.0-20.0); Blood Urea Nitrogen 20 mg/dL (9-23); Calcium 9.2 mg/dL (8.7-10.4); Carbon Dioxide 24 mmol/L (20-31); Chloride 106 mmol/L (98-107); Glucose 92 mg/dL (74-106); Potassium 4.5 mmol/L (3.5-5.1); Sodium 142 mmol/L (136-145); Total Protein 6.6 g/dL (5.7-8.2)
[2025-10-01 09:51] LABS: Alkaline Phosphatase 120 U/L (46-116); Bilirubin, Total 0.2 mg/dL (0.2-1.0)
--- NOTE | 2025-10-01 09:51 | DVHHPRES ---
History of Present Illness Resident Creating Document: THADexterLOUIE RenteriaFARNAZ RESIDENT History of Present Illness Patient is a 65-year-old male with a medical history of advanced metastatic colorectal adenocarcinoma, CKD, anemia of chronic disease, hypertension, methamphetamine and tobacco use disorder presented to the hospital with a chief complaint of intractable pain in the gluteal area. Patient reports he has been passing liquid stools about 3 times a day, reports of pain in the gluteal area 10/10 on intensity, constant, relieved with the pain medications. He reports of passing flatus and liquid stools per and denies nausea or vomiting and is able to tolerate oral intake. He was last seen in the ER on 09/28/2025 during which time wound culture from the right buttock showed growth of E coli and Pseudomonas aeruginosa which was sensitive but the patient left against medical advice and did not receive any medication. He has been reporting of chills, weakness but denied any fever. On arrival patient was seen to be tachycardic, following which she received a Liter of fluid. Labs were ordered and patient was admitted for further evaluation. Patient has been seen in this facility multiple times in the last month presenting with a similar complaint of intractable pain and was discharged home on pain medications but reports he did not get them. Patient has been evaluated by surgery for a possible diverting ostomy during previous admissions for large ulcerated anal and gluteal mass for which she underwent biopsy on 09/04/2025 which was positive for adenocarcinoma with focal mucinous features, but the latest recommendation from surgery with a against any surgical intervention because of the extent of the disease and patient's emotional instability without inability to take care of himself and they recommended that he would not be able to take care of his ostomy all surgical sites which would lead to complications. Past medical history: As per HPI Surgical history: Denies Social history: Smokes about 2 cigarettes daily currently, denies alcohol or any other drug use Home medications: Denies taking any home medications Review of Systems Review of Systems Patient is complaining of severe 8/10 pain in the gluteal area Reports of having liquid stools and has fecal incontinence Complains of urinary hesitancy , dribbling Reports of chills and generalized weakness Allergies: Coded Allergies: NO KNOWN ALLERGIES (Unverified , 07/25/23) Medications Current Medications Medications Dose Ordered Sig/Romulo Route Start Time Stop Time Status Last Admin Dose Admin Cefepime HCl 50 ml @ 12.5 mls/hr Q8HR IV 10/01/25 14:00 UNV Morphine Sulfate 4 mg Q6HPRN PRN IV 10/01/25 09:00 UNV Ondansetron HCl 4 mg Q6HPRN PRN IV 10/01/25 09:00 UNV Pantoprazole Sodium 40 mg DAILY@0600 PO 10/02/25 06:00 UNV Exam Vital Signs Vital Signs Date Time Temp Pulse Resp B/P (MAP) Pulse Ox O2 Delivery O2 Flow Rate FiO2 10/01/25 08:43 92 16 130/88 (102) 100 09/30/25 22:12 98.5 98.5 Exam Skin - Patients skin is warm and dry. HEENT - normocephalic, atraumatic, moist mucous membranes, mild conjunctival pallor, bilateral pupils equal and reactive, no icterus Neck - full ROM, no LAD, no JVD Pulmonary - B/L equal breath sounds without any rales or wheezing cardiovascular - regular S1,S2 heard, no added sounds, no murmurs could be appreciated. GI - patient was examined on a chair, abdomen slightly tense but no signs of peritonitis including guarding or rigidity or rebound tenderness. Bowel sounds normoactive. Large ulcerated mass in the gluteal region on the right side Neurological - Patient is A/O X 4 . Bilateral upper extremity strength 5/5, bilateral lower extremity strength 5/5, no facial droop, normal speech, no tremor, no sensory deficiets. Labs/Xrays Labs Test 10/01/25 09:04 09/30/25 23:23 Range/Units SEPSIS Sepsis Screen Date sepsis recognized/suspect: Sep 30, 2025 Time Sepsis recognized/suspect: 2209 Recent Procedure: No On Antibiotic Therapy: No Respiratory Rate >20: No Heart Rate >90: No Temp<36 C (96.8 F) or >38.3 C: No SBP <90 or MAP <65 mmHG: No New Acute Mental Status Change: No Is the patient on CPAP, BIPAP,: No Physician Orders Admit (10/01/25 08:37) Oxygen By Nasal Cannula (10/01/25 08:37) Stat Ekg For Chest Pain (10/01/25 08:37) Notify Of Changes From Base (10/01/25 08:37) Emergency Dysrhythmia Protocol (10/01/25 08:37) Complete Blood Count (10/01/25 08:37) Comprehensive Metabolic Panel (10/01/25 08:37) Lactic Acid W/ Reflex Order (10/01/25 08:37) Cefepime 2gm/50ml Ns (Maxipime 2gm/50ml) (10/01/25 08:45) Cefepime 1gm/50ml (Maxipime 1gm/50ml) (10/01/25 14:00) Lactated Ringer's (10/01/25 08:45) Cardiac Diet-2gna,Lofat,Lochol (10/01/25 Breakfast) Type And Screen (10/01/25 08:43) Morphine Sulfate Injection (10/01/25 09:00) Ondansetron Hcl (Zofran) (10/01/25 09:00) Pantoprazole Tablet (Protonix Tablet) (10/02/25 06:00) Pantoprazole Tablet (Protonix Tablet) (10/01/25 09:00) Vital Signs Date Time Temp Pulse Resp B/P (MAP) Pulse Ox O2 Delivery O2 Flow Rate FiO2 10/01/25 08:43 92 16 130/88 (102) 100 Laboratory Tests Test 10/01/25 09:04 Lactic Acid Level Pending White Blood Count Pending Assessment/Plan Assessment/Plan Right ulcerated gluteal mass, infected Intractable pain from the mass Metastatic colorectal adenocarcinoma with a pulmonary metastasis Constipation with overflow incontinence likely from the mass Normocytic normochromic anemia likely anemia of chronic disease Thrombocytosis likely reactive - IV fluids - culture from the right gluteal mass from 09/28/2025 showed growth of Pseudomonas aeruginosa and E coli which was sensitive to cefepime - blood cultures ordered - IV cefepime - wound consult - surgical consult placed - IV morphine - patient might be a candidate for hospice/palliative care PUD prophylaxis: Protonix DVT prophylaxis: Currently held because of large ulcerated mass and anemia Goals of care discussed with the patient for over 19 minutes. Full code Time spent: 37 minutes Plan discussed with Dr. Palacios Plan discussed with: Patient, Other (RN) My Orders Orders - JENAE GUZMÁN RESIDENT Procedure Category Date Status Time Admit ADMIT 10/01/25 Transmitted 08:37 Oxygen By Nasal RT 10/01/25 Transmitted Cannula 08:37 Stat Ekg For Chest SCOTT 10/01/25 In Process Pain 08:37 Notify Of Changes SCOTT 10/01/25 In Process From Base 08:37 Emergency Dysrhythmia SCOTT 10/01/25 In Process Protocol 08:37 Complete Blood Count LAB 10/01/25 In Process 08:37 Comprehensive LAB 10/01/25 In Process Metabolic Panel 08:37 Lactic Acid W/ Reflex LAB 10/01/25 In Process Order 08:37 Cefepime 2gm/50ml Ns PHA 10/01/25 Logged (Maxipime 2gm/50ml) 08:45 Cefepime 1gm/50ml PHA 10/01/25 Logged (Maxipime 1gm/50ml) 14:00 Lactated Ringer's PHA 10/01/25 Logged 08:45 Cardiac DIET 10/01/25 Transmitted Diet-2gna,Lofat,Lochol Breakfast Type And Screen BBK 10/01/25 In Process 08:43 Morphine Sulfate PHA 10/01/25 Logged Injection 09:00 Ondansetron Hcl PHA 10/01/25 Logged (Zofran) 09:00 Pantoprazole Tablet PHA 10/02/25 Logged (Protonix Tablet) 06:00 Pantoprazole Tablet PHA 10/01/25 Logged (Protonix Tablet) 09:00 Date of Service: Oct 01, 2025 Billing Provider: JOE PALACIOS MD Common Visit Codes: [id number] INP/OBS CARE (HIGH) Secondary Visit Codes: [id number] CARE PLAN 30 MINUTES JENAE GUZMÁN RESIDENT Oct 01, 2025 09:51
[2025-10-01] MEDS: MORPHINE SULFATE 4 MG/ML SYR/VIAL IV PRN (10:23)
[2025-10-01] MEDS: ONDANSETRON HCL 4 MG/2 ML VIAL IV PRN (10:24)
[2025-10-01] MEDS: PANTOPRAZOLE 40 MG TAB PO ONE (10:24)
[2025-10-01] MEDS: CEFEPIME 2GM/50ML NS 50 ML IV ONE (11:00)
[2025-10-01] MEDS ORDERED: ACETAMINOPHEN 325 MG TAB PO PRN (11:15)
[2025-10-01 12:00] VITALS: BP 128/77; PULSE 85; RESP 16; TEMP 97.6; O2SAT 100
[2025-10-01] MEDS: LACTATED RINGER'S 500 ML IV ONE (12:53)
[2025-10-01 14:07] LABS: Amphetamine Screen, Urine Neg (NEGATIVE); Barbiturate Scree,Urine Neg (NEGATIVE); Benzodiazephine Screen, Urine Neg (NEGATIVE); Cannabinoid Screen, Urine Neg (NEGATIVE); Cocaine Screen, Urine Neg (NEGATIVE); Opiate Scree,Urine Neg (NEGATIVE); Phencyclidine Screen, Urine Neg (NEGATIVE)
[2025-10-01] MEDS: LACTATED RINGER'S 1,000 ML IV ONE (15:00)
--- NOTE | 2025-10-01 15:54 | DVHINCON2 ---
Consultation - Surgical Date Seen: Oct 01, 2025 Referring Physician Reason for Consultation Colorectal cancer with mass extending to the gluteal area History of Present Illness History of Present Illness Mr. Hand is a 65-year-old male who presents again to the ED with rectal/gluteal area pain. He has been admitted to the hospital for this reason on multiple occasions, for which he usually ends up leaving AMA. Patient has no control of the sphincter muscles due to the cancer invading pretty much the entire pelvic floor, and he consistently leaks stool. Patient has a known colorectal adenocarcinoma stage IV with mesh to the bilateral lungs. I was consulted for possible surgical intervention. Past Medical/Surgical History Past Medical/Surgical History PMH: CKD, anemia of chronic disease, hypertension, methamphetamine and tobacco use disorder PSH: Gluteal mass biopsy Allergies and medications Allergies: Coded Allergies: NO KNOWN ALLERGIES (Unverified , 07/25/23) Home Meds No Active Prescriptions or Reported Meds Review of systems Review of Systems: Deferred Examination Vital signs Vital Signs Date Time Temp Pulse Resp B/P (MAP) Pulse Ox O2 Delivery O2 Flow Rate FiO2 10/01/25 12:00 97.6 85 16 128/77 (94) 100 97.6 10/01/25 08:45 Room Air* 0 21 Medications Current Medications Medications (Trade) Dose Ordered Sig/Romulo Route PRN Reason Start Time Stop Time Status Last Admin Cefepime HCl 50 ml @ 12.5 mls/hr Q12HR IV 10/01/25 22:00 Morphine Sulfate 2 mg Q6HPRN PRN IV SEVERE PAIN (7-10 PAIN SCALE) 10/01/25 08:45 10/01/25 08:54 DC Morphine Sulfate 4 mg Q6HPRN PRN IV SEVERE PAIN (7-10 PAIN SCALE) 10/01/25 09:00 10/01/25 10:23 Ondansetron HCl (Zofran) 4 mg Q6HPRN PRN IV NAUSEA / VOMITING 10/01/25 09:00 10/01/25 10:24 Pantoprazole Sodium (Protonix Tablet) 40 mg DAILY@0600 PO 10/02/25 06:00 Acetaminophen/ Hydrocodone Bitart (Saline 5/325MG Tab) 1 tab Q6HPRN PRN PO MODERATE PAIN (4-6 PAIN SCALE) 10/01/25 11:15 Acetaminophen (Tylenol Tablet) 650 mg Q6HP PRN PO PAIN SCALE 1-3 OR TEMP>100.4 10/01/25 11:15 Polyethylene Glycol (Miralax 17GM Powder) 17 gm DAILYPRN PRN PO FOR CONSTIPATION 10/01/25 11:15 Laboratory Labs Test 10/01/25 09:04 09/30/25 23:23 Range/Units White Blood Count 8.1 # 4.4-10.8 10^3/uL Red Blood Count 3.01 L 4.5-5.90 10^6/uL Hemoglobin 8.7 L 13.5-17.5 g/dL Hematocrit 27.2 L 41.0-53.0 % Mean Corpuscular Volume 90.3 80.0-100.0 fL Mean Corpuscular Hemoglobin 28.9 28.0-32.0 pg Mean Corpuscular Hemoglobin Concent 32.0 32.0-36.0 g/dL Red Cell Distribution Width 23.3 H 11.8-14.3 % Platelet Count 635 H 140-450 10^3/uL Mean Platelet Volume 6.4 L 6.9-10.8 fL Neutrophils (%) (Auto) 71.5 37.0-80.0 % Lymphocytes (%) (Auto) 15.2 10.0-50.0 % Monocytes (%) (Auto) 9.1 0.0-12.0 % Eosinophils (%) (Auto) 3.2 0.0-7.0 % Basophils (%) (Auto) 1.0 0.0-2.0 % Neutrophils # (Auto) 5.8 1.6-8.6 10 ^3/uL Lymphocytes # (Auto) 1.2 0.4-5.4 10 ^3/uL Monocytes # (Auto) 0.7 0-1.3 10 ^3/uL Eosinophils # (Auto) 0.3 0-0.8 10 ^3/uL Basophils # (Auto) 0.1 0-0.2 10 ^3/uL Nucleated Red Blood Cells 0.1 % Sodium Level 142 136-145 mmol/L Potassium Level 4.5 3.5-5.1 mmol/L Chloride Level 106 98-107 mmol/L Carbon Dioxide Level 24 20-31 mmol/L Anion Gap 12 5-15 Blood Urea Nitrogen 20 9-23 mg/dL Creatinine 1.21 0.700-1.30 mg/dL Glomerular Filtration Rate Calc 66 >90 mL/min BUN/Creatinine Ratio 16.5 10.0-20.0 Serum Glucose 92 74-106 mg/dL Lactic Acid Level 1.8 0.4-2.0 mmol/L Calcium Level 9.2 8.7-10.4 mg/dL Total Bilirubin 0.2 0.2-1.0 mg/dL Aspartate Amino Transferase (AST) 15 13-40 U/L Alanine Aminotransferase (ALT) 14 7-40 U/L Alkaline Phosphatase 120 H 46-116 U/L Total Protein 6.6 5.7-8.2 g/dL Albumin 3.6 3.2-4.8 g/dL Urine Color Yellow Yellow Urine Clarity Clear Clear Urine pH 6.0 5.0-9.0 Urine Specific [place] 1.021 1.001-1.035 Urine Protein Negative Negative Urine Ketones Negative Negative Urine Blood Negative Negative /uL Urine Nitrite Negative Negative Urine Bilirubin Negative Negative Urine Urobilinogen Normal Negative mg/dL Urine Leukocyte Esterase Negative Negative /uL Urine RBC 2 0 - 3 /hpf Urine Microscopic WBC 2 0-3 /HPF Urine Squamous Epithelial Cells None seen <5 /hpf Urine Calcium Oxalate Crystals Few None Seen Urine Bacteria None seen None Seen /hpf Urine Mucus Few None Seen Urine Glucose Normal Normal mg/dL Urine Opiates Screen Neg NEGATIVE Urine Fentanyl Screen Neg NEGATIVE Urine Barbiturates Screen Neg NEGATIVE Urine Phencyclidine Screen Neg NEGATIVE Urine Amphetamines Screen Neg NEGATIVE Urine Benzodiazepines Screen Neg NEGATIVE Urine Cocaine Screen Neg NEGATIVE Urine Cannabinoids Screen Neg NEGATIVE Examination: GENERAL:Normal (Cachectic, unstable (yells at times)), ABDOMEN:Normal (Flat, soft, depressible, nontender), Any Other System: (Gluteal mass involving pretty much the entire right glute and portion of the left glue, seeping of stool continuously) Problem List/Assessment/Plan Problems: (1) Adenocarcinoma of rectum, stage 4 Assessment and Plan Mr. Hand is a 65 yo M with an active history of stage 4 colo-rectal adenocarcinoma with mets to B/L lungs. No surgical intervention will be offered. Again, my recommendation is the same as last time: Palliative medicine for home hospice. I will sign off, please call with any questions or concerns. Plan discussed with Plan discussed with: Patient Visit Coding Surgery Date of Service if different f: Oct 01, 2025 Billing Provider: EUSEBIO MCDONALD MD Surgery Visit Codes: 25410 - INP CONSULT <110 MIN EUSEBIO MCDONALD MD Oct 01, 2025 15:54
[2025-10-01 18:50] VITALS: BP 142/87; PULSE 96; RESP 18; O2SAT 99
[2025-10-01 20:00] VITALS: PULSE 92; O2SAT 100
[2025-10-01 21:00] VITALS: BP 140/78; PULSE 92; RESP 18; O2SAT 100
[2025-10-01] MEDS: CEFEPIME 1GM/50ML 50 ML IV SCH (21:51)
[2025-10-02] VITALS (9 sets, daily range): BP systolic 118–138; BP diastolic 51–95; PULSE 68–99; RESP 16–20; TEMP 97.8–98.4; O2SAT 97–100
[2025-10-02] MEDS: PANTOPRAZOLE 40 MG TAB PO SCH (06:02)
[2025-10-02 07:11] LABS: Hematocrit 26.2 % (41.0-53.0); Nucleated Red Blood Cells % 0.0 %
[2025-10-02 07:13] LABS: Hemoglobin 8.4 g/dL (13.5-17.5); Mean Corpuscular Hemoglobin 28.5 pg (28.0-32.0); Mean Corpuscular Volume 89.1 fL (80.0-100.0)
[2025-10-02 07:24] LABS: Alanine Aminotransferase 12 U/L (7-40); Alkaline Phosphatase 99 U/L (46-116); Anion Gap 10 (5-15); BUN/Creatinine Ratio 16.8 (10.0-20.0); Blood Urea Nitrogen 22 mg/dL (9-23); Carbon Dioxide 25 mmol/L (20-31); Potassium 4.3 mmol/L (3.5-5.1); Sodium 142 mmol/L (136-145); Total Protein 6.0 g/dL (5.7-8.2)
[2025-10-02 07:25] LABS: Albumin 3.2 g/dL (3.2-4.8); Bilirubin, Total < 0.2 mg/dL (0.2-1.0); Calcium 8.3 mg/dL (8.7-10.4); Chloride 107 mmol/L (98-107); Glucose 107 mg/dL (74-106)
--- NOTE | 2025-10-02 10:23 | DVHPNRES ---
Progress Note Date Seen: Oct 02, 2025 Resident Creating Document: MARIKA THAKKAR RESIDENT Medical Necessity Reason Pt with a Central, PICC or Fol: No Subjective Review of Systems Patient is a 65-year-old male with past medical history of advanced metastatic colorectal adenocarcinoma, anemia of chronic disease, hypertension, CKD, who came to the hospital with chief complaints of pain in the gluteal region on the right side. Patient states that he has been passing liquid stools about 3 times a day and has 10/10 pain which is constant and relieved with pain medications. Patient denies any nausea, vomiting, dizziness, headaches, fevers, chills. He has been seen in the ER on 09/28/2025 and He has been admitted to the hospital for this reason on multiple occasions, for which he usually ends up leaving AMA. on arrival patient has been tachycardic, and high blood pressure. Past surgical history: Denies Family history: non contributory Social history: 2 cigarettes a day, denies alcohol or other drug use, was amphetamine positive in last Visit. Lives with: alone Home medications: Denies any 10/02/2025: Patient seen at bedside. Patient complains of 8/10 pain in the rectal area. Patient denies any nausea, vomiting, abdominal pain. Patient is yelling, combative, called security, patient is not willing to come out of the bathroom and locked himself inside, physical restraints ordered and Ativan 0.5 mg given. Surgery decided on no surgical intervention. Objective vital signs Vital Sign Date Time Temp Pulse Resp B/P (MAP) Pulse Ox O2 Delivery O2 Flow Rate FiO2 10/02/25 08:53 98.0 90 16 123/79 (94) 100 98.0 10/01/25 20:00 Room Air* 0 21 Total Intake and Output 10/01/25 10/01/25 10/02/25 15:00 23:00 07:00 Intake Total 800 ml 600 ml Balance 800 ml 600 ml medications Current Medications Medications Dose Ordered Sig/Romulo Route Start Time Stop Time Status Last Admin Dose Admin Cefepime HCl 50 ml @ 12.5 mls/hr Q12HR IV 10/01/25 22:00 10/02/25 08:40 12.5 MLS/HR Morphine Sulfate 4 mg Q6HPRN PRN IV 10/01/25 09:00 10/02/25 02:21 4 MG Ondansetron HCl 4 mg Q6HPRN PRN IV 10/01/25 09:00 10/01/25 10:24 4 MG Pantoprazole Sodium 40 mg DAILY@0600 PO 10/02/25 06:00 10/02/25 06:02 40 MG Acetaminophen/ Hydrocodone Bitart 1 tab Q6HPRN PRN PO 10/01/25 11:15 Acetaminophen 650 mg Q6HP PRN PO 10/01/25 11:15 Polyethylene Glycol 17 gm DAILYPRN PRN PO 10/01/25 11:15 Examination General: Patient alert and oriented in person, place and time. Patient following commands. HEENT: Normocephalic, atraumatic, moist mucous membranes Respiratory/pulmonary: Clear lungs bilaterally, vesicular murmurs present in almost all lung lopez, no associated crackles or wheezes. Cardiovascular: Normal heart sounds S1 and S2 with no associated murmurs Abdomen: Abdomen nondistended, there is no pain to palpation in any of the abdominal quadrants, no palpable masses. Large ulcerated mass in the gluteal region on the right side With clear drainage. Extremities: There is no peripheral edema present at the lower extremities. Peripheral Pulses: 3+ Radial (R). 3+ Radial (L). 3+ Dorsalis pedis (R). 3+ Dorsalis pedis(L) Skin: No rashes or pruritus, there is no sacral edema present at this time. Neurological: Intact cranial nerves with no focal neurologic deficits laboratory and microbiology Laboratory Tests 10/02/25 06:53 Test 10/02/25 06:53 Range/Units Serum Glucose 107 H 74-106 mg/dL Problem List/Assessment/Plan Problem List/Assessment/Plan #stage IV due to colorectal carcinoma #cachexia #Bilateral pulmonary metastatic disease #Lymphadenopathy due to Metastasis -surgery consulted for possible ostomy -hospice discussion -[place] 5 -morphine 4 mg -IV cefepime as #BETTE due to [facility] - monitor labs - iv fluids #Constipation due to obstructive rectal mass # anemia of chronic disease -monitor hemoglobin #History of hypertension #Polysubstance abuse ( nicotine, methamphetamine) - patient counseled on cessation of methamphetamine, nicotine for more than 18 minutes PPI prophylaxis: Protonix DVT prophylaxis: Lovenox Goals of care addressed with the patient for more than 27 minutes: Full code status Case discussed with Dr. Gardner , patient and nurse Plan discussed with: Patient Date of Service: Oct 02, 2025 Billing Provider: RAPHAEL GARDNER MD Common Visit Codes: [id number] INP/OBS CARE(HIGH) MARIKA THAKKAR RESIDENT Oct 02, 2025 10:23 RAPHAEL GARDNER MD Oct 03, 2025 22:04
[2025-10-02] MEDS: POLYETHYLENE GLYCOL 17 GM PWDR PO PRN (21:44)
[2025-10-02] MEDS: LORazepam 2MG/ML-1ML VIAL IV PRN (21:44)
[2025-10-02] MEDS: CEFEPIME 2GM/50ML NS 50 ML IV SCH (21:45)
[2025-10-03 05:00] VITALS: BP 122/82; PULSE 93; RESP 18; TEMP 97.9; O2SAT 96
[2025-10-03 07:45] VITALS: PULSE 93; RESP 18; O2SAT 96
[2025-10-03 08:07] LABS: Hemoglobin 8.3 g/dL (13.5-17.5)
[2025-10-03 08:09] LABS: Hematocrit 25.7 % (41.0-53.0); Mean Corpuscular Hemoglobin 28.8 pg (28.0-32.0); Mean Corpuscular Volume 89.3 fL (80.0-100.0); Nucleated Red Blood Cells % 0.1 %
[2025-10-03 08:17] LABS: Potassium 4.5 mmol/L (3.5-5.1); Sodium 142 mmol/L (136-145)
[2025-10-03 08:18] LABS: Anion Gap 9 (5-15); Carbon Dioxide 25 mmol/L (20-31)
[2025-10-03 08:21] LABS: Calcium 8.5 mg/dL (8.7-10.4); Chloride 108 mmol/L (98-107)
[2025-10-03 08:23] LABS: Glucose 90 mg/dL (74-106)
[2025-10-03 08:24] LABS: BUN/Creatinine Ratio 17.9 (10.0-20.0)
[2025-10-03 08:25] LABS: Blood Urea Nitrogen 24 mg/dL (9-23)
[2025-10-03] MEDS: SODIUM CHLORIDE 0.9% 500 ML IV ONE (09:49)
[2025-10-03 12:59] VITALS: BP 113/69; PULSE 95; RESP 18; TEMP 97.9; O2SAT 97
[2025-10-03 16:53] VITALS: BP 142/63; PULSE 104; RESP 16; TEMP 98.1; O2SAT 95
--- NOTE | 2025-10-03 17:07 | DVHPNRES ---
Progress Note Date Seen: Oct 03, 2025 Resident Creating Document: MARIKA THAKKAR RESIDENT Medical Necessity Reason Pt with a Central, PICC or Fol: No Subjective Review of Systems Patient is a 65-year-old male with past medical history of advanced metastatic colorectal adenocarcinoma, anemia of chronic disease, hypertension, CKD, who came to the hospital with chief complaints of pain in the gluteal region on the right side. Patient states that he has been passing liquid stools about 3 times a day and has 10/10 pain which is constant and relieved with pain medications. Patient denies any nausea, vomiting, dizziness, headaches, fevers, chills. He has been seen in the ER on 09/28/2025 and He has been admitted to the hospital for this reason on multiple occasions, for which he usually ends up leaving AMA. on arrival patient has been tachycardic, and high blood pressure. Past surgical history: Denies Family history: non contributory Social history: 2 cigarettes a day, denies alcohol or other drug use, was amphetamine positive in last Visit. Lives with: alone Home medications: Denies any 10/02/2025: Patient seen at bedside. Patient complains of 8/10 pain in the rectal area. Patient denies any nausea, vomiting, abdominal pain. Patient is yelling, combative, called security, patient is not willing to come out of the bathroom and locked himself inside, physical restraints ordered and Ativan 0.5 mg given. Surgery decided on no surgical intervention. : Patient seen at bedside. Patient complains of 8/10 rectal area pain. Patient denies any nausea, vomiting, abdominal pain. Patient today is more calm and not combative. called patient's family, states that they will be here tomorrow and we will discuss hospice options tomorrow. Objective vital signs Vital Sign Date Time Temp Pulse Resp B/P (MAP) Pulse Ox O2 Delivery O2 Flow Rate FiO2 10/03/25 16:53 98.1 104 16 142/63 (89) 95 98.1 10/03/25 07:45 Room Air* 0 21 Total Intake and Output 10/02/25 10/02/25 10/03/25 15:00 23:00 07:00 Intake Total 500 ml 800 ml 450 ml Balance 500 ml 800 ml 450 ml medications Current Medications Medications Dose Ordered Sig/Romulo Route Start Time Stop Time Status Last Admin Dose Admin Morphine Sulfate 4 mg Q6HPRN PRN IV 10/01/25 09:00 10/03/25 11:48 4 MG Ondansetron HCl 4 mg Q6HPRN PRN IV 10/01/25 09:00 10/01/25 10:24 4 MG Pantoprazole Sodium 40 mg DAILY@0600 PO 10/02/25 06:00 10/03/25 05:47 40 MG Acetaminophen/ Hydrocodone Bitart 1 tab Q6HPRN PRN PO 10/01/25 11:15 Acetaminophen 650 mg Q6HP PRN PO 10/01/25 11:15 Polyethylene Glycol 17 gm DAILYPRN PRN PO 10/01/25 11:15 10/02/25 21:44 17 GM Cefepime HCl 50 ml @ 12.5 mls/hr Q12HR IV 10/02/25 22:00 10/03/25 10:00 12.5 MLS/HR Lorazepam 0.5 mg Q6HP PRN IV 10/02/25 17:30 10/02/25 21:44 0.5 MG Examination General: Patient alert and oriented in person, place and time. Patient following commands. HEENT: Normocephalic, atraumatic, moist mucous membranes Respiratory/pulmonary: Clear lungs bilaterally, vesicular murmurs present in almost all lung lopez, no associated crackles or wheezes. Cardiovascular: Normal heart sounds S1 and S2 with no associated murmurs Abdomen: Abdomen nondistended, there is no pain to palpation in any of the abdominal quadrants, no palpable masses. Large ulcerated mass in the gluteal region on the right side With clear drainage. Extremities: There is no peripheral edema present at the lower extremities. Peripheral Pulses: 3+ Radial (R). 3+ Radial (L). 3+ Dorsalis pedis (R). 3+ Dorsalis pedis(L) Skin: No rashes or pruritus, there is no sacral edema present at this time. Neurological: Intact cranial nerves with no focal neurologic deficits laboratory and microbiology Laboratory Tests 10/03/25 07:55 Test 10/03/25 07:55 Range/Units Serum Glucose 90 74-106 mg/dL Microbiology Date/Time Source Procedure Growth Status 10/01/25 10:20 Blood Blood Culture - Preliminary NO GROWTH AFTER 48 HOURS OF INCUBATION. Resulted Problem List/Assessment/Plan Problem List/Assessment/Plan # Intractable Rectal pain, stage IV colorectal carcinoma #Cachexia due to above #Bilateral pulmonary metastatic disease #Lymphadenopathy due to Metastasis -surgery consulted for possible ostomy -hospice discussion -[place] 5 -morphine 4 mg -IV cefepime # Possible BETTE due to VMN - monitor labs - iv fluids #Constipation due to obstructive rectal mass # anemia of chronic disease -monitor hemoglobin #History of hypertension # Anxiety # conbative behavior - Ativan #Polysubstance abuse ( nicotine, methamphetamine) - patient counseled on cessation of methamphetamine, nicotine for more than 18 minutes PPI prophylaxis: Protonix DVT prophylaxis: Lovenox Goals of care addressed with the patient for more than 27 minutes: Full code status Case discussed with Dr. Gardner , patient and nurse Plan discussed with: Patient My Orders My Orders Orders - MARIKA THAKKAR Procedure Category Date Status Time Lorazepam 2mg/Ml Inj PHA 10/02/25 In Process (Ativan Inj) 17:30 Dietary Evaluation Review Comments: Nutrition Recommendation: 1) Karl 1 pk BID 2) Monitor NPO status, lab values, weight trend, and I/O Expected Outcomes/Goals: Wound to improve FU 3-5 days Date of Service: Oct 03, 2025 Billing Provider: RAPHAEL GARDNER MD Common Visit Codes: [id number] INP/OBS CARE(HIGH) MARIKA THAKKAR Oct 03, 2025 17:07 RAPHAEL GARDNER MD Oct 03, 2025 22:05
[2025-10-03 20:00] VITALS: RESP 18; O2SAT 96
[2025-10-03 21:00] VITALS: BP 125/71; PULSE 97; RESP 18; TEMP 99; O2SAT 98
[2025-10-04 05:00] VITALS: BP 125/80; PULSE 94; RESP 18; TEMP 97.5; O2SAT 96
[2025-10-04 07:40] VITALS: RESP 16
[2025-10-04 08:57] VITALS: BP 135/96; PULSE 70; RESP 17; TEMP 99.1; O2SAT 97
--- NOTE | 2025-10-04 10:31 | DVH ---
EXAM: CT HEAD WITHOUT CONTRAST INDICATION: r/o mets COMPARISON: None TECHNIQUE: CT of the head without intravenous contrast. Radiation Dose Information: CT Dose: CTDI volume is 52 mGy. Dose-length product is 864 mGy*cm The dose indicators for CT are the volume Computed Tomography (CT) Dose Index (CTDIvol) and the Dose Length Product (DLP), and are measured in units of mGy and mGy-cm, respectively. These indicators are not patient dose, but values generated from the CT scanner acquisition factors. The report includes radiation exposure data for exposures received during this examination. 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 Scattered hypoattenuation in the periventricular and subcortical white matter, suggestive of chronic microvascular disease. The ventricles and sulci are mildly enlarged, compatible with generalized parenchymal volume loss. There is no mass-effect, hemorrhage, midline shift, or abnormal extra-axial fluid collection visible. No calvarial fracture. Trace mucosal thickening of the paranasal sinuses. Mastoid air cells are clear. IMPRESSION: No acute intracranial hemorrhage or mass effect. Incomplete evaluation for small metastatic intracranial lesions. Recommend MRI with and without contrast for further evaluation.
[2025-10-04 12:40] VITALS: BP 120/78; PULSE 90; RESP 18; TEMP 98.6; O2SAT 99
--- NOTE | 2025-10-04 16:31 | DVHPNRES ---
Progress Note Date Seen: Oct 04, 2025 Resident Creating Document: MARIKA THAKKAR RESIDENT Medical Necessity Reason Pt with a Central, PICC or Fol: No Subjective Review of Systems Patient is a 65-year-old male with past medical history of advanced metastatic colorectal adenocarcinoma, anemia of chronic disease, hypertension, CKD, who came to the hospital with chief complaints of pain in the gluteal region on the right side. Patient states that he has been passing liquid stools about 3 times a day and has 10/10 pain which is constant and relieved with pain medications. Patient denies any nausea, vomiting, dizziness, headaches, fevers, chills. He has been seen in the ER on 09/28/2025 and He has been admitted to the hospital for this reason on multiple occasions, for which he usually ends up leaving AMA. on arrival patient has been tachycardic, and high blood pressure. Past surgical history: Denies Family history: non contributory Social history: 2 cigarettes a day, denies alcohol or other drug use, was amphetamine positive in last Visit. Lives with: alone Home medications: Denies any 10/02/2025: Patient seen at bedside. Patient complains of 8/10 pain in the rectal area. Patient denies any nausea, vomiting, abdominal pain. Patient is yelling, combative, called security, patient is not willing to come out of the bathroom and locked himself inside, physical restraints ordered and Ativan 0.5 mg given. Surgery decided on no surgical intervention. : Patient seen at bedside. Patient complains of 8/10 rectal area pain. Patient denies any nausea, vomiting, abdominal pain. Patient today is more calm and not combative. called patient's family, states that they will be here tomorrow and we will discuss hospice options tomorrow. : Patient seen at bedside. Patient complains of rectal pain, patient's family at bedside patient explained about hospice at hospice facility. Patient denies any nausea, vomiting, abdominal pain. Patient did become combative and is yelling at staff. Patient refusing medication, wound care. Objective vital signs Vital Sign Date Time Temp Pulse Resp B/P (MAP) Pulse Ox O2 Delivery O2 Flow Rate FiO2 10/04/25 14:59 92 18 120/78 10/04/25 12:40 98.6 99 98.6 10/04/25 07:40 Room Air* 0 21 Total Intake and Output 10/03/25 10/03/25 10/04/25 15:00 23:00 07:00 Intake Total 50 ml 850 ml 900 ml Balance 50 ml 850 ml 900 ml medications Current Medications Medications Dose Ordered Sig/Romulo Route Start Time Stop Time Status Last Admin Dose Admin Morphine Sulfate 4 mg Q6HPRN PRN IV 10/01/25 09:00 10/04/25 14:59 4 MG Ondansetron HCl 4 mg Q6HPRN PRN IV 10/01/25 09:00 10/01/25 10:24 4 MG Pantoprazole Sodium 40 mg DAILY@0600 PO 10/02/25 06:00 10/03/25 05:47 40 MG Acetaminophen/ Hydrocodone Bitart 1 tab Q6HPRN PRN PO 10/01/25 11:15 Acetaminophen 650 mg Q6HP PRN PO 10/01/25 11:15 Polyethylene Glycol 17 gm DAILYPRN PRN PO 10/01/25 11:15 10/02/25 21:44 17 GM Cefepime HCl 50 ml @ 12.5 mls/hr Q12HR IV 10/02/25 22:00 10/04/25 09:43 12.5 MLS/HR Lorazepam 0.5 mg Q6HP PRN IV 10/02/25 17:30 10/03/25 21:45 0.5 MG Examination General: Patient alert and oriented in person, place and time. Patient following commands. HEENT: Normocephalic, atraumatic, moist mucous membranes Respiratory/pulmonary: Clear lungs bilaterally, vesicular murmurs present in almost all lung lopez, no associated crackles or wheezes. Cardiovascular: Normal heart sounds S1 and S2 with no associated murmurs Abdomen: Abdomen nondistended, there is no pain to palpation in any of the abdominal quadrants, no palpable masses. Large ulcerated mass in the gluteal region on the right side With clear drainage. Extremities: There is no peripheral edema present at the lower extremities. Peripheral Pulses: 3+ Radial (R). 3+ Radial (L). 3+ Dorsalis pedis (R). 3+ Dorsalis pedis(L) Skin: No rashes or pruritus, there is no sacral edema present at this time. Neurological: Intact cranial nerves with no focal neurologic deficits laboratory and microbiology Laboratory Tests 10/03/25 07:55 Test 10/03/25 07:55 Range/Units Serum Glucose 90 74-106 mg/dL Microbiology Date/Time Source Procedure Growth Status 10/01/25 10:20 Blood Blood Culture - Preliminary NO GROWTH AFTER 72 HOURS OF INCUBATION. Resulted Problem List/Assessment/Plan Problem List/Assessment/Plan # Intractable Rectal pain, stage IV colorectal carcinoma #Cachexia due to above #Bilateral pulmonary metastatic disease #Lymphadenopathy due to Metastasis -surgery consulted for possible ostomy -hospice discussion -[place] 5 -morphine 4 mg -IV cefepime # Possible BETTE due to VMN - monitor labs - iv fluids #Constipation due to obstructive rectal mass # anemia of chronic disease -monitor hemoglobin #History of hypertension # Anxiety # conbative behavior # noncomplience - Ativan #Polysubstance abuse ( nicotine, methamphetamine) - patient counseled on cessation of methamphetamine, nicotine for more than 18 minutes PPI prophylaxis: Protonix DVT prophylaxis: Lovenox Goals of care addressed with the patient for more than 27 minutes: Full code status Case discussed with Dr. Gardner , patient and nurse Plan discussed with: Patient, Son My Orders My Orders Orders - MARIKA THAKKAR RESIDENT Procedure Category Date Status Time Head Without Contrast CT 10/04/25 Resulted 09:29 * Engine Testing Supervisor CONS 10/04/25 Transmitted Consult Dietary Evaluation Review Comments: Nutrition Recommendation: 1) Karl 1 pk BID 2) Monitor NPO status, lab values, weight trend, and I/O Expected Outcomes/Goals: Wound to improve FU 3-5 days Date of Service: Oct 04, 2025 Billing Provider: RAPHAEL GARDNER MD Common Visit Codes: [id number] INP/OBS CARE(HIGH) MARIKA THAKKAR RESIDENT Oct 04, 2025 16:31 RAPHAEL GARDNER MD Oct 04, 2025 22:54
[2025-10-04 16:40] VITALS: BP 131/72; PULSE 99; RESP 16; TEMP 98.6; O2SAT 97
[2025-10-04 21:00] VITALS: BP 128/76; PULSE 97; RESP 18; TEMP 98.3; O2SAT 100
[2025-10-05] VITALS (7 sets, daily range): BP systolic 102–141; BP diastolic 76–91; PULSE 85–108; RESP 18–20; TEMP 98–99; O2SAT 96–99
[2025-10-05] MEDS: HYDROcodone-ACET 5/325MG TAB PO PRN (06:24)
--- NOTE | 2025-10-05 14:10 | DVHPNRES ---
Progress Note Date Seen: Oct 05, 2025 Resident Creating Document: MARIKA THAKKAR RESIDENT Medical Necessity Reason Pt with a Central, PICC or Fol: No Subjective Review of Systems Patient is a 65-year-old male with past medical history of advanced metastatic colorectal adenocarcinoma, anemia of chronic disease, hypertension, CKD, who came to the hospital with chief complaints of pain in the gluteal region on the right side. Patient states that he has been passing liquid stools about 3 times a day and has 10/10 pain which is constant and relieved with pain medications. Patient denies any nausea, vomiting, dizziness, headaches, fevers, chills. He has been seen in the ER on 09/28/2025 and He has been admitted to the hospital for this reason on multiple occasions, for which he usually ends up leaving AMA. on arrival patient has been tachycardic, and high blood pressure. Past surgical history: Denies Family history: non contributory Social history: 2 cigarettes a day, denies alcohol or other drug use, was amphetamine positive in last Visit. Lives with: alone Home medications: Denies any 10/02/2025: Patient seen at bedside. Patient complains of 8/10 pain in the rectal area. Patient denies any nausea, vomiting, abdominal pain. Patient is yelling, combative, called security, patient is not willing to come out of the bathroom and locked himself inside, physical restraints ordered and Ativan 0.5 mg given. Surgery decided on no surgical intervention. : Patient seen at bedside. Patient complains of 8/10 rectal area pain. Patient denies any nausea, vomiting, abdominal pain. Patient today is more calm and not combative. called patient's family, states that they will be here tomorrow and we will discuss hospice options tomorrow. : Patient seen at bedside. Patient complains of rectal pain, patient's family at bedside patient explained about hospice at hospice facility. Patient denies any nausea, vomiting, abdominal pain. Patient did become combative and is yelling at staff. Patient refusing medication, wound care. 10/05/2025: Patient seen at bedside. Patient still complains of rectal pain. patient leaving room to smoke against medical advice. patient yelling at staff. Objective vital signs Vital Sign Date Time Temp Pulse Resp B/P (MAP) Pulse Ox O2 Delivery O2 Flow Rate FiO2 10/05/25 12: 98.3 87 20 135/91 (106) 97 98.3 10/04/25 20:00 Room Air* 0 21 Total Intake and Output 10/04/25 10/04/25 10/05/25 15:00 23:00 07:00 Intake Total 900 ml 800 ml Output Total 250 ml Balance 900 ml 550 ml medications Current Medications Medications Dose Ordered Sig/Romulo Route Start Time Stop Time Status Last Admin Dose Admin Morphine Sulfate 4 mg Q6HPRN PRN IV 10/01/25 09:00 10/04/25 21:20 4 MG Ondansetron HCl 4 mg Q6HPRN PRN IV 10/01/25 09:00 10/01/25 10:24 4 MG Pantoprazole Sodium 40 mg DAILY@0600 PO 10/02/25 06:00 10/05/25 06:14 40 MG Acetaminophen/ Hydrocodone Bitart 1 tab Q6HPRN PRN PO 10/01/25 11:15 10/05/25 06:24 1 TAB Acetaminophen 650 mg Q6HP PRN PO 10/01/25 11:15 Polyethylene Glycol 17 gm DAILYPRN PRN PO 10/01/25 11:15 10/05/25 06:36 17 GM Cefepime HCl 50 ml @ 12.5 mls/hr Q12HR IV 10/02/25 22:00 10/04/25 21:41 12.5 MLS/HR Lorazepam 0.5 mg Q6HP PRN IV 10/02/25 17:30 10/03/25 21:45 0.5 MG Examination General: Patient alert and oriented in person, place and time. Patient following commands. HEENT: Normocephalic, atraumatic, moist mucous membranes Respiratory/pulmonary: Clear lungs bilaterally, vesicular murmurs present in almost all lung lopez, no associated crackles or wheezes. Cardiovascular: Normal heart sounds S1 and S2 with no associated murmurs Abdomen: Abdomen nondistended, there is no pain to palpation in any of the abdominal quadrants, no palpable masses. Large ulcerated mass in the gluteal region on the right side With clear drainage. Extremities: There is no peripheral edema present at the lower extremities. Peripheral Pulses: 3+ Radial (R). 3+ Radial (L). 3+ Dorsalis pedis (R). 3+ Dorsalis pedis(L) Skin: No rashes or pruritus, there is no sacral edema present at this time. Neurological: Intact cranial nerves with no focal neurologic deficits laboratory and microbiology Laboratory Tests 10/03/25 07:55 Test 10/03/25 07:55 Range/Units Serum Glucose 90 74-106 mg/dL Microbiology Date/Time Source Procedure Growth Status 10/01/25 10:20 Blood Blood Culture - Preliminary NO GROWTH AFTER 72 HOURS OF INCUBATION. Resulted Problem List/Assessment/Plan Problem List/Assessment/Plan # Intractable Rectal pain, stage IV colorectal carcinoma #Cachexia due to above #Bilateral pulmonary metastatic disease #Lymphadenopathy due to Metastasis -surgery consulted for possible ostomy -hospice discussion -[place] 5 -morphine 4 mg -IV cefepime # Possible BETTE due to VMN - monitor labs - iv fluids #Constipation due to obstructive rectal mass # anemia of chronic disease -monitor hemoglobin #History of hypertension # Anxiety # conbative behavior # noncomplience - Ativan #Polysubstance abuse ( nicotine, methamphetamine) - patient counseled on cessation of methamphetamine, nicotine for more than 18 minutes PPI prophylaxis: Protonix DVT prophylaxis: Lovenox Goals of care addressed with the patient for more than 27 minutes: Full code status Case discussed with Dr. Gardner , patient and nurse Plan discussed with: Patient My Orders My Orders Orders - MARIKA THAKKAR Procedure Category Date Status Time * Executive Kitchen Manager CONS 10/04/25 Transmitted Consult Dietary Evaluation Review Comments: Nutrition Recommendation: 1) Karl 1 pk BID 2) Monitor NPO status, lab values, weight trend, and I/O Expected Outcomes/Goals: Wound to improve FU 3-5 days Date of Service: Oct 05, 2025 Billing Provider: RAPHAEL GARDNER MD Common Visit Codes: [id number] INP/OBS CARE(HIGH) MARIKA THAKKAR Oct 05, 2025 14:10 RAPHAEL GARDNER MD Oct 06, 2025 17:55
[2025-10-06 08:00] VITALS: PULSE 105; RESP 19; O2SAT 98
[2025-10-06 09:00] VITALS: BP 133/94; PULSE 65; RESP 19; TEMP 98; O2SAT 98
[2025-10-06] MEDS: HYDROmorphone HCL 2 MG/ML VL/or syr IV PRN (09:03)
[2025-10-06 13:00] VITALS: BP 121/64; PULSE 98; RESP 18; O2SAT 100
[2025-10-06 13:41] LABS: Hematocrit 22.2 % (41.0-53.0); Mean Corpuscular Hemoglobin 28.4 pg (28.0-32.0); Mean Corpuscular Volume 92.5 fL (80.0-100.0); Nucleated Red Blood Cells % 0.0 %
[2025-10-06 13:43] LABS: Hemoglobin 6.8 g/dL (13.5-17.5)
[2025-10-06 13:45] LABS: Potassium 4.7 mmol/L (3.5-5.1); Sodium 140 mmol/L (136-145)
[2025-10-06 13:46] LABS: Anion Gap 8 (5-15); Carbon Dioxide 22 mmol/L (20-31)
[2025-10-06 13:49] LABS: Calcium 7.8 mg/dL (8.7-10.4); Chloride 110 mmol/L (98-107)
[2025-10-06 13:51] LABS: BUN/Creatinine Ratio 20.8 (10.0-20.0)
[2025-10-06 13:53] LABS: Blood Urea Nitrogen 27 mg/dL (9-23); Glucose 150 mg/dL (74-106)
[2025-10-06 14:08] LABS: Anisocytosis Moderate
[2025-10-06] MEDS: IRON SUCROSE COMPLEX 110 ML IV SCH (16:00)
--- NOTE | 2025-10-06 16:45 | DVHPNRES ---
Progress Note Date Seen: Oct 06, 2025 Resident Creating Document: MARIKA THAKKAR RESIDENT Medical Necessity Reason Pt with a Central, PICC or Fol: No Subjective Review of Systems Patient is a 65-year-old male with past medical history of advanced metastatic colorectal adenocarcinoma, anemia of chronic disease, hypertension, CKD, who came to the hospital with chief complaints of pain in the gluteal region on the right side. Patient states that he has been passing liquid stools about 3 times a day and has 10/10 pain which is constant and relieved with pain medications. Patient denies any nausea, vomiting, dizziness, headaches, fevers, chills. He has been seen in the ER on 09/28/2025 and He has been admitted to the hospital for this reason on multiple occasions, for which he usually ends up leaving AMA. on arrival patient has been tachycardic, and high blood pressure. Past surgical history: Denies Family history: non contributory Social history: 2 cigarettes a day, denies alcohol or other drug use, was amphetamine positive in last Visit. Lives with: alone Home medications: Denies any 10/02/2025: Patient seen at bedside. Patient complains of 8/10 pain in the rectal area. Patient denies any nausea, vomiting, abdominal pain. Patient is yelling, combative, called security, patient is not willing to come out of the bathroom and locked himself inside, physical restraints ordered and Ativan 0.5 mg given. Surgery decided on no surgical intervention. : Patient seen at bedside. Patient complains of 8/10 rectal area pain. Patient denies any nausea, vomiting, abdominal pain. Patient today is more calm and not combative. called patient's family, states that they will be here tomorrow and we will discuss hospice options tomorrow. : Patient seen at bedside. Patient complains of rectal pain, patient's family at bedside patient explained about hospice at hospice facility. Patient denies any nausea, vomiting, abdominal pain. Patient did become combative and is yelling at staff. Patient refusing medication, wound care. 10/05/2025: Patient seen at bedside. Patient still complains of rectal pain. patient leaving room to smoke against medical advice. patient yelling at staff. 10/06/2025: Patient seen at bedside. Patient still complains of rectal pain is still combative and yelling at staff. Patient is to go to hospice at facility. Objective vital signs Vital Sign Date Time Temp Pulse Resp B/P (MAP) Pulse Ox O2 Delivery O2 Flow Rate FiO2 10/06/25 15:43 92 18 107/69 10/06/25 13:00 100 10/06/25 09:00 98.0 98.0 10/05/25 20:00 Room Air* 0 21 Total Intake and Output 10/05/25 10/05/25 10/06/25 15:00 23:00 07:00 Intake Total 700 ml 850 ml Balance 700 ml 850 ml medications Current Medications Medications Dose Ordered Sig/Romulo Route Start Time Stop Time Status Last Admin Dose Admin Ondansetron HCl 4 mg Q6HPRN PRN IV 10/01/25 09:00 10/01/25 10:24 4 MG Pantoprazole Sodium 40 mg DAILY@0600 PO 10/02/25 06:00 10/05/25 06:14 40 MG Acetaminophen/ Hydrocodone Bitart 1 tab Q6HPRN PRN PO 10/01/25 11:15 10/06/25 13:27 1 TAB Acetaminophen 650 mg Q6HP PRN PO 10/01/25 11:15 Polyethylene Glycol 17 gm DAILYPRN PRN PO 10/01/25 11:15 10/05/25 06:36 17 GM Cefepime HCl 50 ml @ 12.5 mls/hr Q12HR IV 10/02/25 22:00 10/06/25 13:26 12.5 MLS/HR Lorazepam 0.5 mg Q6HP PRN IV 10/02/25 17:30 10/06/25 04:09 0.5 MG Hydromorphone HCl 0.5 mg Q6HP PRN IV 10/06/25 09:00 10/06/25 15:43 0.5 MG Iron Sucrose 110 ml @ 110 mls/hr DAILY@1200 IV 10/06/25 15:30 10/09/25 12:59 Examination General: Patient alert and oriented in person, place and time. Patient following commands. HEENT: Normocephalic, atraumatic, moist mucous membranes Respiratory/pulmonary: Clear lungs bilaterally, vesicular murmurs present in almost all lung lopez, no associated crackles or wheezes. Cardiovascular: Normal heart sounds S1 and S2 with no associated murmurs Abdomen: Abdomen nondistended, there is no pain to palpation in any of the abdominal quadrants, no palpable masses. Large ulcerated mass in the gluteal region on the right side With clear drainage. Extremities: There is no peripheral edema present at the lower extremities. Peripheral Pulses: 3+ Radial (R). 3+ Radial (L). 3+ Dorsalis pedis (R). 3+ Dorsalis pedis(L) Skin: No rashes or pruritus, there is no sacral edema present at this time. Neurological: Intact cranial nerves with no focal neurologic deficits laboratory and microbiology Laboratory Tests 10/06/25 12:52 Test 10/06/25 12:52 Range/Units Serum Glucose 150 H 74-106 mg/dL Microbiology Date/Time Source Procedure Growth Status 10/01/25 10:20 Blood Blood Culture - Final NO GROWTH AFTER 5 DAYS OF INCUBATION. Complete Problem List/Assessment/Plan Problem List/Assessment/Plan # Intractable Rectal pain, stage IV colorectal carcinoma #Cachexia due to above #Bilateral pulmonary metastatic disease #Lymphadenopathy due to Metastasis -surgery consulted for possible ostomy -hospice discussion -[place] 5 -morphine 4 mg -IV cefepime # Possible BETTE due to VMN - monitor labs - iv fluids #Constipation due to obstructive rectal mass # anemia of chronic disease -monitor hemoglobin #History of hypertension # Anxiety # conbative behavior # noncomplience - Ativan #Polysubstance abuse ( nicotine, methamphetamine) - patient counseled on cessation of methamphetamine, nicotine for more than 18 minutes PPI prophylaxis: Protonix DVT prophylaxis: Lovenox Goals of care addressed with the patient for more than 27 minutes: Full code status Case discussed with Dr. Gardner , patient and nurse Plan discussed with: Patient My Orders My Orders Orders - MARIKA THAKKAR RESIDENT Procedure Category Date Status Time Soc Telemed Psych CONS 10/06/25 Transmitted Consult 13:26 Dietary Evaluation Review Comments: Nutrition Recommendation: 1) Karl 1 pk BID 2) Monitor NPO status, lab values, weight trend, and I/O Expected Outcomes/Goals: Wound to improve FU 3-5 days Date of Service: Oct 06, 2025 Billing Provider: RAPHAEL GARDNER MD Common Visit Codes: [id number] INP/OBS CARE(HIGH) MARIKA THAKKAR RESIDENT Oct 06, 2025 16:45 RAPHAEL GARDNER MD Oct 06, 2025 17:57
[2025-10-06 17:30] VITALS: BP 107/69; PULSE 92; RESP 18; O2SAT 99
[2025-10-06 20:00] VITALS: PULSE 98; RESP 19; O2SAT 96
[2025-10-06 21:00] VITALS: BP 112/63; PULSE 98; RESP 19; O2SAT 96
[2025-10-07 05:00] VITALS: BP 116/66; PULSE 84; RESP 20; O2SAT 98
[2025-10-07 08:00] VITALS: PULSE 101; RESP 16; O2SAT 94
[2025-10-07 09:00] VITALS: BP 110/50; PULSE 101; RESP 16; TEMP 98.2; O2SAT 94
--- NOTE | 2025-10-07 10:29 | DVHPNRES ---
Progress Note Date Seen: Oct 07, 2025 Resident Creating Document: MARIKA THAKKAR RESIDENT Medical Necessity Reason Pt with a Central, PICC or Fol: No Subjective Review of Systems Patient is a 65-year-old male with past medical history of advanced metastatic colorectal adenocarcinoma, anemia of chronic disease, hypertension, CKD, who came to the hospital with chief complaints of pain in the gluteal region on the right side. Patient states that he has been passing liquid stools about 3 times a day and has 10/10 pain which is constant and relieved with pain medications. Patient denies any nausea, vomiting, dizziness, headaches, fevers, chills. He has been seen in the ER on 09/28/2025 and He has been admitted to the hospital for this reason on multiple occasions, for which he usually ends up leaving AMA. on arrival patient has been tachycardic, and high blood pressure. Past surgical history: Denies Family history: non contributory Social history: 2 cigarettes a day, denies alcohol or other drug use, was amphetamine positive in last Visit. Lives with: alone Home medications: Denies any 10/02/2025: Patient seen at bedside. Patient complains of 8/10 pain in the rectal area. Patient denies any nausea, vomiting, abdominal pain. Patient is yelling, combative, called security, patient is not willing to come out of the bathroom and locked himself inside, physical restraints ordered and Ativan 0.5 mg given. Surgery decided on no surgical intervention. : Patient seen at bedside. Patient complains of 8/10 rectal area pain. Patient denies any nausea, vomiting, abdominal pain. Patient today is more calm and not combative. called patient's family, states that they will be here tomorrow and we will discuss hospice options tomorrow. : Patient seen at bedside. Patient complains of rectal pain, patient's family at bedside patient explained about hospice at hospice facility. Patient denies any nausea, vomiting, abdominal pain. Patient did become combative and is yelling at staff. Patient refusing medication, wound care. 10/05/2025: Patient seen at bedside. Patient still complains of rectal pain. patient leaving room to smoke against medical advice. patient yelling at staff. 10/06/2025: Patient seen at bedside. Patient still complains of rectal pain is still combative and yelling at staff. Patient is to go to hospice at facility. 10/07/2025: Patient seen at bedside. Patient is still complaining of rectal pain, is yelling at me and staff. Patient's hemoglobin was low yesterday 6.8. Patient Denied labs in the morning. Objective vital signs Vital Sign Date Time Temp Pulse Resp B/P (MAP) Pulse Ox O2 Delivery O2 Flow Rate FiO2 10/07/25 07:49 101 18 110/50 10/07/25 05:00 98 10/06/25 20:00 Room Air* 0 21 10/06/25 09:00 98.0 98.0 Total Intake and Output 10/06/25 10/06/25 10/07/25 15:00 23:00 07:00 Intake Total 50 ml 1200 ml 1506 ml Balance 50 ml 1200 ml 1506 ml medications Current Medications Medications Dose Ordered Sig/Romulo Route Start Time Stop Time Status Last Admin Dose Admin Ondansetron HCl 4 mg Q6HPRN PRN IV 10/01/25 09:00 10/01/25 10:24 4 MG Pantoprazole Sodium 40 mg DAILY@0600 PO 10/02/25 06:00 10/07/25 05:38 40 MG Acetaminophen/ Hydrocodone Bitart 1 tab Q6HPRN PRN PO 10/01/25 11:15 10/07/25 05:39 1 TAB Acetaminophen 650 mg Q6HP PRN PO 10/01/25 11:15 Polyethylene Glycol 17 gm DAILYPRN PRN PO 10/01/25 11:15 10/06/25 20:29 17 GM Cefepime HCl 50 ml @ 12.5 mls/hr Q12HR IV 10/02/25 22:00 10/07/25 09:33 12.5 MLS/HR Lorazepam 0.5 mg Q6HP PRN IV 10/02/25 17:30 10/07/25 09:38 0.5 MG Hydromorphone HCl 0.5 mg Q6HP PRN IV 10/06/25 09:00 10/07/25 07:49 0.5 MG Iron Sucrose 110 ml @ 110 mls/hr DAILY@1200 IV 10/06/25 15:30 10/09/25 12:59 10/06/25 16:00 110 MLS/HR Examination General: Patient alert and oriented in person, place and time. Patient following commands. HEENT: Normocephalic, atraumatic, moist mucous membranes Respiratory/pulmonary: Clear lungs bilaterally, vesicular murmurs present in almost all lung lopez, no associated crackles or wheezes. Cardiovascular: Normal heart sounds S1 and S2 with no associated murmurs Abdomen: Abdomen nondistended, there is no pain to palpation in any of the abdominal quadrants, no palpable masses. Large ulcerated mass in the gluteal region on the right side With clear drainage. Extremities: There is no peripheral edema present at the lower extremities. Peripheral Pulses: 3+ Radial (R). 3+ Radial (L). 3+ Dorsalis pedis (R). 3+ Dorsalis pedis(L) Skin: No rashes or pruritus, there is no sacral edema present at this time. Neurological: Intact cranial nerves with no focal neurologic deficits laboratory and microbiology Laboratory Tests 10/06/25 12:52 Test 10/06/25 12:52 Range/Units Serum Glucose 150 H 74-106 mg/dL Microbiology Date/Time Source Procedure Growth Status 10/01/25 10:20 Blood Blood Culture - Final NO GROWTH AFTER 5 DAYS OF INCUBATION. Complete Problem List/Assessment/Plan Problem List/Assessment/Plan # Intractable Rectal pain, stage IV colorectal carcinoma #Cachexia due to above #Bilateral pulmonary metastatic disease #Lymphadenopathy due to Metastasis -surgery consulted for possible ostomy -hospice discussion -[place] 5 -morphine 4 mg -IV cefepime # Possible BETTE due to VMN - monitor labs - iv fluids #Constipation due to obstructive rectal mass # anemia of chronic disease -monitor hemoglobin #History of hypertension # Anxiety # conbative behavior # noncomplience - Ativan #Polysubstance abuse ( nicotine, methamphetamine) - patient counseled on cessation of methamphetamine, nicotine for more than 18 minutes PPI prophylaxis: Protonix DVT prophylaxis: Lovenox Goals of care addressed with the patient for more than 27 minutes: Full code status Case discussed with Dr. Gardner , patient and nurse Plan discussed with: Patient, Son My Orders My Orders Orders - MARIKA THAKKAR RESIDENT Procedure Category Date Status Time Soc Telemed Psych CONS 10/06/25 Transmitted Consult 13:26 Complete Blood Count LAB 10/07/25 Logged 04:00 Basic Metabolic Panel LAB 10/07/25 Logged 04:00 Dietary Evaluation Review Comments: Nutrition Recommendation: 1) Karl 1 pk BID 2) Monitor NPO status, lab values, weight trend, and I/O Expected Outcomes/Goals: Wound to improve FU 3-5 days Date of Service: Oct 07, 2025 Billing Provider: RAPHAEL GARDNER MD Common Visit Codes: [id number] INP/OBS CARE(HIGH) MARIKA THAKKAR RESIDENT Oct 07, 2025 10:29 RAPHAEL GARDNER MD Oct 07, 2025 20:43
[2025-10-07] MEDS ORDERED: IRON SUCROSE COMPLEX 110 ML IV SCH (12:00)
[2025-10-07 20:00] VITALS: PULSE 99; RESP 20; O2SAT 96
[2025-10-07 22:01] VITALS: BP 113/63; PULSE 99; RESP 17; TEMP 99.2; O2SAT 96
[2025-10-08] VITALS (8 sets, daily range): BP systolic 105–127; BP diastolic 65–80; PULSE 78–103; RESP 17–20; TEMP 97.7–98.4; O2SAT 90–98
[2025-10-08 11:20] LABS: Hematocrit 19.8 % (41.0-53.0); Mean Corpuscular Hemoglobin 28.4 pg (28.0-32.0); Mean Corpuscular Volume 89.6 fL (80.0-100.0); Nucleated Red Blood Cells % 0.0 %
[2025-10-08 11:24] LABS: Hemoglobin 6.3 g/dL (13.5-17.5)
[2025-10-08 11:28] LABS: Anisocytosis Moderate
--- NOTE | 2025-10-08 12:29 | DVHPNRES ---
Progress Note Date Seen: Oct 08, 2025 Resident Creating Document: CRISTY MORGAN RESIDENT Medical Necessity Reason Pt with a Central, PICC or Fol: No Subjective Review of Systems Patient is a 65-year-old male with past medical history of advanced metastatic colorectal adenocarcinoma, anemia of chronic disease, hypertension, CKD, who came to the hospital with chief complaints of pain in the gluteal region on the right side. Patient states that he has been passing liquid stools about 3 times a day and has 10/10 pain which is constant and relieved with pain medications. Patient denies any nausea, vomiting, dizziness, headaches, fevers, chills. He has been seen in the ER on 09/28/2025 and He has been admitted to the hospital for this reason on multiple occasions, for which he usually ends up leaving AMA. on arrival patient has been tachycardic, and high blood pressure. Past surgical history: Denies Family history: non contributory Social history: 2 cigarettes a day, denies alcohol or other drug use, was amphetamine positive in last Visit. Lives with: alone Home medications: Denies any 10/02/2025: Patient seen at bedside. Patient complains of 8/10 pain in the rectal area. Patient denies any nausea, vomiting, abdominal pain. Patient is yelling, combative, called security, patient is not willing to come out of the bathroom and locked himself inside, physical restraints ordered and Ativan 0.5 mg given. Surgery decided on no surgical intervention. : Patient seen at bedside. Patient complains of 8/10 rectal area pain. Patient denies any nausea, vomiting, abdominal pain. Patient today is more calm and not combative. called patient's family, states that they will be here tomorrow and we will discuss hospice options tomorrow. : Patient seen at bedside. Patient complains of rectal pain, patient's family at bedside patient explained about hospice at hospice facility. Patient denies any nausea, vomiting, abdominal pain. Patient did become combative and is yelling at staff. Patient refusing medication, wound care. 10/05/2025: Patient seen at bedside. Patient still complains of rectal pain. patient leaving room to smoke against medical advice. patient yelling at staff. 10/06/2025: Patient seen at bedside. Patient still complains of rectal pain is still combative and yelling at staff. Patient is to go to hospice at facility. 10/07/2025: Patient seen at bedside. Patient is still complaining of rectal pain, is yelling at me and staff. Patient's hemoglobin was low yesterday 6.8. Patient Denied labs in the morning. 10/08/2025: Patient seen and examined at bedside. Patient is currently sleeping because of the Ativan. Not complaining of any pain. As per the nurse, patient has been refusing blood transfusions. Repeat labs ordered. Objective vital signs Vital Sign Date Time Temp Pulse Resp B/P (MAP) Pulse Ox O2 Delivery O2 Flow Rate FiO2 10/08/25 09:49 100 22 120/68 10/08/25 05:00 97.7 96 97.7 10/07/25 20:00 Room Air* 0 21 Total Intake and Output 10/07/25 10/07/25 10/08/25 15:00 23:00 07:00 Intake Total 980 ml 900 ml Output Total 300 ml Balance 980 ml 600 ml medications Current Medications Medications Dose Ordered Sig/Romulo Route Start Time Stop Time Status Last Admin Dose Admin Ondansetron HCl 4 mg Q6HPRN PRN IV 10/01/25 09:00 10/01/25 10:24 4 MG Pantoprazole Sodium 40 mg DAILY@0600 PO 10/02/25 06:00 10/08/25 06:31 40 MG Acetaminophen/ Hydrocodone Bitart 1 tab Q6HPRN PRN PO 10/01/25 11:15 10/07/25 05:39 1 TAB Acetaminophen 650 mg Q6HP PRN PO 10/01/25 11:15 Polyethylene Glycol 17 gm DAILYPRN PRN PO 10/01/25 11:15 10/06/25 20:29 17 GM Cefepime HCl 50 ml @ 12.5 mls/hr Q12HR IV 10/02/25 22:00 10/07/25 21:47 12.5 MLS/HR Lorazepam 0.5 mg Q6HP PRN IV 10/02/25 17:30 10/08/25 07:33 0.5 MG Hydromorphone HCl 0.5 mg Q6HP PRN IV 10/06/25 09:00 10/08/25 09:49 0.5 MG Iron Sucrose 110 ml @ 110 mls/hr DAILY@1200 IV 10/06/25 15:30 10/09/25 12:59 10/07/25 12:42 110 MLS/HR Examination General: Patient alert and oriented in person, place and time. Patient following commands. HEENT: Normocephalic, atraumatic, moist mucous membranes Respiratory/pulmonary: Clear lungs bilaterally, vesicular murmurs present in almost all lung lopez, no associated crackles or wheezes. Cardiovascular: Normal heart sounds S1 and S2 with no associated murmurs Abdomen: Abdomen nondistended, there is no pain to palpation in any of the abdominal quadrants, no palpable masses. Large ulcerated mass in the gluteal region on the right side With clear drainage. Extremities: There is no peripheral edema present at the lower extremities. Peripheral Pulses: 3+ Radial (R). 3+ Radial (L). 3+ Dorsalis pedis (R). 3+ Dorsalis pedis(L) Skin: No rashes or pruritus, there is no sacral edema present at this time. Neurological: Intact cranial nerves with no focal neurologic deficits laboratory and microbiology Laboratory Tests 10/08/25 11:10 10/06/25 12:52 Test 10/06/25 12:52 Range/Units Serum Glucose 150 H 74-106 mg/dL Microbiology Date/Time Source Procedure Growth Status 10/01/25 10:20 Blood Blood Culture - Final NO GROWTH AFTER 5 DAYS OF INCUBATION. Complete Labs and/or images reviewed: Labs reviewed by me, Image(s) reviewed by me Problem List/Assessment/Plan Problem List/Assessment/Plan Problem List/Assessment/Plan # Intractable Rectal pain, stage IV colorectal carcinoma # Cachexia due to above # Bilateral pulmonary metastatic disease # Lymphadenopathy due to Metastasis -surgery consulted for possible ostomy -hospice discussion -[place] 5 -IV Dilaudid p.r.n. -IV cefepime # Possible BETTE due to VMN - monitor labs - iv fluids #Constipation due to obstructive rectal mass # anemia of chronic disease -monitor hemoglobin #History of hypertension # Anxiety # conbative behavior # noncomplience - Ativan p.r.n. # Polysubstance abuse ( nicotine, methamphetamine) - patient counseled on cessation of methamphetamine, nicotine for more than 18 minutes PPI prophylaxis: Protonix DVT prophylaxis: Lovenox hold because of bleeding Discussion regarding hospice facility was done with patient and patient's son. Patient and patient's son agreed for hospice. [employer] Manager was consulted to arrange hospice arrangement. Today patient has been refusing hospice, awaiting son to come bedside for family discussion. Goals of care addressed with the patient for more than 27 minutes: Full code status Case discussed with Dr. Gardner , patient and nurse Plan discussed with: Patient, Other Dietary Evaluation Review Comments: Nutrition Recommendation: 1) Karl 1 pk BID 2) Monitor NPO status, lab values, weight trend, and I/O Expected Outcomes/Goals: Wound to improve FU 3-5 days Date of Service: Oct 08, 2025 Billing Provider: RAPHAEL GARDNER MD Common Visit Codes: [id number] INP/OBS CARE(HIGH) CRISTY MORGAN RESIDENT Oct 08, 2025 12:29 RAPHAEL GARDNER MD Oct 08, 2025 17:01
[2025-10-08] MEDS: CIPROFLOXACIN HCL 500 MG TAB PO SCH (21:43)
[2025-10-09 01:00] VITALS: BP 115/67; PULSE 103; RESP 16; TEMP 98.1; O2SAT 98
[2025-10-09] MEDS: OXYCODONE W/ ACETAMINOPHEN 5/325MG TABLET PO ONE (03:21)
[2025-10-09 05:00] VITALS: BP 116/69; PULSE 96; RESP 17; TEMP 98.8; O2SAT 92
[2025-10-09 08:10] VITALS: PULSE 92; RESP 18; O2SAT 96
[2025-10-09 09:30] VITALS: BP 112/66; PULSE 92; RESP 18; TEMP 98.6; O2SAT 96
[2025-10-09 13:30] VITALS: BP 119/68; PULSE 92; RESP 18; TEMP 98.3; O2SAT 97
[2025-10-09 15:25] VITALS: BP 119/68; PULSE 92; RESP 18; TEMP 98.3; O2SAT 97
--- NOTE | 2025-10-09 16:43 | DVHDSRES ---
Discharge Summary Date of Admission Resident Creating Document: CRISTY MORGAN RESIDENT Oct 01, 2025 at 08:37 Date of Discharge: Oct 09, 2025 Admitting Diagnosis intractable rectal pain due to stage IV colorectal carcinoma Labs/Diagnostic Data: Laboratory Results Test 10/08/25 11:10 10/06/25 12:52 10/02/25 06:53 10/01/25 09:04 White Blood Count 9.5 10^3/uL (4.4-10.8) Red Blood Count 2.21 10^6/uL (4.5-5.90) Hemoglobin 6.3 g/dL (13.5-17.5) Hematocrit 19.8 % (41.0-53.0) Mean Corpuscular Volume 89.6 fL (80.0-100.0) Mean Corpuscular Hemoglobin 28.4 pg (28.0-32.0) Mean Corpuscular Hemoglobin Concent 31.7 g/dL (32.0-36.0) Red Cell Distribution Width 23.0 % (11.8-14.3) Platelet Count 509 10^3/uL (140-450) Mean Platelet Volume 6.2 fL (6.9-10.8) Neutrophils (%) (Auto) 78.3 % (37.0-80.0) Lymphocytes (%) (Auto) 10.8 % (10.0-50.0) Monocytes (%) (Auto) 7.2 % (0.0-12.0) Eosinophils (%) (Auto) 2.7 % (0.0-7.0) Basophils (%) (Auto) 1.0 % (0.0-2.0) Neutrophils # (Auto) 7.4 10 ^3/uL (1.6-8.6) Lymphocytes # (Auto) 1.0 10 ^3/uL (0.4-5.4) Monocytes # (Auto) 0.7 10 ^3/uL (0-1.3) Eosinophils # (Auto) 0.3 10 ^3/uL (0-0.8) Basophils # (Auto) 0.1 10 ^3/uL (0-0.2) Nucleated Red Blood Cells 0.0 % Platelet Estimate Increased Hypochromasia (manual) Slight Anisocytosis (manual) Moderate Sodium Level 140 mmol/L (136-145) Potassium Level 4.7 mmol/L (3.5-5.1) Chloride Level 110 mmol/L (98-107) Carbon Dioxide Level 22 mmol/L (20-31) Anion Gap 8 (5-15) Blood Urea Nitrogen 27 mg/dL (9-23) Creatinine 1.30 mg/dL (0.700-1.30) Glomerular Filtration Rate Calc 60 mL/min (>90) BUN/Creatinine Ratio 20.8 (10.0-20.0) Serum Glucose 150 mg/dL (74-106) Calcium Level 7.8 mg/dL (8.7-10.4) Total Bilirubin < 0.2 mg/dL (0.2-1.0) Aspartate Amino Transferase (AST) 13 U/L (13-40) Alanine Aminotransferase (ALT) 12 U/L (7-40) Alkaline Phosphatase 99 U/L (46-116) Total Protein 6.0 g/dL (5.7-8.2) Albumin 3.2 g/dL (3.2-4.8) Lactic Acid Level 1.8 mmol/L (0.4-2.0) Test 09/30/25 23:23 Urine Color Yellow (Yellow) Urine Clarity Clear (Clear) Urine pH 6.0 (5.0-9.0) Urine Specific [place] 1.021 (1.001-1.035) Urine Protein Negative (Negative) Urine Ketones Negative (Negative) Urine Blood Negative /uL (Negative) Urine Nitrite Negative (Negative) Urine Bilirubin Negative (Negative) Urine Urobilinogen Normal mg/dL (Negative) Urine Leukocyte Esterase Negative /uL (Negative) Urine RBC 2 /hpf (0 - 3) Urine Microscopic WBC 2 /HPF (0-3) Urine Squamous Epithelial Cells None seen /hpf (<5) Urine Calcium Oxalate Crystals Few (None Seen) Urine Bacteria None seen /hpf (None Seen) Urine Mucus Few (None Seen) Urine Glucose Normal mg/dL (Normal) Urine Opiates Screen Neg (NEGATIVE) Urine Fentanyl Screen Neg (NEGATIVE) Urine Barbiturates Screen Neg (NEGATIVE) Urine Phencyclidine Screen Neg (NEGATIVE) Urine Amphetamines Screen Neg (NEGATIVE) Urine Benzodiazepines Screen Neg (NEGATIVE) Urine Cocaine Screen Neg (NEGATIVE) Urine Cannabinoids Screen Neg (NEGATIVE) Other Laboratory Tests 10/08/25 11:10 10/06/25 12:52 Brief Hx & Hospital Course: Patient is a 65-year-old male with past medical history of advanced metastatic colorectal adenocarcinoma, anemia of chronic disease, hypertension, CKD, who came to the hospital with chief complaints of pain in the gluteal region on the right side. Patient states that he has been passing liquid stools about 3 times a day and has 10/10 pain which is constant and relieved with pain medications. Patient denies any nausea, vomiting, dizziness, headaches, fevers, chills. He has been seen in the ER on 09/28/2025 and He has been admitted to the hospital for this reason on multiple occasions, for which he usually ends up leaving AMA. on arrival patient has been tachycardic, and high blood pressure. Past surgical history: Denies Family history: non contributory Social history: 2 cigarettes a day, denies alcohol or other drug use, was amphetamine positive in last Visit. Lives with: alone Home medications: Denies any Brief hospital course: Patient came with intractable rectal pain due to stage IV colorectal carcinoma with rectal mass on right gluteus medius. 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 surgery was consulted for possible colostomy for which surgery stated that they would not do anything. Patient was given IV Dilaudid PRN, IV cefepime Which was switched to ciprofloxacin. Hospice discussion was done with family and patient for which patient has refused hospice. Patient has BETTE possibly due to be [place] for which IV fluids were given and labs were monitored. Patient has constipation due to obstructive rectal mass and anemia of chronic disease for which labs were monitored. Patient has history of hypertension and anxiety. patient is noncompliant for medication and has refused blood transfusions as his hemoglobin was low. Patient also had combative behavior towards the staff and nurses. Patient is noncompliant with treatment and medications And was yelling at staff. Patient has history of polysubstance abuse of nicotine and methamphetamine. As patient has refused hospice, son was informed of patient refusing hospice and is going to get discharged home. Lovenox was held due to bleeding, patient was on PPI prophylaxis with Protonix. Patient was advised to make a appointment with his primary care doctor to get further treatment if wanted. General: Patient alert and oriented in person, place and time. Patient following commands. HEENT: Normocephalic, atraumatic, moist mucous membranes Respiratory/pulmonary: Clear lungs bilaterally, vesicular murmurs present in almost all lung lopez, no associated crackles or wheezes. Cardiovascular: Normal heart sounds S1 and S2 with no associated murmurs Abdomen: Abdomen nondistended, there is no pain to palpation in any of the abdominal quadrants, no palpable masses. Large ulcerated mass in the gluteal region on the right side With clear drainage. Extremities: There is no peripheral edema present at the lower extremities. Peripheral Pulses: 3+ Radial (R). 3+ Radial (L). 3+ Dorsalis pedis (R). 3+ Dorsalis pedis(L) Skin: No rashes or pruritus, there is no sacral edema present at this time. Neurological: Intact cranial nerves with no focal neurologic deficits Operations or Procedures ORDERING PHYSICIAN: NORMA MCGILL DO PROCEDURE(s): ABPL - CT AB PEL WO CON-NO ORAL OR IV REASON: abd pain ORDER NUMBER(s): [id number], ACCESSION NUMBER(s): [id number] Exam: CT CT AB PEL WO CON-NO ORAL OR IV History: abd pain Comparison Study: CT ABD/PEL W - IV on DOS: 09/28/25, CT CT AB PEL WO CON-NO ORAL OR IV on DOS: 09/11/25, CT CT AB PEL WO CON-NO ORAL OR IV on DOS: 09/04/25, CT CT AB PEL WO CON-NO ORAL OR IV on DOS: 08/27/25, CT ABD/PEL W - IV on DOS: 08/25/25 Technique: Multidetector spiral CT of the abdomen was performed from lung bases to pubic symphysis. Imaging was performed without IV contrast. Axial, coronal and sagittal multiplanar reformats were obtained from the axial data set by the technologist. Radiation Dose : 1. Abdomen/Pelvis: CTDIvol 5.07 mGy, DLP 279.99 mGy*cm. Findings: Evaluation of solid organs is limited due to lack of intravenous contrast use. Lung Bases: Multiple large pulmonary metastases again noted, minimally change. These measure up to 3.2 cm within the inferior lingula. Liver: The liver is normal in size. No focal lesions. Gallbladder and Biliary Tree: Unremarkable Spleen: Unremarkable Pancreas: The pancreas is grossly normal in appearance. Adrenal Glands: Unremarkable Kidneys: Kidneys are grossly normal without calculi or hydronephrosis. Bladder: Grossly unremarkable for degree of distention. Bowel: Large circumferential perirectal mass again noted extending through the pelvic floor into both gluteal folds , marginally worse when compared to the prior CT from August 2025. No obstruction. Ascites: Absent Lymphadenopathy: No mesenteric, retroperitoneal or periportal lymphadenopathy. Abdominal Wall and Mesentery: Unremarkable. Vasculature: The visualized abdominal aorta is normal in size and caliber. Evaluation of abdominal and pelvic vessels is limited due to lack of intravenous contrast. Pelvic Organs: Unremarkable Musculoskeletal: No aggressive focal bony lesions, acute fractures or dislocation. IMPRESSION: Large perirectal mass invading the pelvic floor and extending through the gluteal muscles, marginally worse when compared to the most recent CT. Grossly stable pulmonary metastases. No new abnormality is seen. Radiation optimization: All CT scans at this facility use at least one of these dose optimization techniques: automated exposure control mA and/or kV adjustment per patient size (includes targeted exams where dose is matched to clinical indication) or iterative reconstruction. ATED BY: ANTHONY CARMEN MD DICTATED DATE/TIME: 09/30/252328 SIGNED BY: ANTHONY CARMEN MD SIGNED DATE/TIME: 09/30/252328 ORDERING PHYSICIAN: MARIKA THAKKAR RESIDENT PROCEDURE(s): HWOCT - HEAD WITHOUT CONTRAST REASON: r/o mets ORDER NUMBER(s): [id number], ACCESSION NUMBER(s): [id number] EXAM: CT HEAD WITHOUT CONTRAST INDICATION: r/o mets COMPARISON: None TECHNIQUE: CT of the head without intravenous contrast. Radiation Dose Information: CT Dose: CTDI volume is 52 mGy. Dose-length product is 864 mGy*cm The dose indicators for CT are the volume Computed Tomography (CT) Dose Index (CTDIvol) and the Dose Length Product (DLP), and are measured in units of mGy and mGy-cm, respectively. These indicators are not patient dose, but values generated from the CT scanner acquisition factors. The report includes radiation exposure data for exposures received during this examination. 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 Scattered hypoattenuation in the periventricular and subcortical white matter, suggestive of chronic microvascular disease. The ventricles and sulci are mildly enlarged, compatible with generalized parenchymal volume loss. There is no mass-effect, hemorrhage, midline shift, or abnormal extra-axial fluid collection visible. No calvarial fracture. Trace mucosal thickening of the paranasal sinuses. Mastoid air cells are clear. IMPRESSION: No acute intracranial hemorrhage or mass effect. Incomplete evaluation for small metastatic intracranial lesions. Recommend MRI with and without contrast for further evaluation. ATED BY: ANTHONY CARMEN MD DICTATED DATE/TIME: 10/04/25 1028 SIGNED BY: ANTHONY CARMEN MD SIGNED DATE/TIME: 10/04/25 1028 Condition at Discharge: Fair Final Diagnosis/Problems List # Intractable Rectal pain, stage IV colorectal carcinoma #Cachexia due to above #Bilateral pulmonary metastatic disease #Lymphadenopathy due to Metastasis # Possible BETTE due to [facility] #Constipation due to obstructive rectal mass # anemia of chronic disease #History of hypertension # Anxiety # conbative behavior # noncomplience #Polysubstance abuse ( nicotine, methamphetamine) Discharge Disposition: Home Discharge Instruct/Medications Diet: Regular Activity: No Restrictions, As Tolerated Follow Up/Referral: Follow up with PCP Medications: as per EMR No Active Prescriptions or Reported Meds Discharge Statement: "Patient was advised to return to the ER or call 911 if any headaches, dizziness, shortness of breath, chest pain, abdominal pain, bleeding, fevers, or worsening of medical condition. Patient was counseled about treatment plan, medications, possible side effects, patientverbalized understanding. All questions were answered to the best of my ability. This discharge took greater then 30 minutes in planning, reviewing documentation, counseling the patient, and discussing with other team members." ASSESSMENT ASSESSMENT Assessment RECTAL MASS. Date of Service: Oct 09, 2025 Billing Provider: RAPHAEL KATZ MD Common Visit Codes: 65791-NYJ/OBS DISCH DAY >30min MARIKA THAKKAR RESIDENT Oct 09, 2025 16:43 RAPHAEL KATZ MD Oct 10, 2025 01:56
== END 2025-10-09 17:14 | disposition home or self-care (01) | DRG 374 ==
LOC: EDBD 22:01 → ER 22:01 → OVERFLOW 10-01 08:37 → WEST WING 10-02 12:12 → CENTRAL 10-02 17:33
PROVIDERS: ADMIT Internal Medicine; ATTEND Internal Medicine
DX: C19 Malignant neoplasm of rectosigmoid junction (principal); N17.0 Acute kidney failure with tubular necrosis; R64 Cachexia; C78.01 Secondary malignant neoplasm of right lung; C78.02 Secondary malignant neoplasm of left lung; D63.8 Anemia in other chronic diseases classified elsewhere; I12.9 Hypertensive chronic kidney disease with stage 1 through stage 4 chronic kidney disease, or unspecified chronic kidney disease; F19.10 Other psychoactive substance abuse, uncomplicated; Z59.00 Homelessness unspecified; Z68.1 Body mass index [BMI] 19.9 or less, adult; D75.839 Thrombocytosis, unspecified; N18.2 Chronic kidney disease, stage 2 (mild); F17.210 Nicotine dependence, cigarettes, uncomplicated; K59.00 Constipation, unspecified
CPT/HCPCS: 36415; 70450; 74176; 80048; 80053; 80307; 81001; 83605; 85025; 86850; 86900; 86901; 87040; G0378; J0692; J1756